=== PATIENT | female | born 1950 | race Caucasian/White ===

== ENCOUNTER 2018-10-23 17:41 | Inpatient (IN) | payer MEDICARE ==
[2018-10-23] MEDS ORDERED: methylPREDNISolone SOD SUCCI 125 MG/2 ML VIAL IV STA (17:51)
[2018-10-23] MEDS ORDERED: IPRATROPIUM 0.5 MG/2.5 ML NEBU INHALATION STA (17:51)
[2018-10-23] MEDS ORDERED: SODIUM CHLORIDE 0.9% 1,000 ML IV STA (17:51)
[2018-10-23] MEDS ORDERED: ALBUTEROL NEBULIZED 2.5 MG/3 ML INHALATION STA (17:51)
--- NOTE | 2018-10-23 17:53 | ED ---
SOB HPI - General Chief Complaint: Shortness of Breath Stated Complaint: COPD, SANTHOSH Time Seen by Provider: 10/23/18 17:50 Source: patient, RN notes reviewed, old records reviewed Mode of arrival: ambulatory Limitations: no limitations - History of Present Illness Initial Comments: This is a 5-year-old female the ER for evasive significant shortness of breath no history of smoking COPD, no doctor's in the area she is in the area symptoms worsen 3 days worsening. No chest pain. Patient is in severe distress, unable to take a deep breath, history is limited by severe shortness of breath MD Complaint: shortness of breath, cough -: days(s) Radiation: other (No pain) Severity: severe Severity scale (1-10): 8 Consistency: constant Improves With: nothing Worsens With: exertion, movement Known History Of: COPD Context: recent URI Associated Symptoms: cough Treatments Prior to Arrival: none - Related Data Home Medications Medication Instructions Recorded Confirmed Albuterol Inhaler [Ventolin Hfa 1 - 2 puff INHALATION RT-Q6H PRN 10/23/18 10/23/18 Inhaler] Anastrozole [Arimidex] 1 mg PO DAILY 10/23/18 10/23/18 Atorvastatin [Lipitor] 40 mg PO DAILY 10/23/18 10/23/18 Cholecalciferol [Vitamin D3] 5,000 unit PO DAILY 10/23/18 10/23/18 Furosemide [Lasix] 20 mg PO BID 10/23/18 10/23/18 Levothyroxine Sodium [Synthroid] 25 mcg PO DAILY 10/23/18 10/23/18 Losartan [Cozaar] 50 mg PO BID 10/23/18 10/23/18 Metoprolol Succinate (ER) [Toprol 100 mg PO BID 10/23/18 10/23/18 Xl] Potassium Chloride ER [K-Dur 20] 20 meq PO DAILY 10/23/18 10/23/18 Pregabalin [Lyrica] 100 mg PO BID 10/23/18 10/23/18 Rivaroxaban [Xarelto] 20 mg PO DAILY 10/23/18 10/23/18 Umeclidinium Brm/Vilanterol Tr 1 puff INHALATION RT-DAILY 10/23/18 10/23/18 [Anoro Ellipta 62.5-25 Mcg INH] busPIRone HCL 30 mg PO BID 10/23/18 10/23/18 metFORMIN HCL ER [Glucophage Xr] 500 mg PO BID 10/23/18 10/23/18 sitaGLIPtin [Januvia] 100 mg PO DAILY 10/23/18 10/23/18 Allergies Allergy/AdvReac Type Severity Reaction Status Date / Time Iodinated Contrast- Oral and Allergy Rash/Hives Verified 10/23/18 18:21 IV Dye morphine AdvReac Rash/Hives Verified 10/23/18 18:21 Review of Systems ROS Statement: Those systems with pertinent positive or pertinent negative responses have been documented in the HPI. ROS Other: All systems not noted in ROS Statement are negative. Past Medical History Past Medical History: Chest Pain / Angina, Heart Failure, COPD, Diabetes Mellitus, Hypertension Additional Past Medical History / Comment(s): Breast Ca. History of Any Multi-Drug Resistant Organisms: None Reported Past Surgical History: Unable to Obtain Past Psychological History: No Psychological Hx Reported Smoking Status: Current every day smoker Past Alcohol Use History: None Reported Past Drug Use History: None Reported General Exam Limitations: no limitations General appearance: alert, anxious, in distress Head exam: Present: atraumatic, normocephalic, normal inspection Eye exam: Present: normal appearance, PERRL, EOMI. Absent: scleral icterus, conjunctival injection, periorbital swelling ENT exam: Present: normal exam, mucous membranes moist Neck exam: Present: normal inspection. Absent: tenderness, meningismus, lymphadenopathy Respiratory exam: Present: respiratory distress, wheezes, accessory muscle use, decreased breath sounds, prolonged expiratory. Absent: rales, rhonchi, stridor Cardiovascular Exam: Present: regular rate, normal rhythm, normal heart sounds. Absent: systolic murmur, diastolic murmur, rubs, gallop, clicks GI/Abdominal exam: Present: soft, normal bowel sounds. Absent: distended, tenderness, guarding, rebound, rigid Extremities exam: Present: normal inspection, full ROM, normal capillary refill. Absent: tenderness, pedal edema, joint swelling, calf tenderness Back exam: Present: normal inspection Neurological exam: Present: alert, oriented X3, CN II-XII intact Psychiatric exam: Present: normal affect, normal mood Skin exam: Present: warm, dry, intact, normal color. Absent: rash Course Vital Signs 10/23/18 10/23/1810/23/19 17:45 17:51 18:07 Temperature 97.8 F Pulse Rate 96 96 Respiratory 32 H 22 Rate Blood Pressure 162/104 O2 Sat by Pulse 96 Oximetry 10/23/18 10/23/18 10/23/18 18:30 18:31 19:00 Temperature Pulse Rate 85 84 93 Respiratory 22 21 Rate Blood Pressure 169/93 170/92 O2 Sat by Pulse 100 98 Oximetry 10/23/18 10/23/18 19:25 19:30 Temperature Pulse Rate 93 97 Respiratory 26 H Rate Blood Pressure 185/98 O2 Sat by Pulse 95 Oximetry - Reevaluation(s) Reevaluation #1: 10/23/18 20:05 Medical record is reviewed Reevaluation #2: 10/23/18 20:05 Symptoms mildly improved with breathing treatments still for Medical Decision Making - Medical Decision Making 68-year-old female the ER for evaluation significant COPD exacerbation will admit for continued breathing treatments and monitoring of pulmonary status - Lab Data Result diagrams: 10/23/18 18:12 10/23/18 18:12 Lab Results 10/23/18 10/23/18 10/23/18 Range/Units 18:12 18:12 18:12 WBC 9.0 (3.8-10.6) k/uL RBC 4.84 (3.80-5.40) m/uL Hgb 13.8 (11.4-16.0) gm/dL Hct 43.6 (34.0-46.0) % MCV 90.0 (80.0-100.0) fL MCH 28.6 (25.0-35.0) pg MCHC 31.8 (31.0-37.0) g/dL RDW 14.2 (11.5-15.5) % Plt Count 233 (150-450) k/uL Neutrophils % 64 % Lymphocytes % 20 % Monocytes % 9 % Eosinophils % 4 % Basophils % 1 % Neutrophils # 5.7 (1.3-7.7) k/uL Lymphocytes # 1.8 (1.0-4.8) k/uL Monocytes # 0.8 (0-1.0) k/uL Eosinophils # 0.4 (0-0.7) k/uL Basophils # 0.1 (0-0.2) k/uL PT (9.0-12.0) sec INR (<1.2) APTT (22.0-30.0) sec Sodium 141 (137-145) mmol/L Potassium 4.2 (3.5-5.1) mmol/L Chloride 103 (98-107) mmol/L Carbon Dioxide 29 (22-30) mmol/L Anion Gap 9 mmol/L BUN 20 H (7-17) mg/dL Creatinine 1.24 H (0.52-1.04) mg/dL Est GFR (CKD-EPI)AfAm 51 (>60 ml/min/1.73 sqM) Est GFR (CKD-EPI)NonAf 44 (>60 ml/min/1.73 sqM) Glucose 173 H (74-99) mg/dL Calcium 9.6 (8.4-10.2) mg/dL Magnesium 1.6 (1.6-2.3) mg/dL Total Bilirubin 0.5 (0.2-1.3) mg/dL AST 21 (14-36) U/L ALT 20 (9-52) U/L Alkaline Phosphatase 111 (38-126) U/L Troponin I (0.000-0.034) ng/mL NT-Pro-B Natriuret Pep 2950 pg/mL Total Protein 7.5 (6.3-8.2) g/dL Albumin 3.9 (3.5-5.0) g/dL 10/23/18 10/23/18 Range/Units 18:12 18:12 WBC (3.8-10.6) k/uL RBC (3.80-5.40) m/uL Hgb (11.4-16.0) gm/dL Hct (34.0-46.0) % MCV (80.0-100.0) fL MCH (25.0-35.0) pg MCHC (31.0-37.0) g/dL RDW (11.5-15.5) % Plt Count (150-450) k/uL Neutrophils % % Lymphocytes % % Monocytes % % Eosinophils % % Basophils % % Neutrophils # (1.3-7.7) k/uL Lymphocytes # (1.0-4.8) k/uL Monocytes # (0-1.0) k/uL Eosinophils # (0-0.7) k/uL Basophils # (0-0.2) k/uL PT 10.7 (9.0-12.0) sec INR 1.0 (<1.2) APTT 30.0 (22.0-30.0) sec Sodium (137-145) mmol/L Potassium (3.5-5.1) mmol/L Chloride (98-107) mmol/L Carbon Dioxide (22-30) mmol/L Anion Gap mmol/L BUN (7-17) mg/dL Creatinine (0.52-1.04) mg/dL Est GFR (CKD-EPI)AfAm (>60 ml/min/1.73 sqM) Est GFR (CKD-EPI)NonAf (>60 ml/min/1.73 sqM) Glucose (74-99) mg/dL Calcium (8.4-10.2) mg/dL Magnesium (1.6-2.3) mg/dL Total Bilirubin (0.2-1.3) mg/dL AST (14-36) U/L ALT (9-52) U/L Alkaline Phosphatase (38-126) U/L Troponin I <0.012 (0.000-0.034) ng/mL NT-Pro-B Natriuret Pep pg/mL Total Protein (6.3-8.2) g/dL Albumin (3.5-5.0) g/dL - EKG Data -: EKG Interpreted by Me (EKG shows normal sinus rhythm rate of 86, CA 1:30, QRS 86, QTc 461) - Radiology Data Radiology results: report reviewed (Chest x-ray shows likely COPD), image reviewed Disposition Clinical Impression: Acute exacerbation of chronic obstructive airways disease Disposition: ADMITTED IP TO THIS HOSP Condition: Fair Is patient prescribed a controlled substance at d/c from ED?: No Referrals: Júnior Arzola DO [Primary Care Provider] - 1-2 days
[2018-10-23 18:24] LABS: Basophils # (A) 0.1 k/uL (0-0.2); Basophils % (A) 1 %; Eosinophils # (A) 0.4 k/uL (0-0.7); Eosinophils % (A) 4 %; HCT 43.6 % (34.0-46.0); HGB 13.8 gm/dL (11.4-16.0); Lymphocytes # (A) 1.8 k/uL (1.0-4.8); Lymphocytes % (A) 20 %; MCH 28.6 pg (25.0-35.0); MCHC 31.8 g/dL (31.0-37.0); Mean Platelet Volume 8.4; Monocytes # (A) 0.8 k/uL (0-1.0); Monocytes % (A) 9 %; Neutrophils # (A) 5.7 k/uL (1.3-7.7); Neutrophils % (A) 64 %; Platelet Count 233 k/uL (150-450); RBC 4.84 m/uL (3.80-5.40); RDW 14.2 % (11.5-15.5)
[2018-10-23 18:33] LABS: Prothrombin Time 10.7 sec (9.0-12.0)
[2018-10-23 18:37] LABS: Albumin 3.9 g/dL (3.5-5.0); Calcium 9.6 mg/dL (8.4-10.2); Magnesium 1.6 mg/dL (1.6-2.3); Potassium 4.2 mmol/L (3.5-5.1); Total Bilirubin 0.5 mg/dL (0.2-1.3); Total Protein 7.5 g/dL (6.3-8.2)
--- NOTE | 2018-10-23 19:13 | XR ---
EXAMINATION TYPE: XR chest 1V portable DATE OF EXAM: 10/23/2018 COMPARISON: NONE HISTORY: Short of breath TECHNIQUE: Single frontal view of the chest is obtained. FINDINGS: There is no heart failure nor confluent pneumonic infiltrate. Costophrenic angles are darcie r. There are chest leads. IMPRESSION: No active cardiopulmonary disease. This probably some COPD.
[2018-10-23] MEDS ORDERED: hydrALAZINE HCL 20 MG/ML 1 ML VIAL IVP STA ×2 (19:55→19:56)
[2018-10-23] MEDS ORDERED: IPRATROPIUM-ALBUTEROL 3 ML NEB INHALATION STA (20:02)
[2018-10-23] MEDS ORDERED: ALBUTEROL NEBULIZED 2.5 MG/3 ML INHALATION PRN (20:02)
[2018-10-23 21:28] VITALS: BMI 29.2
[2018-10-23] MEDS ORDERED: ATORVASTATIN 40 MG TAB PO ONE (22:30)
[2018-10-23] MEDS ORDERED: busPIRone HCl 10 MG TAB PO ONE (22:30)
[2018-10-23] MEDS: methylPREDNISolone SOD SUCCI 125 MG/2 ML VIAL IV SCH (23:06)
[2018-10-23] MEDS: INSULIN ASPART (NovoLOG) 100 UNIT/ML VIAL SQ SCH (23:06)
[2018-10-24] MEDS: LEVOTHYROXINE 25 MCG TAB PO SCH (05:53)
[2018-10-24] MEDS: methylPREDNISolone SOD SUCCI 125 MG/2 ML VIAL IV SCH ×3 (05:53→18:25)
[2018-10-24 07:11] LABS: Glucose,Whole Blood 265 mg/dL (75-99)
[2018-10-24] MEDS: METOPROLOL SUCCINATE (ER) 100 MG TAB.ER.24H PO SCH ×2 (07:33→22:32)
[2018-10-24] MEDS: POTASSIUM CHLORIDE ER 20 MEQ TAB.ER PO SCH (07:33)
[2018-10-24] MEDS: LOSARTAN 50 MG TAB PO SCH ×2 (07:33→22:32)
[2018-10-24] MEDS: AZITHROMYCIN 500 MG TAB PO SCH (07:34)
[2018-10-24] MEDS: PREGABALIN 100 MG CAP PO SCH ×2 (07:34→22:32)
[2018-10-24] MEDS: ANASTROZOLE 1 MG TAB PO SCH (07:34)
[2018-10-24] MEDS: RIVAROXABAN 20 MG TAB PO SCH (07:34)
[2018-10-24] MEDS: SODIUM CHLORIDE 0.9% 1,000 ML IV SCH ×3 (07:35→17:40)
[2018-10-24] MEDS: INSULIN ASPART (NovoLOG) 100 UNIT/ML VIAL SQ SCH ×4 (07:35→21:47)
[2018-10-24] MEDS: FUROSEMIDE 10 MG/ML 2 ML VIAL IV SCH ×2 (07:35→21:45)
[2018-10-24] MEDS: NICOTINE 21MG/24HR PATCH TRANSDERM SCH (07:36)
[2018-10-24] MEDS: IPRATROPIUM-ALBUTEROL 3 ML NEB INHALATION SCH ×4 (08:26→19:28)
[2018-10-24 11:35] LABS: Glucose,Whole Blood 306 mg/dL (75-99)
[2018-10-24] MEDS: CHOLECALCIFEROL 1,000 UNIT TAB PO SCH (11:55)
[2018-10-24] MEDS ORDERED: ALPRAZolam 0.25 MG TAB PO PRN (13:32)
[2018-10-24] MEDS ORDERED: TEMAZEPAM 15 MG CAP PO PRN (16:33)
[2018-10-24] MEDS ORDERED: ACETAMINOPHEN TAB 500 MG TAB PO PRN (16:33)
[2018-10-24 17:24] LABS: Glucose,Whole Blood 305 mg/dL (75-99)
--- NOTE | 2018-10-24 18:23 | HP ---
HISTORY AND PHYSICAL DATE OF SERVICE: 10/24/2018 CHIEF COMPLAINT: Shortness of breath. HISTORY OF PRESENT ILLNESS: This 68-year-old woman with a past medical history of multiple medical problems, including history of chest pain, history of CHF, COPD, diabetes mellitus, hypertension, breast cancer on the left side, being followed by Dr. Arzola in the outpatient setting, was complaining of shortness of breath. The patient has a history of smoking. The patient also has significant anxiety. The shortness of breath was increasing over the past 4 days. The patient came to [facility] and was admitted for further evaluation and treatment. Influenza is negative. Chest x-ray, which was reviewed personally by me, showed no evidence of pneumonia. PAST MEDICAL HISTORY: 1. CHF. 2. COPD. 3. Diabetes mellitus. 4. Hypertension. 5. Breast cancer, left side. HOME MEDICATIONS: 1. Januvia 100 mg p.o. daily. 2. Glucophage XR 500 mg p.o. b.i.d. 3. Buspirone 30 mg b.i.d. 4. Anoro Ellipta 1 puff daily. 5. Xarelto 20 mg daily. 6. Lyrica 100 mg p.o. b.i.d. 7. K-Dur 20 mEq p.o. daily. 8. Toprol XL 100 mg p.o. b.i.d. 9. Cozaar 50 mg p.o. b.i.d. 10.Synthroid 25 mcg p.o. daily. 11.Lasix 20 mg p.o. b.i.d. 12.Vitamin D3 5000 daily. 13.Lipitor 40 mg p.o. daily. 14.Arimidex 1 mg p.o. daily. 15.Ventolin HFA 1-2 puffs q.6 p.r.n. ALLERGIES: 1. IODINATED CONTRAST DYE. 2. MORPHINE. FAMILY HISTORY: History of COPD in the family. SOCIAL HISTORY: History of smoking, continued ongoing. No history of alcohol intake. REVIEW OF SYSTEMS: ENT: Diminished hearing. Diminished vision. CARDIOVASCULAR SYSTEM: No angina, palpitations. RESPIRATORY SYSTEM: As mentioned earlier. GI: No nausea, vomiting. : No dysuria or retention. NERVOUS SYSTEM: No numbness, weakness. ALLERGY/IMMUNOLOGY: No asthma, hayfever. MUSCULOSKELETAL: As mentioned earlier. HEMATOLOGY/ONCOLOGY: No history of anemia. ENDOCRINE: Diabetes mellitus. CONSTITUTIONAL: As mentioned earlier. DERMATOLOGY: Negative. RHEUMATOLOGY: Negative. PSYCHIATRY: As mentioned earlier. PHYSICAL EXAMINATION: Patient is alert, oriented x3. Pulse 85, blood pressure 160/60, respirations 16, temperature 98.5, pulse ox 96% on 3 L. HEENT: Conjunctivae normal. Oral mucosa moist. NECK: No jugular venous distention. No carotid bruit. No lymph node enlargement. CARDIOVASCULAR SYSTEM: S1, S2 muffled. RESPIRATORY SYSTEM: Breath sounds diminished at the bases. Bilateral scattered rhonchi and crackles. Expiratory wheezing also present. Prolonged expiration present. ABDOMEN: Soft, non-tender. No mass palpable. LEGS: No edema. No swelling. NERVOUS SYSTEM: Higher functions as mentioned earlier. Moves all 4 limbs. No focal motor or sensory deficit. LYMPHATICS: No lymph node palpable in neck, axillae or groin. SKIN: No ulcer, rash, bleeding. JOINTS: No active abnormality. LABS: CBC within normal limits. Creatinine is 1.24. Glucose noted. Influenza negative. ASSESSMENT: 1. Chronic obstructive pulmonary disease, acute exacerbation, with acute purulent tracheobronchitis. 2. Increased creatinine with mild acute renal failure, possibly prerenal. 3. Diabetes mellitus, type 2. 4. History of congestive heart failure. 5. History of chronic obstructive pulmonary disease. 6. Hypertension. 7. History of breast cancer. 8. History of nicotine dependence, continued, ongoing. 9. FULL CODE. RECOMMENDATIONS AND DISCUSSION: In this 68-year-old woman who presented with multiple complex medical issues, we will monitor the patient closely, continue the current medications, continue with symptomatic treatment. Bronchodilators. IV steroids. Pulmonary consultation with Milena Cordova. Otherwise, broad-spectrum IV antibiotics. Prognosis is guarded because of multiple complex medical issues. Further recommendations to follow. A copy of this dictation is being forwarded to Dr. Arzola, who is the primary physician. MMODL / IJN: [id number] /
[2018-10-24] MEDS: FORMOTEROL FUMARATE 20 MCG/2 ML NEBU INHALATION SCH (19:28)
[2018-10-24] MEDS: BUDESONIDE 1 MG/2 ML NEBU INHALATION SCH (19:29)
[2018-10-24 20:07] LABS: Glucose,Whole Blood 361 mg/dL (75-99)
[2018-10-24] MEDS ORDERED: INSULIN ASPART (NovoLOG) 100 UNIT/ML VIAL SQ ONE (21:07)
[2018-10-24] MEDS: INSULIN DETEMIR (LEVEMIR) 100 UNIT/ML SYR SQ SCH (21:46)
[2018-10-24] MEDS ORDERED: INSULIN ASPART (NovoLOG) 100 UNIT/ML VIAL SQ SCH (22:21)
[2018-10-24] MEDS: busPIRone HCl 10 MG TAB PO SCH (22:30)
[2018-10-24] MEDS: ATORVASTATIN 40 MG TAB PO SCH (22:32)
[2018-10-25] MEDS: methylPREDNISolone SOD SUCCI 125 MG/2 ML VIAL IV SCH ×4 (00:29→18:16)
[2018-10-25] MEDS: LEVOTHYROXINE 25 MCG TAB PO SCH (06:27)
[2018-10-25 06:48] LABS: Glucose,Whole Blood 179 mg/dL (75-99)
[2018-10-25] MEDS: FORMOTEROL FUMARATE 20 MCG/2 ML NEBU INHALATION SCH ×2 (07:27→20:20)
[2018-10-25] MEDS: IPRATROPIUM-ALBUTEROL 3 ML NEB INHALATION SCH ×4 (07:27→20:20)
[2018-10-25] MEDS: BUDESONIDE 1 MG/2 ML NEBU INHALATION SCH ×2 (07:27→20:20)
[2018-10-25] MEDS: SODIUM CHLORIDE 0.9% 1,000 ML IV SCH (08:12)
[2018-10-25] MEDS: NICOTINE 21MG/24HR PATCH TRANSDERM SCH (08:12)
[2018-10-25] MEDS: CHOLECALCIFEROL 1,000 UNIT TAB PO SCH (08:13)
[2018-10-25] MEDS: POTASSIUM CHLORIDE ER 20 MEQ TAB.ER PO SCH (08:13)
[2018-10-25] MEDS: INSULIN ASPART (NovoLOG) 100 UNIT/ML VIAL SQ SCH ×4 (08:13→20:33)
[2018-10-25] MEDS: AZITHROMYCIN 500 MG TAB PO SCH (08:13)
[2018-10-25] MEDS: PANTOPRAZOLE 40 MG TABLET PO SCH (08:14)
[2018-10-25] MEDS: busPIRone HCl 10 MG TAB PO SCH ×2 (08:14→22:22)
[2018-10-25] MEDS: RIVAROXABAN 20 MG TAB PO SCH (08:14)
[2018-10-25] MEDS: ATORVASTATIN 40 MG TAB PO SCH (08:14)
[2018-10-25] MEDS: PREGABALIN 100 MG CAP PO SCH ×2 (08:14→22:22)
[2018-10-25] MEDS: METOPROLOL SUCCINATE (ER) 100 MG TAB.ER.24H PO SCH ×2 (08:14→22:22)
[2018-10-25] MEDS: ANASTROZOLE 1 MG TAB PO SCH (08:14)
[2018-10-25] MEDS: LOSARTAN 50 MG TAB PO SCH ×2 (08:14→22:22)
[2018-10-25] MEDS: LINAGLIPTIN 5 MG TABLET PO SCH (08:14)
[2018-10-25] MEDS: FUROSEMIDE 10 MG/ML 2 ML VIAL IV SCH ×2 (08:15→22:22)
[2018-10-25 09:39] LABS: Basophils % (A) 0 %; Eosinophils % (A) 0 %; HCT 39.7 % (34.0-46.0); HGB 12.5 gm/dL (11.4-16.0); Lymphocytes # (A) 0.9 k/uL (1.0-4.8); Lymphocytes % (A) 7 %; MCH 28.7 pg (25.0-35.0); MCHC 31.5 g/dL (31.0-37.0); Mean Platelet Volume 8.3; Monocytes # (A) 0.4 k/uL (0-1.0); Monocytes % (A) 3 %; Neutrophils # (A) 11.8 k/uL (1.3-7.7); Neutrophils % (A) 90 %; Platelet Count 196 k/uL (150-450); RBC 4.36 m/uL (3.80-5.40); RDW 14.4 % (11.5-15.5); WBC 13.1 k/uL (3.8-10.6)
[2018-10-25 09:50] LABS: Calcium 8.7 mg/dL (8.4-10.2); Potassium 4.4 mmol/L (3.5-5.1)
[2018-10-25 12:14] LABS: Glucose,Whole Blood 359 mg/dL (75-99)
--- NOTE | 2018-10-25 13:27 | P.CNPUL ---
History of Present Illness Consult date: 10/25/18 Requesting physician: Faisal Delacruz Reason for consult: dyspnea, COPD Chief complaint: Shortness of breath, cough, congestion History of present illness: This is a pleasant 68-year-old female patient who follows with Dr. Arzola as her primary care physician. She has a history of breast cancer, hypothyroidism, diabetes mellitus, hypertension, hyperlipidemia, chronic obstructive pulmonary disease and chronic and ongoing tobacco dependence. She is maintained on Anoro and albuterol in the outpatient setting. She has not been seen by a brick tender in the past. She presented here to the emergency room on 10/23/2018 after to having a three-day history of increasing shortness of breath and dyspnea on exertion cough and congestion. She is seen today in consultation on the regular medical floor. She is currently sitting up in a chair at the bedside. She is awake and alert in no acute distress. She is doing quite a bit better than 2 days ago. She is nearly back to her baseline. She is hoping to go home. She has been treated with DuoNeb inhalations, Pulmicort and Perforomist inhalations, IV Solu-Medrol. Chest x-ray revealed no acute pulmonary process. White count 13.1. Hemoglobin 12.5. Creatinine 1.11. Review of Systems REVIEW OF SYSTEMS: CONSTITUTIONAL: Denies any recent significant weight loss or weight gain. EYES: Denies change in vision. EARS, NOSE, MOUTH, THROAT: Denies headaches, denies sore throat. CARDIOVASCULAR: Denies chest pain, palpitations or syncopal episodes. RESPIRATORY: Positive for shortness of breath, cough, congestion no hemoptysis. GASTROINTESTINAL: Denies change in appetite, denies abdominal pain GENITOURINARY: Denies hematuria, denies infections. MUSKULOSKELETAL: Denies pain, denies swelling. INTEGUMENTARY: Denies rash, denies eczema. NEUROLOGICAL: Denies recent memory loss, no recent seizure activity. PSYCHIATRIC: Denies anxiety, denies depression. HEMATOLOGIC/LYMPHATIC: Denies anemia, denies enlarged lymph nodes. Past Medical History Past Medical History: Chest Pain / Angina, Heart Failure, COPD, Diabetes Mellitus, Hypertension Additional Past Medical History / Comment(s): Breast Ca. Left side History of Any Multi-Drug Resistant Organisms: None Reported Past Surgical History: Unable to Obtain Past Anesthesia/Blood Transfusion Reactions: No Reported Reaction Past Psychological History: No Psychological Hx Reported Smoking Status: Current every day smoker Past Alcohol Use History: None Reported Past Drug Use History: None Reported - Past Family History Mother Family Medical History: COPD Father Family Medical History: Liver Disease Medications and Allergies Home Medications Medication Instructions Recorded Confirmed Type Albuterol Inhaler [Ventolin Hfa 1 - 2 puff INHALATION RT-Q6H PRN 10/23/18 10/23/18 History Inhaler] Anastrozole [Arimidex] 1 mg PO DAILY 10/23/18 10/23/18 History Atorvastatin [Lipitor] 40 mg PO DAILY 10/23/18 10/23/18 History Cholecalciferol [Vitamin D3] 5,000 unit PO DAILY 10/23/18 10/23/18 History Furosemide [Lasix] 20 mg PO BID 10/23/18 10/23/18 History Levothyroxine Sodium [Synthroid] 25 mcg PO DAILY 10/23/18 10/23/18 History Losartan [Cozaar] 50 mg PO BID 10/23/18 10/23/18 History Metoprolol Succinate (ER) [Toprol 100 mg PO BID 10/23/18 10/23/18 History Xl] Potassium Chloride ER [K-Dur 20] 20 meq PO DAILY 10/23/18 10/23/18 History Pregabalin [Lyrica] 100 mg PO BID 10/23/18 10/23/18 History Rivaroxaban [Xarelto] 20 mg PO DAILY 10/23/18 10/23/18 History Umeclidinium Brm/Vilanterol Tr 1 puff INHALATION RT-DAILY 10/23/18 10/23/18 History [Anoro Ellipta 62.5-25 Mcg INH] busPIRone HCL 30 mg PO BID 10/23/18 10/23/18 History metFORMIN HCL ER [Glucophage Xr] 500 mg PO BID 10/23/18 10/23/18 History sitaGLIPtin [Januvia] 100 mg PO DAILY 10/23/18 10/23/18 History Allergies Allergy/AdvReac Type Severity Reaction Status Date / Time Iodinated Contrast- Oral and Allergy Rash/Hives Verified 10/23/18 18:21 IV Dye morphine AdvReac Rash/Hives Verified 10/23/18 18:21 Physical Exam Vitals: Vital Signs Temp Pulse Pulse Resp BP Pulse Ox 10/25/18 11:35 74 10/25/18 11:24 74 10/25/18 08:10 98.5 F 88 16 133/71 94 L 10/25/18 07:47 74 18 10/25/18 07:40 78 18 10/25/18 07:39 77 16 10/25/18 07:28 73 18 98 10/25/18 00:10 18 10/24/18 23:49 98.2 F 74 18 137/75 95 10/24/18 20:30 85 18 10/24/18 19:50 82 10/24/18 19:41 88 20 10/24/18 19:35 82 10/24/18 19:30 82 20 98 10/24/18 16:13 80 10/24/18 16:01 78 97 10/24/18 14:47 98.5 F 85 16 160/67 96 Intake and Output 10/24/18 10/25/18 10/25/18 22:59 06:59 14:59 Other: Voiding Method Toilet # Voids 1 GENERAL EXAM: Pleasant 68-year-old female patient. Alert, active, comfortable in no apparent distress. On 2 L nasal cannula. HEAD: Normocephalic. EYES: Normal reaction of pupils, equal size. NOSE: Clear with pink turbinates. THROAT: No erythema or exudates. NECK: No masses, no JVD. CHEST: No chest wall deformity. LUNGS: Equal air entry with no crackles, wheeze, rhonchi or dullness. CVS: S1 and S2 normal with no audible murmur, regular rhythm. ABDOMEN: No hepatosplenomegaly, normal bowel sounds, no guarding or rigidity. SPINE: No scoliosis or deformity SKIN: No rashes CENTRAL NERVOUS SYSTEM: No focal deficits, tone is normal in all 4 extremities. EXTREMITIES: There is no peripheral edema. No clubbing, no cyanosis. Peripheral pulses are intact. On room air. Results - Laboratory Findings CBC and BMP: 10/25/18 09:01 10/25/18 09:01 PT/INR, D-dimer PT 10.7 sec (9.0-12.0) 10/23/18 18:12 INR 1.0 (<1.2) 10/23/18 18:12 Abnormal lab findings: Abnormal Labs 0310/24/18 10/24/18 18:12 07:04 11:22 WBC Neutrophils # Lymphocytes # BUN 20 H Creatinine 1.24 H Glucose 173 H POC Glucose (mg/dL) 265 H 306 H 10/24/18 10/24/18 10/25/18 17:12 19:55 06:46 WBC Neutrophils # Lymphocytes # BUN Creatinine Glucose POC Glucose (mg/dL) 305 H 361 H 179 H 10/25/18 10/25/18 10/25/18 09:01 09:01 12:02 WBC 13.1 H Neutrophils # 11.8 H Lymphocytes # 0.9 L BUN 27 H Creatinine 1.11 H Glucose 317 H POC Glucose (mg/dL) 359 H - Diagnostic Findings Chest x-ray: image reviewed (No acute pulmonary process) Assessment and Plan Assessment: Impression: #1 Acute exacerbation of chronic oxygen dependent obstructive pulmonary disease. No clear evidence of pneumonia. #2 Acute on chronic hypoxemic respiratory failure secondary to above. #3 Chronic and ongoing tobacco dependence of greater than 50 years. #4 Diabetes mellitus. #5 Hypertension. #6 Hyperlipidemia. #7 Hypothyroidism. #8 History of anxiety. #9 History of breast cancer. Plan: The patient was seen and evaluated by Dr. Abbott. Chest x-ray and labs were reviewed. No clear evidence of pneumonia. We'll continue with her current treatment plan for COPD. She could be to transition to oral prednisone and discharged home today. Prednisone 40 mg daily 4 and tapered down. She'll continue her home pulmonary medications. She is educated regarding the importance of complete smoking cessation. NicoDerm patches in place. Anticoagulated with Xarelto. She would benefit from a follow-up in our office where he could perform full pulmonary function testing to evaluate the severity of her COPD and make further recommendations regarding maintenance medications. She is however encouraged to call sooner with any recurrence of symptoms or other questions or concerns. I, the cosigning physician, performed a history & physical examination of the patient. Lungs sounds with faint end expiratory wheeze, diminished. Maintaining good O2 saturations in the 90s on 2 L/m per nasal cannula. I discussed the assessment and plan of care with my nurse practitioner, Serena Cortes. I attest to the above note as dictated by her. Time with Patient: Greater than 30
[2018-10-25] MEDS ORDERED: INSULIN REGULAR 100 UNIT/ML VIAL IV ONE (17:22)
[2018-10-25 17:28] LABS: Glucose,Whole Blood 392 mg/dL (75-99)
[2018-10-25 18:47] LABS: Glucose,Whole Blood 374 mg/dL (75-99)
[2018-10-25] MEDS: INSULIN REGULAR 100 UNIT in SODIUM CHLORIDE 0.9% 100 ML IV SCH (19:53)
[2018-10-25 20:43] LABS: Glucose,Whole Blood 377 mg/dL (75-99)
[2018-10-25 21:40] LABS: Glucose,Whole Blood 300 mg/dL (75-99)
[2018-10-25] MEDS: INSULIN DETEMIR (LEVEMIR) 100 UNIT/ML SYR SQ SCH (22:22)
[2018-10-25 22:25] LABS: Glucose,Whole Blood 222 mg/dL (75-99)
--- NOTE | 2018-10-25 22:45 | PN ---
PROGRESS NOTE DATE OF SERVICE: 10/25/2018 This 68-year-old woman who was admitted with COPD acute exacerbation, acute purulent tracheobronchitis is being closely monitored. The patient also had renal failure. The creatinine improved to 1.1 and glucose was elevated. No chest pain. No palpitations. No fever. PHYSICAL EXAM: Alert and oriented times three. Pulse is 84. Blood pressure 150/66. Respiratory rate 12, Temperature 98.2, pulse ox 98% on room air. HEENT: Conjunctivae normal. CARDIOVASCULAR: S1, S2 muffled. RESPIRATORY: Breath sounds diminished in the bases. Bilateral scattered rhonchi and crackles. ABDOMEN: Soft, nontender. No mass palpable. LEGS: No edema. No swelling. Nervous system: Higher functions as mentioned earlier. Moves all 4 limbs. No focal deficits. LAB STUDIES: At this time shows labs are at this time shows WBC 13.1, creatinine 1.11, glucose noted. ASSESSMENT: 1. Chronic obstructive pulmonary disease acute exacerbation with acute purulent tracheobronchitis. 2. Increased creatinine with mild acute renal failure with possibly prerenal. 3. Diabetes mellitus type 2 with hyperglycemia, uncontrolled secondary to steroids. 4. History of congestive heart failure. 5. History of chronic obstructive pulmonary disease. 6. Hypertension. 7. History of breast cancer. 8. History of nicotine dependence. Continued ongoing. 9. History of congestive heart failure, ejection fraction unknown. 10.FULL CODE. RECOMMENDATIONS AND DISCUSSION: Recommend to continue current medications, management and symptomatic treatment. Taper the steroids. Increase ambulation. Continue the antibiotics and continue the rest of the medications. Guarded prognosis because of multiple complex medical issues. Further recommendations to follow. MMODL / IJN: [id number] /
[2018-10-26 00:39] LABS: Glucose,Whole Blood 138 mg/dL (75-99)
[2018-10-26] MEDS: methylPREDNISolone SOD SUCCI 40 MG/ML 1 ML VIAL IV SCH ×2 (00:57→09:27)
[2018-10-26 02:29] LABS: Glucose,Whole Blood 148 mg/dL (75-99)
[2018-10-26 04:30] LABS: Glucose,Whole Blood 157 mg/dL (75-99)
[2018-10-26] MEDS: LEVOTHYROXINE 25 MCG TAB PO SCH (05:53)
[2018-10-26] MEDS: SODIUM CHLORIDE 0.9% 1,000 ML IV SCH (05:53)
[2018-10-26 06:43] LABS: Glucose,Whole Blood 158 mg/dL (75-99)
[2018-10-26] MEDS: BUDESONIDE 1 MG/2 ML NEBU INHALATION SCH ×2 (06:46→21:12)
[2018-10-26] MEDS: FORMOTEROL FUMARATE 20 MCG/2 ML NEBU INHALATION SCH ×2 (06:46→21:12)
[2018-10-26] MEDS: IPRATROPIUM-ALBUTEROL 3 ML NEB INHALATION SCH ×4 (06:46→21:08)
[2018-10-26 08:53] LABS: Glucose,Whole Blood 191 mg/dL (75-99)
[2018-10-26] MEDS: INSULIN ASPART (NovoLOG) 100 UNIT/ML VIAL SQ SCH ×4 (09:25→21:54)
[2018-10-26] MEDS: ANASTROZOLE 1 MG TAB PO SCH (09:26)
[2018-10-26] MEDS: NICOTINE 21MG/24HR PATCH TRANSDERM SCH (09:26)
[2018-10-26] MEDS: CHOLECALCIFEROL 1,000 UNIT TAB PO SCH (09:26)
[2018-10-26] MEDS: RIVAROXABAN 20 MG TAB PO SCH (09:27)
[2018-10-26] MEDS: busPIRone HCl 10 MG TAB PO SCH ×2 (09:27→21:54)
[2018-10-26] MEDS: AZITHROMYCIN 500 MG TAB PO SCH (09:27)
[2018-10-26] MEDS: PANTOPRAZOLE 40 MG TABLET PO SCH (09:27)
[2018-10-26] MEDS: PREGABALIN 100 MG CAP PO SCH ×2 (09:28→21:54)
[2018-10-26] MEDS: METOPROLOL SUCCINATE (ER) 100 MG TAB.ER.24H PO SCH ×2 (09:28→21:55)
[2018-10-26] MEDS: LOSARTAN 50 MG TAB PO SCH ×2 (09:28→21:55)
[2018-10-26] MEDS: POTASSIUM CHLORIDE ER 20 MEQ TAB.ER PO SCH (09:28)
[2018-10-26] MEDS: FUROSEMIDE 10 MG/ML 2 ML VIAL IV SCH ×2 (09:28→21:55)
[2018-10-26] MEDS: ATORVASTATIN 40 MG TAB PO SCH (09:28)
[2018-10-26] MEDS: LINAGLIPTIN 5 MG TABLET PO SCH (09:31)
[2018-10-26 09:46] LABS: Calcium 8.8 mg/dL (8.4-10.2); Potassium 4.4 mmol/L (3.5-5.1)
[2018-10-26 09:55] LABS: Basophils % (A) 0 %; Eosinophils # (A) 0.1 k/uL (0-0.7); Eosinophils % (A) 1 %; HCT 39.7 % (34.0-46.0); HGB 12.9 gm/dL (11.4-16.0); Lymphocytes # (A) 0.8 k/uL (1.0-4.8); Lymphocytes % (A) 6 %; MCH 29.2 pg (25.0-35.0); MCHC 32.4 g/dL (31.0-37.0); Mean Platelet Volume 9.3; Monocytes # (A) 0.4 k/uL (0-1.0); Monocytes % (A) 3 %; Neutrophils # (A) 12.7 k/uL (1.3-7.7); Neutrophils % (A) 91 %; Platelet Count 216 k/uL (150-450); RBC 4.41 m/uL (3.80-5.40); RDW 14.8 % (11.5-15.5)
[2018-10-26 11:30] LABS: Glucose,Whole Blood 215 mg/dL (75-99)
[2018-10-26] MEDS: INSULIN REGULAR 100 UNIT in SODIUM CHLORIDE 0.9% 100 ML IV SCH (12:33)
[2018-10-26 12:59] LABS: Glucose,Whole Blood 195 mg/dL (75-99)
--- NOTE | 2018-10-26 13:37 | P.PN ---
Subjective Progress Note Date: 10/26/18 Principal diagnosis: Acute exacerbation of chronic obstructive pulmonary disease. This is a pleasant 68-year-old female patient who follows with Dr. Arzola as her primary care physician. She has a history of breast cancer, hypothyroidism, diabetes mellitus, hypertension, hyperlipidemia, chronic obstructive pulmonary disease and chronic and ongoing tobacco dependence. She is maintained on Anoro and albuterol in the outpatient setting. She has not been seen by a pulmonol ogist in the past. She presented here to the emergency room on 10/23/2018 after to having a three-day history of increasing shortness of breath and dyspnea on exertion cough and congestion. She is seen today in consultation on the regular medical floor. She is currently sitting up in a chair at the bedside. She is awake and alert in no acute distress. She is doing quite a bit better than 2 da ys ago. She is nearly back to her baseline. She is hoping to go home. She has been treated with DuoNeb inhalations, Pulmicort and Perforomist inhalations, IV Solu-Medrol. Chest x-ray revealed no acute pulmonary process. White count 13.1. Hemoglobin 12.5. Creatinine 1.11. The patient is seen today 10/26/2018 in follow-up on the regular medical floor. She is awake and alert in no acute distress. She is breathing easier today as compared to yesterday. She is maintaining O2 saturations in the 90s on room air. She's been afebrile. Hemodynamically stable. White count 14. Hemoglobin 12.9. Creatinine 1.15. She remains on DuoNeb inhalations, Pulmicort and Perforomist inhalations, IV Solu-Medrol, antibiotics in the form of azithromycin. She is anticoagulated with Xarelto. Objective - Vital Signs Vital signs: Vital Signs Temp 98.0 F 10/26/18 07:26 Pulse 74 10/26/18 12:09 Resp 16 10/26/18 07:26 BP 173/89 10/26/18 07:26 Pulse Ox 94 L 10/26/18 07:26 Intake & Output 10/25/18 10/26/18 10/26/18 18:59 06:59 18:59 Intake Total 67.364 255.017 Balance 67.364 255.017 Weight 73.2 kg Intake: Intake, IV Titration 67.364 15.017 Amount Insulin Regular 100 unit 67.364 15.017 In Sodium Chloride 0.9% 100 ml @ Titrate IV .Q0M [facility] Rx#:[id number] Oral 240 Other: # Voids 2 2 1 - Exam GENERAL EXAM: Alert, active, comfortable in no apparent distress. HEAD: Normocephalic. EYES: Normal reaction of pupils, equal size. NOSE: Clear with pink turbinates. THROAT: No erythema or exudates. Edentulous NECK: No masses, no JVD. CHEST: No chest wall deformity. LUNGS: Equal air entry with faint bilateral end expiratory wheeze. CVS: S1 and S2 normal with no audible murmur, regular rhythm. ABDOMEN: No hepatosplenomegaly, normal bowel sounds, no guarding or rigidity. SPINE: No scoliosis or deformity SKIN: No rashes CENTRAL NERVOUS SYSTEM: No focal deficits, tone is normal in all 4 extremities. EXTREMITIES: There is no peripheral edema. No clubbing, no cyanosis. Peripheral pulses are intact. - Labs CBC & Chem 7: 10/26/18 08:23 10/26/18 08:23 Labs: Abnormal Lab Results - Last 24 Hours (Table) 10/25/18 10/25/18 10/25/18 Range/Units 17:17 18:44 20:32 WBC (3.8-10.6) k/uL Neutrophils # (1.3-7.7) k/uL Lymphocytes # (1.0-4.8) k/uL Chloride (98-107) mmol/L BUN (7-17) mg/dL Creatinine (0.52-1.04) mg/dL Glucose (74-99) mg/dL POC Glucose (mg/dL) 392 H 374 H 377 H (75-99) mg/dL 10/25/18 10/25/18 10/26/18 Range/Units 21:29 22:19 00:32 WBC (3.8-10.6) k/uL Neutrophils # (1.3-7.7) k/uL Lymphocytes # (1.0-4.8) k/uL Chloride (98-107) mmol/L BUN (7-17) mg/dL Creatinine (0.52-1.04) mg/dL Glucose (74-99) mg/dL POC Glucose (mg/dL) 300 H 222 H 138 H (75-99) mg/dL 10/26/18 10/26/18 10/26/18 Range/Units 02:27 04:28 06:42 WBC (3.8-10.6) k/uL Neutrophils # (1.3-7.7) k/uL Lymphocytes # (1.0-4.8) k/uL Chloride (98-107) mmol/L BUN (7-17) mg/dL Creatinine (0.52-1.04) mg/dL Glucose (74-99) mg/dL POC Glucose (mg/dL) 148 H 157 H 158 H (75-99) mg/dL 10/26/18 10/26/18 10/26/18 Range/Units 08:23 08:23 08:52 WBC 14.0 H (3.8-10.6) k/uL Neutrophils # 12.7 H (1.3-7.7) k/uL Lymphocytes # 0.8 L (1.0-4.8) k/uL Chloride 109 H (98-107) mmol/L BUN 39 H (7-17) mg/dL Creatinine 1.15 H (0.52-1.04) mg/dL Glucose 163 H (74-99) mg/dL POC Glucose (mg/dL) 191 H (75-99) mg/dL 10/26/18 10/26/18 Range/Units 11:28 12:58 WBC (3.8-10.6) k/uL Neutrophils # (1.3-7.7) k/uL Lymphocytes # (1.0-4.8) k/uL Chloride (98-107) mmol/L BUN (7-17) mg/dL Creatinine (0.52-1.04) mg/dL Glucose (74-99) mg/dL POC Glucose (mg/dL) 215 H 195 H (75-99) mg/dL Assessment and Plan Assessment: Impression: #1 Acute exacerbation of chronic oxygen dependent obstructive pulmonary disease. No clear evidence of pneumonia. #2 Acute on chronic hypoxemic respiratory failure secondary to above. #3 Chronic and ongoing tobacco dependence of greater than 50 years. #4 Diabetes mellitus. #5 Hypertension. #6 Hyperlipidemia. #7 Hypothyroidism. #8 History of anxiety. #9 History of breast cancer. Plan: The patient was seen and evaluated by Dr. Milena. We'll continue with her current treatment plan for COPD. Upon discharge she'll begin on an oral prednisone taper 40 mg daily 4 and tapered down. She'll continue her home pulmonary medications. She is again educated regarding the importance of complete smoking cessation. NicoDerm patch is in place. Anticoagulated with Xarelto. I, the cosigning physician, performed a history & physical examination of the patient. Lungs sounds with faint end expiratory wheeze, diminished. Maintaining good O2 saturations in the 90s on room air. I discussed the assessment and plan of care with my nurse practitioner, Serena Cortes. I attest to the above note as dictated by her.
[2018-10-26 17:00] LABS: Glucose,Whole Blood 191 mg/dL (75-99)
[2018-10-26] MEDS: predniSONE 10 MG TAB PO SCH (17:15)
[2018-10-26 19:45] LABS: Glucose,Whole Blood 292 mg/dL (75-99)
[2018-10-26] MEDS: INSULIN DETEMIR (LEVEMIR) 100 UNIT/ML SYR SQ SCH (21:54)
--- NOTE | 2018-10-26 23:01 | PN ---
PROGRESS NOTE DATE OF SERVICE: 10/26/2018 This 68-year-old woman who was admitted with COPD acute exacerbation with acute purulent tracheobronchitis also had renal failure. The patient is improving significantly. No chest pain. No palpitations. No fever. The patient is on IV insulin drip. EXAM: Alert and oriented times three. Pulse 89, blood pressure 159/78, respirations 16, temperature 98.2, pulse ox 98% on room air. HEENT: Conjunctivae normal. NECK: No jugular venous distention. CARDIOVASCULAR: S1, S2 muffled. RESPIRATORY: Breath sounds diminished in the bases. Bilateral scattered rhonchi and crackles. Abdomen is soft, nontender. Legs: No edema. No swelling. CENTRAL NERVOUS SYSTEM: No focal deficits. LAB STUDIES: WBC 14, sodium 142, potassium 4.4. Creatinine is 1.15. ASSESSMENT: 1. Chronic obstructive pulmonary disease acute exacerbation with acute purulent tracheobronchitis. 2. Increased creatinine with mild acute renal failure possibly prerenal renal failure. 3. Diabetes type 2 with hyperglycemia, uncontrolled secondary to steroids. 4. History of congestive heart failure. 5. History of chronic obstructive pulmonary disease. 6. Hypertension. 7. History of breast cancer. 8. History of nicotine dependence, continued ongoing. 9. History of congestive heart failure with ejection fraction unknown. 10.FULL CODE. RECOMMENDATIONS AND DISCUSSION: Recommend to continue current medications, continue symptomatic treatment, management and recommend to taper the steroids. Stop the insulin drip. Continue the insulin coverage. Continue the rest of medications. Bronchodilators. Closely follow with Pulmonary. Guarded prognosis. Increase ambulation. Further recommendations to follow. MMODL / IJN: [id number] /
[2018-10-27] MEDS: LEVOTHYROXINE 25 MCG TAB PO SCH (06:57)
[2018-10-27 07:25] LABS: Glucose,Whole Blood 188 mg/dL (75-99)
[2018-10-27] MEDS: SODIUM CHLORIDE 0.9% 1,000 ML IV SCH (07:42)
[2018-10-27] MEDS: PANTOPRAZOLE 40 MG TABLET PO SCH (07:45)
[2018-10-27] MEDS: INSULIN ASPART (NovoLOG) 100 UNIT/ML VIAL SQ SCH ×2 (07:45→12:24)
[2018-10-27] MEDS: ATORVASTATIN 40 MG TAB PO SCH (08:36)
[2018-10-27] MEDS: ANASTROZOLE 1 MG TAB PO SCH (08:36)
[2018-10-27] MEDS: AZITHROMYCIN 500 MG TAB PO SCH (08:36)
[2018-10-27] MEDS: NICOTINE 21MG/24HR PATCH TRANSDERM SCH (08:36)
[2018-10-27] MEDS: LINAGLIPTIN 5 MG TABLET PO SCH (08:37)
[2018-10-27] MEDS: LOSARTAN 50 MG TAB PO SCH (08:37)
[2018-10-27] MEDS: METOPROLOL SUCCINATE (ER) 100 MG TAB.ER.24H PO SCH (08:37)
[2018-10-27] MEDS: FUROSEMIDE 10 MG/ML 2 ML VIAL IV SCH (08:37)
[2018-10-27] MEDS: POTASSIUM CHLORIDE ER 20 MEQ TAB.ER PO SCH (08:38)
[2018-10-27] MEDS: PREGABALIN 100 MG CAP PO SCH (08:38)
[2018-10-27] MEDS: predniSONE 10 MG TAB PO SCH (08:38)
[2018-10-27] MEDS: busPIRone HCl 10 MG TAB PO SCH (08:39)
[2018-10-27] MEDS: RIVAROXABAN 20 MG TAB PO SCH (08:55)
[2018-10-27 09:20] LABS: Basophils % (A) 0 %; Eosinophils # (A) 0.1 k/uL (0-0.7); Eosinophils % (A) 0 %; HCT 40.7 % (34.0-46.0); HGB 12.7 gm/dL (11.4-16.0); Lymphocytes # (A) 1.1 k/uL (1.0-4.8); Lymphocytes % (A) 10 %; MCH 28.4 pg (25.0-35.0); MCHC 31.1 g/dL (31.0-37.0); MCV 91.1 fL (80.0-100.0); Mean Platelet Volume 8.6; Monocytes # (A) 0.8 k/uL (0-1.0); Monocytes % (A) 7 %; Neutrophils # (A) 9.3 k/uL (1.3-7.7); Neutrophils % (A) 82 %; Platelet Count 222 k/uL (150-450); RBC 4.47 m/uL (3.80-5.40); RDW 14.6 % (11.5-15.5); WBC 11.3 k/uL (3.8-10.6)
[2018-10-27 09:51] LABS: Calcium 8.5 mg/dL (8.4-10.2); Potassium 3.9 mmol/L (3.5-5.1)
[2018-10-27] MEDS: BUDESONIDE 1 MG/2 ML NEBU INHALATION SCH (09:52)
[2018-10-27] MEDS: FORMOTEROL FUMARATE 20 MCG/2 ML NEBU INHALATION SCH (09:52)
[2018-10-27] MEDS: IPRATROPIUM-ALBUTEROL 3 ML NEB INHALATION SCH ×2 (09:53→11:53)
[2018-10-27 11:12] LABS: Hemoglobin A1C 7.8 % (4.0-6.0)
[2018-10-27 12:06] LABS: Glucose,Whole Blood 175 mg/dL (75-99)
[2018-10-27] MEDS: CHOLECALCIFEROL 1,000 UNIT TAB PO SCH (12:24)
[2018-10-27 16:05] VITALS: BP 157/80; PULSE 84; RESP 14; TEMP 97.8
--- NOTE | 2018-10-27 23:30 | DS ---
DISCHARGE SUMMARY DATE OF SERVICE: 10/27/2018 FINAL DIAGNOSES: 1. Chronic obstructive pulmonary disease, acute exacerbation, with acute purulent tracheobronchitis. 2. Increased creatinine with mild acute renal failure, possibly prerenal acute renal failure. 3. Diabetes mellitus, type 2, with hyperglycemia, uncontrolled secondary to steroids. 4. History of congestive heart failure. 5. History of chronic obstructive pulmonary disease. 6. Hypertension. 7. History of breast cancer. 8. History of nicotine dependence, continued ongoing. 9. History of congestive heart failure, ejection fraction unknown. 10.FULL CODE. DISCHARGE DISPOSITION: The patient will be discharged in stable condition with guarded prognosis. HISTORY OF PRESENT ILLNESS: This 68-year-old woman with a past medical history of multiple medical problems was admitted with COPD, acute exacerbation, as well as acute purulent tracheobronchitis. The patient was treated with bronchodilators and steroids. The patient improved significantly. Patient was seen by Pulmonology, Dr. Abbott. On exam, vitals are stable. CARDIOVASCULAR SYSTEM: S1, S2 muffled. RESPIRATORY SYSTEM: A few scattered rhonchi. ABDOMEN: Soft. NERVOUS SYSTEM: No focal deficit. DISCHARGE ADVICE AND MEDICATIONS: 1. Discharge diet is cardiac. 2. Activity limited until followup. 3. Follow up with Dr. Arzola in 2-3 days. 4. Follow up with Dr. Abbott as recommended. 5. Anoro Ellipta 1 puff daily. 6. Arimidex 1 mg p.o. daily. 7. Buspirone 30 mg p.o. b.i.d. 8. Cozaar 50 mg p.o. b.i.d. 9. Januvia 100 mg p.o. daily. 10.K-Dur 20 mEq p.o. daily. 11.Lasix 20 mg p.o. b.i.d. 12.Lipitor 40 mg p.o. daily. 13.Lyrica 100 mg p.o. b.i.d. 14.Synthroid 25 mcg p.o. daily. 15.Toprol XL 100 mg p.o. b.i.d. 16.Vitamin D3 5000 daily. 17.Xarelto 20 mg p.o. daily. 18.Ceftin 500 mg b.i.d. for 5 days. 19.Habitrol for 21 days. 20.No smoking. 21.Levemir 30 units subcutaneously at bedtime. 22.Prednisone: 30 mg daily for 3 days; 20 mg daily for 3 days; 10 mg daily for 3 days; than stop. 23.Protonix 40 mg p.o. daily. 24.Albuterol inhaler 2 puffs q.i.d. Once again, the patient will be discharged in stable condition with guarded prognosis. MMODL / RADHAN: [id number] /
== END 2018-10-27 16:00 | disposition home or self-care (01) | DRG 190 ==
LOC: EC 17:41 → 4SSUR 20:02
PROVIDERS: ADMIT Hospitalist; ATTEND Hospitalist
DX: J44.1 Chronic obstructive pulmonary disease with (acute) exacerbation (principal); J96.21 Acute and chronic respiratory failure with hypoxia; N17.9 Acute kidney failure, unspecified; E11.65 Type 2 diabetes mellitus with hyperglycemia; I11.0 Hypertensive heart disease with heart failure; I50.9 Heart failure, unspecified; E03.9 Hypothyroidism, unspecified; E78.5 Hyperlipidemia, unspecified; F17.200 Nicotine dependence, unspecified, uncomplicated; F41.9 Anxiety disorder, unspecified; T38.0X5A Adverse effect of glucocorticoids and synthetic analogues, initial encounter; J20.9 Acute bronchitis, unspecified; H91.90 Unspecified hearing loss, unspecified ear; H54.7 Unspecified visual loss; Z99.81 Dependence on supplemental oxygen; Z79.01 Long term (current) use of anticoagulants; Z79.811 Long term (current) use of aromatase inhibitors; Z79.84 Long term (current) use of oral hypoglycemic drugs; Z79.890 Hormone replacement therapy; Z79.899 Other long term (current) drug therapy; Z88.5 Allergy status to narcotic agent; Z91.041 Radiographic dye allergy status; Z85.3 Personal history of malignant neoplasm of breast; Z82.5 Family history of asthma and other chronic lower respiratory diseases
CPT/HCPCS: 36415; 71045; 80048; 80053; 83036; 83735; 83880; 84484; 85025; 85610; 85730; 87502; 93005; 94640; 94644; 94760; 96361; 96374; 96375; 99285

== ENCOUNTER 2018-10-28 15:25 | Emergency (ER) | payer MEDICARE ==
--- NOTE | 2018-10-28 16:02 | ED ---
General Adult HPI - General Chief complaint: Arrhythmia/Palpitations Stated complaint: Chest pain Time Seen by Provider: 10/28/18 15:30 Source: patient, RN notes reviewed Mode of arrival: wheelchair Limitations: no limitations - History of Present Illness Initial comments: This is a 5-year-old female presents to the emergency department with past history significant for strokes as well as atrial fibrillation. Patient states she's on eliquis. Patient comes in today because since last night and she went to bed she was having palpitations all night long. Patient states he Dropped most of the night. Patient denies any chest pain or difficulty breathing or shortness of breath. Patient denies any recent fever chills or cough. Patient denies lightheadedness or dizziness. Patient states she was just admitted to the hospital and discharged yesterday for COPD exacerbation. Patient denies any palpitations currently. Patient denies any abdominal pain patient denies nausea vomiting diarrhea. Patient currently is symptom-free. - Related Data Home Medications Medication Instructions Recorded Confirmed Anastrozole [Arimidex] 1 mg PO DAILY 10/23/18 10/28/18 Atorvastatin [Lipitor] 40 mg PO DAILY 10/23/18 10/28/18 Cholecalciferol [Vitamin D3] 5,000 unit PO DAILY 10/23/18 10/28/18 Furosemide [Lasix] 20 mg PO BID 10/23/18 10/28/18 Levothyroxine Sodium [Synthroid] 25 mcg PO DAILY 10/23/18 10/28/18 Losartan [Cozaar] 50 mg PO BID 10/23/18 10/28/18 Metoprolol Succinate (ER) [Toprol 100 mg PO BID 10/23/18 10/28/18 XL] Potassium Chloride ER [K-Dur 20] 20 meq PO DAILY 10/23/18 10/28/18 Pregabalin [Lyrica] 100 mg PO BID 10/23/18 10/28/18 Rivaroxaban [Xarelto] 20 mg PO DAILY 10/23/18 10/28/18 Umeclidinium Brm/Vilanterol Tr 1 puff INHALATION RT-DAILY 10/23/18 10/28/18 [Anoro Ellipta 62.5-25 Mcg INH] busPIRone HCL 30 mg PO BID 10/23/18 10/28/18 sitaGLIPtin [Januvia] 100 mg PO DAILY 10/23/18 10/28/18 Albuterol Inhaler [Ventolin Hfa 2 puff INHALATION RT-QID 10/28/18 10/28/18 Inhaler] predniSONE See Taper PO DIRECTED 10/28/18 10/28/18 Previous Rx's Medication Instructions Recorded Cefuroxime Axetil [Ceftin] 500 mg PO BID #10 tab 10/27/18 Insulin Detemir (Levemir) [Levemir] 30 unit SQ HS #1 syr 10/27/18 Pantoprazole [Protonix] 40 mg PO AC-BRKFST #30 tablet. 10/27/18 Allergies Allergy/AdvReac Type Severity Reaction Status Date / Time Iodinated Contrast- Oral and Allergy Rash/Hives Verified 10/28/18 16:41 IV Dye morphine AdvReac Rash/Hives Verified 10/28/18 16:41 Review of Systems ROS Statement: Those systems with pertinent positive or pertinent negative responses have been documented in the HPI. ROS Other: All systems not noted in ROS Statement are negative. Past Medical History Past Medical History: Chest Pain / Angina, Heart Failure, COPD, Diabetes Mellit us, Hypertension Additional Past Medical History / Comment(s): Breast Ca. Left side History of Any Multi-Drug Resistant Organisms: None Reported Past Surgical History: Unable to Obtain Past Anesthesia/Blood Transfusion Reactions: No Reported Reaction Past Psychological History: No Psychological Hx Reported Smoking Status: Current every day smoker Past Alcohol Use History: None Reported Past Drug Use History: None Reported - Past Family History Mother Family Medical History: COPD Father Family Medical History: Liver Disease General Exam - General Exam Comments Initial Comments: GENERAL: Patient is well-developed and well-nourished. Patient is nontoxic and well- hydrated and is in no acute distress. ENT: Neck is soft and supple. No significant lymphadenopathy is noted. Oropharynx is clear. Moist mucous membranes. Neck has full range of motion without eliciting any pain. EYES: The sclera were anicteric and conjunctiva were pink and moist. Extraocular movements were intact and pupils were equal round and reactive to light. Eyelids were unremarkable. PULMONARY: Unlabored respirations. Good breath sounds bilaterally. No audible rales rhonchi or wheezing was noted. CARDIOVASCULAR: There is a regular rate and rhythm without any murmurs gallops or rubs. ABDOMEN: Soft and nontender with normal bowel sounds. SKIN: Skin is clear with no lesions or rashes and otherwise unremarkable. NEUROLOGIC: Patient is alert and oriented x3. Cranial nerves II through XII are grossly intact. Motor and sensory are also intact. Normal speech, volume and content. Symmetrical smile. MUSCULOSKELETAL: Normal extremities with adequate strength and full range of motion. LYMPHATICS: No significant lymphadenopathy is noted PSYCHIATRIC: Normal psychiatric evaluation. Limitations: no limitations Course Vital Signs 10/28/18 10/28/18 15:28 17:47 Temperature 97.9 F 98.7 F Pulse Rate 96 71 Respiratory 20 16 Rate Blood Pressure 165/94 184/102 O2 Sat by Pulse 94 L 98 Oximetry Medical Decision Making - Medical Decision Making EKG shows sinus rhythm with occasional PAC at 72 bpm TN interval is 148 QRSs 80 QT interval 432 QTC is 473. Patient's EKG shows no ST segment elevation or depression or T wave abnormalities are noted. Chest x-ray showed no acute abnormalities. I will back into explain the results the patient and I indicated to the patient I wanted her to stay and we talked about it with the and son present and she initially stated she wanted to go home I asked her 2 more times and all 3 times after the patient wanted to be discharged home did not want to stay overnight and stated that she would return if he had any more symptoms. - Lab Data Result diagrams: 10/28/18 16:45 10/28/18 16:45 Lab Results 10/28/18 10/28/18 10/28/18 Range/Units 16:45 16:45 16:45 WBC 11.1 H (3.8-10.6) k/uL RBC 4.84 (3.80-5.40) m/uL Hgb 13.8 (11.4-16.0) gm/dL Hct 43.5 (34.0-46.0) % MCV 89.9 (80.0-100.0) fL MCH 28.6 (25.0-35.0) pg MCHC 31.8 (31.0-37.0) g/dL RDW 14.3 (11.5-15.5) % Plt Count 210 (150-450) k/uL Neutrophils % 68 % Lymphocytes % 20 % Monocytes % 10 % Eosinophils % 1 % Basophils % 0 % Neutrophils # 7.5 (1.3-7.7) k/uL Lymphocytes # 2.2 (1.0-4.8) k/uL Monocytes # 1.1 H (0-1.0) k/uL Eosinophils # 0.1 (0-0.7) k/uL Basophils # 0.0 (0-0.2) k/uL PT 11.0 (9.0-12.0) sec INR 1.0 (<1.2) APTT 24.1 (22.0-30.0) sec Sodium 139 (137-145) mmol/L Potassium 4.1 (3.5-5.1) mmol/L Chloride 105 (98-107) mmol/L Carbon Dioxide 25 (22-30) mmol/L Anion Gap 9 mmol/L BUN 39 H (7-17) mg/dL Creatinine 1.12 H (0.52-1.04) mg/dL Est GFR (CKD-EPI)AfAm 58 (>60 ml/min/1.73 sqM) Est GFR (CKD-EPI)NonAf 50 (>60 ml/min/1.73 sqM) Glucose 141 H (74-99) mg/dL Calcium 8.7 (8.4-10.2) mg/dL Magnesium 2.0 (1.6-2.3) mg/dL Total Bilirubin 0.8 (0.2-1.3) mg/dL AST 30 (14-36) U/L ALT 38 (9-52) U/L Alkaline Phosphatase 84 (38-126) U/L Troponin I (0.000-0.034) ng/mL Total Protein 7.1 (6.3-8.2) g/dL Albumin 3.9 (3.5-5.0) g/dL 10/28/18 Range/Units 16:45 WBC (3.8-10.6) k/uL RBC (3.80-5.40) m/uL Hgb (11.4-16.0) gm/dL Hct (34.0-46.0) % MCV (80.0-100.0) fL MCH (25.0-35.0) pg MCHC (31.0-37.0) g/dL RDW (11.5-15.5) % Plt Count (150-450) k/uL Neutrophils % % Lymphocytes % % Monocytes % % Eosinophils % % Basophils % % Neutrophils # (1.3-7.7) k/uL Lymphocytes # (1.0-4.8) k/uL Monocytes # (0-1.0) k/uL Eosinophils # (0-0.7) k/uL Basophils # (0-0.2) k/uL PT (9.0-12.0) sec INR (<1.2) APTT (22.0-30.0) sec Sodium (137-145) mmol/L Potassium (3.5-5.1) mmol/L Chloride (98-107) mmol/L Carbon Dioxide (22-30) mmol/L Anion Gap mmol/L BUN (7-17) mg/dL Creatinine (0.52-1.04) mg/dL Est GFR (CKD-EPI)AfAm (>60 ml/min/1.73 sqM) Est GFR (CKD-EPI)NonAf (>60 ml/min/1.73 sqM) Glucose (74-99) mg/dL Calcium (8.4-10.2) mg/dL Magnesium (1.6-2.3) mg/dL Total Bilirubin (0.2-1.3) mg/dL AST (14-36) U/L ALT (9-52) U/L Alkaline Phosphatase (38-126) U/L Troponin I 0.013 (0.000-0.034) ng/mL Total Protein (6.3-8.2) g/dL Albumin (3.5-5.0) g/dL Disposition Clinical Impression: Palpitations, Hypertension Disposition: HOME SELF-CARE Instructions (If sedation given, give patient instructions): Heart Palpitations (ED), Coronary Artery Disease (DC), Hypertension (ED) Is patient prescribed a controlled substance at d/c from ED?: No Referrals: Júnior Arzola DO [Primary Care Provider] - 1-2 days Time of Disposition: 18:10
[2018-10-28 17:14] LABS: Basophils % (A) 0 %; Eosinophils # (A) 0.1 k/uL (0-0.7); Eosinophils % (A) 1 %; HCT 43.5 % (34.0-46.0); HGB 13.8 gm/dL (11.4-16.0); Lymphocytes # (A) 2.2 k/uL (1.0-4.8); Lymphocytes % (A) 20 %; MCH 28.6 pg (25.0-35.0); MCHC 31.8 g/dL (31.0-37.0); MCV 89.9 fL (80.0-100.0); Mean Platelet Volume 8.5; Monocytes # (A) 1.1 k/uL (0-1.0); Monocytes % (A) 10 %; Neutrophils # (A) 7.5 k/uL (1.3-7.7); Neutrophils % (A) 68 %; Platelet Count 210 k/uL (150-450); RBC 4.84 m/uL (3.80-5.40); RDW 14.3 % (11.5-15.5); WBC 11.1 k/uL (3.8-10.6)
[2018-10-28 17:21] LABS: Partial Thromboplastin Time 24.1 sec (22.0-30.0)
[2018-10-28 17:22] LABS: Albumin 3.9 g/dL (3.5-5.0); Calcium 8.7 mg/dL (8.4-10.2); Potassium 4.1 mmol/L (3.5-5.1); Total Bilirubin 0.8 mg/dL (0.2-1.3); Total Protein 7.1 g/dL (6.3-8.2)
[2018-10-28 17:51] VITALS: RESP 16; TEMP 98.7
[2018-10-28] MEDS ORDERED: LABETALOL SYRINGE 5 MG/ML IVP STA (17:53)
--- NOTE | 2018-10-28 17:57 | XR ---
EXAMINATION TYPE: XR chest 2V DATE OF EXAM: 10/28/2018 COMPARISON: 10/23/2018 HISTORY: Chest pain TECHNIQUE: Frontal and lateral views of the chest are obtained. FINDINGS: Heart and mediastinum are normal. Lungs are clear of consolidation. There is no heart fail ure. There are chest leads. There are small calcified granuloma left lower lobe. IMPRESSION: No active cardiopulmonary disease. No change.
[2018-10-28 18:20] VITALS: BP 157/77; PULSE 78
== END 2018-10-28 18:21 | disposition home or self-care (01) ==
LOC: EC 15:25
DX: R00.2 Palpitations (principal); I11.0 Hypertensive heart disease with heart failure; I50.9 Heart failure, unspecified; R07.9 Chest pain, unspecified; I48.91 Unspecified atrial fibrillation; I20.9 Angina pectoris, unspecified; E11.9 Type 2 diabetes mellitus without complications; J44.9 Chronic obstructive pulmonary disease, unspecified; F17.200 Nicotine dependence, unspecified, uncomplicated; Z85.3 Personal history of malignant neoplasm of breast; Z79.01 Long term (current) use of anticoagulants; Z79.52 Long term (current) use of systemic steroids; Z79.84 Long term (current) use of oral hypoglycemic drugs; Z79.890 Hormone replacement therapy; Z79.899 Other long term (current) drug therapy
CPT/HCPCS: 36415; 71046; 80053; 83735; 84484; 85025; 85610; 85730; 93005; 96374; 99285

== ENCOUNTER 2018-11-04 18:11 | Emergency (ER) | payer MEDICARE ==
[2018-11-04 18:17] VITALS: TEMP 98.3
--- NOTE | 2018-11-04 19:08 | ED ---
General Adult HPI - General Chief complaint: Abdominal Pain Stated complaint: diarrhea, abd pain Time Seen by Provider: 11/04/18 18:25 Source: patient Mode of arrival: wheelchair Limitations: no limitations - History of Present Illness Initial comments: Dictation was produced using [employer] dictation software. please excuse any grammatical, word or spelling errors. Chief Complaint: 68-year-old female multiple comorbidities presents with 2 days of diarrhea and abdominal pain. History of Present Illness: 68-year-old female. She has past medical history of heart failure COPD diabetes and hypertension. Since yesterday she's been having epigastric tenderness. She's had prostate 45 episodes of diarrhea. Patient has had a couple episodes of emesis is nonbloody is not bloody. Patient states she's been having chills however denies any fevers. Patient denies any exacerbating or mitigating factors. No sick contacts. Denies any dark stools or black specks in her stool output. The ROS documented in this emergency department record has been reviewed and confirmed by me. Those systems with pertinent positive or negative responses have been documented in the HPI. All other systems are other negative and/or noncontributory. PHYSICAL EXAM: General Impression: Alert and oriented x3, not in acute distress HEENT: Normocephalic atraumatic, extra-ocular movements intact, pupils equal and reactive to light bilaterally, mucous membranes moist. Cardiovascular: Heart regular rate and rhythm, S1&S2 audible, no murmurs, rubs or gallops Chest: Lungs clear to auscultation bilaterally, no rhonchi, no wheeze, no rales Abdomen: Bowel sounds present, abdomen soft, mild tympany to percussion, epigastric tenderness. No Orozco sign, no tenderness at McBurney's point. No left lower quadrant abdominal tenderness. Musculoskeletal: Pulses present and equal in all extremities, no peripheral edema Motor: no focal deficits noted Neurological: CN II-XII grossly intact, no focal motor or sensory deficits noted Skin: Intact with no visualized rashes Psych: Normal affect and mood ED course: 68-year-old female presents with nausea vomiting diarrhea and abdominal pain. Vital signs upon arrival are within acceptable limits.She is otherwise well-appearing. She appears slightly dehydrated. Laboratory evaluation obtained per it CBC unremarkable. Metabolic panel is negative. Mild hyperglycemia with a level of 244. Urinalysis is unremarkable. KUB x-ray shows no acute processes. Patient reevaluated after intravenous fluids and Toradol with improvement of symptoms. Patient does have good follow-up with primary care physician. Clinical presentation is consistent with gastroenteritis. Patient given antidiarrheal medications. Advised follow-up with PCP. Patient told to return to the emergency Department with any worsening symptoms of abdominal pain, fever, constitutional symptoms and worsening diarrhea. Patient understandable agreeable to disposition. - Related Data Home Medications Medication Instructions Recorded Confirmed RX: Anastrozole [Arimidex] 1 mg PO DAILY 10/23/18 11/04/18 RX: Atorvastatin [Lipitor] 40 mg PO DAILY 10/23/18 11/04/18 RX: Cholecalciferol [Vitamin D3] 5,000 unit PO DAILY 10/23/18 11/04/18 RX: Furosemide [Lasix] 20 mg PO BID 10/23/18 11/04/18 RX: Levothyroxine Sodium 25 mcg PO DAILY 10/23/18 11/04/18 [Synthroid] RX: Losartan [Cozaar] 50 mg PO BID 10/23/18 11/04/18 RX: Metoprolol Succinate (ER) 100 mg PO BID 10/23/18 11/04/18 [Toprol XL] RX: Potassium Chloride ER [K-Dur 20 meq PO DAILY 10/23/18 11/04/18 20] RX: Pregabalin [Lyrica] 100 mg PO BID 10/23/18 11/04/18 RX: Rivaroxaban [Xarelto] 20 mg PO DAILY 10/23/18 11/04/18 RX: Umeclidinium Brm/Vilanterol Tr 1 puff INHALATION RT-DAILY 10/23/18 11/04/18 [Anoro Ellipta 62.5-25 Mcg INH] RX: busPIRone HCL 30 mg PO BID 10/23/18 11/04/18 RX: sitaGLIPtin [Januvia] 100 mg PO DAILY 10/23/18 11/04/18 RX: Albuterol Inhaler [Ventolin 2 puff INHALATION RT-QID 10/28/18 11/04/18 Hfa Inhaler] RX: predniSONE See Taper PO DIRECTED 10/28/18 11/04/18 Previous Rx's Medication Instructions Recorded Cefuroxime Axetil [Ceftin] 500 mg PO BID #10 tab 10/27/18 RX: Insulin Detemir (Levemir) 30 unit SQ HS #1 syr 10/27/18 [Levemir] RX: Pantoprazole [Protonix] 40 mg PO AC-BRKFST #30 tablet. 10/27/18 Loperamide HCl [Loperamide] 2 mg PO TID PRN #12 capsule 11/04/18 Allergies Allergy/AdvReac Type Severity Reaction Status Date / Time Iodinated Contrast- Oral and Allergy Rash/Hives Verified 11/04/18 19:58 IV Dye morphine AdvReac Rash/Hives Verified 11/04/18 19:58 Review of Systems ROS Statement: Those systems with pertinent positive or pertinent negative responses have been documented in the HPI. ROS Other: All systems not noted in ROS Statement are negative. Past Medical History Past Medical History: Chest Pain / Angina, Heart Failure, COPD, Diabetes Mellitus, Hypertension Additional Past Medical History / Comment(s): Breast Ca. Left side History of Any Multi-Drug Resistant Organisms: None Reported Past Surgical History: Appendectomy, Back Surgery, Breast Surgery, Cholecystectomy, Tubal Ligation Additional Past Surgical History / Comment(s): loop recorder Past Anesthesia/Blood Transfusion Reactions: No Reported Reaction Past Psychological History: No Psychological Hx Reported Smoking Status: Current every day smoker Past Alcohol Use History: None Reported Past Drug Use History: None Reported - Past Family History Mother Family Medical History: COPD Father Family Medical History: Liver Disease General Exam Limitations: no limitations Course Vital Signs 11/04/18 18:13 Temperature 98.3 F Pulse Rate 95 Respiratory 22 Rate Blood Pressure 180/97 O2 Sat by Pulse 98 Oximetry Medical Decision Making - Lab Data Result diagrams: 11/04/18 19:25 11/04/18 19:25 Lab Results 11/04/18 11/04/18 11/04/18 Range/Units 19:25 19:25 19:25 WBC 9.4 (3.8-10.6) k/uL RBC 4.64 (3.80-5.40) m/uL Hgb 13.3 (11.4-16.0) gm/dL Hct 41.1 (34.0-46.0) % MCV 88.6 (80.0-100.0) fL MCH 28.7 (25.0-35.0) pg MCHC 32.4 (31.0-37.0) g/dL RDW 14.2 (11.5-15.5) % Plt Count 185 (150-450) k/uL Neutrophils % 67 % Lymphocytes % 18 % Monocytes % 10 % Eosinophils % 3 % Basophils % 1 % Neutrophils # 6.3 (1.3-7.7) k/uL Lymphocytes # 1.7 (1.0-4.8) k/uL Monocytes # 0.9 (0-1.0) k/uL Eosinophils # 0.3 (0-0.7) k/uL Basophils # 0.1 (0-0.2) k/uL Sodium 137 (137-145) mmol/L Potassium 4.0 (3.5-5.1) mmol/L Chloride 105 (98-107) mmol/L Carbon Dioxide 22 (22-30) mmol/L Anion Gap 10 mmol/L BUN 19 H (7-17) mg/dL Creatinine 1.22 H (0.52-1.04) mg/dL Est GFR (CKD-EPI)AfAm 52 (>60 ml/min/1.73 sqM) Est GFR (CKD-EPI)NonAf 45 (>60 ml/min/1.73 sqM) Glucose 244 H (74-99) mg/dL Plasma Lactic Acid Silvestre 1.0 (0.7-2.0) mmol/L Calcium 9.0 (8.4-10.2) mg/dL Total Bilirubin 0.6 (0.2-1.3) mg/dL AST 25 (14-36) U/L ALT 28 (9-52) U/L Alkaline Phosphatase 110 (38-126) U/L Total Protein 6.8 (6.3-8.2) g/dL Albumin 3.7 (3.5-5.0) g/dL Lipase 241 (23-300) U/L Urine Color Urine Appearance (Clear) Urine pH (5.0-8.0) Ur Specific [place] (1.001-1.035) Urine Protein (Negative) Urine Glucose (UA) (Negative) Urine Ketones (Negative) Urine Blood (Negative) Urine Nitrite (Negative) Urine Bilirubin (Negative) Urine Urobilinogen (<2.0) mg/dL Ur Leukocyte Esterase (Negative) Urine RBC (0-5) /hpf Urine WBC (0-5) /hpf Ur Squamous Epith Cells (0-4) /hpf Hyaline Casts (0-2) /lpf Urine Mucus (None) /hpf 11/04/18 Range/Units 22:00 WBC (3.8-10.6) k/uL RBC (3.80-5.40) m/uL Hgb (11.4-16.0) gm/dL Hct (34.0-46.0) % MCV (80.0-100.0) fL MCH (25.0-35.0) pg MCHC (31.0-37.0) g/dL RDW (11.5-15.5) % Plt Count (150-450) k/uL Neutrophils % % Lymphocytes % % Monocytes % % Eosinophils % % Basophils % % Neutrophils # (1.3-7.7) k/uL Lymphocytes # (1.0-4.8) k/uL Monocytes # (0-1.0) k/uL Eosinophils # (0-0.7) k/uL Basophils # (0-0.2) k/uL Sodium (137-145) mmol/L Potassium (3.5-5.1) mmol/L Chloride (98-107) mmol/L Carbon Dioxide (22-30) mmol/L Anion Gap mmol/L BUN (7-17) mg/dL Creatinine (0.52-1.04) mg/dL Est GFR (CKD-EPI)AfAm (>60 ml/min/1.73 sqM) Est GFR (CKD-EPI)NonAf (>60 ml/min/1.73 sqM) Glucose (74-99) mg/dL Plasma Lactic Acid Silvestre (0.7-2.0) mmol/L Calcium (8.4-10.2) mg/dL Total Bilirubin (0.2-1.3) mg/dL AST (14-36) U/L ALT (9-52) U/L Alkaline Phosphatase (38-126) U/L Total Protein (6.3-8.2) g/dL Albumin (3.5-5.0) g/dL Lipase (23-300) U/L Urine Color Yellow Urine Appearance Clear (Clear) Urine pH 6.0 (5.0-8.0) Ur Specific [place] 1.022 (1.001-1.035) Urine Protein 1+ H (Negative) Urine Glucose (UA) Negative (Negative) Urine Ketones Negative (Negative) Urine Blood Negative (Negative) Urine Nitrite Negative (Negative) Urine Bilirubin Negative (Negative) Urine Urobilinogen 3.0 (<2.0) mg/dL Ur Leukocyte Esterase Trace H (Negative) Urine RBC 5 (0-5) /hpf Urine WBC 2 (0-5) /hpf Ur Squamous Epith Cells <1 (0-4) /hpf Hyaline Casts 7 H (0-2) /lpf Urine Mucus Few H (None) /hpf Disposition Clinical Impression: Abdominal pain Disposition: HOME SELF-CARE Condition: Good Instructions (If sedation given, give patient instructions): Abdominal Pain (ED) Prescriptions: Loperamide HCl [Loperamide] 2 mg PO TID PRN #12 capsule PRN Reason: Diarrhea Is patient prescribed a controlled substance at d/c from ED?: No Referrals: Júnior Arzola DO [Primary Care Provider] - 1-2 days Time of Disposition: 22:51
[2018-11-04] MEDS ORDERED: KETOROLAC 30 MG/ML 1 ML VIAL IVP STA (19:31)
[2018-11-04 19:58] LABS: Basophils # (A) 0.1 k/uL (0-0.2); Basophils % (A) 1 %; Eosinophils # (A) 0.3 k/uL (0-0.7); Eosinophils % (A) 3 %; HCT 41.1 % (34.0-46.0); HGB 13.3 gm/dL (11.4-16.0); Lymphocytes # (A) 1.7 k/uL (1.0-4.8); Lymphocytes % (A) 18 %; MCH 28.7 pg (25.0-35.0); MCHC 32.4 g/dL (31.0-37.0); MCV 88.6 fL (80.0-100.0); Mean Platelet Volume 8.4; Monocytes # (A) 0.9 k/uL (0-1.0); Monocytes % (A) 10 %; Neutrophils # (A) 6.3 k/uL (1.3-7.7); Neutrophils % (A) 67 %; Platelet Count 185 k/uL (150-450); RBC 4.64 m/uL (3.80-5.40); RDW 14.2 % (11.5-15.5); WBC 9.4 k/uL (3.8-10.6)
[2018-11-04 20:11] LABS: Albumin 3.7 g/dL (3.5-5.0); Total Bilirubin 0.6 mg/dL (0.2-1.3); Total Protein 6.8 g/dL (6.3-8.2)
--- NOTE | 2018-11-04 21:30 | XR ---
EXAMINATION TYPE: XR KUB 2 views DATE OF EXAM: 11/04/2018 COMPARISON: NONE HISTORY: Pain TECHNIQUE: Upright views FINDINGS: Visualized lung bases and pleural spaces are negative. Cardiac silhouette appears mildly enlarged. No pneumoperitoneum or pneumatosis. Bowel gas pattern is normal. Definite acute skeletal or soft tissue findings. IMPRESSION: No acute radiographic process.
[2018-11-04 22:16] LABS: Appearance,Urine Clear (Clear); Bilirubin,Urine Negative (Negative); Blood,Urine Negative (Negative); Color,Urine Yellow; Glucose,Urine (UA) Negative (Negative); Hyaline Casts,Urine 7 /lpf (0-2); Ketones,Urine Negative (Negative); Leukocyte Esterase,Urine Trace (Negative); Mucus,Urine Few /hpf; Nitrite,Urine Negative (Negative); Protein,Urine 1+ (Negative); RBC,Urine 5 /hpf (0-5); Specific Gravity,Urine 1.022 (1.001-1.035); Squamous Epithelial Cell,Urine <1 /hpf (0-4); WBC,Urine 2 /hpf (0-5)
[2018-11-04] MEDS ORDERED: SODIUM CHLORIDE 0.9% 500 ML IV STA (22:16)
[2018-11-04 23:26] VITALS: BP 165/87; PULSE 86; RESP 18
== END 2018-11-04 23:20 | disposition home or self-care (01) ==
LOC: EC 18:11
DX: K52.9 Noninfective gastroenteritis and colitis, unspecified (principal); E11.65 Type 2 diabetes mellitus with hyperglycemia; I11.0 Hypertensive heart disease with heart failure; I50.9 Heart failure, unspecified; J44.9 Chronic obstructive pulmonary disease, unspecified; F17.200 Nicotine dependence, unspecified, uncomplicated; Z85.3 Personal history of malignant neoplasm of breast; Z90.49 Acquired absence of other specified parts of digestive tract; Z98.51 Tubal ligation status; Z79.899 Other long term (current) drug therapy; Z79.890 Hormone replacement therapy; Z79.01 Long term (current) use of anticoagulants; Z79.84 Long term (current) use of oral hypoglycemic drugs; Z79.52 Long term (current) use of systemic steroids; Z91.041 Radiographic dye allergy status; Z88.5 Allergy status to narcotic agent
CPT/HCPCS: 36415; 80053; 83605; 83690; 85025; 81001; 87086; 74018; 99284; 96374; J1885

== ENCOUNTER 2018-11-11 17:25 | Emergency (ER) | payer MEDICARE, OTHER ==
[2018-11-11 17:44] LABS: Glucose,Whole Blood 127 mg/dL (75-99)
[2018-11-11] MEDS ORDERED: SODIUM CHLORIDE 0.9% 500 ML 500 ML IV STA (17:58)
[2018-11-11] MEDS ORDERED: SODIUM CHLORIDE 0.9% 1,000 ML IV STA (17:58)
--- NOTE | 2018-11-11 18:06 | ED ---
Weakness HPI - General Chief complaint: Weakness Stated complaint: Weakness, High BP Time Seen by Provider: 11/11/18 17:40 Source: patient, family, RN notes reviewed Mode of arrival: wheelchair Limitations: no limitations - History of Present Illness Initial comments: This is a 68-year-old female history of CVA of COPD hypertension left breast cancer with lumpectomy who does take oral medication now who presents with complaints of generalized weakness which apparently is been going on since last time she was here over a week ago she complains of intermittent episodes of sweats no cough or phlegm production no fevers chills no dysuria hematuria or other symptoms. MD Complaint: generalized weakness - Related Data Home Medications Medication Instructions Recorded Confirmed Anastrozole [Arimidex] 1 mg PO DAILY 10/23/18 11/11/18 Atorvastatin [Lipitor] 40 mg PO HS 10/23/18 11/11/18 Cholecalciferol [Vitamin D3] 5,000 unit PO DAILY 10/23/18 11/11/18 Furosemide [Lasix] 20 mg PO BID 10/23/18 11/11/18 Levothyroxine Sodium [Synthroid] 25 mcg PO DAILY 10/23/18 11/11/18 Losartan [Cozaar] 50 mg PO BID 10/23/18 11/11/18 Metoprolol Succinate (ER) [Toprol 100 mg PO BID 10/23/18 11/11/18 XL] Potassium Chloride ER [K-Dur 20] 20 meq PO DAILY 10/23/18 11/11/18 Rivaroxaban [Xarelto] 20 mg PO HS 10/23/18 11/11/18 busPIRone HCL 30 mg PO BID 10/23/18 11/11/18 sitaGLIPtin [Januvia] 100 mg PO DAILY 10/23/18 11/11/18 Albuterol Inhaler [Ventolin Hfa 2 puff INHALATION RT-QID 10/28/18 11/11/18 Inhaler] Alendronate Sodium 70 mg PO SA 11/11/18 11/11/18 metFORMIN HCL ER [Glucophage Xr] 500 mg PO BID 11/11/18 11/11/18 Previous Rx's Medication Instructions Recorded Insulin Detemir (Levemir) [Levemir] 30 unit SQ HS #1 syr 10/27/18 Pantoprazole [Protonix] 40 mg PO AC-BRKFST #30 tablet. 10/27/18 Magnesium 200 mg PO DAILY #7 tablet 11/11/18 Allergies Allergy/AdvReac Type Severity Reaction Status Date / Time Iodinated Contrast- Oral and Allergy Rash/Hives Verified 11/11/18 18:22 IV Dye morphine Allergy Rash/Hives Verified 11/11/18 18:22 Review of Systems ROS Statement: Those systems with pertinent positive or pertinent negative responses have been documented in the HPI. ROS Other: All systems not noted in ROS Statement are negative. Past Medical History Past Medical History: Chest Pain / Angina, Heart Failure, COPD, Diabetes Mellitus, Hypertension Additional Past Medical History / Comment(s): Breast Ca. Left side History of Any Multi-Drug Resistant Organisms: None Reported Past Surgical History: Appendectomy, Back Surgery, Breast Surgery, Cholecystectomy, Tubal Ligation Additional Past Surgical History / Comment(s): loop recorder Past Anesthesia/Blood Transfusion Reactions: No Reported Reaction Past Psychological History: No Psychological Hx Reported Smoking Status: Current every day smoker Past Alcohol Use History: None Reported Past Drug Use History: None Reported - Past Family History Mother Family Medical History: COPD Father Family Medical History: Liver Disease General Exam - General Exam Comments Initial Comments: Is a well-developed well-nourished awake alert oriented 3 female Limitations: no limitations General appearance: alert, in no apparent distress Head exam: Present: atraumatic, normocephalic, normal inspection Eye exam: Present: normal appearance, PERRL, EOMI. Absent: scleral icterus, conjunctival injection, periorbital swelling ENT exam: Present: mucous membranes dry Neck exam: Present: normal inspection. Absent: tenderness, meningismus, lymphadenopathy Respiratory exam: Present: normal lung sounds bilaterally. Absent: respiratory distress, wheezes, rales, rhonchi, stridor Cardiovascular Exam: Present: regular rate, normal rhythm, normal heart sounds. Absent: systolic murmur, diastolic murmur, rubs, gallop, clicks GI/Abdominal exam: Present: soft, normal bowel sounds. Absent: distended, tenderness, guarding, rebound, rigid Extremities exam: Present: normal inspection, full ROM, normal capillary refill. Absent: tenderness, pedal edema, joint swelling, calf tenderness Back exam: Present: normal inspection Neurological exam: Present: alert, oriented X3, CN II-XII intact Psychiatric exam: Present: normal affect, normal mood Skin exam: Present: warm, dry, intact, other (Bruising noted over the extremities from her prior visit). Absent: rash Course Vital Signs 11/11/18 17:35 Temperature 98.2 F Pulse Rate 80 Respiratory 20 Rate Blood Pressure 151/85 O2 Sat by Pulse 99 Oximetry - Reevaluation(s) Reevaluation #1: 11/11/18 20:03 Reevaluation patient reveals that she feels improved after IV hydration she is currently receiving IV magnesium. Medical Decision Making - Medical Decision Making Patient was feeling much improved after IV fluids and magnesium. After long discussions the patient does request to go home she is awake alert and fully back to normal. She will be discharged she is instructed to follow-up with her doctor and return if needed. The presentation is symptoms are consistent with dehydration and hypomagnesemia. She also does them straight some evidence of renal insufficiency. - Lab Data Result diagrams: 11/11/18 18:07 11/11/18 18:07 Lab Results 11/11/18 11/11/18 11/11/18 Range/Units 17:43 18:07 18:07 WBC 6.6 (3.8-10.6) k/uL RBC 4.74 (3.80-5.40) m/uL Hgb 13.8 (11.4-16.0) gm/dL Hct 41.3 (34.0-46.0) % MCV 87.3 (80.0-100.0) fL MCH 29.0 (25.0-35.0) pg MCHC 33.3 (31.0-37.0) g/dL RDW 14.0 (11.5-15.5) % Plt Count 177 (150-450) k/uL Neutrophils % 56 % Lymphocytes % 29 % Monocytes % 9 % Eosinophils % 4 % Basophils % 1 % Neutrophils # 3.7 (1.3-7.7) k/uL Lymphocytes # 1.9 (1.0-4.8) k/uL Monocytes # 0.6 (0-1.0) k/uL Eosinophils # 0.3 (0-0.7) k/uL Basophils # 0.0 (0-0.2) k/uL Sodium (137-145) mmol/L Potassium (3.5-5.1) mmol/L Chloride (98-107) mmol/L Carbon Dioxide (22-30) mmol/L Anion Gap mmol/L BUN (7-17) mg/dL Creatinine (0.52-1.04) mg/dL Est GFR (CKD-EPI)AfAm (>60 ml/min/1.73 sqM) Est GFR (CKD-EPI)NonAf (>60 ml/min/1.73 sqM) Glucose (74-99) mg/dL POC Glucose (mg/dL) 127 H (75-99) mg/dL POC Glu Automatic Buffer ID Jessica Nuno Calcium (8.4-10.2) mg/dL Magnesium (1.6-2.3) mg/dL Total Bilirubin (0.2-1.3) mg/dL AST (14-36) U/L ALT (9-52) U/L Alkaline Phosphatase (38-126) U/L Total Creatine Kinase 63 (30-135) U/L CK-MB (CK-2) 1.2 (0.0-2.4) ng/mL CK-MB (CK-2) Rel Index 1.9 Troponin I <0.012 (0.000-0.034) ng/mL Total Protein (6.3-8.2) g/dL Albumin (3.5-5.0) g/dL Urine Color Urine Appearance (Clear) Urine pH (5.0-8.0) Ur Specific [place] (1.001-1.035) Urine Protein (Negative) Urine Glucose (UA) (Negative) Urine Ketones (Negative) Urine Blood (Negative) Urine Nitrite (Negative) Urine Bilirubin (Negative) Urine Urobilinogen (<2.0) mg/dL Ur Leukocyte Esterase (Negative) Urine RBC (0-5) /hpf Urine WBC (0-5) /hpf Ur Squamous Epith Cells (0-4) /hpf Hyaline Casts (0-2) /lpf Urine Mucus (None) /hpf 11/11/18 11/11/18 Range/Units 18:07 19:50 WBC (3.8-10.6) k/uL RBC (3.80-5.40) m/uL Hgb (11.4-16.0) gm/dL Hct (34.0-46.0) % MCV (80.0-100.0) fL MCH (25.0-35.0) pg MCHC (31.0-37.0) g/dL RDW (11.5-15.5) % Plt Count (150-450) k/uL Neutrophils % % Lymphocytes % % Monocytes % % Eosinophils % % Basophils % % Neutrophils # (1.3-7.7) k/uL Lymphocytes # (1.0-4.8) k/uL Monocytes # (0-1.0) k/uL Eosinophils # (0-0.7) k/uL Basophils # (0-0.2) k/uL Sodium 134 L (137-145) mmol/L Potassium 4.3 (3.5-5.1) mmol/L Chloride 100 (98-107) mmol/L Carbon Dioxide 24 (22-30) mmol/L Anion Gap 10 mmol/L BUN 22 H (7-17) mg/dL Creatinine 1.51 H (0.52-1.04) mg/dL Est GFR (CKD-EPI)AfAm 40 (>60 ml/min/1.73 sqM) Est GFR (CKD-EPI)NonAf 35 (>60 ml/min/1.73 sqM) Glucose 134 H (74-99) mg/dL POC Glucose (mg/dL) (75-99) mg/dL POC Glu Automatic Buffer ID Calcium 9.5 (8.4-10.2) mg/dL Magnesium 1.3 L (1.6-2.3) mg/dL Total Bilirubin 0.7 (0.2-1.3) mg/dL AST 27 (14-36) U/L ALT 36 (9-52) U/L Alkaline Phosphatase 101 (38-126) U/L Total Creatine Kinase (30-135) U/L CK-MB (CK-2) (0.0-2.4) ng/mL CK-MB (CK-2) Rel Index Troponin I (0.000-0.034) ng/mL Total Protein 7.4 (6.3-8.2) g/dL Albumin 4.4 (3.5-5.0) g/dL Urine Color Yellow Urine Appearance Clear (Clear) Urine pH 6.0 (5.0-8.0) Ur Specific [place] 1.013 (1.001-1.035) Urine Protein Negative (Negative) Urine Glucose (UA) Negative (Negative) Urine Ketones Negative (Negative) Urine Blood Negative (Negative) Urine Nitrite Negative (Negative) Urine Bilirubin Negative (Negative) Urine Urobilinogen <2.0 (<2.0) mg/dL Ur Leukocyte Esterase Moderate H (Negative) Urine RBC 2 (0-5) /hpf Urine WBC 15 H (0-5) /hpf Ur Squamous Epith Cells 2 (0-4) /hpf Hyaline Casts 6 H (0-2) /lpf Urine Mucus Rare H (None) /hpf - EKG Data -: EKG Interpreted by Me - Radiology Data Radiology results: report reviewed (I did review the imaging and report no acute findings.), image reviewed Disposition Clinical Impression: Dehydration, Hypomagnesemia syndrome, Renal insufficiency syndrome Disposition: HOME SELF-CARE Condition: Good Instructions (If sedation given, give patient instructions): Dehydration (ED), Hypomagnesemia (ED) Prescriptions: Magnesium 200 mg PO DAILY #7 tablet Is patient prescribed a controlled substance at d/c from ED?: No Referrals: Júnior Arzola DO [Primary Care Provider] - 1-2 days
[2018-11-11 18:15] LABS: Basophils % (A) 1 %; Eosinophils # (A) 0.3 k/uL (0-0.7); Eosinophils % (A) 4 %; HCT 41.3 % (34.0-46.0); HGB 13.8 gm/dL (11.4-16.0); Lymphocytes # (A) 1.9 k/uL (1.0-4.8); Lymphocytes % (A) 29 %; MCHC 33.3 g/dL (31.0-37.0); MCV 87.3 fL (80.0-100.0); Mean Platelet Volume 7.6; Monocytes # (A) 0.6 k/uL (0-1.0); Monocytes % (A) 9 %; Neutrophils # (A) 3.7 k/uL (1.3-7.7); Neutrophils % (A) 56 %; Platelet Count 177 k/uL (150-450); RBC 4.74 m/uL (3.80-5.40); WBC 6.6 k/uL (3.8-10.6)
[2018-11-11 18:22] LABS: Creatine Kinase 63 U/L (30-135)
[2018-11-11 18:24] LABS: Albumin 4.4 g/dL (3.5-5.0); Calcium 9.5 mg/dL (8.4-10.2); Magnesium 1.3 mg/dL (1.6-2.3); Potassium 4.3 mmol/L (3.5-5.1); Total Bilirubin 0.7 mg/dL (0.2-1.3); Total Protein 7.4 g/dL (6.3-8.2)
[2018-11-11 18:35] LABS: Creatine Kinase MB 1.2 ng/mL (0.0-2.4); Troponin I <0.012 ng/mL (0.000-0.034)
[2018-11-11] MEDS ORDERED: MAGNESIUM SULFATE-D5W PMX 1 GM in DEXTROSE/WATER 1 100ML.BAG IVPB ONE (19:06)
--- NOTE | 2018-11-11 19:15 | CT ---
EXAMINATION: CT brain wo con DATE AND TIME: 11/11/2018 6:47 PM CLINICAL INDICATION: PH[facility]; Pain TECHNIQUE: Standard departmental protocol.; 1084.4; COMPARISON: None available. FINDINGS: The calvarium is intact, and there is no intracranial hemorrhage. No intracranial mass or mass effect . There are three 4 cm foci of cerebral hemispheric encephalomalacia, consistent with remote infarction , located in the bilateral parietal and right anterior paramidline frontal lobes. There is no definite new CT attenuation defect. Nonspecific scattered delcid radiata and centrum semiovale low attenuation is noted bilaterally. The paranasal sinuses, middle ear cavities, and mastoid sinus air cells are clear. The orbits are unr emarkable. IMPRESSION: 1. No definite acute process. 2. Multifocal encephalomalacia foci, consistent with remote macrovascular infarctions.
--- NOTE | 2018-11-11 19:17 | XR ---
EXAMINATION: XR chest 2V DATE AND TIME: 11/11/2018 6:44 PM CLINICAL INDICATION: PHH; cough TECHNIQUE: Departmental protocol COMPARISON: 10/28/2018 FINDINGS: Defibrillator noted, EKG leads. The cardiac silhouette is mildly enlarged. The remainder of the media stinal silhouette is unremarkable. The lungs are clear, but bilateral upper lobe attenuation noted - consistent with advanced emphysemat ous changes. The pleural spaces are negative. The skeletal structures and soft tissues are negative for acute findings. IMPRESSION: NO ACUTE PROCESS.
[2018-11-11 20:11] LABS: Appearance,Urine Clear (Clear); Bilirubin,Urine Negative (Negative); Blood,Urine Negative (Negative); Color,Urine Yellow; Glucose,Urine (UA) Negative (Negative); Hyaline Casts,Urine 6 /lpf (0-2); Ketones,Urine Negative (Negative); Leukocyte Esterase,Urine Moderate (Negative); Mucus,Urine Rare /hpf; Nitrite,Urine Negative (Negative); Protein,Urine Negative (Negative); RBC,Urine 2 /hpf (0-5); Specific Gravity,Urine 1.013 (1.001-1.035); Squamous Epithelial Cell,Urine 2 /hpf (0-4); Urobilinogen,Urine <2.0 mg/dL (<2.0); WBC,Urine 15 /hpf (0-5)
[2018-11-11 20:49] VITALS: BP 181/95; PULSE 72; RESP 16; TEMP 97.9
== END 2018-11-11 20:56 | disposition home or self-care (01) ==
LOC: EC 17:25
DX: E86.0 Dehydration (principal); E83.42 Hypomagnesemia; N28.9 Disorder of kidney and ureter, unspecified; I20.9 Angina pectoris, unspecified; I11.0 Hypertensive heart disease with heart failure; I50.9 Heart failure, unspecified; J44.9 Chronic obstructive pulmonary disease, unspecified; E11.9 Type 2 diabetes mellitus without complications; F17.200 Nicotine dependence, unspecified, uncomplicated; Z85.3 Personal history of malignant neoplasm of breast; Z86.73 Personal history of transient ischemic attack (TIA), and cerebral infarction without residual deficits; Z90.49 Acquired absence of other specified parts of digestive tract; Z98.51 Tubal ligation status; Z98.890 Other specified postprocedural states; Z79.01 Long term (current) use of anticoagulants; Z79.84 Long term (current) use of oral hypoglycemic drugs; Z79.890 Hormone replacement therapy; Z79.899 Other long term (current) drug therapy; Z88.5 Allergy status to narcotic agent; Z91.041 Radiographic dye allergy status
CPT/HCPCS: 36415; 93005; 80053; 82550; 82553; 83735; 84484; 85025; 81001; 71046; 70450; 99285; 96365; 96361; J3475

== ENCOUNTER 2018-11-17 13:13 | Observation (INO) | payer MEDICARE, OTHER ==
[2018-11-17 13:22] VITALS: TEMP 98
--- NOTE | 2018-11-17 13:50 | ED ---
Chest Pain HPI - General Chief Complaint: Chest Pain Stated Complaint: Chest Pain Time Seen by Provider: 11/17/18 13:48 Source: patient, RN notes reviewed, old records reviewed Mode of arrival: ambulatory Limitations: no limitations - History of Present Illness Initial Comments: This is a 5-year-old female the ER for evaluation chest pain today. Patient has history of chest pain history of angina. This pain is similar. She says heaviness on her chest. No travel history no sick contacts. She does have again a prior history of similar complaints. No recent fever cough or congestion denies trauma. No recent change in medications. No recent hospitalization MD Complaint: chest pain -: days(s) Onset: during rest, during exertion Pain Location: substernal, left chest Pain Radiation: none, LUE Severity: mild Severity scale (1-10): 3 Quality: tightness, aching, heaviness Consistency: constant Improves With: nothing Worsens With: nothing Anginal Symptoms: dyspnea Other Symptoms: palpitations Treatments Prior to Arrival: none - Related Data Home Medications Medication Instructions Recorded Confirmed Anastrozole [Arimidex] 1 mg PO DAILY 10/23/18 11/17/18 Atorvastatin [Lipitor] 40 mg PO HS 10/23/18 11/17/18 Cholecalciferol [Vitamin D3] 5,000 unit PO DAILY 10/23/18 11/17/18 Furosemide [Lasix] 20 mg PO BID 10/23/18 11/17/18 Levothyroxine Sodium [Synthroid] 25 mcg PO DAILY 10/23/18 11/17/18 Losartan [Cozaar] 50 mg PO BID 10/23/18 11/17/18 Metoprolol Succinate (ER) [Toprol 100 mg PO BID 10/23/18 11/17/18 XL] Potassium Chloride ER [K-Dur 20] 20 meq PO DAILY 10/23/18 11/17/18 Rivaroxaban [Xarelto] 20 mg PO HS 10/23/18 11/17/18 busPIRone HCL 30 mg PO BID 10/23/18 11/17/18 sitaGLIPtin [Januvia] 100 mg PO DAILY 10/23/18 11/17/18 Albuterol Inhaler [Ventolin Hfa 2 puff INHALATION RT-QID 10/28/18 11/17/18 Inhaler] Alendronate Sodium 70 mg PO SA 11/11/18 11/17/18 metFORMIN HCL ER [Glucophage Xr] 500 mg PO BID 11/11/18 11/17/18 Previous Rx's Medication Instructions Recorded Insulin Detemir (Levemir) [Levemir] 30 unit SQ HS #1 syr 10/27/18 Pantoprazole [Protonix] 40 mg PO AC-BRKFST #30 tablet. 10/27/18 Magnesium 200 mg PO DAILY #7 tablet 11/11/18 Allergies Allergy/AdvReac Type Severity Reaction Status Date / Time Iodinated Contrast- Oral and Allergy Rash/Hives Verified 11/17/18 13:55 IV Dye morphine Allergy Rash/Hives Verified 11/17/18 13:55 Review of Systems ROS Statement: Those systems with pertinent positive or pertinent negative responses have been documented in the HPI. ROS Other: All systems not noted in ROS Statement are negative. EKG Findings - EKG Comments: EKG Findings:: EKG shows sinus rhythm rate of 83, OH 160, QRS 84, QTc 465 Past Medical History Past Medical History: Chest Pain / Angina, Heart Failure, COPD, CVA/TIA, Diabetes Mellitus, Hypertension Additional Past Medical History / Comment(s): Breast Ca. Left side History of Any Multi-Drug Resistant Organisms: None Reported Past Surgical History: Appendectomy, Back Surgery, Breast Surgery, Cholecyste ctomy, Tubal Ligation Additional Past Surgical History / Comment(s): loop recorder Past Anesthesia/Blood Transfusion Reactions: No Reported Reaction Past Psychological History: No Psychological Hx Reported Smoking Status: Current every day smoker Past Alcohol Use History: None Reported Past Drug Use History: None Reported - Past Family History Mother Family Medical History: COPD Father Family Medical History: Liver Disease General Exam Limitations: no limitations General appearance: alert, in no apparent distress Head exam: Present: atraumatic, normocephalic, normal inspection Eye exam: Present: normal appearance, PERRL, EOMI. Absent: scleral icterus, conjunctival injection, periorbital swelling ENT exam: Present: normal exam, mucous membranes moist Neck exam: Present: normal inspection. Absent: tenderness, meningismus, lymphadenopathy Respiratory exam: Present: normal lung sounds bilaterally. Absent: respiratory distress, wheezes, rales, rhonchi, stridor Cardiovascular Exam: Present: regular rate, normal rhythm, normal heart sounds. Absent: systolic murmur, diastolic murmur, rubs, gallop, clicks GI/Abdominal exam: Present: soft, normal bowel sounds. Absent: distended, tenderness, guarding, rebound, rigid Extremities exam: Present: normal inspection, full ROM, normal capillary refill. Absent: tenderness, pedal edema, joint swelling, calf tenderness Back exam: Present: normal inspection Neurological exam: Present: alert, oriented X3, CN II-XII intact Psychiatric exam: Present: normal affect, normal mood Skin exam: Present: warm, dry, intact, normal color. Absent: rash Course Vital Signs 11/17/18 13:18 Temperature 98 F Pulse Rate 86 Respiratory 24 Rate Blood Pressure 143/75 O2 Sat by Pulse 97 Oximetry - Reevaluation(s) Reevaluation #1: 11/17/18 16:56 Medical records reviewed Reevaluation #2: 11/17/18 16:56 Patient still with chest pain Chest Pain MDM - MDM 68 female the ER for evaluation. Patient does have significant current chest pain. Patient be admitted for chest pain observation. EKG and troponin currently negative Critical Care Time Critical Care Time: Yes Total Critical Care Time: 31 Disposition Clinical Impression: Chest pain, Hypomagnesemia syndrome Disposition: ADMITTED IP TO THIS HOSP Condition: Undetermined Is patient prescribed a controlled substance at d/c from ED?: No
[2018-11-17] MEDS ORDERED: SODIUM CHLORIDE 0.9% 1,000 ML IV STA (13:52)
[2018-11-17 14:38] LABS: Basophils % (A) 0 %; Eosinophils # (A) 0.3 k/uL (0-0.7); Eosinophils % (A) 4 %; HCT 38.8 % (34.0-46.0); Lymphocytes # (A) 1.5 k/uL (1.0-4.8); Lymphocytes % (A) 25 %; MCH 29.6 pg (25.0-35.0); MCHC 33.4 g/dL (31.0-37.0); MCV 88.5 fL (80.0-100.0); Mean Platelet Volume 7.6; Monocytes # (A) 0.6 k/uL (0-1.0); Monocytes % (A) 10 %; Neutrophils # (A) 3.6 k/uL (1.3-7.7); Neutrophils % (A) 59 %; Platelet Count 206 k/uL (150-450); RBC 4.38 m/uL (3.80-5.40); RDW 14.3 % (11.5-15.5); WBC 6.2 k/uL (3.8-10.6)
[2018-11-17 14:48] LABS: Albumin 4.3 g/dL (3.5-5.0); Magnesium 1.5 mg/dL (1.6-2.3); Total Bilirubin 0.7 mg/dL (0.2-1.3); Total Protein 7.2 g/dL (6.3-8.2)
[2018-11-17 14:50] LABS: Potassium 4.3 mmol/L (3.5-5.1)
[2018-11-17] MEDS ORDERED: ASPIRIN 81 MG PO STA (15:40)
[2018-11-17] MEDS ORDERED: NITROGLYCERIN SL TABS 0.4 MG TAB SUBLINGUAL PRN (15:40)
[2018-11-17 15:41] LABS: Partial Thromboplastin Time 29.3 sec (22.0-30.0)
--- NOTE | 2018-11-17 15:42 | XR ---
EXAMINATION TYPE: XR chest 2V DATE OF EXAM: 11/17/2018 COMPARISON: Prior chest x-ray 11/11/2018 HISTORY: Chest pain TECHNIQUE: Frontal and lateral views of the chest are obtained. FINDINGS: There is no focal air space opacity, pleural effusion, or pneumothorax seen. The cardiac silhouette size is within normal limits. The osseous structures are intact. Loop recorder is overly ing the left heart. There are overlying cardiac leads. Prominent lung volume could be indicative of u nderlying COPD. Is overlying artifact. The aorta is dense. Possible calcified granuloma present is st able. IMPRESSION: No acute cardiopulmonary process.
[2018-11-17] MEDS ORDERED: SODIUM CHLORIDE 0.9% 1,000 ML IV SCH (15:45)
[2018-11-17 18:14] VITALS: BP 176/88; PULSE 74; RESP 14
[2018-11-18] MEDS ORDERED: ASPIRIN 325 MG TAB PO SCH (09:00)
== END 2018-11-17 18:45 | disposition left against medical advice (07) ==
LOC: EC 13:13 → INTOOBSV 15:40 → 1SOBS 15:40
PROVIDERS: ADMIT Hospitalist; ATTEND Hospitalist
DX: R07.89 Other chest pain (principal); E83.42 Hypomagnesemia; R00.2 Palpitations; J44.9 Chronic obstructive pulmonary disease, unspecified; I11.0 Hypertensive heart disease with heart failure; I50.9 Heart failure, unspecified; E11.9 Type 2 diabetes mellitus without complications; F17.200 Nicotine dependence, unspecified, uncomplicated; Z79.811 Long term (current) use of aromatase inhibitors; Z79.890 Hormone replacement therapy; Z79.01 Long term (current) use of anticoagulants; Z79.4 Long term (current) use of insulin; Z79.899 Other long term (current) drug therapy; Z88.5 Allergy status to narcotic agent; Z91.041 Radiographic dye allergy status; Z86.73 Personal history of transient ischemic attack (TIA), and cerebral infarction without residual deficits; Z90.49 Acquired absence of other specified parts of digestive tract; Z98.51 Tubal ligation status; Z85.3 Personal history of malignant neoplasm of breast; Z82.5 Family history of asthma and other chronic lower respiratory diseases; Z83.79 Family history of other diseases of the digestive system; Z53.21 Procedure and treatment not carried out due to patient leaving prior to being seen by health care provider
CPT/HCPCS: 96360; 96361; 99291; 36415; 93005; 83880; 80053; 83690; 83735; 84484; 85025; 85610; 85730; 71046; G0378

== ENCOUNTER 2018-12-13 10:42 | Emergency (ER) | payer MEDICARE, OTHER ==
[2018-12-13 11:07] VITALS: BP 124/79; PULSE 79; RESP 22; TEMP 98.1
[2018-12-13 11:34] LABS: Glucose,Whole Blood 185 mg/dL (75-99)
--- NOTE | 2018-12-13 11:40 | ED ---
General Adult HPI - General Chief complaint: Recheck/Abnormal Lab/Rx Stated complaint: Hyperglycemia Time Seen by Provider: 12/13/18 11:26 Source: patient, RN notes reviewed Mode of arrival: wheelchair Limitations: physical limitation - History of Present Illness Initial comments: 68-year-old female with a past medical history of heart failure, COPD, CVA, type 2 diabetes, hypertension presents to the emergency department for a chief complaint of high blood sugar. Patient states she ate cereal this morning and checked her blood sugar a couple hours later and it was 195. Patient states she took her metformin and checked it again 20 minutes later and it was 200. Patient states she then decided to come to the emergency department. She is denying any symptoms. She denies urinary frequency. Denies any fevers or chills. States she is feeling completely her normal self.Patient has no other complaints at this time including shortness of breath, chest pain, abdominal pain, nausea or vomiting, headache, or visual changes. - Related Data Home Medications Medication Instructions Recorded Confirmed Anastrozole [Arimidex] 1 mg PO DAILY 10/23/18 11/17/18 Atorvastatin [Lipitor] 40 mg PO HS 10/23/18 11/17/18 Cholecalciferol [Vitamin D3 (25 5,000 unit PO DAILY 10/23/18 11/17/18 Mcg = 1000 Iu)] Furosemide [Lasix] 20 mg PO BID 10/23/18 11/17/18 Levothyroxine Sodium [Synthroid] 25 mcg PO DAILY 10/23/18 11/17/18 Losartan [Cozaar] 50 mg PO BID 10/23/18 11/17/18 Metoprolol Succinate (ER) [Toprol 100 mg PO BID 10/23/18 11/17/18 XL] Potassium Chloride ER [K-Dur 20] 20 meq PO DAILY 10/23/18 11/17/18 Rivaroxaban [Xarelto] 20 mg PO HS 10/23/18 11/17/18 busPIRone HCL 30 mg PO BID 10/23/18 11/17/18 sitaGLIPtin [Januvia] 100 mg PO DAILY 10/23/18 11/17/18 Albuterol Inhaler [Ventolin Hfa 2 puff INHALATION RT-QID 10/28/18 11/17/18 Inhaler] Alendronate Sodium 70 mg PO SA 11/11/18 11/17/18 metFORMIN HCL ER [Glucophage Xr] 500 mg PO BID 11/11/18 11/17/18 Previous Rx's Medication Instructions Recorded Insulin Detemir (Levemir) [Levemir] 30 unit SQ HS #1 syr 10/27/18 Pantoprazole [Protonix] 40 mg PO AC-BRKFST #30 tablet. 10/27/18 Magnesium 200 mg PO DAILY #7 tablet 11/11/18 Allergies Allergy/AdvReac Type Severity Reaction Status Date / Time Iodinated Contrast- Oral and Allergy Rash/Hives Verified 12/13/18 11:07 IV Dye morphine Allergy Rash/Hives Verified 12/13/18 11:07 Review of Systems ROS Statement: Those systems with pertinent positive or pertinent negative responses have been documented in the HPI. ROS Other: All systems not noted in ROS Statement are negative. Past Medical History Past Medical History: Chest Pain / Angina, Heart Failure, COPD, CVA/TIA, Diabetes Mellitus, Hypertension Additional Past Medical History / Comment(s): Breast Ca. Left side History of Any Multi-Drug Resistant Organisms: None Reported Past Surgical History: Appendectomy, Back Surgery, Breast Surgery, Cholecystectomy, Tubal Ligation Additional Past Surgical History / Comment(s): loop recorder, left breast biopsy Past Anesthesia/Blood Transfusion Reactions: No Reported Reaction Past Psychological History: No Psychological Hx Reported Smoking Status: Current every day smoker Past Alcohol Use History: None Reported Past Drug Use History: None Reported - Past Family History Mother Family Medical History: COPD Father Family Medical History: Liver Disease General Exam Limitations: physical limitation General appearance: alert, in no apparent distress Head exam: Present: atraumatic, normocephalic, normal inspection Eye exam: Present: normal appearance, PERRL, EOMI. Absent: scleral icterus, conjunctival injection, periorbital swelling ENT exam: Present: normal exam, mucous membranes moist Neck exam: Present: normal inspection, full ROM. Absent: tenderness, meningismus, lymphadenopathy Respiratory exam: Present: normal lung sounds bilaterally. Absent: respiratory distress, wheezes, rales, rhonchi, stridor Cardiovascular Exam: Present: regular rate, normal rhythm, normal heart sounds. Absent: systolic murmur, diastolic murmur, rubs, gallop, clicks GI/Abdominal exam: Present: soft, normal bowel sounds. Absent: distended, tenderness, guarding, rebound, rigid Neurological exam: Present: alert, oriented X3, CN II-XII intact Psychiatric exam: Present: normal affect, normal mood Course Vital Signs 12/13/18 11:04 Temperature 98.1 F Pulse Rate 79 Respiratory 22 Rate Blood Pressure 124/79 O2 Sat by Pulse 98 Oximetry Medical Decision Making - Medical Decision Making 68-year-old well-appearing female presents to the emergency department for a chief complaint of hyperglycemia. Patient states her blood sugar was up to 200 at home. Sates this was after she ate cereal. Patient is currently on metformin for type 2 diabetes. She is not insulin-dependent. Patient is denying any complaints at this time otherwise and is feeling her normal self. patient is well-appearing, resting comfortably in bed. [id number] glucose here was 185. At this time I do not have concerns for HHS or DKA's patient's vitals are completely normal and she does not have any symptoms at her glucose is 185. I discussed the patient that she needs to follow-up with her primary care for this. Discussed that they may increase her metformin or her medications. Discussed that if it goes very high to return here or she has any symptoms to return here. Disposition Clinical Impression: Hyperglycemia due to type 2 diabetes mellitus Disposition: HOME SELF-CARE Condition: Good Instructions (If sedation given, give patient instructions): Diabetic Hyperglycemia (ED) Additional Instructions: Please drink plenty of fluids. Follow-up with your primary care provider. Return here to the emergency department if you have any worsening symptoms. Is patient prescribed a controlled substance at d/c from ED?: No Referrals: Júnior Arzola DO [Primary Care Provider] - 1-2 days Time of Disposition: 11:40
== END 2018-12-13 11:46 | disposition home or self-care (01) ==
LOC: EC 10:42
DX: E11.65 Type 2 diabetes mellitus with hyperglycemia (principal); I11.0 Hypertensive heart disease with heart failure; I50.9 Heart failure, unspecified; E11.9 Type 2 diabetes mellitus without complications; J44.9 Chronic obstructive pulmonary disease, unspecified; F17.200 Nicotine dependence, unspecified, uncomplicated; Z79.01 Long term (current) use of anticoagulants; Z79.84 Long term (current) use of oral hypoglycemic drugs; Z79.890 Hormone replacement therapy; Z79.899 Other long term (current) drug therapy; Z88.5 Allergy status to narcotic agent; Z91.041 Radiographic dye allergy status; Z86.73 Personal history of transient ischemic attack (TIA), and cerebral infarction without residual deficits; Z85.3 Personal history of malignant neoplasm of breast
CPT/HCPCS: 36415; 99283

== ENCOUNTER 2019-02-27 13:30 | Inpatient (IN) | payer MEDICARE, OTHER ==
--- NOTE | 2019-02-27 13:55 | ED ---
Dizziness HPI - General Chief Complaint: Dizziness Stated Complaint: syncope, dizziness Time Seen by Provider: 02/27/19 13:40 Source: patient, family Mode of arrival: wheelchair Limitations: no limitations - History of Present Illness Initial Comments: Patient states that she thinks she had another stroke. 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 She has no belly or back or chest pain. She has no new shortness of breath, however she has chronic supplemental oxygen usage. She denies any change in vision or hearing. She feels lightheaded like she will pass out still. She feels like she is walking sideways. She states that she had a syncopal episode a couple days ago when her symptoms began. She was not doing anything when that happened. She has had no headache. She has taken no medicine specifically for these new symptoms. She thought her symptoms would go away, but they have not. She has weakness on the right side which is new, and began a couple days ago. - Related Data Home Medications Medication Instructions Recorded Confirmed Anastrozole [Arimidex] 1 mg PO DAILY 10/23/18 02/27/19 Atorvastatin [Lipitor] 40 mg PO HS 10/23/18 02/27/19 Cholecalciferol [Vitamin D3 (25 5,000 unit PO DAILY 10/23/18 02/27/19 Mcg = 1000 Iu)] Furosemide [Lasix] 20 mg PO BID 10/23/18 02/27/19 Levothyroxine Sodium [Synthroid] 25 mcg PO DAILY 10/23/18 02/27/19 Losartan [Cozaar] 50 mg PO BID 10/23/18 02/27/19 Metoprolol Succinate (ER) [Toprol 100 mg PO BID 10/23/18 02/27/19 XL] Potassium Chloride ER [K-Dur 20] 20 meq PO DAILY 10/23/18 02/27/19 sitaGLIPtin [Januvia] 100 mg PO DAILY 10/23/18 02/27/19 metFORMIN HCL ER [Glucophage Xr] 500 mg PO BID 11/11/18 02/27/19 ALPRAZolam [Xanax] 0.25 mg PO BID PRN 02/27/19 02/27/19 Albuterol Inhaler [Ventolin Hfa 1 - 2 puff INHALATION RT-Q6H PRN 02/27/19 02/27/19 Inhaler] Albuterol Nebulized [Ventolin 2.5 mg INHALATION Q4H PRN 02/27/19 02/27/19 Nebulized] Citalopram Hydrobromide [CeleXA] 10 mg PO DAILY 02/27/19 02/27/19 Magnesium Oxide [Mag-Ox] 250 mg PO DAILY 02/27/19 02/27/19 Tiotropium [place] [Spiriva 2 spray INHALATION RT-DAILY 02/27/19 02/27/19 Respimat] metFORMIN HCL 500 mg PO BID 02/27/19 02/27/19 Allergies Allergy/AdvReac Type Severity Reaction Status Date / Time Iodinated Contrast- Oral and Allergy Rash/Hives Verified 02/27/19 14:04 IV Dye morphine Allergy Rash/Hives Verified 02/27/19 14:04 Review of Systems ROS Statement: Those systems with pertinent positive or pertinent negative responses have been documented in the HPI. ROS Other: All systems not noted in ROS Statement are negative. Past Medical History Past Medical History: Chest Pain / Angina, Heart Failure, COPD, CVA/TIA, Diabetes Mellitus, Hypertension Additional Past Medical History / Comment(s): Breast Ca. Left side History of Any Multi-Drug Resistant Organisms: None Reported Past Surgical History: Appendectomy, Back Surgery, Breast Surgery, Cholecystectomy, Tubal Ligation Additional Past Surgical History / Comment(s): loop recorder, left breast biopsy Past Anesthesia/Blood Transfusion Reactions: No Reported Reaction Past Psychological History: No Psychological Hx Reported Smoking Status: Current every day smoker Past Alcohol Use History: None Reported Past Drug Use History: None Reported - Past Family History Mother Family Medical History: COPD Father Family Medical History: Liver Disease General Exam Limitations: no limitations General appearance: alert Head exam: Present: atraumatic Eye exam: Present: normal appearance ENT exam: Present: normal oropharynx Neck exam: Present: normal inspection Respiratory exam: Present: normal lung sounds bilaterally. Absent: respiratory distress Cardiovascular Exam: Present: regular rate GI/Abdominal exam: Present: soft Extremities exam: Present: normal inspection. Absent: tenderness Back exam: Present: normal inspection Neurological exam: Present: alert, oriented X3, abnormal gait, other (Right- sided weakness) Course Vital Signs 02/27/19 02/27/19 02/27/19 13:32 14:16 15:00 Temperature 97.9 F 98.8 F Pulse Rate 71 77 Respiratory 20 18 Rate Blood Pressure 137/81 152/82 O2 Sat by Pulse 98 97 Oximetry 02/27/19 16:30 Temperature 98.0 F Pulse Rate 71 Respiratory 18 Rate Blood Pressure 152/75 O2 Sat by Pulse 100 Oximetry EKG Findings - EKG Comments: EKG Findings:: Twelve-lead EKG shows ventricular rate 72 bpm, normal VT interval and QRS complex is, no ST elevation or depression, interpreted by me as normal sinus rhythm. Medical Decision Making - Medical Decision Making Patient presents with complaint of dizziness, weakness, trouble walking. Her symptoms began days ago. She will be admitted to the hospital. - Lab Data Result diagrams: 02/27/19 14:55 02/27/19 14:55 Lab Results 02/27/19 02/27/19 02/27/19 Range/Units 14:55 14:55 14:55 WBC 6.6 (3.8-10.6) k/uL RBC 3.76 L (3.80-5.40) m/uL Hgb 11.3 L (11.4-16.0) gm/dL Hct 34.2 (34.0-46.0) % MCV 90.8 (80.0-100.0) fL MCH 30.0 (25.0-35.0) pg MCHC 33.0 (31.0-37.0) g/dL RDW 14.9 (11.5-15.5) % Plt Count 229 (150-450) k/uL Neutrophils % 62 % Lymphocytes % 23 % Monocytes % 10 % Eosinophils % 2 % Basophils % 1 % Neutrophils # 4.1 (1.3-7.7) k/uL Lymphocytes # 1.5 (1.0-4.8) k/uL Monocytes # 0.7 (0-1.0) k/uL Eosinophils # 0.2 (0-0.7) k/uL Basophils # 0.0 (0-0.2) k/uL PT 9.9 (9.0-12.0) sec INR 0.9 (<1.2) Sodium 137 (137-145) mmol/L Potassium 4.5 (3.5-5.1) mmol/L Chloride 108 H (98-107) mmol/L Carbon Dioxide 18 L (22-30) mmol/L Anion Gap 11 mmol/L BUN 25 H (7-17) mg/dL Creatinine 1.84 H (0.52-1.04) mg/dL Est GFR (CKD-EPI)AfAm 32 (>60 ml/min/1.73 sqM) Est GFR (CKD-EPI)NonAf 27 (>60 ml/min/1.73 sqM) Glucose 101 H (74-99) mg/dL Calcium 9.7 (8.4-10.2) mg/dL Total Bilirubin 0.3 (0.2-1.3) mg/dL AST 24 (14-36) U/L ALT 22 (9-52) U/L Alkaline Phosphatase 95 (38-126) U/L Troponin I (0.000-0.034) ng/mL Total Protein 7.0 (6.3-8.2) g/dL Albumin 3.9 (3.5-5.0) g/dL Urine Color Urine Appearance (Clear) Urine pH (5.0-8.0) Ur Specific [place] (1.001-1.035) Urine Protein (Negative) Urine Glucose (UA) (Negative) Urine Ketones (Negative) Urine Blood (Negative) Urine Nitrite (Negative) Urine Bilirubin (Negative) Urine Urobilinogen (<2.0) mg/dL Ur Leukocyte Esterase (Negative) Urine RBC (0-5) /hpf Urine WBC (0-5) /hpf Ur Squamous Epith Cells (0-4) /hpf Urine Mucus (None) /hpf 02/27/19 02/27/19 Range/Units 14:55 16:30 WBC (3.8-10.6) k/uL RBC (3.80-5.40) m/uL Hgb (11.4-16.0) gm/dL Hct (34.0-46.0) % MCV (80.0-100.0) fL MCH (25.0-35.0) pg MCHC (31.0-37.0) g/dL RDW (11.5-15.5) % Plt Count (150-450) k/uL Neutrophils % % Lymphocytes % % Monocytes % % Eosinophils % % Basophils % % Neutrophils # (1.3-7.7) k/uL Lymphocytes # (1.0-4.8) k/uL Monocytes # (0-1.0) k/uL Eosinophils # (0-0.7) k/uL Basophils # (0-0.2) k/uL PT (9.0-12.0) sec INR (<1.2) Sodium (137-145) mmol/L Potassium (3.5-5.1) mmol/L Chloride (98-107) mmol/L Carbon Dioxide (22-30) mmol/L Anion Gap mmol/L BUN (7-17) mg/dL Creatinine (0.52-1.04) mg/dL Est GFR (CKD-EPI)AfAm (>60 ml/min/1.73 sqM) Est GFR (CKD-EPI)NonAf (>60 ml/min/1.73 sqM) Glucose (74-99) mg/dL Calcium (8.4-10.2) mg/dL Total Bilirubin (0.2-1.3) mg/dL AST (14-36) U/L ALT (9-52) U/L Alkaline Phosphatase (38-126) U/L Troponin I 0.013 (0.000-0.034) ng/mL Total Protein (6.3-8.2) g/dL Albumin (3.5-5.0) g/dL Urine Color Yellow Urine Appearance Clear (Clear) Urine pH 6.0 (5.0-8.0) Ur Specific [place] 1.006 (1.001-1.035) Urine Protein Trace H (Negative) Urine Glucose (UA) Negative (Negative) Urine Ketones Negative (Negative) Urine Blood Negative (Negative) Urine Nitrite Negative (Negative) Urine Bilirubin Negative (Negative) Urine Urobilinogen <2.0 (<2.0) mg/dL Ur Leukocyte Esterase Large H (Negative) Urine RBC 1 (0-5) /hpf Urine WBC 51 H (0-5) /hpf Ur Squamous Epith Cells 1 (0-4) /hpf Urine Mucus Rare H (None) /hpf Disposition Clinical Impression: Syncope Disposition: ADMITTED IP TO THIS HOSP Condition: Fair Is patient prescribed a controlled substance at d/c from ED?: No Referrals: Júnior Arzola DO [Primary Care Provider] - 1-2 days
--- NOTE | 2019-02-27 14:33 | XR ---
EXAMINATION TYPE: XR chest 1V portable DATE OF EXAM: 02/27/2019 COMPARISON: 11/17/2018 HISTORY: Dyspnea TECHNIQUE: Single frontal view of the chest is obtained. FINDINGS: There is no focal air space opacity, pleural effusion, or pneumothorax seen. Reticular bib asilar airspace disease is present, right greater than left biapical lucency represents underlying CO PD. The cardiac silhouette size is mildly enlarged as noted on the prior. Cardiac loop recorder is seen. Osseous demineralization is seen without acute osseous process. Surgical clips project over the left mid thorax. IMPRESSION: Reticular bibasilar opacities, right greater than left likely represent atelectasis supe rimposed upon COPD although early developing pneumonia is possible in the appropriate clinical settin cynthia
[2019-02-27 15:16] LABS: Basophils % (A) 1 %; Eosinophils # (A) 0.2 k/uL (0-0.7); Eosinophils % (A) 2 %; HCT 34.2 % (34.0-46.0); HGB 11.3 gm/dL (11.4-16.0); Lymphocytes # (A) 1.5 k/uL (1.0-4.8); Lymphocytes % (A) 23 %; MCV 90.8 fL (80.0-100.0); Mean Platelet Volume 7.8; Monocytes # (A) 0.7 k/uL (0-1.0); Monocytes % (A) 10 %; Neutrophils # (A) 4.1 k/uL (1.3-7.7); Neutrophils % (A) 62 %; Platelet Count 229 k/uL (150-450); RBC 3.76 m/uL (3.80-5.40); RDW 14.9 % (11.5-15.5); WBC 6.6 k/uL (3.8-10.6)
[2019-02-27 15:19] LABS: INR 0.9 (<1.2); Prothrombin Time 9.9 sec (9.0-12.0)
[2019-02-27 15:20] LABS: Albumin 3.9 g/dL (3.5-5.0); Calcium 9.7 mg/dL (8.4-10.2); Potassium 4.5 mmol/L (3.5-5.1); Total Bilirubin 0.3 mg/dL (0.2-1.3)
--- NOTE | 2019-02-27 15:53 | CT ---
EXAMINATION TYPE: CT brain wo con DATE OF EXAM: 02/27/2019 COMPARISON: CT brain 11/11/2018 HISTORY: Syncope, dizziness. CT DLP: 1058.4 mGycm Automated exposure control for dose reduction was used. Helical imaging through the brain. FINDINGS: There areas of encephalomalacia similar to prior exam, periventricular white matter shows patchy low attenuation as on prior. No evident hemorrhage or hydrocephalus. Cerebral vascular calcifications are present. Calvarium is intact. IMPRESSION: CHRONIC AREAS OF INFARCTION ARE AGAIN NOTED. AGE-RELATED ATROPHY.
[2019-02-27 16:48] LABS: Appearance,Urine Clear (Clear); Bilirubin,Urine Negative (Negative); Blood,Urine Negative (Negative); Color,Urine Yellow; Glucose,Urine (UA) Negative (Negative); Ketones,Urine Negative (Negative); Leukocyte Esterase,Urine Large (Negative); Mucus,Urine Rare /hpf; Nitrite,Urine Negative (Negative); Protein,Urine Trace (Negative); RBC,Urine 1 /hpf (0-5); Specific Gravity,Urine 1.006 (1.001-1.035); Squamous Epithelial Cell,Urine 1 /hpf (0-4); Urobilinogen,Urine <2.0 mg/dL (<2.0); WBC,Urine 51 /hpf (0-5)
[2019-02-27] MEDS ORDERED: NALOXONE 0.4 MG/ML 1 ML VIAL IV PRN (17:21)
[2019-02-27] MEDS ORDERED: ALPRAZolam 0.25 MG TAB PO PRN (17:23)
[2019-02-27] MEDS ORDERED: ALBUTEROL NEBULIZED 2.5 MG/3 ML INHALATION PRN (17:23)
[2019-02-27 21:35] LABS: Glucose,Whole Blood 109 mg/dL (75-99)
[2019-02-27] MEDS: METOPROLOL SUCCINATE (ER) 100 MG TAB.ER.24H PO SCH (22:08)
[2019-02-27] MEDS: ATORVASTATIN 40 MG TAB PO SCH (22:08)
[2019-02-27] MEDS: LOSARTAN 50 MG TAB PO SCH (22:09)
[2019-02-28 06:32] LABS: Glucose,Whole Blood 100 mg/dL (75-99)
[2019-02-28] MEDS: LEVOTHYROXINE 25 MCG TAB PO SCH (06:54)
[2019-02-28] MEDS ORDERED: metFORMIN 500 MG TAB PO SCH ×2 (07:30)
[2019-02-28] MEDS: IPRATROPIUM 0.5 MG/2.5 ML NEBU INHALATION SCH ×4 (08:24→19:15)
[2019-02-28] MEDS: LINAGLIPTIN 5 MG TABLET PO SCH (08:39)
[2019-02-28] MEDS: METOPROLOL SUCCINATE (ER) 100 MG TAB.ER.24H PO SCH ×2 (08:39→20:14)
[2019-02-28] MEDS: CHOLECALCIFEROL 1,000 UNIT TAB PO SCH (08:39)
[2019-02-28] MEDS: CITALOPRAM HYDROBROMIDE 10 MG TAB PO SCH (08:40)
[2019-02-28] MEDS: MAGNESIUM OXIDE 400 MG TAB PO SCH (08:40)
[2019-02-28] MEDS: LOSARTAN 50 MG TAB PO SCH (08:40)
[2019-02-28] MEDS ORDERED: FUROSEMIDE 20 MG TAB PO SCH (09:00)
[2019-02-28 12:20] LABS: Glucose,Whole Blood 122 mg/dL (75-99)
[2019-02-28] MEDS: SODIUM CHLORIDE 0.9% 1,000 ML IV SCH ×2 (12:54→20:16)
--- NOTE | 2019-02-28 13:08 | ECHOF ---
Referral Reason:syncope MEASUREMENTS -------- HEIGHT: 165.1 cm WEIGHT: 81.6 kg BP: IVSd: 1.2 cm (0.6 - 1.1) LVIDd: 4.1 cm (3.9 - 5.3) LVPWd: 1.2 cm (0.6 - 1.1) IVSs: 1.4 cm LVIDs: 3.0 cm LVPWs: 1.3 cm LA Diam: 3.0 cm (2.7 - 3.8) RVIDd: 3.3 cm (< 3.3) Ao Diam: 2.2 cm (2.0 - 3.7) LA Diam: 3.1 cm (2.7 - 3.8) AV Cusp: 1.4 cm (1.5 - 2.6) EPSS: 0.8 cm MV E Medardo: 0.44 m/s MV DecT: 278 ms MV A Medardo: 0.88 m/s MV E/A Ratio: 0.50 RAP: 5.00 mmHg RVSP: 16.30 mmHg MV EF SLOPE: 47.26 mm/s (70 - 150) MV EXCURSION: 13.19 mm (> 18.000) FINDINGS -------- Sinus rhythm. This was a technically adequate study. The left ventricular size is normal. There is mild concentric left ventricular hypertrophy. Overa ll left ventricular systolic function is low-normal with, an EF between 50 - 55 %. The right ventricle is normal in size. The left atrial size is normal. The right atrial size is normal. There is mild aortic valve sclerosis. There is no evidence of aortic regurgitation. Mild mitral annular calcification present. Mild mitral regurgitation is present. Mild tricuspid regurgitation present. Right ventricular systolic pressure is normal at < 35 mmHg. There is no pulmonic regurgitation present. The aortic root size is normal. The pericardium appears to be thickened. ORGANIZED PEFICARDIAL EFFUSION, MODERATE CONCLUSIONS -------- 1. The left ventricular size is normal. 2. There is mild concentric left ventricular hypertrophy. 3. Overall left ventricular systolic function is low-normal with, an EF between 50 - 55 %. 4. The right ventricle is normal in size. 5. The left atrial size is normal. 6. The right atrial size is normal. 7. There is mild aortic valve sclerosis. 8. Mild mitral annular calcification present. 9. Mild mitral regurgitation is present. 10. Mild tricuspid regurgitation present. 11. Right ventricular systolic pressure is normal at < 35 mmHg. 12. There is no pulmonic regurgitation present. 13. The aortic root size is normal. 14. The pericardium appears to be thickened. PROPERTY MAINTENANCE TECHNICIAN: Haydee Slaughter RDCS
--- NOTE | 2019-02-28 13:58 | P.HPIM ---
History of Present Illness 68-year-old pleasant female was brought in because of near syncopal episode and dizziness. Patient orthostatic vitals or rub positive EKG did not show any significant rhythm abnormality. Patient didn't have any significant rhythm a bnormalities on 9 telemetry. Patient baseline creatinine 1.4 went up to 1.8. Patient has on of diarrhea probably related to metformin. Patient is not a candidate for metformin because of his elevated had elevated creatinine which will be discontinued. Patient was started on IV fluids. Patient is receiving Lasix as well I do not have any echocardiogram available presently not in heart failure patient will be started on IV fluids hold off Lasix will obtain echocardiogram. Patient has on and off episodes of dizziness at home. Patient is a smoker appears to have advanced COPD does use 2 L of oxygen. Review of Systems REVIEW OF SYSTEMS: CONSTITUTIONAL: No fever, no malaise, no fatigue. HEENT: No recent visual problems or hearing problems. Denied any sore throat. CARDIOVASCULAR: No chest pain, orthopnea, PND, no palpitations, no syncope. PULMONARY: No shortness of breath, no cough, no hemoptysis. GASTROINTESTINAL: No diarrhea, no nausea, no vomiting, no abdominal pain. NEUROLOGICAL: No headaches, no weakness, no numbness. HEMATOLOGICAL: Denies any bleeding or petechiae. GENITOURINARY: Denies any burning micturition, frequency, or urgency. MUSCULOSKELETAL/RHEUMATOLOGICAL: Denies any joint pain, swelling, or any muscle pain. ENDOCRINE: Denies any polyuria or polydipsia. The rest of the 14-point review of systems is negative. Past Medical History Past Medical History: Chest Pain / Angina, Heart Failure, COPD, CVA/TIA, Diabetes Mellitus, Hypertension Additional Past Medical History / Comment(s): Breast Ca. Left side History of Any Multi-Drug Resistant Organisms: None Reported Past Surgical History: Appendectomy, Back Surgery, Breast Surgery, Cholecystectomy, Tubal Ligation Additional Past Surgical History / Comment(s): loop recorder, left breast biopsy Past Anesthesia/Blood Transfusion Reactions: No Reported Reaction Past Psychological History: No Psychological Hx Reported Smoking Status: Current every day smoker Past Alcohol Use History: None Reported Past Drug Use History: None Reported - Past Family History Mother Family Medical History: COPD Father Family Medical History: Liver Disease Medications and Allergies Home Medications Medication Instructions Recorded Confirmed Type Anastrozole [Arimidex] 1 mg PO DAILY 10/23/18 02/27/19 History Atorvastatin [Lipitor] 40 mg PO HS 10/23/18 02/27/19 History Cholecalciferol [Vitamin D3 (25 5,000 unit PO DAILY 10/23/18 02/27/19 History Mcg = 1000 Iu)] Furosemide [Lasix] 20 mg PO BID 10/23/18 02/27/19 History Levothyroxine Sodium [Synthroid] 25 mcg PO DAILY 10/23/18 02/27/19 History Losartan [Cozaar] 50 mg PO BID 10/23/18 02/27/19 History Metoprolol Succinate (ER) [Toprol 100 mg PO BID 10/23/18 02/27/19 History XL] Potassium Chloride ER [K-Dur 20] 20 meq PO DAILY 10/23/18 02/27/19 History sitaGLIPtin [Januvia] 100 mg PO DAILY 10/23/18 02/27/19 History metFORMIN HCL ER [Glucophage Xr] 500 mg PO BID 11/11/18 02/27/19 History ALPRAZolam [Xanax] 0.25 mg PO BID PRN 02/27/19 02/27/19 History Albuterol Inhaler [Ventolin Hfa 1 - 2 puff INHALATION RT-Q6H PRN 02/27/19 02/27/19 History Inhaler] Albuterol Nebulized [Ventolin 2.5 mg INHALATION Q4H PRN 02/27/19 02/27/19 History Nebulized] Citalopram Hydrobromide [CeleXA] 10 mg PO DAILY 02/27/19 02/27/19 History Magnesium Oxide [Mag-Ox] 250 mg PO DAILY 02/27/19 02/27/19 History Tiotropium [place] [Spiriva 2 spray INHALATION RT-DAILY 02/27/19 02/27/19 History Respimat] metFORMIN HCL 500 mg PO BID 02/27/19 02/27/19 History Allergies Allergy/AdvReac Type Severity Reaction Status Date / Time Iodinated Contrast- Oral and Allergy Rash/Hives Verified 02/27/19 14:04 IV Dye morphine Allergy Rash/Hives Verified 02/27/19 14:04 Physical Exam Vitals: Vital Signs Temp Pulse Pulse Pulse Pulse Pulse Resp 02/28/19 12:00 76 16 02/28/19 08:00 97.8 F 73 16 02/28/19 05:00 98.3 F 74 83 76 16 02/28/19 00:00 98.2 F 70 20 02/27/19 22:00 98.4 F 67 20 02/27/19 20:00 98.0 F 68 18 02/27/19 19:00 97.6 F 70 18 02/27/19 18:00 72 18 02/27/19 16:30 98.0 F 71 18 02/27/19 15:00 77 18 02/27/19 14:16 98.8 F BP BP BP BP BP Pulse Ox 02/28/19 12:00 138/80 96 02/28/19 08:00 161/81 99 02/28/19 05:00 161/85 143/72 127/70 100 02/28/19 00:00 163/84 99 02/27/19 22:00 167/83 100 02/27/19 20:00 156/82 98 02/27/19 19:00 132/89 97 02/27/19 18:00 150/73 97 02/27/19 16:30 152/75 100 02/27/19 15:00 152/82 97 02/27/19 14:16 Intake and Output 02/27/19 02/28/19 02/28/19 22:59 06:59 14:59 Intake Total 180 Output Total 350 Balance -170 Intake: Oral 180 Output: Urine 350 Other: Voiding Method Bedside Commode Bedside Commode Weight 60.1 kg PHYSICAL EXAMINATION: GENERAL: The patient is alert and oriented x3, not in any acute distress. Well developed, well nourished. HEENT: Pupils are round and equally reacting to light. EOMI. No scleral icterus. No conjunctival pallor. Normocephalic, atraumatic. No pharyngeal erythema. No thyromegaly. CARDIOVASCULAR: S1 and S2 present. No murmurs, rubs, or gallops. PULMONARY: Chest is clear to auscultation, no wheezing or crackles. ABDOMEN: Soft, nontender, nondistended, normoactive bowel sounds. No palpable organomegaly. MUSCULOSKELETAL: No joint swelling or deformity. EXTREMITIES: No cyanosis, clubbing, or pedal edema. NEUROLOGICAL: Gross neurological examination did not reveal any focal deficits. SKIN: No rashes. Results CBC & Chem 7: 08/02/19 14:55 02/27/19 14:55 Labs: Abnormal Lab Results - Last 24 Hours (Table) 02/27/19 02/27/19 02/27/19 Range/Units 14:55 14:55 16:30 RBC 3.76 L (3.80-5.40) m/uL Hgb 11.3 L (11.4-16.0) gm/dL Chloride 108 H (98-107) mmol/L Carbon Dioxide 18 L (22-30) mmol/L BUN 25 H (7-17) mg/dL Creatinine 1.84 H (0.52-1.04) mg/dL Glucose 101 H (74-99) mg/dL POC Glucose (mg/dL) (75-99) mg/dL Urine Protein Trace H (Negative) Ur Leukocyte Esterase Large H (Negative) Urine WBC 51 H (0-5) /hpf Urine Mucus Rare H (None) /hpf 02/27/19 02/28/19 02/28/19 Range/Units 21:34 06:31 12:02 RBC (3.80-5.40) m/uL Hgb (11.4-16.0) gm/dL Chloride (98-107) mmol/L Carbon Dioxide (22-30) mmol/L BUN (7-17) mg/dL Creatinine (0.52-1.04) mg/dL Glucose (74-99) mg/dL POC Glucose (mg/dL) 109 H 100 H 122 H (75-99) mg/dL Urine Protein (Negative) Ur Leukocyte Esterase (Negative) Urine WBC (0-5) /hpf Urine Mucus (None) /hpf Thrombosis Risk Factor Assmnt - Choose All That Apply Each Factor Represents 1 point: Swollen legs (current) Other Risk Factors: Yes Each Risk Factor Represents 2 Points: Age 61-74 years Thrombosis Risk Factor Assessment Total Risk Factor Score: 3 Thrombosis Risk Factor Assessment Level: Moderate Risk Assessment and Plan Plan: -Dizziness and near syncopal episode: Secondary to intravascular and patient probably because of on and off diarrhea C. diff is being obtained and as there is most probably related to metformin and metformin were discontinued as patient is not a candidate for metformin anyway patient will be on sliding scale insulin for now will decide on discharge diuretic regimen upon discharge. -COPD without any acute exacerbation although patient had doesn't have much of a movement on exam. Patient will be started on inhaled steroids and initial treatments will be continued -Type 2 diabetes mellitus metformin will be held and Lingliptan will be continued -Acute renal failure: Secondary to intravascular depletion prerenal azotemia Lasix will be held decrease the dose of her losartan and IV fluids as mentioned above. -Depression -Hyperlipidemia -Hypothyroidism -History of breast cancer on anastrozole which will be continued -Continued nicotine use: Counseling was provided
[2019-02-28 17:16] LABS: Glucose,Whole Blood 103 mg/dL (75-99)
[2019-02-28] MEDS: SYMBICORT 160-4.5 MCG INHALER INHALATION SCH ×2 (19:13→19:14)
[2019-02-28] MEDS: HEPARIN SODIUM,PORCINE 5,000 UNIT/ML 1 ML VIAL SQ SCH (20:14)
[2019-02-28] MEDS: ATORVASTATIN 40 MG TAB PO SCH (20:14)
[2019-02-28 20:36] LABS: Glucose,Whole Blood 121 mg/dL (75-99)
[2019-03-01 06:14] LABS: Magnesium 1.3 mg/dL (1.6-2.3)
[2019-03-01 06:25] LABS: Glucose,Whole Blood 98 mg/dL (75-99)
[2019-03-01] MEDS: LEVOTHYROXINE 25 MCG TAB PO SCH (06:30)
[2019-03-01 06:35] LABS: Calcium 6.2 mg/dL (8.4-10.2)
[2019-03-01] MEDS ORDERED: Potassium Replacement Protocol 1 EACH MISC MISCELLANE PRN (07:31)
[2019-03-01] MEDS ORDERED: Magnesium Replacement Protocol 1 EACH MISC MISCELLANE PRN (07:33)
[2019-03-01] MEDS ORDERED: CALCIUM GLUCONATE 2 GM in SODIUM CHLORIDE 0.9% 100 ML IVPB ONE (08:00)
[2019-03-01] MEDS: IPRATROPIUM 0.5 MG/2.5 ML NEBU INHALATION SCH ×4 (08:18→20:30)
[2019-03-01] MEDS: SYMBICORT 160-4.5 MCG INHALER INHALATION SCH ×2 (08:18→20:32)
[2019-03-01] MEDS: MAGNESIUM SULFATE-D5W PMX 1 GM in DEXTROSE/WATER 1 100ML.BAG IVPB SCH ×3 (08:46→12:56)
[2019-03-01] MEDS: POTASSIUM CHLORIDE ER 20 MEQ TAB.ER PO SCH ×2 (08:47→08:48)
[2019-03-01] MEDS: CHOLECALCIFEROL 1,000 UNIT TAB PO SCH (08:48)
[2019-03-01] MEDS: HEPARIN SODIUM,PORCINE 5,000 UNIT/ML 1 ML VIAL SQ SCH ×2 (08:48→21:30)
[2019-03-01] MEDS: METOPROLOL SUCCINATE (ER) 100 MG TAB.ER.24H PO SCH ×2 (08:48→21:30)
[2019-03-01] MEDS: SODIUM CHLORIDE 0.9% 1,000 ML IV SCH (08:49)
[2019-03-01] MEDS: CITALOPRAM HYDROBROMIDE 10 MG TAB PO SCH (08:49)
[2019-03-01] MEDS: MAGNESIUM OXIDE 400 MG TAB PO SCH (08:49)
[2019-03-01] MEDS: LINAGLIPTIN 5 MG TABLET PO SCH (08:49)
[2019-03-01] MEDS ORDERED: CALCIUM CARBONATE 500 MG CHEWABLE PO PRN (10:54)
[2019-03-01 11:44] LABS: Glucose,Whole Blood 144 mg/dL (75-99)
[2019-03-01] MEDS: LOSARTAN 50 MG TAB PO SCH (12:48)
[2019-03-01] MEDS: SODIUM CHLORIDE 0.45% 1,000 ML IV SCH (12:56)
--- NOTE | 2019-03-01 12:58 | P.PN ---
Subjective Patient was admitted for near syncope. Echocardiogram did not show any significant abnormality, telemetry is okay. Patient is volume depleted rece iving IV fluids because of hyperchloremia and sitting IV fluids to half-normal saline. Patient's creatinine has come down to 1.1, patient has multiple other light anomalies including hypocalcemia calcium is being replaced, hypomagnesemia which is being replaced as well and hypokalemia is being replaced as well. Patient is awaiting physical therapy and outpatient therapy evaluation possibility of discharge tomorrow. At home with home care or subacute rehabilitation depending on physical therapy evaluation. Patient is complaining of some nausea. Her dizziness although improved significantly Constitutional: Denied any fatigue denied any fever. Cardio vascular: denied any chest pain, palpitations Gastrointestinal denied any nausea vomiting Pulmonary: Denied any shortness of breath cough Neurologic denied any new focal deficits All inpatient medications were reviewed and appropriate changes in these medications as dictated in the interval history and assessment and plan. Objective - Vital Signs Vital signs: Vital Signs Temp 98.3 F 03/01/19 08:00 Pulse 72 03/01/19 11:55 Resp 16 03/01/19 12:00 BP 129/70 03/01/19 08:00 Pulse Ox 97 03/01/19 08:00 Intake & Output 02/28/19 03/01/19 03/01/19 18:59 06:59 18:59 Intake Total 590 600 230 Output Total 1150 400 Balance -560 600 -170 Weight 61.7 kg Intake: Intake, IV Titration 600 Amount Sodium Chloride 0.9% 1, 600 000 ml @ 100 mls/hr IV . Q10H [facility] Rx#:[id number] Oral 590 230 Output: Urine 1150 400 Other: Voiding Method Bedside Commode Toilet Toilet # Voids 2 - Exam PHYSICAL EXAMINATION: GENERAL: The patient is alert and oriented x3, not in any acute distress. Well developed, well nourished. HEENT: Pupils are round and equally reacting to light. EOMI. No scleral icterus. No conjunctival pallor. Normocephalic, atraumatic. No pharyngeal erythema. No thyromegaly. CARDIOVASCULAR: S1 and S2 present. No murmurs, rubs, or gallops. PULMONARY: Chest is clear to auscultation, no wheezing or crackles. ABDOMEN: Soft, nontender, nondistended, normoactive bowel sounds. No palpable organomegaly. MUSCULOSKELETAL: No joint swelling or deformity. EXTREMITIES: No cyanosis, clubbing, or pedal edema. NEUROLOGICAL: Gross neurological examination did not reveal any focal deficits. SKIN: No rashes. - Labs CBC & Chem 7: 02/27/19 14:55 03/01/19 05:31 Labs: Abnormal Lab Results - Last 24 Hours (Table) 02/28/19 02/28/19 03/01/19 Range/Units 17:08 20:35 05:31 Potassium 3.0 L (3.5-5.1) mmol/L Chloride 119 H (98-107) mmol/L Carbon Dioxide 17 L (22-30) mmol/L Creatinine 1.12 H (0.52-1.04) mg/dL Glucose 61 L (74-99) mg/dL POC Glucose (mg/dL) 103 H 121 H (75-99) mg/dL Calcium 6.2 L* (8.4-10.2) mg/dL Magnesium 1.3 L (1.6-2.3) mg/dL 03/01/19 Range/Units 11:22 Potassium (3.5-5.1) mmol/L Chloride (98-107) mmol/L Carbon Dioxide (22-30) mmol/L Creatinine (0.52-1.04) mg/dL Glucose (74-99) mg/dL POC Glucose (mg/dL) 144 H (75-99) mg/dL Calcium (8.4-10.2) mg/dL Magnesium (1.6-2.3) mg/dL Assessment and Plan Plan: -Dizziness and near syncopal episode: Secondary to intravascular and patient pr obably because of on and off diarrhea , echo cardiac exam and telemetry are within normal limits -COPD without any acute exacerbation, improved air entry into bilateral lung [place] with the inhaled steroids -Type 2 diabetes mellitus metformin will be held and Lingliptan will be continued -Acute renal failure: Secondary to intravascular depletion prerenal azotemia improved with IV fluids -Depression -Hyperlipidemia -Hypothyroidism -History of breast cancer on anastrozole which will be continued -Continued nicotine use: Counseling was provided
[2019-03-01 17:14] LABS: Glucose,Whole Blood 111 mg/dL (75-99)
[2019-03-01] MEDS: ATORVASTATIN 40 MG TAB PO SCH (21:29)
[2019-03-01] MEDS: FAMOTIDINE 20 MG TAB PO SCH (21:30)
[2019-03-01 21:34] LABS: Glucose,Whole Blood 122 mg/dL (75-99)
[2019-03-02] MEDS: SODIUM CHLORIDE 0.45% 1,000 ML IV SCH (04:51)
[2019-03-02 06:16] LABS: Magnesium 2.2 mg/dL (1.6-2.3); Potassium 3.8 mmol/L (3.5-5.1)
[2019-03-02 06:16] LABS: Glucose,Whole Blood 119 mg/dL (75-99)
[2019-03-02 06:25] LABS: Basophils % (A) 1 %; Eosinophils # (A) 0.2 k/uL (0-0.7); Eosinophils % (A) 4 %; HCT 26.2 % (34.0-46.0); Lymphocytes % (A) 21 %; MCH 30.3 pg (25.0-35.0); MCHC 32.8 g/dL (31.0-37.0); MCV 92.6 fL (80.0-100.0); Mean Platelet Volume 7.7; Monocytes # (A) 0.4 k/uL (0-1.0); Monocytes % (A) 9 %; Neutrophils % (A) 63 %; Platelet Count 174 k/uL (150-450); RBC 2.83 m/uL (3.80-5.40); RDW 14.2 % (11.5-15.5); WBC 4.7 k/uL (3.8-10.6)
[2019-03-02 06:27] LABS: HGB 8.6 gm/dL (11.4-16.0)
[2019-03-02] MEDS: LEVOTHYROXINE 25 MCG TAB PO SCH (06:37)
[2019-03-02] MEDS: IPRATROPIUM 0.5 MG/2.5 ML NEBU INHALATION SCH ×2 (07:00→11:09)
[2019-03-02] MEDS: SYMBICORT 160-4.5 MCG INHALER INHALATION SCH (07:01)
[2019-03-02] MEDS: CHOLECALCIFEROL 1,000 UNIT TAB PO SCH (09:15)
[2019-03-02] MEDS: HEPARIN SODIUM,PORCINE 5,000 UNIT/ML 1 ML VIAL SQ SCH (09:15)
[2019-03-02] MEDS: MAGNESIUM OXIDE 400 MG TAB PO SCH (09:16)
[2019-03-02] MEDS: CITALOPRAM HYDROBROMIDE 10 MG TAB PO SCH (09:16)
[2019-03-02] MEDS: LOSARTAN 50 MG TAB PO SCH (09:16)
[2019-03-02] MEDS: FAMOTIDINE 20 MG TAB PO SCH (09:16)
[2019-03-02] MEDS: METOPROLOL SUCCINATE (ER) 100 MG TAB.ER.24H PO SCH (09:16)
[2019-03-02] MEDS: LINAGLIPTIN 5 MG TABLET PO SCH (09:16)
[2019-03-02 09:26] VITALS: BP 191/81; RESP 16; TEMP 98.1
[2019-03-02 11:17] VITALS: PULSE 70
[2019-03-02 12:00] LABS: Glucose,Whole Blood 126 mg/dL (75-99)
--- NOTE | 2019-03-02 12:01 | P.DS ---
Providers Date of admission: 02/28/19 15:21 Attending physician: Jamil Landa Primary care physician: Júnior [facility] Course: Patient was admitted for near syncope. Echocardiogram did not show any significant abnormality, telemetry is okay. Patient is volume depleted receiving IV fluids because of hyperchloremia and sitting IV fluids to half- normal saline. Patient's creatinine has come down to 1.1, patient has multiple other light anomalies including hypocalcemia calcium is being replaced, hypomagnesemia which is being replaced as well and hypokalemia is being replaced as well. Patient is awaiting physical therapy and outpatient therapy evaluation possibility of discharge tomorrow. At home with home care or subacute rehabilitation depending on physical therapy evaluation. Patient is complaining of some nausea. Her dizziness although improved significantly 03/02/2019 Patient is clinically doing well patient will be discharged either home with home care or subacute rehabilitation depending on physical therapy evaluation today. Patient is bit hyponatremic secondary to half-normal saline. Which is expected to improve. Patient will not require any Lasix Lasix will be discontinued patient came in with hypokalemia. Patient has no evidence of CHF patient will be given prescription for some record as well counseling regarding smoking cessation was provided but I do not believe patient will actually quit smoking. PHYSICAL EXAMINATION: GENERAL: The patient is alert and oriented x3, not in any acute distress. Well developed, well nourished. HEENT: Pupils are round and equally reacting to light. EOMI. No scleral icterus. No conjunctival pallor. Normocephalic, atraumatic. No pharyngeal erythema. No thyromegaly. CARDIOVASCULAR: S1 and S2 present. No murmurs, rubs, or gallops. PULMONARY: Chest is clear to auscultation, no wheezing or crackles. ABDOMEN: Soft, nontender, nondistended, normoactive bowel sounds. No palpable organomegaly. MUSCULOSKELETAL: No joint swelling or deformity. EXTREMITIES: No cyanosis, clubbing, or pedal edema. NEUROLOGICAL: Gross neurological examination did not reveal any focal deficits. SKIN: No rashes. Assessment and Plan Plan: -Dizziness and near syncopal episode: Secondary to intravascular and patient probably because of on and off diarrhea , echocardiogram and telemetry did not show any significant abnormalities and near syncope secondary to hypovolemia -COPD without any acute exacerbation, improved air entry into bilateral lung [place] with the inhaled steroids -Type 2 diabetes mellitus metformin will be his continued and Lingliptan will be continued -Acute renal failure: Secondary to intravascular depletion prerenal azotemia improved with IV fluids -Depression -Hyperlipidemia -Hypothyroidism -History of breast cancer on anastrozole which will be continued -Continued nicotine use: Counseling was provided Patient Condition at Discharge: Fair Plan - Discharge Summary Discharge Rx Participant: No New Discharge Prescriptions: New Magnesium Oxide [Mag-Ox] 400 mg PO DAILY #30 tab Budesonide-Formot 160-4.5 Mcg [Symbicort 160-4.5 Mcg Inhaler] 2 puff INHALATION RT-BID #1 inhaler Continue Anastrozole [Arimidex] 1 mg PO DAILY Atorvastatin [Lipitor] 40 mg PO HS Cholecalciferol [Vitamin D3 (25 Mcg = 1000 Iu)] 5,000 unit PO DAILY Levothyroxine Sodium [Synthroid] 25 mcg PO DAILY Losartan [Cozaar] 50 mg PO BID Metoprolol Succinate (ER) [Toprol XL] 100 mg PO BID sitaGLIPtin [Januvia] 100 mg PO DAILY Tiotropium [place] [Spiriva Respimat] 2 spray INHALATION RT-DAILY Albuterol Nebulized [Ventolin Nebulized] 2.5 mg INHALATION Q4H PRN PRN Reason: Shortness Of Breath Albuterol Inhaler [Ventolin Hfa Inhaler] 1 - 2 puff INHALATION RT-Q6H PRN PRN Reason: Shortness Of Breath Citalopram Hydrobromide [CeleXA] 10 mg PO DAILY ALPRAZolam [Xanax] 0.25 mg PO BID PRN PRN Reason: Anxiety Discontinued Furosemide [Lasix] 20 mg PO BID Potassium Chloride ER [K-Dur 20] 20 meq PO DAILY metFORMIN HCL ER [Glucophage Xr] 500 mg PO BID Magnesium Oxide [Mag-Ox] 250 mg PO DAILY metFORMIN HCL 500 mg PO BID Discharge Medication List Anastrozole [Arimidex] 1 mg PO DAILY 10/23/18 [History] Atorvastatin [Lipitor] 40 mg PO HS 10/23/18 [History] Cholecalciferol [Vitamin D3 (25 Mcg = 1000 Iu)] 5,000 unit PO DAILY 10/23/18 [History] Levothyroxine Sodium [Synthroid] 25 mcg PO DAILY 10/23/18 [History] Losartan [Cozaar] 50 mg PO BID 10/23/18 [History] Metoprolol Succinate (ER) [Toprol XL] 100 mg PO BID 10/23/18 [History] sitaGLIPtin [Januvia] 100 mg PO DAILY 10/23/18 [History] ALPRAZolam [Xanax] 0.25 mg PO BID PRN 02/27/19 [History] Albuterol Inhaler [Ventolin Hfa Inhaler] 1 - 2 puff INHALATION RT-Q6H PRN 02/27/19 [History] Albuterol Nebulized [Ventolin Nebulized] 2.5 mg INHALATION Q4H PRN 02/27/19 [H istory] Citalopram Hydrobromide [CeleXA] 10 mg PO DAILY 02/27/19 [History] Tiotropium [place] [Spiriva Respimat] 2 spray INHALATION RT-DAILY 02/27/19 [History] Budesonide-Formot 160-4.5 Mcg [Symbicort 160-4.5 Mcg Inhaler] 2 puff INHALATION RT-BID #1 inhaler 03/02/19 [Rx] Magnesium Oxide [Mag-Ox] 400 mg PO DAILY #30 tab 03/02/19 [Rx] Follow up Appointment(s)/Referral(s): Júnior Arzola DO [Primary Care Provider] - 03/04/19 9:20 am (In [place]. ) Patient Instructions/Handouts: How to Stop Smoking (DC), Syncope (DC) Discharge Disposition: HOME SELF-CARE
== END 2019-03-02 13:34 | disposition home or self-care (01) | DRG 394 ==
LOC: EC 13:30 → 1SOBS 17:21 → 3SCARD 17:21 → UNDOADMOB 17:21 → OBSVTOIN 02-28 15:21
PROVIDERS: ADMIT Internal Medicine; ATTEND Internal Medicine
DX: K52.1 Toxic gastroenteritis and colitis (principal); N17.9 Acute kidney failure, unspecified; E87.1 Hypo-osmolality and hyponatremia; E86.1 Hypovolemia; R42 Dizziness and giddiness; E83.42 Hypomagnesemia; E78.5 Hyperlipidemia, unspecified; E03.9 Hypothyroidism, unspecified; E11.9 Type 2 diabetes mellitus without complications; E83.51 Hypocalcemia; E87.6 Hypokalemia; E87.8 Other disorders of electrolyte and fluid balance, not elsewhere classified; F17.200 Nicotine dependence, unspecified, uncomplicated; F32.9 Major depressive disorder, single episode, unspecified; I11.0 Hypertensive heart disease with heart failure; I50.9 Heart failure, unspecified; T38.3X5A Adverse effect of insulin and oral hypoglycemic [antidiabetic] drugs, initial encounter; J44.9 Chronic obstructive pulmonary disease, unspecified; Z79.84 Long term (current) use of oral hypoglycemic drugs; Z79.890 Hormone replacement therapy; Z79.899 Other long term (current) drug therapy; Z82.5 Family history of asthma and other chronic lower respiratory diseases; Z85.3 Personal history of malignant neoplasm of breast; Z86.73 Personal history of transient ischemic attack (TIA), and cerebral infarction without residual deficits; Z90.49 Acquired absence of other specified parts of digestive tract; Z98.890 Other specified postprocedural states; Z98.51 Tubal ligation status; Z83.79 Family history of other diseases of the digestive system; Z88.5 Allergy status to narcotic agent; Z91.041 Radiographic dye allergy status
CPT/HCPCS: 36415; 70450; 71045; 80048; 80051; 80053; 81001; 83735; 84484; 85025; 85610; 93005; 93306; 94640; 99285

== ENCOUNTER 2019-05-05 09:59 | Inpatient (IN) | payer MEDICARE, OTHER ==
[2019-05-05] MEDS ORDERED: SODIUM CHLORIDE 0.9% 500 ML 500 ML IV ONE (10:50)
[2019-05-05] MEDS ORDERED: IPRATROPIUM-ALBUTEROL 3 ML NEB INHALATION STA (11:50)
[2019-05-05] MEDS ORDERED: methylPREDNISolone SOD SUCCI 125 MG/2 ML VIAL IV STA (11:50)
--- NOTE | 2019-05-05 11:53 | ED ---
Altered Mental Status HPI - General Chief Complaint: Altered Mental Status Stated Complaint: poss cva Time Seen by Provider: 05/05/19 10:37 Source: patient, family, RN notes reviewed Mode of arrival: wheelchair Limitations: altered mental status - History of Present Illness Initial Comments: This a 68-year-old female presents emergency department with family concerns for altered mental status, lethargy. Patient reportedly is having more frequent falls over the last week or so. She did have some noted falls no noted head injury. Patient states she has no injuries from the fall but states that she's having weakness related while and bleeding with her walker.. Patient states that states that she does have underlying COPD states that she is on chronic O2 was having increased shortness of breath, cough congestion. She also had noted swelling of her extremities which is out of the usual for her. Denies any pain associated with. Denies any focal weakness she has had multiple strokes in the past which is only affected her speech. They deny any change in her speech this time. Patient has no mental abdominal pain, chest pain, palpitations, fever or chills. Family states that she seemed to be lethargic and uses morning though symptoms are improved at this time. - Related Data Home Medications Medication Instructions Recorded Confirmed Anastrozole [Arimidex] 1 mg PO DAILY 10/23/18 05/05/19 Atorvastatin [Lipitor] 40 mg PO HS 10/23/18 05/05/19 Cholecalciferol [Vitamin D3 (25 5,000 unit PO DAILY 10/23/18 05/05/19 Mcg = 1000 Iu)] Levothyroxine Sodium [Synthroid] 25 mcg PO DAILY 10/23/18 05/05/19 Losartan [Cozaar] 50 mg PO BID 10/23/18 05/05/19 Metoprolol Succinate (ER) [Toprol 100 mg PO DAILY 10/23/18 05/05/19 XL] sitaGLIPtin [Januvia] 100 mg PO DAILY 10/23/18 05/05/19 ALPRAZolam [Xanax] 0.25 - 0.5 mg PO DAILY PRN 02/27/19 05/05/19 Citalopram Hydrobromide [CeleXA] 10 mg PO DAILY 02/27/19 05/05/19 Alendronate Sodium [Fosamax] 70 mg PO SA 05/05/19 05/05/19 Aspirin EC [Ecotrin Low Dose] 81 mg PO DAILY 05/05/19 05/05/19 Magnesium Citrate 200 mg PO DAILY 05/05/19 05/05/19 Ondansetron [Zofran] 4 - 8 mg PO Q8H PRN 05/05/19 05/05/19 Pantoprazole [Protonix] 40 mg PO DAILY 05/05/19 05/05/19 Potassium Chloride [Klor-Con 20] 20 meq PO DAILY 05/05/19 05/05/19 Pregabalin [Lyrica] 100 mg PO BID 05/05/19 05/05/19 busPIRone HCL 15 mg PO BID 05/05/19 05/05/19 Allergies Allergy/AdvReac Type Severity Reaction Status Date / Time Iodinated Contrast Media Allergy Rash/Hives Verified 05/05/19 10:44 [Iodinated Contrast- Oral and IV Dye] morphine Allergy Rash/Hives Verified 05/05/19 10:44 Sulfa (Sulfonamide Allergy Rash/Hives Verified 05/05/19 10:44 Antibiotics) Review of Systems ROS Statement: Those systems with pertinent positive or pertinent negative responses have been documented in the HPI. ROS Other: All systems not noted in ROS Statement are negative. Past Medical History Past Medical History: Chest Pain / Angina, Heart Failure, COPD, CVA/TIA, Diabetes Mellitus, Hypertension Additional Past Medical History / Comment(s): Breast Ca. Left side History of Any Multi-Drug Resistant Organisms: None Reported Past Surgical History: Appendectomy, Back Surgery, Breast Surgery, Cholecystectomy, Tubal Ligation Additional Past Surgical History / Comment(s): loop recorder, left breast biopsy Past Anesthesia/Blood Transfusion Reactions: No Reported Reaction Past Psychological History: No Psychological Hx Reported Smoking Status: Current every day smoker Past Alcohol Use History: None Reported Past Drug Use History: None Reported - Past Family History Mother Family Medical History: COPD Father Family Medical History: Liver Disease General Exam Limitations: altered mental status General appearance: alert, in no apparent distress Head exam: Present: atraumatic, normocephalic, normal inspection Eye exam: Present: normal appearance, PERRL, EOMI. Absent: scleral icterus, conjunctival injection, periorbital swelling ENT exam: Present: normal exam, normal oropharynx, mucous membranes moist, TM's normal bilaterally Neck exam: Present: normal inspection, full ROM. Absent: tenderness, meningismus, lymphadenopathy Respiratory exam: Present: wheezes, rhonchi. Absent: normal lung sounds bilaterally, respiratory distress, rales, stridor Cardiovascular Exam: Present: regular rate, normal rhythm, normal heart sounds. Absent: systolic murmur, diastolic murmur, rubs, gallop, clicks GI/Abdominal exam: Present: soft, normal bowel sounds. Absent: distended, tenderness, guarding, rebound, rigid Extremities exam: Present: pedal edema, other (For range of motion full- strengthExtremities) Back exam: Present: full ROM. Absent: tenderness, CVA tenderness (R), CVA tenderness (L) Neurological exam: Present: alert, oriented X3, CN II-XII intact, reflexes nor mal. Absent: motor sensory deficit Skin exam: Present: warm, dry, intact, normal color. Absent: rash Course Vital Signs 05/05/19 05/05/19 05/05/19 10:10 10:30 12:21 Temperature 97.8 F Pulse Rate 87 73 Respiratory 18 25 H Rate Blood Pressure 155/76 O2 Sat by Pulse 93 L Oximetry 05/05/19 05/05/19 12:32 13:34 Temperature Pulse Rate 73 75 Respiratory 18 Rate Blood Pressure 154/84 O2 Sat by Pulse 98 Oximetry Medical Decision Making - Medical Decision Making 68-year-old presented for dyspnea, lethargy. Patient's found to have elevated BNP at 22,000, pointing of her ankles in signs of overt failure. Patient will be admitted for diuresis. Patient does have underlying COPD. Patient is awake alert and oriented to time. Patient be admitted. - Lab Data Result diagrams: 05/05/19 11:45 05/05/19 11:45 Lab Results 05/05/19 05/05/19 05/05/19 Range/Units 11:45 11:45 11:45 WBC 7.4 (3.8-10.6) k/uL RBC 3.38 L (3.80-5.40) m/uL Hgb 9.9 L (11.4-16.0) gm/dL Hct 33.1 L (34.0-46.0) % MCV 97.9 (80.0-100.0) fL MCH 29.3 (25.0-35.0) pg MCHC 29.9 L (31.0-37.0) g/dL RDW 16.4 H (11.5-15.5) % Plt Count 236 (150-450) k/uL Neutrophils % 81 % Lymphocytes % 9 % Monocytes % 7 % Eosinophils % 1 % Basophils % 1 % Neutrophils # 6.0 (1.3-7.7) k/uL Lymphocytes # 0.6 L (1.0-4.8) k/uL Monocytes # 0.5 (0-1.0) k/uL Eosinophils # 0.1 (0-0.7) k/uL Basophils # 0.1 (0-0.2) k/uL Hypochromasia Marked Anisocytosis Slight Macrocytosis Slight PT (9.0-12.0) sec INR (<1.2) APTT (22.0-30.0) sec Sodium 142 (137-145) mmol/L Potassium 4.4 (3.5-5.1) mmol/L Chloride 101 (98-107) mmol/L Carbon Dioxide 35 H (22-30) mmol/L Anion Gap 6 mmol/L BUN 21 H (7-17) mg/dL Creatinine 1.42 H (0.52-1.04) mg/dL Est GFR (CKD-EPI)AfAm 43 (>60 ml/min/1.73 sqM) Est GFR (CKD-EPI)NonAf 38 (>60 ml/min/1.73 sqM) Glucose 173 H (74-99) mg/dL Plasma Lactic Acid Silvestre 1.1 (0.7-2.0) mmol/L Calcium 9.0 (8.4-10.2) mg/dL Total Bilirubin 0.6 (0.2-1.3) mg/dL AST 41 H (14-36) U/L ALT 64 H (9-52) U/L Alkaline Phosphatase 118 (38-126) U/L Troponin I (0.000-0.034) ng/mL NT-Pro-B Natriuret Pep pg/mL Total Protein 7.1 (6.3-8.2) g/dL Albumin 3.7 (3.5-5.0) g/dL 05/05/19 05/05/19 05/05/19 Range/Units 11:45 11:45 11:45 WBC (3.8-10.6) k/uL RBC (3.80-5.40) m/uL Hgb (11.4-16.0) gm/dL Hct (34.0-46.0) % MCV (80.0-100.0) fL MCH (25.0-35.0) pg MCHC (31.0-37.0) g/dL RDW (11.5-15.5) % Plt Count (150-450) k/uL Neutrophils % % Lymphocytes % % Monocytes % % Eosinophils % % Basophils % % Neutrophils # (1.3-7.7) k/uL Lymphocytes # (1.0-4.8) k/uL Monocytes # (0-1.0) k/uL Eosinophils # (0-0.7) k/uL Basophils # (0-0.2) k/uL Hypochromasia Anisocytosis Macrocytosis PT 10.0 (9.0-12.0) sec INR 0.9 (<1.2) APTT 24.7 (22.0-30.0) sec Sodium (137-145) mmol/L Potassium (3.5-5.1) mmol/L Chloride (98-107) mmol/L Carbon Dioxide (22-30) mmol/L Anion Gap mmol/L BUN (7-17) mg/dL Creatinine (0.52-1.04) mg/dL Est GFR (CKD-EPI)AfAm (>60 ml/min/1.73 sqM) Est GFR (CKD-EPI)NonAf (>60 ml/min/1.73 sqM) Glucose (74-99) mg/dL Plasma Lactic Acid Silvestre (0.7-2.0) mmol/L Calcium (8.4-10.2) mg/dL Total Bilirubin (0.2-1.3) mg/dL AST (14-36) U/L ALT (9-52) U/L Alkaline Phosphatase (38-126) U/L Troponin I 0.014 (0.000-0.034) ng/mL NT-Pro-B Natriuret Pep 18906 pg/mL Total Protein (6.3-8.2) g/dL Albumin (3.5-5.0) g/dL Disposition Clinical Impression: Acute exacerbation of CHF (congestive heart failure), Dyspnea, Hypoxic, Intermittent confusion Disposition: ADMITTED IP TO THIS HOSP Condition: Fair Referrals: Júnior Arzola DO [Primary Care Provider] - 1-2 days
--- NOTE | 2019-05-05 12:06 | XR ---
EXAMINATION TYPE: XR chest 2V DATE OF EXAM: 05/05/2019 COMPARISON: 02/27/2019 HISTORY: 68-year-old female with confusion, altered mental status, cough and congestion TECHNIQUE: AP and lateral views FINDINGS: Heart mildly enlarged. Loop recorder device projects over the left side of the heart. Mild hyperinfla tion. Some patchy right basilar opacity is noted. No pleural effusion. Stable calcified granuloma lat eral lower left lung. No sizable effusion. IMPRESSION: 1. Stable mild cardiomegaly and COPD. 2. Some new patchy right basilar atelectasis versus early infiltrate.
[2019-05-05 12:08] LABS: Anisocytosis Slight; Basophils # (A) 0.1 k/uL (0-0.2); Basophils % (A) 1 %; Eosinophils # (A) 0.1 k/uL (0-0.7); Eosinophils % (A) 1 %; HCT 33.1 % (34.0-46.0); HGB 9.9 gm/dL (11.4-16.0); Hypochromasia Marked; Lymphocytes # (A) 0.6 k/uL (1.0-4.8); Lymphocytes % (A) 9 %; MCH 29.3 pg (25.0-35.0); MCHC 29.9 g/dL (31.0-37.0); MCV 97.9 fL (80.0-100.0); Macrocytosis Slight; Mean Platelet Volume 8.2; Monocytes # (A) 0.5 k/uL (0-1.0); Monocytes % (A) 7 %; Neutrophils % (A) 81 %; Platelet Count 236 k/uL (150-450); RBC 3.38 m/uL (3.80-5.40); RDW 16.4 % (11.5-15.5); WBC 7.4 k/uL (3.8-10.6)
[2019-05-05 12:16] LABS: INR 0.9 (<1.2); Partial Thromboplastin Time 24.7 sec (22.0-30.0)
[2019-05-05 12:17] LABS: Albumin 3.7 g/dL (3.5-5.0); Potassium 4.4 mmol/L (3.5-5.1); Total Bilirubin 0.6 mg/dL (0.2-1.3); Total Protein 7.1 g/dL (6.3-8.2)
--- NOTE | 2019-05-05 13:14 | CT ---
EXAMINATION TYPE: CT brain wo con DATE OF EXAM: 05/05/2019 COMPARISON: CT brain 02/27/2019 HISTORY: Altered mental confusion CT DLP: 1035.4 mGycm Automated exposure control for dose reduction was used. Helical imaging through the brain. FINDINGS: Findings are stable. Periventricular white matter low-attenuation is present, there is encephalomalac ia noted bilaterally as on prior exam compatible with remote infarcts. There is no hemorrhage or hydr ocephalus. Cortical atrophy is again noted. Calvarium is intact. Paranasal sinuses are remarkable for some inflammatory change in the sphenoid sinus, ethmoid air cells. Orbits are symmetric. Cerebral va scular calcifications are present. IMPRESSION: STABLE CHRONIC SMALL VESSEL ISCHEMIC CHANGES. AGE-RELATED ATROPHY. SINUS DISEASE.
[2019-05-05] MEDS ORDERED: ASPIRIN 325 MG TAB PO STA (13:37)
[2019-05-05] MEDS ORDERED: FUROSEMIDE 10 MG/ML 4 ML VIAL IV STA (13:38)
[2019-05-05 14:23] LABS: VBG PH 7.41 (7.31-7.41)
[2019-05-05] MEDS ORDERED: ONDANSETRON 4 MG TAB PO PRN (15:23)
[2019-05-05] MEDS ORDERED: ALPRAZolam 0.25 MG TAB PO PRN ×2 (15:23→15:27)
[2019-05-05] MEDS ORDERED: IPRATROPIUM-ALBUTEROL 3 ML NEB INHALATION PRN (15:27)
--- NOTE | 2019-05-05 16:47 | HP ---
HISTORY AND PHYSICAL DATE OF SERVICE: 05/05/2019 CHIEF COMPLAINTS: Shortness of breath and change in mental status. HISTORY OF PRESENT ILLNESS: This 68-year-old woman with a past medical history of multiple medical problems, including history of COPD, CHF, CVA, TIA, diabetes mellitus, hypertension, breast cancer, history of appendectomy, being followed by Dr. Júnior Arzola in the outpatient setting, was noted to have some change in mental status. Patient also was complaining of being weak. Patient also has had cough and sputum and shortness of breath for the past several days. The patient also had some orthopnea and paroxysmal nocturnal dyspnea. The patient came to [facility]. BNP was significantly elevated. Chest x-ray showed evidence of CHF. Patient admitted for further evaluation and treatment. There is no history of any fever, rigors or chills at this time. PAST MEDICAL HISTORY: 1. History of COPD. 2. CHF. 3. Diabetes mellitus, type 2. 4. History of appendectomy. 5. History of back surgery. HOME MEDICATIONS: 1. Januvia 100 mg p.o. daily. 2. Buspirone 15 mg p.o. b.i.d. 3. Lyrica 100 mg p.o. b.i.d. 4. Klor-Con 20 mEq p.o. daily. 5. Protonix 40 mg p.o. daily. 6. Zofran 4 to 8 mg q.8 p.r.n. 7. Toprol-XL 100 mg p.o. daily. 8. Magnesium 200 mg p.o. daily. 9. Cozaar 50 mg p.o. b.i.d. 10.Synthroid 25 mcg p.o. daily. 11.Celexa 10 mg p.o. daily. 12.Vitamin D3 5000 p.o. daily. 13.Lipitor 40 mg at bedtime. 14.Ecotrin 81 mg p.o. daily. 15.Arimidex 1 mg p.o. daily. 16.Fosamax 70 mg p.o. Saturday. 17.Xanax 0.25 to 0.5 mg daily p.r.n. ALLERGIES: 1. IODINATED CONTRAST DYES. 2. MORPHINE. 3. SULFA. FAMILY HISTORY: History of COPD in the family. SOCIAL HISTORY: History of smoking, continued and ongoing. No history of alcohol intake. REVIEW OF SYSTEMS: ENT: No diminished hearing. No diminished vision. CARDIOVASCULAR SYSTEM: As mentioned earlier. RESPIRATORY SYSTEM: As mentioned earlier. GI: No nausea, vomiting. : No dysuria or retention. NERVOUS SYSTEM: No numbness, weakness. ALLERGY/IMMUNOLOGY: No asthma, hayfever. MUSCULOSKELETAL: As mentioned earlier. HEMATOLOGY/ONCOLOGY: No history of anemia. ENDOCRINE: Hypothyroidism. CONSTITUTIONAL: As mentioned earlier. DERMATOLOGY: Negative. RHEUMATOLOGY: Negative. PSYCHIATRY: As mentioned earlier. PHYSICAL EXAMINATION: Patient alert and oriented x3. Pulse 75, blood pressure 154/84, respiration 18, temperature 97.8, pulse ox 98% on 2 L. HEENT: Conjunctivae normal. Oral mucosa moist. NECK: No jugular venous distention. No carotid bruit. No lymph node enlargement. CARDIOVASCULAR SYSTEM: S1, S2 muffled. No S3. No S4. RESPIRATORY SYSTEM: Breath sounds diminished at the bases. A few scattered rhonchi and crackles. ABDOMEN: Soft, non-tender. No mass palpable. LEGS: Bilateral leg edema. NERVOUS SYSTEM: Higher functions as mentioned earlier. Moves all 4 limbs. No focal motor or sensory deficit. LYMPHATICS: No lymph node palpable in neck, axillae or groin. SKIN: No ulcer, rash, bleeding. JOINTS: No active deforming arthropathy. LABS: WBC 7.4, hemoglobin 9.9. Creatinine is 1.42. ASSESSMENT: 1. Shortness of breath, possibly multifactorial, with congestive heart failure, acute exacerbation, with acute on chronic diastolic dysfunction, ejection fraction 50% to 55%, as well as chronic obstructive pulmonary disease, acute exacerbation, with acute purulent tracheobronchitis. 2. History of cerebrovascular accident, transient ischemic attack. 3. Bilateral leg edema. 4. Diabetes mellitus, type 2. 5. Change in mental status, acute metabolic encephalopathy, multifactorial. 6. Hypertension. 7. History of breast cancer, left side. 8. History of appendectomy. 9. History of degenerative joint disease. 10.History of continued ongoing nicotine dependence. RECOMMENDATIONS AND DISCUSSION: In this 68-year-old woman who presented with multiple complex medical issues, we will monitor the patient closely, continue the current management, continue with symptomatic treatment. Will initiate a small dose of diuretics cautiously. I would also recommend intensive bronchodilator treatment, steroids and bronchodilators, empiric antibiotics. Resume the home medications. Overall prognosis guarded because of multiple complex medical issues. Further recommendations to follow. Prognosis guarded. Discussed with the patient's family. A copy of this dictation is being forwarded to Dr. Arzola, who is the primary physician. KERON / ANDREW: [id number] /
[2019-05-05] MEDS ORDERED: INFLUENZA VACCINE (6 MOS+) 60 MCG/0.5 ML SYRINGE IM ONE (16:53)
[2019-05-05] MEDS: NICOTINE 14MG/24HR PATCH TRANSDERM SCH (17:00)
[2019-05-05 17:02] LABS: Glucose,Whole Blood 227 mg/dL (75-99)
[2019-05-05] MEDS: INSULIN ASPART (NovoLOG) 100 UNIT/ML VIAL SQ SCH ×2 (17:08→20:48)
[2019-05-05] MEDS: methylPREDNISolone SOD SUCCI 125 MG/2 ML VIAL IV SCH (17:08)
[2019-05-05 17:12] LABS: Appearance,Urine Clear (Clear); Bilirubin,Urine Negative (Negative); Blood,Urine Negative (Negative); Color,Urine Light Yellow; Glucose,Urine (UA) Negative (Negative); Hyaline Casts,Urine 3 /lpf (0-2); Ketones,Urine Negative (Negative); Leukocyte Esterase,Urine Small (Negative); Nitrite,Urine Negative (Negative); PH, Urine 6.5 (5.0-8.0); Protein,Urine Negative (Negative); Specific Gravity,Urine 1.009 (1.001-1.035); Squamous Epithelial Cell,Urine 2 /hpf (0-4); Urobilinogen,Urine <2.0 mg/dL (<2.0)
[2019-05-05] MEDS: IPRATROPIUM-ALBUTEROL 3 ML NEB INHALATION SCH (20:13)
[2019-05-05 20:36] LABS: Glucose,Whole Blood 264 mg/dL (75-99)
[2019-05-05] MEDS: HEPARIN SODIUM,PORCINE 5,000 UNIT/ML 1 ML VIAL SQ SCH (20:48)
[2019-05-05] MEDS: ATORVASTATIN 40 MG TAB PO SCH (20:49)
[2019-05-05] MEDS: LOSARTAN 50 MG TAB PO SCH (20:49)
[2019-05-05] MEDS: busPIRone HCl 10 MG TAB PO SCH (20:49)
[2019-05-05] MEDS: PREGABALIN 100 MG CAP PO SCH (20:49)
[2019-05-06] MEDS: methylPREDNISolone SOD SUCCI 125 MG/2 ML VIAL IV SCH ×5 (00:39→23:21)
[2019-05-06] MEDS: FUROSEMIDE 10 MG/ML 4 ML VIAL IV SCH ×2 (03:26→16:02)
[2019-05-06 06:05] LABS: Glucose,Whole Blood 175 mg/dL (75-99)
[2019-05-06] MEDS: LEVOTHYROXINE 25 MCG TAB PO SCH (07:04)
[2019-05-06] MEDS: PANTOPRAZOLE 40 MG TABLET PO SCH (07:04)
[2019-05-06] MEDS: INSULIN ASPART (NovoLOG) 100 UNIT/ML VIAL SQ SCH ×4 (07:05→21:25)
[2019-05-06 07:07] LABS: Anisocytosis Slight; Basophils % (A) 1 %; Eosinophils % (A) 0 %; HCT 37.5 % (34.0-46.0); HGB 10.8 gm/dL (11.4-16.0); Hypochromasia Marked; Lymphocytes # (A) 0.8 k/uL (1.0-4.8); Lymphocytes % (A) 13 %; MCH 28.9 pg (25.0-35.0); MCHC 28.8 g/dL (31.0-37.0); MCV 100.4 fL (80.0-100.0); Macrocytosis Slight; Mean Platelet Volume 8.5; Monocytes # (A) 0.1 k/uL (0-1.0); Monocytes % (A) 3 %; Neutrophils # (A) 4.6 k/uL (1.3-7.7); Neutrophils % (A) 82 %; Platelet Count 233 k/uL (150-450); RBC 3.74 m/uL (3.80-5.40); RDW 16.6 % (11.5-15.5); WBC 5.6 k/uL (3.8-10.6)
[2019-05-06 07:14] LABS: Potassium 4.9 mmol/L (3.5-5.1)
[2019-05-06] MEDS: IPRATROPIUM-ALBUTEROL 3 ML NEB INHALATION SCH ×3 (08:40→19:12)
[2019-05-06] MEDS ORDERED: ASPIRIN 325 MG TAB PO SCH (09:00)
[2019-05-06] MEDS ORDERED: MAGNESIUM CITRATE 200 MG PO SCH (09:00)
[2019-05-06] MEDS ORDERED: POTASSIUM CHLORIDE ER 20 MEQ TAB.ER PO SCH (09:00)
[2019-05-06] MEDS: METOPROLOL SUCCINATE (ER) 100 MG TAB.ER.24H PO SCH (09:13)
[2019-05-06] MEDS: PREGABALIN 100 MG CAP PO SCH ×2 (09:13→20:33)
[2019-05-06] MEDS: CITALOPRAM HYDROBROMIDE 10 MG TAB PO SCH (09:14)
[2019-05-06] MEDS: LINAGLIPTIN 5 MG TABLET PO SCH (09:14)
[2019-05-06] MEDS: ASPIRIN 81 MG PO SCH (09:14)
[2019-05-06] MEDS: LOSARTAN 50 MG TAB PO SCH ×2 (09:14→20:33)
[2019-05-06] MEDS: HEPARIN SODIUM,PORCINE 5,000 UNIT/ML 1 ML VIAL SQ SCH ×2 (09:14→20:33)
[2019-05-06] MEDS: CHOLECALCIFEROL 1,000 UNIT TAB PO SCH (09:14)
[2019-05-06] MEDS: busPIRone HCl 10 MG TAB PO SCH ×2 (09:14→20:32)
[2019-05-06] MEDS: NICOTINE 14MG/24HR PATCH TRANSDERM SCH (09:15)
[2019-05-06] MEDS: ANASTROZOLE 1 MG TAB PO SCH (09:15)
--- NOTE | 2019-05-06 09:34 | CONS ---
CONSULTATION Christen Martin is a 68-year-old lady who is a heavy smoker and has significant COPD. She was recently in the hospital in February of this year with what seems to be a volume depletion related near syncopal spell and dizziness. She also had exacerbation of COPD. Other medical problems include type 2 diabetes, previous history of breast cancer and continued unfortunate nicotine use. She comes in today, brought in by the family with concern that she has altered mentation, lethargy, lack of energy, frequent falls and incoordination. She has not had any injuries with the fall. I do not think she actually hurt herself. She ambulates using a walker. Unfortunately, she continues to smoke. She is here because of above issues including fatigue, lack of energy, altered mentation. She was found to be in diastolic heart failure with a significantly elevated BNP. However, with some diuresis, she feels better. She is resting comfortably. Denies any chest discomfort. Unfortunately, she continues to smoke. She has no chest discomfort to suggest angina. PAST MEDICAL HISTORY: 1. Smoking and COPD. 2. Type 2 diabetes. 3. Hypertension. 4. Question of TIA in the past. 5. History of neuropathy secondary to diabetes. 6. Patient also has history of previous breast cancer. She has had a previous biopsy. 7. She is status post appendectomy, back surgery, cholecystectomy. MEDICATIONS: At home include Synthroid 25 mcg daily, vitamin D supplements, metoprolol succinate 100 mg daily, Januvia, Xanax, Celexa, Fosamax, Zofran, Lyrica and atorvastatin 40 mg daily and Arimidex 1 mg daily. LABORATORY DATA: Suggests that her BNP is elevated up to 22,000. Liver functions are slightly abnormal. Renal function is also slightly abnormal. She has hemoglobin of 10.8. PHYSICAL EXAMINATION: Blood pressure is 130/70, pulse rate is about 80 per minute. HEENT: Unremarkable, fundus was not examined by me. NECK: Supple, there is JVD of 1 cm. No carotid bruit. HEART: Exam reveals S1, S2 with a short systolic murmur. No significant gallops. LUNGS: Reveal diminished air entry both lung ashton. ABDOMEN: Soft, nontender. LOWER EXTREMITIES: Reveal diminished pulses. Mild edema. CENTRAL NERVOUS SYSTEM: Grossly within normal limits. EKG revealed a sinus mechanism, left axis deviation, nonspecific ST-T abnormality. Laboratory data suggests that there is no elevation of troponin. BNP is elevated. The lactic acid levels are normal. IMPRESSION: 1. Exacerbation of diastolic heart failure. 2. Chronic obstructive pulmonary disease with exacerbation and possible CO2 retention with some altered mentation secondary to CO2 retention. 3. History of type 2 diabetes mellitus. 4. History of recent hospitalization with hypovolemic syncope-type picture. RECOMMENDATION: I am recommending that we will obtain a repeat echocardiogram for this patient. On the previous echo, there was a question of some organized pericardial effusion. Possibility of this causing some restriction should be considered. We will therefore do a repeat echocardiogram. Continue the IV Lasix with cautious diuresis and based on clinical course, I will make further recommendations. Thank you very much for the consult. KERON / ANDREW: [id number] /
--- NOTE | 2019-05-06 11:31 | CDI ---
Documentation Clarification Form Date: 05/06/2019 11:10:45 AM From: Delmy Ragland RN, CCDS Admit Date: 05/05/2019 1:37:00 PM Patient Name: Christen Martin Visit Number: [id number] ATTENTION: The Clinical Documentation Specialists (CDI) and [facility] Coding Staff appreciate your assistance in clarifying documentation. Please respond to the clarification below the line at the bottom and electronically sign. The CDI & [facility] Coding staff will review the response and follow-up if needed. Please note: Queries are made part of the Legal Health Record. If you have any questions, please contact the author of this message via ITS. Dr. Faisal Delacruz Increasing Bun and Creatinine with a decreasing GFR have been noted. Please provide clinical significance of Lab value History/Risk Factors: 03/23/19 Patients baseline BUN/CR/GFR: Clinical Indicators: 05/06 Cardiology Consult: "Renal function is also slightly abnormal." Current BUN: 21/ Cr: 1.42/1.51 GFR: 38/35 Treatment: IVF 500 cc IVF bolus Lasix 40 mg IVP Q 12 hrs In order to capture the severity of condition, please clarify if the condition signifies: Acute renal failure, Please specify etiology (if known): Acute kidney injury Acute on chronic renal failure CKD Stage 1 GFR >90 CKD Stage 2 GFR 60-89 CKD Stage 3 GFR 30-59 CKD Stage 4 GFR 15-29 CKD Stage 5 GFR <15 Chronic renal failure/Chronic Kidney disease (CKD) please stage (if known): CKD Stage 1 GFR >90 CKD Stage 2 GFR 60-89 CKD Stage 3 GFR 30-59 CKD Stage 4 GFR 15-29 CKD Stage 5 GFR <15 Other, please specify Unable to determine (Last Revision: October 2017) CKD Stage 3 GFR 30-59 MTDD
[2019-05-06 11:53] LABS: Glucose,Whole Blood 359 mg/dL (75-99)
--- NOTE | 2019-05-06 13:44 | ECHOF ---
Referral Reason:pericardial effusion MEASUREMENTS -------- HEIGHT: 157.5 cm WEIGHT: 61.7 kg BP: IVSd: 1.3 cm (0.6 - 1.1) LVIDd: 5.1 cm (3.9 - 5.3) LVPWd: 1.2 cm (0.6 - 1.1) IVSs: 1.5 cm LVIDs: 4.0 cm LVPWs: 1.7 cm LAESV Index (A-L): 34.86 ml/m Ao Diam: 3.3 cm (2.0 - 3.7) AV Cusp: 1.8 cm (1.5 - 2.6) LA Diam: 3.1 cm (2.7 - 3.8) MV EXCURSION: 15.618 mm (> 18.000) MV EF SLOPE: 109 mm/s (70 - 150) EPSS: 3.0 cm MV E Medardo: 1.03 m/s MV DecT: 149 ms MV A Medardo: 1.18 m/s MV E/A Ratio: 0.88 RAP: 15.00 mmHg RVSP: 44.94 mmHg TAPSE: 17.57 mm FINDINGS -------- Sinus rhythm. This was a technically good study. The left ventricular size is normal. There is mild concentric left ventricular hypertrophy. Overa ll left ventricular systolic function is low-normal with, an EF between 50 - 55 %. Mitral Doppler i nflow pattern suggests diastolic filling abnormality 21.24. The right ventricle is normal in size. The left atrial size is normal. LA is moderately dilated 34-39 ml/m2 The right atrial size is normal. The aortic valve is trileaflet and appears structurally normal. The mitral valve is normal. Moderate mitral regurgitation is present. The tricuspid valve appears structurally normal. No regurgitation noted There is mild pulmonary h ypertension. The right ventricular systolic pressure, as measured by Doppler, is 44.94mmHg. There is no pulmonic regurgitation present. The aortic root size is normal. The inferior vena cava is mildly dilated. There is a small, generalized pericardial effusion present. CONCLUSIONS -------- 1. Sinus rhythm. 2. This was a technically good study. 3. The left ventricular size is normal. 4. There is mild concentric left ventricular hypertrophy. 5. Mitral Doppler inflow pattern suggest diastolic filling abnormality 21.24. 6. The right ventricle is normal in size. 7. The left atrial size is normal. 8. LA is moderately dilated 34-39 ml/m2 9. The right atrial size is normal. 10. The aortic valve is trileaflet and appears structurally normal. 11. The mitral valve is normal. 12. Moderate mitral regurgitation is present. 13. The tricuspid valve appears structurally normal. 14. No regurgitation noted 15. There is mild pulmonary hypertension. 16. The right ventricular systolic pressure, as measured by Doppler, is 44.94mmHg. 17. There is no pulmonic regurgitation present. 18. The aortic root size is normal. 19. The inferior vena cava is mildly dilated. 20. There is a small, generalized pericardial effusion present. PULMONARY FUNCTION TECHNOLOGIST: Netta Borden RDCS
[2019-05-06 14:52] VITALS: BMI 25.0
--- NOTE | 2019-05-06 15:50 | P.PN ---
Subjective Progress Note Date: 05/06/19 Principal diagnosis: This is a 68-year-old female who was recently admitted with a change in mental status, weakness, and increasing shortness of breath and is being closely monitored. Currently patient is sitting up in the chair in no acute distress. When talking with the patient the patient becomes slightly dyspneic while talking. Patient's responses are slightly delayed. Patient is currently on oxygen at 2 L via nasal cannula. Patient underwent an echo showing left odalys tricular systolic function is low to normal with an EF between 50-55%. Cardiology is following. PT/OT is consulted to assess for possible rehab upon discharge. Patient states that she would like to go home. Patient currently denies any chest pain or palpitations at this time. Patient continues to be slightly short of breath. She denies any nausea or vomiting and is tolerating diet. Patient is currently on IV Lasix, IV steroids, and IV antibiotics at this time. Will continue to monitor closely. REVIEW OF SYSTEMS: ENT: No diminished vision or hearing. CARDIOVASCULAR: Mentioned earlier. RESPIRATORY: As mentioned earlier. GI: No nausea, vomiting or diarrhea. : No dysuria or retention. NERVOUS SYSTEM: No numbness or weakness. CONSTITUTIONAL: As mentioned earlier. DERMATOLOGY: Negative. Active Medications Albuterol/Ipratropium (Duoneb 0.5 Mg-3 Mg/3 Ml Soln) 3 ml INHALATION RT-TID [facility] Last Admin: 05/06/19 12:38 Dose: 3 ml Documented by: Albuterol/Ipratropium (Duoneb 0.5 Mg-3 Mg/3 Ml Soln) 3 ml INHALATION RT-TID PRN PRN Reason: Shortness Of Breath Or Wheezing Alprazolam (Xanax) 0.25 mg PO TID PRN PRN Reason: Anxiety Anastrozole (Arimidex) 1 mg PO DAILY [facility] Last Admin: 05/06/19 09:15 Dose: 1 mg Documented by: Aspirin (Aspirin) 81 mg PO DAILY [facility] Last Admin: 05/06/19 09:14 Dose: 81 mg Documented by: Atorvastatin Calcium (Lipitor) 40 mg PO HS [facility] Last Admin: 05/05/19 20:49 Dose: 40 mg Documented by: Buspirone HCl (Buspar) 15 mg PO BID [facility] Last Admin: 05/06/19 09:14 Dose: 15 mg Documented by: Cholecalciferol (Vitamin D3 (25 Mcg = 1000 Iu)) 5,000 unit PO DAILY [facility] Last Admin: 05/06/19 09:14 Dose: 5,000 unit Documented by: Citalopram Hydrobromide (Celexa) 10 mg PO DAILY [facility] Last Admin: 05/06/19 09:14 Dose: 10 mg Documented by: Furosemide (Lasix) 40 mg IV Q12H [facility] Last Admin: 05/06/19 03:26 Dose: 40 mg Documented by: Heparin Sodium (Porcine) (Heparin) 5,000 unit SQ Q12HR [facility] Last Admin: 05/06/19 09:14 Dose: 5,000 unit Documented by: Ceftriaxone Sodium 1 gm/ (Sodium Chloride) 50 mls @ 100 mls/hr IVPB Q24HR [facility] Last Admin: 05/06/19 09:15 Dose: 100 mls/hr Documented by: Insulin Aspart (Novolog) 0 unit SQ ACHS [facility]; Protocol Last Admin: 05/06/19 12:52 Dose: 6 unit Documented by: Levothyroxine Sodium (Synthroid) 25 mcg PO DAILY@0630 [facility] Last Admin: 05/06/19 07:04 Dose: 25 mcg Documented by: Linagliptin (Tradjenta) 5 mg PO DAILY [facility] Last Admin: 05/06/19 09:14 Dose: 5 mg Documented by: Losartan Potassium (Cozaar) 50 mg PO BID [facility] Last Admin: 05/06/19 09:14 Dose: 50 mg Documented by: Methylprednisolone Sodium Succinate (Solu-Medrol) 60 mg IV Q6HR [facility] Last Admin: 05/06/19 12:51 Dose: 60 mg Documented by: Metoprolol Succinate (Toprol Xl) 100 mg PO DAILY [facility] Last Admin: 05/06/19 09:13 Dose: 100 mg Documented by: Nicotine (Habitrol 14mg/24hr Patch) 1 patch TRANSDERM DAILY [facility] Last Admin: 05/06/19 09:15 Dose: 1 patch Documented by: Non-Formulary Medication (Alendronate Sodium [Fosamax]) 70 mg PO [facility] Ondansetron HCl (Zofran) 4 mg PO Q8H PRN PRN Reason: Nausea Pantoprazole Sodium (Protonix) 40 mg PO AC-BRKFST [facility] Last Admin: 05/06/19 07:04 Dose: 40 mg Documented by: Potassium Chloride (K-Dur 20) 20 meq PO DAILY [facility] Last Admin: 05/06/19 09:13 Dose: 20 meq Documented by: Pregabalin (Lyrica) 100 mg PO BID [facility] Last Admin: 05/06/19 09:13 Dose: 100 mg Documented by: Objective - Vital Signs Vital signs: Vital Signs Temp 97.1 F L 05/06/19 12:44 Pulse 88 05/06/19 12:50 Resp 16 05/06/19 12:44 BP 144/73 05/06/19 12:44 Pulse Ox 99 05/06/19 12:44 Intake & Output 05/05/19 05/06/19 05/06/19 18:59 06:59 18:59 Intake Total 180 300 Output Total 975 1600 Balance -795 -1300 Weight 59.421 kg 62 kg 62 kg Intake: Oral 180 300 Output: Urine 975 1600 Other: Voiding Method Bedpan Toilet # Voids 1 # Bowel Movements 1 - Exam Gen: This is a 68-year-old female sitting up in the chair in no acute distress. Vital signs are stable. Blood pressure is 144/73, pulse is 73, respirations are 16, temp is 97.1F, oxygen saturation is 99% on 2 L via nasal cannula. HEENT: Head is atraumatic, normocephalic. Pupils equal, round. Sclerae is anicteric. NECK: Supple. No JVD. No lymphadenopathy. No thyromegaly. LUNGS: Diminished breath sounds at the bases with a few scattered rhonchi and crackles noted. No wheezes noted. No intercostal retractions. HEART: Cardio S1 and S2 are muffled. No murmur. ABDOMEN: Soft. Obese. Bowel sounds are present. No masses. No tenderness. EXTREMITIES: No pedal edema. No calf tenderness. NEUROLOGICAL: Patient is awake, alert and oriented x3. Cranial nerves 2 through 12 are grossly intact. - Labs CBC & Chem 7: 05/06/19 06:43 05/06/19 06:43 Labs: Abnormal Lab Results - Last 24 Hours (Table) 05/05/19 05/05/19 05/05/19 Range/Units 16:14 17:00 20:34 RBC (3.80-5.40) m/uL Hgb (11.4-16.0) gm/dL MCV (80.0-100.0) fL MCHC (31.0-37.0) g/dL RDW (11.5-15.5) % Lymphocytes # (1.0-4.8) k/uL Carbon Dioxide (22-30) mmol/L BUN (7-17) mg/dL Creatinine (0.52-1.04) mg/dL Glucose (74-99) mg/dL POC Glucose (mg/dL) 227 H 264 H (75-99) mg/dL Ur Leukocyte Esterase Small H (Negative) Urine WBC 23 H (0-5) /hpf Hyaline Casts 3 H (0-2) /lpf 05/06/19 05/06/19 05/06/19 Range/Units 06:04 06:43 06:43 RBC 3.74 L (3.80-5.40) m/uL Hgb 10.8 L (11.4-16.0) gm/dL MCV 100.4 H (80.0-100.0) fL MCHC 28.8 L (31.0-37.0) g/dL RDW 16.6 H (11.5-15.5) % Lymphocytes # 0.8 L (1.0-4.8) k/uL Carbon Dioxide 31 H (22-30) mmol/L BUN 31 H (7-17) mg/dL Creatinine 1.51 H (0.52-1.04) mg/dL Glucose 176 H (74-99) mg/dL POC Glucose (mg/dL) 175 H (75-99) mg/dL Ur Leukocyte Esterase (Negative) Urine WBC (0-5) /hpf Hyaline Casts (0-2) /lpf 05/06/19 Range/Units 11:51 RBC (3.80-5.40) m/uL Hgb (11.4-16.0) gm/dL MCV (80.0-100.0) fL MCHC (31.0-37.0) g/dL RDW (11.5-15.5) % Lymphocytes # (1.0-4.8) k/uL Carbon Dioxide (22-30) mmol/L BUN (7-17) mg/dL Creatinine (0.52-1.04) mg/dL Glucose (74-99) mg/dL POC Glucose (mg/dL) 359 H (75-99) mg/dL Ur Leukocyte Esterase (Negative) Urine WBC (0-5) /hpf Hyaline Casts (0-2) /lpf Microbiology - Last 24 Hours (Table) 05/05/19 11:45 Blood Culture - Preliminary Blood No Growth after 24 hours 05/05/19 16:14 Urine Culture - Preliminary Urine,Clean Catch Assessment and Plan Assessment: Shortness of breath, possibly multifactorial, with congestive heart failure, acute exacerbation, with acute on chronic diastolic dysfunction, ejection fra ction 50-55% Chronic obstructive pulmonary disease, acute exacerbation, with acute purulent tracheobronchitis History of cerebrovascular accident, TIA Bilateral leg edema Diabetes mellitus, type II, uncontrolled, possibly due to systemic steroids Change in mental status, acute metabolic encephalopathy, multifactorial Hypertension History of breast cancer, left side History of appendectomy History of degenerative joint disease History of continued ongoing nicotine dependence Recommendations and discussion: Recommend to continue current medications, management, and symptomatic treatment. Will continue to monitor closely. Will repeat a.m. labs. Due to multiple complex medical issues overall Prognosis is guarded. Continue with bronchodilators, steroids, and empiric antibiotics at this time. Cardiology is following closely. Discussed with the patient about possible discharge plans for rehab and patient states that she wants to go home upon discharge. Case management and social work administrator following. Further recommendations to follow. Possible discharge in 48 hours.
[2019-05-06 16:52] LABS: Glucose,Whole Blood 284 mg/dL (75-99)
[2019-05-06] MEDS: ATORVASTATIN 40 MG TAB PO SCH (20:33)
[2019-05-06 20:39] VITALS: RESP 18
[2019-05-06 21:23] LABS: Glucose,Whole Blood 293 mg/dL (75-99)
[2019-05-07] MEDS: FUROSEMIDE 10 MG/ML 4 ML VIAL IV SCH (04:40)
[2019-05-07] MEDS: LEVOTHYROXINE 25 MCG TAB PO SCH (05:26)
[2019-05-07] MEDS: PANTOPRAZOLE 40 MG TABLET PO SCH (05:26)
[2019-05-07] MEDS: methylPREDNISolone SOD SUCCI 125 MG/2 ML VIAL IV SCH ×2 (05:26→13:21)
[2019-05-07 06:29] LABS: Glucose,Whole Blood 158 mg/dL (75-99)
[2019-05-07] MEDS: INSULIN ASPART (NovoLOG) 100 UNIT/ML VIAL SQ SCH ×4 (06:36→21:51)
[2019-05-07] MEDS: IPRATROPIUM-ALBUTEROL 3 ML NEB INHALATION SCH ×3 (07:25→19:27)
[2019-05-07 07:57] LABS: Anisocytosis Slight; Basophils % (A) 0 %; Eosinophils % (A) 0 %; HCT 23.7 % (34.0-46.0); Hypochromasia Slight; Lymphocytes # (A) 0.7 k/uL (1.0-4.8); Lymphocytes % (A) 8 %; MCH 29.9 pg (25.0-35.0); MCHC 31.9 g/dL (31.0-37.0); Mean Platelet Volume 7.9; Monocytes # (A) 0.3 k/uL (0-1.0); Monocytes % (A) 3 %; Neutrophils # (A) 7.6 k/uL (1.3-7.7); Neutrophils % (A) 88 %; Platelet Count 245 k/uL (150-450); RBC 2.53 m/uL (3.80-5.40); RDW 16.8 % (11.5-15.5); WBC 8.6 k/uL (3.8-10.6)
[2019-05-07 07:58] LABS: HGB 7.6 gm/dL (11.4-16.0); MCV 93.8 fL (80.0-100.0)
[2019-05-07] MEDS: LOSARTAN 50 MG TAB PO SCH ×2 (08:41→20:10)
[2019-05-07] MEDS: LINAGLIPTIN 5 MG TABLET PO SCH (08:41)
[2019-05-07] MEDS: NICOTINE 14MG/24HR PATCH TRANSDERM SCH (08:41)
[2019-05-07] MEDS: CITALOPRAM HYDROBROMIDE 10 MG TAB PO SCH (08:42)
[2019-05-07] MEDS: ANASTROZOLE 1 MG TAB PO SCH (08:42)
[2019-05-07] MEDS: PREGABALIN 100 MG CAP PO SCH ×2 (08:42→20:10)
[2019-05-07] MEDS: METOPROLOL SUCCINATE (ER) 100 MG TAB.ER.24H PO SCH (08:42)
[2019-05-07] MEDS: busPIRone HCl 10 MG TAB PO SCH ×2 (08:42→20:09)
[2019-05-07] MEDS: CHOLECALCIFEROL 1,000 UNIT TAB PO SCH (08:43)
[2019-05-07] MEDS: ASPIRIN 81 MG PO SCH (08:43)
[2019-05-07] MEDS: HEPARIN SODIUM,PORCINE 5,000 UNIT/ML 1 ML VIAL SQ SCH ×2 (08:43→20:10)
[2019-05-07 09:29] LABS: Calcium 8.6 mg/dL (8.4-10.2); Potassium 4.4 mmol/L (3.5-5.1)
--- NOTE | 2019-05-07 10:31 | CDI ---
Documentation Clarification Form Date: 05/07/2019 10:21:43 AM From: Delmy Ragland RN, CCDS Admit Date: 05/05/2019 1:37:00 PM Patient Name: Christen Martin Visit Number: [id number] ATTENTION: The Clinical Documentation Specialists (CDI) and [facility] Coding Staff appreciate your assistance in clarifying documentation. Please respond to the clarification below the line at the bottom and electronically sign. The CDI & [facility] Coding staff will review the response and follow-up if needed. Please note: Queries are made part of the Legal Health Record. If you have any questions, please contact the author of this message via ITS. Dr. Faisal Garrido declining Hgb and Hct have been noted and lacks specificity to accurately reflect your patients severity of condition and clarification is needed. History/Risk Factors: COPD, CHF, CVA, hx of left breast CA, nicotine dependance, DM2 Clinical indicators: Hemoglobin: 9.9/10.8/7.6 Hematocrit: 33.1/37.5/23.7 Treatment: 500 cc ivf bolus Labs AM Daily In order to capture the severity of condition, please clarify the significance of the declining Hgb and Hct and etiology if known: Acute blood loss anemia Acute on chronic blood loss anemia Chronic blood loss anemia Iron deficiency anemia Nutritional anemia Anemia of chronic kidney disease Unable to determine Other, please specify (Last Revision: April 2017) Unable to determine MTDD
--- NOTE | 2019-05-07 11:50 | PN ---
PROGRESS NOTE This is a lady with smoking, COPD, came in with shortness of breath. She has diastolic heart failure-type picture with exacerbation, COPD with exacerbation. However, she is breathing better. Feels a lot better today. I am recommending in view of diastolic failure Aldactone 12.5 mg daily, switch her to oral Lasix 40 mg every morning. JVD is evident 1 cm, no carotid bruit. S1, S2 heard normally. Short systolic murmur is audible. Lungs reveal improved air entry, still overall air entry is diminished. Scattered rhonchi are audible, but clinically a lot of improvement is noted. Patient can be discharged when okayed by Pulmonary. MMODL / IJN: [id number] /
[2019-05-07 12:01] LABS: Glucose,Whole Blood 279 mg/dL (75-99)
[2019-05-07] MEDS: FUROSEMIDE 40 MG TAB PO SCH (13:13)
[2019-05-07] MEDS: predniSONE 20 MG TAB PO SCH (13:13)
[2019-05-07] MEDS: SPIRONOLACTONE 25 MG TAB PO SCH (13:13)
[2019-05-07 16:53] LABS: Glucose,Whole Blood 259 mg/dL (75-99)
[2019-05-07] MEDS: ATORVASTATIN 40 MG TAB PO SCH (20:10)
[2019-05-07 21:17] LABS: Glucose,Whole Blood 210 mg/dL (75-99)
--- NOTE | 2019-05-08 02:23 | P.PN ---
Subjective Progress Note Date: 05/07/19 Principal diagnosis: This is a 68-year-old female who was recently admitted with a change in mental status, weakness, and increasing shortness of breath and is being closely monitored. Currently patient is sitting up in the chair in no acute distress. When talking with the patient the patient becomes slightly dyspneic while talking. Patient's responses are slightly delayed. Patient is currently on oxygen at 2 L via nasal cannula. Patient underwent an echo showing left odalys tricular systolic function is low to normal with an EF between 50-55%. Cardiology is following. PT/OT is consulted to assess for possible rehab upon discharge. Patient states that she would like to go home. Patient currently denies any chest pain or palpitations at this time. Patient continues to be slightly short of breath. She denies any nausea or vomiting and is tolerating diet. Patient is currently on IV Lasix, IV steroids, and IV antibiotics at this time. Will continue to monitor closely. 05/07/2019 Patient is sitting up in the chair with family at the bedside in no acute distress. Patient states that her shortness of breath has improved. Patient is being followed by cardiology and pulmonary. Patient was transitioned to oral lasix and will transition to oral prednisone today. Patient is maintained on IV antibiotics in the form of ceftriaxone with urine cultures finalizing as ecoli. Patient will likely continue on a short course of oral antibiotics upon discharge. Discussed with the patient at length today about how she may benefit from rehab upon discharge and patient is resistant to this idea and states she wants to return home. Patient has been up and walking the halls with only standby assist with pt today. Patient denies any shortness of breath, chest pain, or palpitations at this time. Patient is afebrile. Patient denies any nausea or vomiting at this time and is tolerating diet. Will continue to monitor closely. Repeat labs in the am. Objective - Vital Signs Vital signs: Vital Signs Temp 97.4 F L 05/07/19 20:00 Pulse 79 05/07/19 23:14 Resp 18 05/07/19 23:14 BP 148/72 05/07/19 23:14 Pulse Ox 97 05/07/19 23:14 Intake & Output 05/07/19 05/07/19 05/08/19 06:59 18:59 06:59 Intake Total 1250 Output Total 400 900 Balance -400 350 Intake: Oral 1250 Output: Urine 400 900 Other: Voiding Method Toilet Toilet Toilet # Voids 1 1 5 # Bowel Movements 1 - Exam Gen: This is a 68-year-old female sitting up in the chair in no acute distress. Vital signs are stable. Blood pressure is 148/76, pulse is 79, respirations are 18, temp is 97.1F, oxygen saturation is 97% on 2 L via nasal cannula. HEENT: Head is atraumatic, normocephalic. Pupils equal, round. Sclerae is anict mohini. NECK: Supple. No JVD. No lymphadenopathy. No thyromegaly. LUNGS: Diminished breath sounds at the bases with a few scattered rhonchi noted. No wheezes noted. No intercostal retractions. HEART: Cardio S1 and S2 are muffled. No murmur. ABDOMEN: Soft. Bowel sounds are present. No masses. No tenderness. EXTREMITIES: No pedal edema. No calf tenderness. NEUROLOGICAL: Patient is awake, alert and oriented x3. Cranial nerves 2 through 12 are grossly intact. - Labs CBC & Chem 7: 05/07/19 06:37 05/07/19 06:37 Labs: Abnormal Lab Results - Last 24 Hours (Table) 05/07/19 05/07/19 05/07/19 Range/Units 06:28 06:37 06:37 RBC 2.53 L (3.80-5.40) m/uL Hgb 7.6 L D (11.4-16.0) gm/dL Hct 23.7 L (34.0-46.0) % RDW 16.8 H (11.5-15.5) % Lymphocytes # 0.7 L (1.0-4.8) k/uL BUN 42 H (7-17) mg/dL Creatinine 1.48 H (0.52-1.04) mg/dL Glucose 146 H (74-99) mg/dL POC Glucose (mg/dL) 158 H (75-99) mg/dL 05/07/19 05/07/19 05/07/19 Range/Units 11:59 16:51 21:15 RBC (3.80-5.40) m/uL Hgb (11.4-16.0) gm/dL Hct (34.0-46.0) % RDW (11.5-15.5) % Lymphocytes # (1.0-4.8) k/uL BUN (7-17) mg/dL Creatinine (0.52-1.04) mg/dL Glucose (74-99) mg/dL POC Glucose (mg/dL) 279 H 259 H 210 H (75-99) mg/dL Microbiology - Last 24 Hours (Table) 05/05/19 16:14 Urine Culture - Final Urine,Clean Catch Escherichia coli 05/05/19 11:45 Blood Culture - Preliminary Blood No Growth after 48 hours Assessment and Plan Assessment: Shortness of breath, possibly multifactorial, with congestive heart failure, acute exacerbation, with acute on chronic diastolic dysfunction, ejection fraction 50-55% Chronic obstructive pulmonary disease, acute exacerbation, with acute purulent tracheobronchitis History of cerebrovascular accident, TIA Bilateral leg edema Diabetes mellitus, type II, uncontrolled, possibly due to systemic steroids Change in mental status, acute metabolic encephalopathy, multifactorial Hypertension History of breast cancer, left side History of appendectomy History of degenerative joint disease History of continued ongoing nicotine dependence Recommendations and discussion: Recommend to continue current medications, management, and symptomatic treatment. Will continue to monitor closely. Will repeat a.m. labs. Due to multiple complex medical issues overall Prognosis is guarded. Continue with bronchodilators, steroids, and empiric antibiotics at this time. Cardiology is following closely. Discussed with the patient about possible discharge plans for rehab and patient states that she wants to go home upon discharge. Family at the bedside and agree with possible homecare upon discharge. Case management and social services designee following. Further recommendations to follow. Possible discharge in 24 hours.
[2019-05-08 06:13] LABS: Glucose,Whole Blood 151 mg/dL (75-99)
[2019-05-08] MEDS: INSULIN ASPART (NovoLOG) 100 UNIT/ML VIAL SQ SCH ×2 (06:16→12:25)
[2019-05-08] MEDS: PANTOPRAZOLE 40 MG TABLET PO SCH (06:26)
[2019-05-08] MEDS: LEVOTHYROXINE 25 MCG TAB PO SCH (06:26)
[2019-05-08 07:25] LABS: Anisocytosis Slight; Basophils % (A) 1 %; Eosinophils % (A) 0 %; HGB 10.5 gm/dL (11.4-16.0); Hypochromasia Moderate; Lymphocytes # (A) 0.7 k/uL (1.0-4.8); Lymphocytes % (A) 8 %; MCH 29.7 pg (25.0-35.0); MCHC 30.9 g/dL (31.0-37.0); MCV 96.2 fL (80.0-100.0); Macrocytosis Slight; Mean Platelet Volume 8.1; Monocytes # (A) 0.5 k/uL (0-1.0); Monocytes % (A) 5 %; Neutrophils # (A) 7.7 k/uL (1.3-7.7); Neutrophils % (A) 85 %; Platelet Count 205 k/uL (150-450); RBC 3.53 m/uL (3.80-5.40); RDW 17.2 % (11.5-15.5); WBC 9.1 k/uL (3.8-10.6)
[2019-05-08] MEDS: IPRATROPIUM-ALBUTEROL 3 ML NEB INHALATION SCH ×2 (07:33→12:15)
[2019-05-08 07:48] VITALS: PULSE 84
[2019-05-08 07:48] LABS: Calcium 8.5 mg/dL (8.4-10.2); Potassium 4.1 mmol/L (3.5-5.1)
[2019-05-08] MEDS: NICOTINE 14MG/24HR PATCH TRANSDERM SCH (07:57)
[2019-05-08] MEDS: LINAGLIPTIN 5 MG TABLET PO SCH (07:58)
[2019-05-08] MEDS: METOPROLOL SUCCINATE (ER) 100 MG TAB.ER.24H PO SCH (07:58)
[2019-05-08] MEDS: CITALOPRAM HYDROBROMIDE 10 MG TAB PO SCH (07:58)
[2019-05-08] MEDS: SPIRONOLACTONE 25 MG TAB PO SCH (07:58)
[2019-05-08] MEDS: PREGABALIN 100 MG CAP PO SCH (07:58)
[2019-05-08] MEDS: busPIRone HCl 10 MG TAB PO SCH (07:58)
[2019-05-08] MEDS: HEPARIN SODIUM,PORCINE 5,000 UNIT/ML 1 ML VIAL SQ SCH (07:59)
[2019-05-08] MEDS: FUROSEMIDE 40 MG TAB PO SCH (07:59)
[2019-05-08] MEDS: LOSARTAN 50 MG TAB PO SCH (07:59)
[2019-05-08] MEDS: predniSONE 20 MG TAB PO SCH (07:59)
[2019-05-08] MEDS: ASPIRIN 81 MG PO SCH (07:59)
[2019-05-08] MEDS: CHOLECALCIFEROL 1,000 UNIT TAB PO SCH (07:59)
[2019-05-08] MEDS: ANASTROZOLE 1 MG TAB PO SCH (08:11)
[2019-05-08 10:14] VITALS: BP 145/73; TEMP 97.3
[2019-05-08 11:59] LABS: Glucose,Whole Blood 323 mg/dL (75-99)
--- NOTE | 2019-05-08 15:21 | P.DS ---
Providers Date of admission: 05/05/19 13:37 Expected date of discharge: 05/08/19 Attending physician: Faisal Delacruz Consults: 05/05/19 15:26 Consult Physician Routine Consulting Provider: Caryn Mayo Consult Reason/Comments: chf Do you want consulting provider notified?: Yes Primary care physician: [facility] Course: Final diagnosis Shortness of breath, possibly multifactorial, with congestive heart failure, acute exacerbation, with acute on chronic diastolic dysfunction, ejection fraction 50-55%. Chronic obstructive pulmonary disease, acute exacerbation, with acute purulent tracheobronchitis History of CVA/TIA Bilateral leg edema Diabetes mellitus type 2, uncontrolled Change in mental status, acute metabolic encephalopathy, multifactorial Hypertension History of breast cancer, left side History of appendectomy History of degenerative joint disease History of continued ongoing nicotine dependence Discharge disposition Patient is being discharged in a stable condition with guarded prognosis to home and Homecare will be following. Patient will follow-up with cardiology as well as pulmonary and her primary care provider upon discharge. Patient will continue on a short course of oral antibiotics as well as a prednisone taper upon discharge. Time taken is 35 minutes. History of present illness This is a 68-year-old female who was recently admitted with a change in mental status, weakness, an increase shortness of breath and was being closely monitored. During hospitalization patient underwent an echo showing left ventricular systolic function is low to normal with an EF between 50 and 55% and cardiology was following closely. During hospitalization patient was maintain on IV steroids, Lasix, antibiotics and will continue with short course of oral antibiotics as well as a prednisone taper and will be following up with pulmonary in the outpatient setting upon discharge. Patient normally requires 2 L of oxygen via nasal cannula and is at her baseline at this time. Patient states that her shortness of breath has improved and would like to go home today. Patient denies chest pain or palpitations at this time. Patient denies any nausea or vomiting and has been tolerating diet. Patient remains afebrile. Patient has been up and walking the halls with only standby assist with her walker and is refusing any rehab upon discharge at this time. Patient is open to home care and this was arranged with case management and social work. Currently patient's condition is stable with much improvement and will be discharged today. Family is at the bedside and agrees with the treatment plan. Guarded prognosis. On exam vital signs are stable. Temp is 97.3F, pulse is 84, respirations are 18, blood pressure is 145/73, oxygen saturation is 95% on 2 L via nasal cannula. Cardio S1 and S2 are muffled. Respiratory system shows diminished breath sounds at the bases with expiratory wheezing noted on exam. Abdomen is soft and nontender. Nervous system shows no focal deficits and gait is steady. Please refer to medication reconciliation sheet for a list of medications. Patient Condition at Discharge: Stable Plan - Discharge Summary Discharge Rx Participant: No New Discharge Prescriptions: New Spironolactone [Aldactone] 12.5 mg PO DAILY #60 tablet Furosemide [Lasix] 40 mg PO DAILY #90 tablet Cefuroxime Axetil [Ceftin] 500 mg PO BID 5 Days #10 tab predniSONE 10 mg PO DIRECTED #30 tab Continue Anastrozole [Arimidex] 1 mg PO DAILY Atorvastatin [Lipitor] 40 mg PO HS Cholecalciferol [Vitamin D3 (25 Mcg = 1000 Iu)] 5,000 unit PO DAILY Levothyroxine Sodium [Synthroid] 25 mcg PO DAILY Losartan [Cozaar] 50 mg PO BID Metoprolol Succinate (ER) [Toprol XL] 100 mg PO DAILY sitaGLIPtin [Januvia] 100 mg PO DAILY Citalopram Hydrobromide [CeleXA] 10 mg PO DAILY ALPRAZolam [Xanax] 0.25 - 0.5 mg PO DAILY PRN PRN Reason: Anxiety Magnesium Citrate 200 mg PO DAILY busPIRone HCL 15 mg PO BID Pantoprazole [Protonix] 40 mg PO DAILY Ondansetron [Zofran] 4 - 8 mg PO Q8H PRN PRN Reason: Nausea Pregabalin [Lyrica] 100 mg PO BID Potassium Chloride [Klor-Con 20] 20 meq PO DAILY Aspirin EC [Ecotrin Low Dose] 81 mg PO DAILY Alendronate Sodium [Fosamax] 70 mg PO SA Discharge Medication List Anastrozole [Arimidex] 1 mg PO DAILY 10/23/18 [History] Atorvastatin [Lipitor] 40 mg PO HS 10/23/18 [History] Cholecalciferol [Vitamin D3 (25 Mcg = 1000 Iu)] 5,000 unit PO DAILY 10/23/18 [History] Levothyroxine Sodium [Synthroid] 25 mcg PO DAILY 10/23/18 [History] Losartan [Cozaar] 50 mg PO BID 10/23/18 [History] Metoprolol Succinate (ER) [Toprol XL] 100 mg PO DAILY 10/23/18 [History] sitaGLIPtin [Januvia] 100 mg PO DAILY 10/23/18 [History] ALPRAZolam [Xanax] 0.25 - 0.5 mg PO DAILY PRN 02/27/19 [History] Citalopram Hydrobromide [CeleXA] 10 mg PO DAILY 02/27/19 [History] Alendronate Sodium [Fosamax] 70 mg PO SA 05/05/19 [History] Aspirin EC [Ecotrin Low Dose] 81 mg PO DAILY 05/05/19 [History] Magnesium Citrate 200 mg PO DAILY 05/05/19 [History] Ondansetron [Zofran] 4 - 8 mg PO Q8H PRN 05/05/19 [History] Pantoprazole [Protonix] 40 mg PO DAILY 05/05/19 [History] Potassium Chloride [Klor-Con 20] 20 meq PO DAILY 05/05/19 [History] Pregabalin [Lyrica] 100 mg PO BID 05/05/19 [History] busPIRone HCL 15 mg PO BID 05/05/19 [History] Furosemide [Lasix] 40 mg PO DAILY #90 tablet 05/07/19 [Rx] Spironolactone [Aldactone] 12.5 mg PO DAILY #60 tablet 05/07/19 [Rx] Cefuroxime Axetil [Ceftin] 500 mg PO BID 5 Days #10 tab 05/08/19 [Rx] predniSONE 10 mg PO DIRECTED #30 tab 05/08/19 [Rx] Follow up Appointment(s)/Referral(s): Ortega Abbott MD [STAFF PHYSICIAN] - 05/26/19 2:15 pm (Saturday) [facility], [NON-STAFF] - () Júnior Arzola DO [Primary Care Provider] - 05/12/19 1:00 pm (Saturday with [facility] in [place]) Jared Waller MD [STAFF PHYSICIAN] - 05/22/19 3:00 pm (Saturday -appointment moved up from [facility]) Ambulatory/Diagnostic Orders: Basic Metabolic Panel [LAB.AMB] Time Frame: 3 Days, Location: None Selected Complete Blood Count w/diff [LAB.AMB] Time Frame: 3 Days, Location: None Selected Patient Instructions/Handouts: Heart Failure (DC), COPD (Chronic Obstructive Pulmonary Disease) (DC) Activity/Diet/Wound Care/Special Instructions: Activity Limited until follow-up Follow-up with primary care provider upon discharge Continue antibiotics until finished Continue with prednisone taper Follow-up with pulmonary and cardiology as discussed and is scheduled Continue current heart healthy/diabetic diet Continue to monitor blood sugars and keep a log for primary care follow-up Discharge Disposition: HOME WITH HOME HEALTH SERVICES
[2019-05-09] MEDS ORDERED: NON FORMULARY DRUG (Alendronate Sodium [Fosamax] 70 MG) PO SCH (09:00)
== END 2019-05-08 14:46 | disposition home health service (06) | DRG 291 ==
LOC: EC 09:59 → 3SCARD 13:37
PROVIDERS: ADMIT Hospitalist; ATTEND Hospitalist
DX: I13.0 Hypertensive heart and chronic kidney disease with heart failure and stage 1 through stage 4 chronic kidney disease, or unspecified chronic kidney disease (principal); I50.33 Acute on chronic diastolic (congestive) heart failure; G93.41 Metabolic encephalopathy; J44.1 Chronic obstructive pulmonary disease with (acute) exacerbation; J44.0 Chronic obstructive pulmonary disease with (acute) lower respiratory infection; N18.3 Chronic kidney disease, stage 3 (moderate); E11.22 Type 2 diabetes mellitus with diabetic chronic kidney disease; E11.65 Type 2 diabetes mellitus with hyperglycemia; Z79.84 Long term (current) use of oral hypoglycemic drugs; E11.40 Type 2 diabetes mellitus with diabetic neuropathy, unspecified; F17.210 Nicotine dependence, cigarettes, uncomplicated; J20.9 Acute bronchitis, unspecified; R09.02 Hypoxemia; R29.6 Repeated falls; Z79.82 Long term (current) use of aspirin; Z79.83 Long term (current) use of bisphosphonates; Z79.890 Hormone replacement therapy; Z79.899 Other long term (current) drug therapy; Z82.5 Family history of asthma and other chronic lower respiratory diseases; Z85.3 Personal history of malignant neoplasm of breast; Z86.73 Personal history of transient ischemic attack (TIA), and cerebral infarction without residual deficits; Z90.49 Acquired absence of other specified parts of digestive tract; Z99.81 Dependence on supplemental oxygen
CPT/HCPCS: 36415; 70450; 71046; 80048; 80053; 81001; 82803; 83036; 83605; 83880; 84484; 85025; 85610; 85730; 87040; 87077; 87086; 87186; 90686; 93005; 93306; 94640; 94760; 96374; 96375; 99285

== ENCOUNTER 2019-06-20 12:23 | Inpatient (IN) | payer MEDICARE, OTHER ==
[2019-06-20] MEDS ORDERED: SODIUM CHLORIDE 0.9% 1,000 ML IV STA (12:53)
--- NOTE | 2019-06-20 12:56 | ED ---
General Adult HPI - General Chief complaint: Weakness Stated complaint: Weakness in legs Time Seen by Provider: 06/20/19 12:37 Source: patient, family, RN notes reviewed Mode of arrival: wheelchair Limitations: physical limitation - History of Present Illness Initial comments: Patient is a pleasant 68-year-old female presenting to the emergency Department with generalized weakness. Patient has been somewhat weak for the past month or more. Patient was in the hospital a couple months ago with similar symptoms. They decided to go home with occupational therapy. This seemed to help for a little bit. Patient is normally able to get out of bed only with assistance. Patient can usually use her walker on her own. Today patient is unable to walk even with her walker. Patient needed to people to assist with getting out of bed. No pain. No new confusion. Patient questions if her left leg may be somewhat more weak than the rest of her body. - Related Data Home Medications Medication Instructions Recorded Confirmed Anastrozole [Arimidex] 1 mg PO DAILY 10/23/18 06/20/19 Atorvastatin [Lipitor] 40 mg PO HS 10/23/18 06/20/19 Cholecalciferol [Vitamin D3 (25 5,000 unit PO DAILY 10/23/18 06/20/19 Mcg = 1000 Iu)] Levothyroxine Sodium [Synthroid] 25 mcg PO DAILY 10/23/18 06/20/19 Losartan [Cozaar] 50 mg PO BID 10/23/18 06/20/19 Metoprolol Succinate (ER) [Toprol 100 mg PO DAILY 10/23/18 06/20/19 XL] sitaGLIPtin [Januvia] 100 mg PO DAILY 10/23/18 06/20/19 ALPRAZolam [Xanax] 0.25 mg PO BID PRN 02/27/19 06/20/19 Citalopram Hydrobromide [CeleXA] 10 mg PO DAILY 02/27/19 06/20/19 Alendronate Sodium [Fosamax] 70 mg PO SA 05/05/19 06/20/19 Aspirin EC [Ecotrin Low Dose] 81 mg PO DAILY 05/05/19 06/20/19 Pantoprazole [Protonix] 40 mg PO DAILY 05/05/19 06/20/19 Potassium Chloride [Klor-Con 20] 20 meq PO DAILY 05/05/19 06/20/19 Pregabalin [Lyrica] 100 mg PO BID 05/05/19 06/20/19 Albuterol Sulfate [Ventolin HFA] 1 - 2 puff INHALATION RT-Q6H PRN 06/20/19 06/20/19 Budesonide/Formoterol Fumarate 2 puff INHALATION RT-BID 06/20/19 06/20/19 [Symbicort 160-4.5 Mcg Inhaler] Furosemide [Lasix] 40 mg PO DAILY 06/20/19 06/20/19 Ipratropium-Albuterol Nebulize 3 ml INHALATION RT-Q4H PRN 06/20/19 06/20/19 [Duoneb 0.5 mg-3 mg/3 ml Soln] Magnesium Oxide [Mag-Ox] 400 mg PO DAILY 06/20/19 06/20/19 Nitroglycerin Sl Tabs [Nitrostat] 0.4 mg SUBLINGUAL Q5M PRN 06/20/19 06/20/19 Rivaroxaban [Xarelto] 15 mg PO DAILY 06/20/19 06/20/19 Spironolactone [Aldactone] 12.5 mg PO DAILY 06/20/19 06/20/19 Tiotropium 18 Mcg/Puff [Spiriva] 2 puff INHALATION RT-DAILY 06/20/19 06/20/19 busPIRone HCL 30 mg PO BID 06/20/19 06/20/19 Allergies Allergy/AdvReac Type Severity Reaction Status Date / Time Iodinated Contrast Media Allergy Rash/Hives Verified 06/20/19 12:34 [Iodinated Contrast- Oral and IV Dye] morphine Allergy Rash/Hives Verified 06/20/19 12:34 Sulfa (Sulfonamide Allergy Rash/Hives Verified 06/20/19 12:34 Antibiotics) Review of Systems ROS Statement: Those systems with pertinent positive or pertinent negative responses have been documented in the HPI. ROS Other: All systems not noted in ROS Statement are negative. Constitutional: Denies: fever Eyes: Denies: eye pain ENT: Denies: ear pain Respiratory: Denies: cough Cardiovascular: Denies: chest pain Endocrine: Denies: fatigue Gastrointestinal: Denies: abdominal pain Genitourinary: Denies: dysuria Musculoskeletal: Denies: back pain Skin: Denies: rash Neurological: Reports: as per HPI, weakness. Denies: headache, confusion Past Medical History Past Medical History: Chest Pain / Angina, Heart Failure, COPD, CVA/TIA, Diabetes Mellitus, Hypertension, Myocardial Infarction (MS) Additional Past Medical History / Comment(s): Breast Ca. Left side History of Any Multi-Drug Resistant Organisms: None Reported Past Surgical History: Appendectomy, Back Surgery, Breast Surgery, Cholecyste ctomy, Heart Catheterization, Tubal Ligation Additional Past Surgical History / Comment(s): loop recorder, left breast biopsy Past Anesthesia/Blood Transfusion Reactions: No Reported Reaction Past Psychological History: No Psychological Hx Reported Smoking Status: Current every day smoker Past Alcohol Use History: None Reported Past Drug Use History: None Reported - Past Family History Mother Family Medical History: COPD Father Family Medical History: Liver Disease General Exam Limitations: physical limitation General appearance: alert, in no apparent distress Head exam: Present: atraumatic Eye exam: Present: normal appearance, PERRL ENT exam: Present: normal oropharynx Neck exam: Present: normal inspection. Absent: tenderness, meningismus Respiratory exam: Present: normal lung sounds bilaterally Cardiovascular Exam: Present: regular rate, normal rhythm GI/Abdominal exam: Present: soft. Absent: tenderness Extremities exam: Present: normal inspection. Absent: pedal edema, calf tend erness Neurological exam: Present: alert Expanded Neurological exam: Present: protecting the airway Patient oriented to: Present: person, place, time Speech: Present: fluid speech Cranial nerves: EOM's Intact: Normal Motor strength exam: RUE: 5, LUE: 5, RLE: 5, LLE: 5 Eye Response: (4) open spontaneously Motor Response: (6) obeys commands Verbal Response: (5) oriented Psychiatric exam: Present: normal affect, normal mood Skin exam: Present: normal color Course Vital Signs 06/20/19 12:31 Temperature 97.9 F Pulse Rate 79 Respiratory 20 Rate Blood Pressure 94/56 O2 Sat by Pulse 97 Oximetry EKG Findings - EKG Comments: EKG Findings:: Normal sinus rhythm at 75. [place] 182. QRS 86. QT 412. QTC 460. Left axis. Normal QRS. No acute ST change. Medical Decision Making - Medical Decision Making Patient reevaluated and resting comfortably in bed. Patient family updated on results and plan. Case was discussed in detail with Dr. Levy, who will admit for Dr. Chi hayes. - Lab Data Result diagrams: 06/20/19 13:07 06/20/19 13:07 Lab Results 06/20/19 06/20/19 06/20/19 Range/Units 13:07 13:07 13:07 WBC 7.2 (3.8-10.6) k/uL RBC 3.91 (3.80-5.40) m/uL Hgb 11.9 (11.4-16.0) gm/dL Hct 35.9 (34.0-46.0) % MCV 91.8 D (80.0-100.0) fL MCH 30.3 (25.0-35.0) pg MCHC 33.1 (31.0-37.0) g/dL RDW 15.1 (11.5-15.5) % Plt Count 215 (150-450) k/uL Neutrophils % 61 % Lymphocytes % 24 % Monocytes % 9 % Eosinophils % 2 % Basophils % 2 % Neutrophils # 4.4 (1.3-7.7) k/uL Lymphocytes # 1.7 (1.0-4.8) k/uL Monocytes # 0.7 (0-1.0) k/uL Eosinophils # 0.1 (0-0.7) k/uL Basophils # 0.1 (0-0.2) k/uL PT (9.0-12.0) sec INR (<1.2) APTT (22.0-30.0) sec Sodium 138 (137-145) mmol/L Potassium 5.4 H (3.5-5.1) mmol/L Chloride 104 (98-107) mmol/L Carbon Dioxide 30 (22-30) mmol/L Anion Gap 4 mmol/L BUN 46 H (7-17) mg/dL Creatinine 1.80 H (0.52-1.04) mg/dL Est GFR (CKD-EPI)AfAm 32 (>60 ml/min/1.73 sqM) Est GFR (CKD-EPI)NonAf 28 (>60 ml/min/1.73 sqM) Glucose 114 H (74-99) mg/dL Plasma Lactic Acid Silvestre 0.7 (0.7-2.0) mmol/L Calcium 9.3 (8.4-10.2) mg/dL Phosphorus 4.4 (2.5-4.5) mg/dL Magnesium 2.1 (1.6-2.3) mg/dL Total Bilirubin 0.3 (0.2-1.3) mg/dL AST 29 (14-36) U/L ALT 32 (9-52) U/L Alkaline Phosphatase 111 (38-126) U/L Creatine Kinase 73 (30-135) U/L Troponin I (0.000-0.034) ng/mL Total Protein 6.7 (6.3-8.2) g/dL Albumin 3.6 (3.5-5.0) g/dL TSH 1.750 (0.465-4.680) mIU/L Free T4 1.12 (0.78-2.19) ng/dL Free T3 pg/mL 2.4 L (2.8-5.3) pg/ml Urine Color Urine Appearance (Clear) Urine pH (5.0-8.0) Ur Specific [place] (1.001-1.035) Urine Protein (Negative) Urine Glucose (UA) (Negative) Urine Ketones (Negative) Urine Blood (Negative) Urine Nitrite (Negative) Urine Bilirubin (Negative) Urine Urobilinogen (<2.0) mg/dL Ur Leukocyte Esterase (Negative) Urine WBC (0-5) /hpf Urine Bacteria (None) /hpf Hyaline Casts (0-2) /lpf Urine Mucus (None) /hpf 06/20/19 06/20/19 06/20/19 Range/Units 13:07 13:07 13:25 WBC (3.8-10.6) k/uL RBC (3.80-5.40) m/uL Hgb (11.4-16.0) gm/dL Hct (34.0-46.0) % MCV (80.0-100.0) fL MCH (25.0-35.0) pg MCHC (31.0-37.0) g/dL RDW (11.5-15.5) % Plt Count (150-450) k/uL Neutrophils % % Lymphocytes % % Monocytes % % Eosinophils % % Basophils % % Neutrophils # (1.3-7.7) k/uL Lymphocytes # (1.0-4.8) k/uL Monocytes # (0-1.0) k/uL Eosinophils # (0-0.7) k/uL Basophils # (0-0.2) k/uL PT 11.8 (9.0-12.0) sec INR 1.1 (<1.2) APTT 36.9 H (22.0-30.0) sec Sodium (137-145) mmol/L Potassium (3.5-5.1) mmol/L Chloride (98-107) mmol/L Carbon Dioxide (22-30) mmol/L Anion Gap mmol/L BUN (7-17) mg/dL Creatinine (0.52-1.04) mg/dL Est GFR (CKD-EPI)AfAm (>60 ml/min/1.73 sqM) Est GFR (CKD-EPI)NonAf (>60 ml/min/1.73 sqM) Glucose (74-99) mg/dL Plasma Lactic Acid Silvestre (0.7-2.0) mmol/L Calcium (8.4-10.2) mg/dL Phosphorus (2.5-4.5) mg/dL Magnesium (1.6-2.3) mg/dL Total Bilirubin (0.2-1.3) mg/dL AST (14-36) U/L ALT (9-52) U/L Alkaline Phosphatase (38-126) U/L Creatine Kinase (30-135) U/L Troponin I <0.012 (0.000-0.034) ng/mL Total Protein (6.3-8.2) g/dL Albumin (3.5-5.0) g/dL TSH (0.465-4.680) mIU/L Free T4 (0.78-2.19) ng/dL Free T3 pg/mL (2.8-5.3) pg/ml Urine Color Light Yellow Urine Appearance Clear (Clear) Urine pH 5.5 (5.0-8.0) Ur Specific [place] 1.006 (1.001-1.035) Urine Protein Negative (Negative) Urine Glucose (UA) Negative (Negative) Urine Ketones Negative (Negative) Urine Blood Negative (Negative) Urine Nitrite Negative (Negative) Urine Bilirubin Negative (Negative) Urine Urobilinogen <2.0 (<2.0) mg/dL Ur Leukocyte Esterase Moderate H (Negative) Urine WBC 5 (0-5) /hpf Urine Bacteria Occasional H (None) /hpf Hyaline Casts 7 H (0-2) /lpf Urine Mucus Rare H (None) /hpf - Radiology Data Radiology results: report reviewed (Computed tomography scan the brain shows no acute intercranial abnormality. Remote infarcts redemonstrated.), image reviewed (Chest x-ray shows no acute process) Disposition Clinical Impression: Dehydration, General weakness, Ataxia Disposition: ADMITTED IP TO THIS HOSP Is patient prescribed a controlled substance at d/c from ED?: No Referrals: Júnior Arzola DO [Primary Care Provider] - 1-2 days Decision Time: 14:55
[2019-06-20 13:18] LABS: Basophils # (A) 0.1 k/uL (0-0.2); Basophils % (A) 2 %; Eosinophils # (A) 0.1 k/uL (0-0.7); Eosinophils % (A) 2 %; HCT 35.9 % (34.0-46.0); HGB 11.9 gm/dL (11.4-16.0); Lymphocytes # (A) 1.7 k/uL (1.0-4.8); Lymphocytes % (A) 24 %; MCH 30.3 pg (25.0-35.0); MCHC 33.1 g/dL (31.0-37.0); Mean Platelet Volume 7.5; Monocytes # (A) 0.7 k/uL (0-1.0); Monocytes % (A) 9 %; Neutrophils # (A) 4.4 k/uL (1.3-7.7); Neutrophils % (A) 61 %; Platelet Count 215 k/uL (150-450); RBC 3.91 m/uL (3.80-5.40); RDW 15.1 % (11.5-15.5); WBC 7.2 k/uL (3.8-10.6)
[2019-06-20 13:23] LABS: MCV 91.8 fL (80.0-100.0)
[2019-06-20 13:26] LABS: INR 1.1 (<1.2); Partial Thromboplastin Time 36.9 sec (22.0-30.0); Prothrombin Time 11.8 sec (9.0-12.0)
[2019-06-20 13:36] LABS: Appearance,Urine Clear (Clear); Bacteria,Urine Occasional /hpf; Bilirubin,Urine Negative (Negative); Blood,Urine Negative (Negative); Color,Urine Light Yellow; Glucose,Urine (UA) Negative (Negative); Hyaline Casts,Urine 7 /lpf (0-2); Ketones,Urine Negative (Negative); Leukocyte Esterase,Urine Moderate (Negative); Mucus,Urine Rare /hpf; Nitrite,Urine Negative (Negative); PH, Urine 5.5 (5.0-8.0); Protein,Urine Negative (Negative); Specific Gravity,Urine 1.006 (1.001-1.035); Urobilinogen,Urine <2.0 mg/dL (<2.0); WBC,Urine 5 /hpf (0-5)
[2019-06-20 13:48] LABS: Albumin 3.6 g/dL (3.5-5.0); Calcium 9.3 mg/dL (8.4-10.2); Magnesium 2.1 mg/dL (1.6-2.3); Phosphorus 4.4 mg/dL (2.5-4.5); Potassium 5.4 mmol/L (3.5-5.1); Total Bilirubin 0.3 mg/dL (0.2-1.3); Total Protein 6.7 g/dL (6.3-8.2)
--- NOTE | 2019-06-20 14:03 | XR ---
EXAMINATION TYPE: XR chest 2V DATE OF EXAM: 06/20/2019 COMPARISON: NONE HISTORY: Bilateral lower extremity weakness TECHNIQUE: Frontal and lateral views of the chest are obtained. FINDINGS: There is no focal air space opacity, pleural effusion, or pneumothorax seen. Apical predom inant emphysematous changes. Scattered nodules, likely granulomas. The cardiac silhouette size is wit hin normal limits. Cardiac loop recorder noted. The osseous structures are intact. IMPRESSION: No acute cardiopulmonary process.
[2019-06-20 14:05] LABS: T4, Free (Free Thyroxine) 1.12 ng/dL (0.78-2.19)
--- NOTE | 2019-06-20 14:08 | CT ---
EXAMINATION TYPE: CT brain wo con DATE OF EXAM: 06/20/2019 HISTORY: Weakness in legs COMPARISON: Head CT 05/05/2019 TECHNIQUE: 1. Axial CT images of the head without contrast. Bone windows and sagittal and coronal reformats were reviewed. 2. CT DLP: 1040.4 mGycm Automated exposure control for dose reduction was used. FINDINGS: No acute intracranial hemorrhage. Multiple areas of encephalomalacia within the bilateral frontal par ietal regions and parasagittal bifrontal lobes; lacunar injuries in the basal ganglia bilaterally. Th palma are unchanged from comparative head CT. Scattered periventricular and deep cortical white matter areas of low attenuation, likely representing sequela of chronic microangiopathy. No acute loss of gr ay-white matter differentiation to suggest large territorial infarction. Mild cerebral volume loss with appropriate size and morphology of the ventricular system. No extra-ax ial fluid collections or midline shift of structures. Patent basal cisterns. No depressed or displaced calvarial fracture. Intracranial vascular calcifications. Nonaggressive sph enoid sinus mucosal thickening. The orbits and skull base are unremarkable. IMPRESSION: 1. No acute intracranial abnormality. 2. Remote infarcts redemonstrated. Senescent changes including cerebral volume loss and sequale of ch ronic microangiopathy. 3. If there is sufficient clinical concern for acute ischemia, further evaluation with brain MRI is r ecommended.
[2019-06-20] MEDS: SODIUM CHLORIDE 0.9% 1,000 ML IV SCH (15:23)
[2019-06-20] MEDS ORDERED: ALPRAZolam 0.25 MG TAB PO PRN (16:56)
[2019-06-20] MEDS ORDERED: IPRATROPIUM-ALBUTEROL 3 ML NEB INHALATION PRN (16:56)
[2019-06-20] MEDS ORDERED: NITROGLYCERIN SL TABS 0.4 MG TAB SUBLINGUAL PRN (16:56)
[2019-06-20] MEDS ORDERED: IPRATROPIUM-ALBUTEROL 3 ML NEB INHALATION SCH (20:00)
[2019-06-20] MEDS: SYMBICORT 160-4.5 MCG INHALER INHALATION SCH (20:30)
[2019-06-20 20:44] LABS: Glucose,Whole Blood 176 mg/dL (75-99)
[2019-06-20] MEDS: busPIRone HCl 10 MG TAB PO SCH (21:15)
[2019-06-20] MEDS: PREGABALIN 100 MG CAP PO SCH (21:15)
[2019-06-20] MEDS: ATORVASTATIN 40 MG TAB PO SCH (21:15)
[2019-06-20] MEDS ORDERED: INSULIN ASPART (NovoLOG) 100 UNIT/ML VIAL SQ SCH (21:19)
[2019-06-20] MEDS: INSULIN ASPART (NovoLOG) 100 UNIT/ML VIAL SQ SCH (22:49)
--- NOTE | 2019-06-20 23:56 | P.HPIM ---
History of Present Illness H&P Date: 06/20/19 Chief Complaint: Generalized weakness and fatigue Patient is a 68-year-old female with a known history of chronic CHF with diastolic dysfunction ejection fraction 50-55%, COPD on home oxygen, history of CVA/TIA , Diabetes type 2 [id number], history of PR and history of left breast cancer status post surgery and ongoing nicotine addiction came to ER with complaints of generalized weakness and unable to get out of the bed. Patient has been having worsening weakness for the past 1 week. Patient can usually walk with walker by herself. Due to generalized weakness patient needed to people to assist with getting her out of bed. Denied any complaints of fever or chills. No cough is from production. No dysuria or hematuria. No nausea vomiting or abdominal pain. Patient was admitted to the hospital in April 2019 for acute COPD exacerbation and acute on chronic CHF with diastolic dysfunction. Patient is currently being continued on Lasix spironolactone and potassium supplementation at home. Blood pressure was 94/56 on admission BUN 46 and creatinine 1.8 Potassium 5.4 chest x-ray showed no acute cardiopulmonary process CT head showed no acute intracranial abnormality. Remote infarcts redemonstrated. EKG showed normal sinus rhythm Review of Systems Constitutional: Patient denies any fever or chills . Generalized weakness and fatigue. Abdomen: Patient denied nausea vomiting and diarrhea and abdominal pain. Cardiovascular: Patient denies any chest pain or short of breath no palpitations. Respiratory: patient denied any cough is from production. No shortness of breath Neurologic: Patient denied any numbness or tingling headache. Musculoskeletal: Patient denies any complaints of joint swelling or deformity. Skin: Negative Psychiatric: Negative Endocrine: No heat or cold intolerance. No recent weight gain. Genitourinary: No dysuria or hematuria. All other 14 point ROS negative except the above Past Medical History Past Medical History: Chest Pain / Angina, Heart Failure, COPD, CVA/TIA, Diabetes Mellitus, Hypertension, Myocardial Infarction (PR) Additional Past Medical History / Comment(s): Breast Ca. Left side Last Myocardial Infarction Date:: 09/22/13 History of Any Multi-Drug Resistant Organisms: None Reported Past Surgical History: Appendectomy, Back Surgery, Breast Surgery, Cholecystectomy, Heart Catheterization, Tubal Ligation Additional Past Surgical History / Comment(s): loop recorder, left breast biopsy Past Anesthesia/Blood Transfusion Reactions: No Reported Reaction Past Psychological History: No Psychological Hx Reported Smoking Status: Current every day smoker Past Alcohol Use History: None Reported Past Drug Use History: None Reported Additional Drug Use History / Comment(s): 0.5 pack per day, started when she was 14 - Past Family History Mother Family Medical History: COPD Father Family Medical History: Liver Disease Medications and Allergies Home Medications Medication Instructions Recorded Confirmed Type Anastrozole [Arimidex] 1 mg PO DAILY 10/23/18 06/20/19 History Atorvastatin [Lipitor] 40 mg PO HS 10/23/18 06/20/19 History Cholecalciferol [Vitamin D3 (25 5,000 unit PO DAILY 10/23/18 06/20/19 History Mcg = 1000 Iu)] Levothyroxine Sodium [Synthroid] 25 mcg PO DAILY 10/23/18 06/20/19 History Losartan [Cozaar] 50 mg PO BID 10/23/18 06/20/19 History Metoprolol Succinate (ER) [Toprol 100 mg PO DAILY 10/23/18 06/20/19 History XL] sitaGLIPtin [Januvia] 100 mg PO DAILY 10/23/18 06/20/19 History ALPRAZolam [Xanax] 0.25 mg PO BID PRN 02/27/19 06/20/19 History Citalopram Hydrobromide [CeleXA] 10 mg PO DAILY 02/27/19 06/20/19 History Alendronate Sodium [Fosamax] 70 mg PO SA 05/05/19 06/20/19 History Aspirin EC [Ecotrin Low Dose] 81 mg PO DAILY 05/05/19 06/20/19 History Pantoprazole [Protonix] 40 mg PO DAILY 05/05/19 06/20/19 History Potassium Chloride [Klor-Con 20] 20 meq PO DAILY 05/05/19 06/20/19 History Pregabalin [Lyrica] 100 mg PO BID 05/05/19 06/20/19 History Albuterol Sulfate [Ventolin HFA] 1 - 2 puff INHALATION RT-Q6H PRN 06/20/19 06/20/19 History Budesonide/Formoterol Fumarate 2 puff INHALATION RT-BID 06/20/19 06/20/19 Histo ry [Symbicort 160-4.5 Mcg Inhaler] Furosemide [Lasix] 40 mg PO DAILY 06/20/19 06/20/19 History Ipratropium-Albuterol Nebulize 3 ml INHALATION RT-Q4H PRN 06/20/19 06/20/19 History [Duoneb 0.5 mg-3 mg/3 ml Soln] Magnesium Oxide [Mag-Ox] 400 mg PO DAILY 06/20/19 06/20/19 History Nitroglycerin Sl Tabs [Nitrostat] 0.4 mg SUBLINGUAL Q5M PRN 06/20/19 06/20/19 History Rivaroxaban [Xarelto] 15 mg PO DAILY 06/20/19 06/20/19 History Spironolactone [Aldactone] 12.5 mg PO DAILY 06/20/19 06/20/19 History Tiotropium 18 Mcg/Puff [Spiriva] 2 puff INHALATION RT-DAILY 06/20/19 06/20/19 Hi story busPIRone HCL 30 mg PO BID 06/20/19 06/20/19 History Allergies Allergy/AdvReac Type Severity Reaction Status Date / Time Iodinated Contrast Media Allergy Rash/Hives Verified 06/20/19 12:34 [Iodinated Contrast- Oral and IV Dye] morphine Allergy Rash/Hives Verified 06/20/19 12:34 Sulfa (Sulfonamide Allergy Rash/Hives Verified 06/20/19 12:34 Antibiotics) Physical Exam Vitals: Vital Signs Temp Pulse Pulse Resp BP BP Pulse Ox 06/20/19 16:05 71 18 06/20/19 15:51 97.7 F 73 18 148/76 95 06/20/19 15:29 97.9 F 71 16 148/80 97 06/20/19 12:31 97.9 F 79 20 94/56 97 Intake and Output 06/20/19 06/20/19 06/20/19 06:59 14:59 22:59 Output Total 20 Balance -20 Output: Urine 20 Straight 20 Other: Voiding Method Bedpan Diaper Weight 58.513 kg PHYSICAL EXAMINATION: Patient is lying in the bed comfortably, no acute distress, awake alert and oriented.. HEENT: Normocephalic. Neck is supple. Pupils reactive. Nostrils clear. Oral cavity is moist. Ears reveal no drainage. Neck reveals no JVD, carotid bruits, or thyromegaly. CHEST EXAMINATION: Trachea is central. Symmetrical expansion. Expiratory wheeze present. No rhonchi or crackles. Lung [place] clear to auscultation and percussion. CARDIAC: Normal S1, S2 with no gallops. No murmurs ABDOMEN: Soft. Bowel sounds normal. No organomegaly. No abdominal bruits. Extremities: reveal no edema. No clubbing or cyanosis Neurologically awake, alert, oriented x3 with well-coordinated movements. No focal deficits noted. Generalized weakness. Skin: No rash or skin lesions. Psychiatric: Coperative. Nonsuicidal Musculoskeletal: No joint swelling or deformity. Normal range of motion. Results CBC & Chem 7: 06/20/19 13:07 06/20/19 13:07 Labs: Abnormal Lab Results - Last 24 Hours (Table) 06/20/19 06/20/19 06/20/19 Range/Units 13:07 13:07 13:25 APTT 36.9 H (22.0-30.0) sec Potassium 5.4 H (3.5-5.1) mmol/L BUN 46 H (7-17) mg/dL Creatinine 1.80 H (0.52-1.04) mg/dL Glucose 114 H (74-99) mg/dL Free T3 pg/mL 2.4 L (2.8-5.3) pg/ml Ur Leukocyte Esterase Moderate H (Negative) Urine Bacteria Occasional H (None) /hpf Hyaline Casts 7 H (0-2) /lpf Urine Mucus Rare H (None) /hpf Thrombosis Risk Factor Assmnt - DVT/VTE Prophylaxis DVT/VTE Prophylaxis: Pharmacologic Prophylaxis ordered - Choose All That Apply Any of the Below Risk Factors Present?: Yes Each Factor Represents 1 point: Abnormal pulmonary function (COPD) Other Risk Factors: Yes Each Risk Factor Represents 2 Points: Age 61-74 years Thrombosis Risk Factor Assessment Total Risk Factor Score: 3 Thrombosis Risk Factor Assessment Level: Moderate Risk Assessment and Plan Assessment: Generalized weakness and fatigue likely due to dehydration and volume depletion. COPD with mild exacerbation Acute kidney injury likely prerenal Hyperkalemia. Due to acute kidney injury and also potassium supplementation at home Chronic hypoxic respiratory failure secondary to COPD Chronic CHF with diastolic dysfunction. History of CVA/TIA Diabetes type 2 [id number] Hypertension History of PR History of breast cancer left side status post surgery Ongoing nicotine addiction Anxiety/depression ? hx of atrial fibrillation. Likely paroxysmal Patient is on metoprolol and xarelto at home. Currently in sinus rhythm. DVT prophylaxis patient is on Xarelto at home. Plan: Patient will be continued on gentle hydration normal saline. Follow-up renal function. Patient will be continued on DuoNeb's and Symbicort. Monitor respira tory status and follow closely. Will hold Lasix spironolactone and percussion supplementation. Repeat labs tomorrow. Insulin sliding scale. Continue the home medications and further recommendations based on the clinical course. Prognosis is guarded with multiple medical problems and comorbid con ditions. PTOT will be consulted. Smoking cessation has been counseled. Time with Patient: Greater than 30
[2019-06-21] MEDS: SODIUM CHLORIDE 0.9% 1,000 ML IV SCH ×2 (02:41→16:45)
[2019-06-21] MEDS: LEVOTHYROXINE 25 MCG TAB PO SCH (05:36)
[2019-06-21 06:58] LABS: Glucose,Whole Blood 90 mg/dL (75-99)
[2019-06-21 07:03] LABS: Basophils # (A) 0.1 k/uL (0-0.2); Basophils % (A) 2 %; Eosinophils # (A) 0.1 k/uL (0-0.7); Eosinophils % (A) 2 %; HCT 40.1 % (34.0-46.0); HGB 13.2 gm/dL (11.4-16.0); Hypochromasia Slight; Lymphocytes # (A) 1.6 k/uL (1.0-4.8); Lymphocytes % (A) 25 %; MCH 30.2 pg (25.0-35.0); MCHC 32.9 g/dL (31.0-37.0); MCV 91.7 fL (80.0-100.0); Mean Platelet Volume 7.3; Monocytes # (A) 0.8 k/uL (0-1.0); Monocytes % (A) 12 %; Neutrophils # (A) 3.5 k/uL (1.3-7.7); Neutrophils % (A) 56 %; Platelet Count 207 k/uL (150-450); RBC 4.37 m/uL (3.80-5.40); RDW 14.9 % (11.5-15.5); WBC 6.3 k/uL (3.8-10.6)
[2019-06-21 07:10] LABS: Calcium 9.4 mg/dL (8.4-10.2); Potassium 4.6 mmol/L (3.5-5.1)
[2019-06-21] MEDS: INSULIN ASPART (NovoLOG) 100 UNIT/ML VIAL SQ SCH ×4 (07:31→22:39)
[2019-06-21] MEDS: SYMBICORT 160-4.5 MCG INHALER INHALATION SCH ×2 (07:51→20:26)
[2019-06-21] MEDS: IPRATROPIUM-ALBUTEROL 3 ML NEB INHALATION SCH ×4 (07:51→20:26)
[2019-06-21] MEDS: CHOLECALCIFEROL 1,000 UNIT TAB PO SCH (09:19)
[2019-06-21] MEDS: RIVAROXABAN 15 MG TAB PO SCH (09:19)
[2019-06-21] MEDS: busPIRone HCl 10 MG TAB PO SCH ×2 (09:19→22:39)
[2019-06-21] MEDS: ANASTROZOLE 1 MG TAB PO SCH (09:19)
[2019-06-21] MEDS: PANTOPRAZOLE 40 MG TABLET PO SCH (09:19)
[2019-06-21] MEDS: CITALOPRAM HYDROBROMIDE 10 MG TAB PO SCH (09:19)
[2019-06-21] MEDS: LINAGLIPTIN 5 MG TABLET PO SCH (09:20)
[2019-06-21] MEDS: METOPROLOL SUCCINATE (ER) 100 MG TAB.ER.24H PO SCH (09:20)
[2019-06-21] MEDS: PREGABALIN 100 MG CAP PO SCH ×2 (09:20→22:39)
[2019-06-21] MEDS: ASPIRIN 81 MG PO SCH (09:20)
[2019-06-21 11:15] LABS: Glucose,Whole Blood 200 mg/dL (75-99)
[2019-06-21] MEDS: predniSONE 20 MG TAB PO SCH (12:57)
[2019-06-21 16:36] LABS: Glucose,Whole Blood 165 mg/dL (75-99)
[2019-06-21 21:42] LABS: Glucose,Whole Blood 399 mg/dL (75-99)
[2019-06-21 22:36] LABS: Glucose,Whole Blood 338 mg/dL (75-99)
[2019-06-21] MEDS: ATORVASTATIN 40 MG TAB PO SCH (22:39)
--- NOTE | 2019-06-22 01:12 | P.PN ---
Subjective Progress Note Date: 06/21/19 Principal diagnosis: Generalized weakness Acute kidney injury and dehydration and volume depletion Patient is a 68-year-old female with a known history of chronic CHF with diastol ic dysfunction ejection fraction 50-55%, COPD on home oxygen, history of CVA/TIA , Diabetes type 2 [id number], history of [place] and history of left breast cancer status post surgery and ongoing nicotine addiction came to ER with complaints of generalized weakness and unable to get out of the bed. Patient has been having worsening weakness for the past 1 week. Patient can usually walk with walker by herself. Due to generalized weakness patient needed to people to assist with getting her out of bed. Denied any complaints of fever or chills. No cough is from production. No dysuria or hematuria. No nausea vomiting or abdominal pain. Patient was admitted to the hospital in April 2019 for acute COPD exacerbation and acute on chronic CHF with diastolic dysfunction. Patient is currently being continued on Lasix spironolactone and potassium supplementation at home. Blood pressure was 94/56 on admission BUN 46 and creatinine 1.8 Potassium 5.4 chest x-ray showed no acute cardiopulmonary process CT head showed no acute intracranial abnormality. Remote infarcts redemonstrated. EKG showed normal sinus rhythm 06/21/2019 Patient says that she feels better today. Able to tolerate oral diet. Patient has been afebrile. No leukocytosis. Blood pressure did improve Renal function is improving with creatinine level I.6 today. No fever no chills. No chest pain or shortness of breath. No nausea vomiting or abdominal pain or diarrhea or dysuria. Diuretics on hold currently. Continue with gentle hydration. Monitor respiratory status. Possibly reintroduce diuretics at low-dose upon discharge due to CHF. Patient was started on prednisone 40 mg daily due to COPD with mild exacerbation. Active Medications Albuterol/Ipratropium (Duoneb 0.5 Mg-3 Mg/3 Ml Soln) 3 ml INHALATION RT-Q4H PRN PRN Reason: Shortness Of Breath Albuterol/Ipratropium (Duoneb 0.5 Mg-3 Mg/3 Ml Soln) 3 ml INHALATION RT-QID [facility] Last Admin: 06/21/19 20:26 Dose: 3 ml Documented by: Alprazolam (Xanax) 0.25 mg PO BID PRN PRN Reason: Anxiety Anastrozole (Arimidex) 1 mg PO DAILY [facility] Last Admin: 06/21/19 09:19 Dose: 1 mg Documented by: Aspirin (Aspirin) 81 mg PO DAILY [facility] Last Admin: 06/21/19 09:20 Dose: 81 mg Documented by: Atorvastatin Calcium (Lipitor) 40 mg PO HS [facility] Last Admin: 06/21/19 22:39 Dose: 40 mg Documented by: Budesonide/Formoterol Fumarate (Symbicort 160-4.5 Mcg Inhaler) 2 puff INHALATION RT-BID [facility] Last Admin: 06/21/19 20:26 Dose: 2 puff Documented by: Buspirone HCl (Buspar) 30 mg PO BID [facility] Last Admin: 06/21/19 22:39 Dose: 30 mg Documented by: Cholecalciferol (Vitamin D3 (25 Mcg = 1000 Iu)) 5,000 unit PO DAILY [facility] Last Admin: 06/21/19 09:19 Dose: 5,000 unit Documented by: Citalopram Hydrobromide (Celexa) 10 mg PO DAILY [facility] Last Admin: 06/21/19 09:19 Dose: 10 mg Documented by: Sodium Chloride (Saline 0.9%) 1,000 mls @ 50 mls/hr IV .Q20H [facility] Last Admin: 06/21/19 16:45 Dose: 75 mls/hr Documented by: Insulin Aspart (Novolog) 0 unit SQ ACHS [facility]; Protocol Last Admin: 06/21/19 22:39 Dose: 6 unit Documented by: Levothyroxine Sodium (Synthroid) 25 mcg PO DAILY@0630 [facility] Last Admin: 06/21/19 05:36 Dose: 25 mcg Documented by: Linagliptin (Tradjenta) 5 mg PO DAILY [facility] Last Admin: 06/21/19 09:20 Dose: 5 mg Documented by: Metoprolol Succinate (Toprol Xl) 100 mg PO DAILY [facility] Last Admin: 06/21/19 09:20 Dose: 100 mg Documented by: Nitroglycerin (Nitrostat) 0.4 mg SUBLINGUAL Q5M PRN PRN Reason: Chest Pain Pantoprazole Sodium (Protonix) 40 mg PO AC-BRKFST [facility] Last Admin: 06/21/19 09:19 Dose: 40 mg Documented by: Prednisone () 40 mg PO DAILY [facility] Last Admin: 06/21/19 12:57 Dose: 40 mg Documented by: Pregabalin (Lyrica) 100 mg PO BID [facility] Last Admin: 06/21/19 22:39 Dose: 100 mg Documented by: Rivaroxaban (Xarelto) 15 mg PO DAILY [facility] Last Admin: 06/21/19 09:19 Dose: 15 mg Documented by: Objective - Vital Signs Vital signs: Vital Signs Temp 98.4 F 06/21/19 14:31 Pulse 78 06/21/19 20:37 Resp 15 06/21/19 16:00 BP 130/73 06/21/19 14:31 Pulse Ox 92 L 06/21/19 14:31 Intake & Output 06/21/19 06/21/19 06/22/19 06:59 18:59 06:59 Intake Total 340 Balance 340 Intake: Oral 340 Other: Voiding Method Toilet Toilet Diaper Diaper # Voids 1 1 # Bowel Movements 1 1 - Exam PHYSICAL EXAMINATION: Patient is lying in the bed comfortably, no acute distress, awake alert and oriented.. HEENT: Normocephalic. Neck is supple. Pupils reactive. Nostrils clear. Oral cavity is moist. Ears reveal no drainage. Neck reveals no JVD, carotid bruits, or thyromegaly. CHEST EXAMINATION: Trachea is central. Symmetrical expansion. She does have expiratory wheezing diminishes sounds.. CARDIAC: Normal S1, S2 with no gallops. No murmurs ABDOMEN: Soft. Bowel sounds normal. No organomegaly. No abdominal bruits. Extremities: reveal no edema. No clubbing or cyanosis Neurologically awake, alert, oriented x3 with well-coordinated movements. No focal deficits noted Skin: No rash or skin lesions. Psychiatric: Coperative. Nonsuicidal Musculoskeletal: No joint swelling or deformity. Normal range of motion. - Labs CBC & Chem 7: 06/21/19 06:31 06/21/19 06:31 Labs: Abnormal Lab Results - Last 24 Hours (Table) 06/20/19 06/21/19 06/21/19 Range/Units 20:42 06:31 11:03 BUN 44 H (7-17) mg/dL Creatinine 1.61 H (0.52-1.04) mg/dL POC Glucose (mg/dL) 176 H 200 H (75-99) mg/dL 06/21/19 Range/Units 16:35 BUN (7-17) mg/dL Creatinine (0.52-1.04) mg/dL POC Glucose (mg/dL) 165 H (75-99) mg/dL Assessment and Plan Assessment: Generalized weakness and fatigue likely due to dehydration and volume depletion. COPD with mild exacerbation Acute kidney injury likely prerenal Hyperkalemia. Due to acute kidney injury and also potassium supplementation at home Chronic hypoxic respiratory failure secondary to COPD Chronic CHF with diastolic dysfunction. History of CVA/TIA Diabetes type 2 [id number] Hypertension History of [place] History of breast cancer left side status post surgery Ongoing nicotine addiction Anxiety/depression ? hx of atrial fibrillation. Likely paroxysmal Patient is on metoprolol and xarelto at home. Currently in sinus rhythm. DVT prophylaxis patient is on Xarelto at home. Plan: Patient will be continued on gentle hydration normal saline. Follow-up renal function. Patient will be continued on DuoNeb's and Symbicort and prednisone 40 mg daily for 5 days. Monitor respiratory status and follow closely. Will hold Lasix spironolactone and potassium supplementation. Repeat labs tomorrow. Insulin sliding scale. Continue the home medications and further recommendations based on the clinical course. Prognosis is guarded with multiple medical problems and comorbid conditions. PTOT will be consulted. Smoking cessation has been counseled. Time with Patient: Greater than 30
[2019-06-22] MEDS: SODIUM CHLORIDE 0.9% 1,000 ML IV SCH ×2 (05:43→22:56)
[2019-06-22] MEDS: LEVOTHYROXINE 25 MCG TAB PO SCH (05:44)
[2019-06-22 06:48] LABS: Glucose,Whole Blood 151 mg/dL (75-99)
[2019-06-22] MEDS: INSULIN ASPART (NovoLOG) 100 UNIT/ML VIAL SQ SCH ×4 (07:24→20:45)
[2019-06-22] MEDS: PANTOPRAZOLE 40 MG TABLET PO SCH (07:24)
[2019-06-22 07:48] LABS: Calcium 9.4 mg/dL (8.4-10.2); Potassium 4.5 mmol/L (3.5-5.1)
[2019-06-22 08:02] LABS: Basophils % (A) 1 %; Eosinophils % (A) 0 %; HCT 37.7 % (34.0-46.0); HGB 12.3 gm/dL (11.4-16.0); Lymphocytes # (A) 1.2 k/uL (1.0-4.8); Lymphocytes % (A) 26 %; MCH 29.8 pg (25.0-35.0); MCHC 32.7 g/dL (31.0-37.0); Mean Platelet Volume 7.3; Monocytes # (A) 0.3 k/uL (0-1.0); Monocytes % (A) 7 %; Neutrophils % (A) 65 %; Platelet Count 223 k/uL (150-450); RBC 4.14 m/uL (3.80-5.40); WBC 4.7 k/uL (3.8-10.6)
[2019-06-22] MEDS: SYMBICORT 160-4.5 MCG INHALER INHALATION SCH ×2 (08:29→20:22)
[2019-06-22] MEDS: IPRATROPIUM-ALBUTEROL 3 ML NEB INHALATION SCH ×4 (08:30→20:24)
[2019-06-22] MEDS: busPIRone HCl 10 MG TAB PO SCH ×2 (10:15→20:45)
[2019-06-22] MEDS: ASPIRIN 81 MG PO SCH (10:15)
[2019-06-22] MEDS: PREGABALIN 100 MG CAP PO SCH ×2 (10:15→20:45)
[2019-06-22] MEDS: RIVAROXABAN 15 MG TAB PO SCH (10:16)
[2019-06-22] MEDS: METOPROLOL SUCCINATE (ER) 100 MG TAB.ER.24H PO SCH (10:16)
[2019-06-22] MEDS: predniSONE 20 MG TAB PO SCH (10:16)
[2019-06-22] MEDS: ANASTROZOLE 1 MG TAB PO SCH (10:16)
[2019-06-22] MEDS: CITALOPRAM HYDROBROMIDE 10 MG TAB PO SCH (10:16)
[2019-06-22] MEDS: CHOLECALCIFEROL 1,000 UNIT TAB PO SCH (10:16)
[2019-06-22] MEDS: LINAGLIPTIN 5 MG TABLET PO SCH (10:16)
--- NOTE | 2019-06-22 11:43 | P.PN ---
Subjective Patient is a 68-year-old female with a known history of chronic CHF with diastolic dysfunction ejection fraction 50-55%, COPD on home oxygen, history of CVA/TIA , Diabetes type 2 [id number]-hmaeurlgb, history of [place] and history of left breast cancer status post surgery and ongoing nicotine addiction came to ER with complaints of generalized weakness and unable to get out of the bed. Patient has been having worsening weakness for the past 1 week. Patient can usually walk with walker by herself. Due to generalized weakness patient needed to people to assist with getting her out of bed. Denied any complaints of fever or chills. No cough is from production. No dysuria or hematuria. No nausea vomiting or abdominal pain. Patient was admitted to the hospital in April 2019 for acute COPD exacerbation and acute on chronic CHF with diastolic dysfunction. Patient is currently being continued on Lasix spironolactone and potassium supplementation at home. Blood pressure was 94/56 on admission BUN 46 and creatinine 1.8 Potassium 5.4 chest x-ray showed no acute cardiopulmonary process CT head showed no acute intracranial abnormality. Remote infarcts redemonstrated. EKG showed normal sinus rhythm 06/21/2019 Patient says that she feels better today. Able to tolerate oral diet. Patient has been afebrile. No leukocytosis. Blood pressure did improve Renal function is improving with creatinine level I.6 today. No fever no chills. No chest pain or shortness of breath. No nausea vomiting or abdominal pain or diarrhea or dysuria. Diuretics on hold currently. Continue with gentle hydration. Monitor respiratory status. Possibly reintroduce diuretics at low-dose upon discharge due to CHF. Patient was started on prednisone 40 mg daily due to COPD with mild exacerbation. 06/22/2019 This is a pleasant 68 years old female with past medical history of A. fib on xarelto patient states that she was adherent to her therapy for many months because she could not afford it, patient has medicare but according to her plan she has a co-pay of about $200, as per discussion with my patient, family at bedside including the and the mattress spring encaser on the case. this time patient presents with multiple falls and progressive weakness in her left lower extremity for unknown period by the patient and family however got worse for the last 2 days. to come in to the hospital. today she has weakness in the reason her left leg and decreased sensation. she denies back pain or neck. no slurred speech or facial division, no weakness in the upper extremities. She has chronic kidney disease and her creatinine improving today to 1.5 Review of systems CONSTITUTIONAL: No fever, no malaise, no fatigue. HEENT: No recent visual problems or hearing problems. Denied any sore throat. CARDIOVASCULAR: No orthopnea, PND, no palpitations, no syncope. PULMONARY: No shortness of breath, no cough, no hemoptysis. GASTROINTESTINAL: No diarrhea, no nausea, no vomiting, no abdominal pain. Normoactive bowel sounds. NEUROLOGICAL: No headaches, no weakness, no numbness. HEMATOLOGICAL: Denies any bleeding or petechiae. GENITOURINARY: Denies any burning micturition, frequency, or urgency. MUSCULOSKELETAL/RHEUMATOLOGICAL: Denies any joint pain, swelling, or any muscle pain. ENDOCRINE: Denies any polyuria or polydipsia. Active Medications Generic Name Dose Route Start Last Admin Trade Name Freq PRN Reason Stop Dose Admin Albuterol/Ipratropium 3 ml 06/20/19 16:56 Duoneb 0.5 Mg-3 Mg/3 Ml Soln INHALATION RT-Q4H PRN Shortness Of Breath Albuterol/Ipratropium 3 ml 06/21/19 08:00 06/22/19 08:30 Duoneb 0.5 Mg-3 Mg/3 Ml Soln INHALATION 3 ml RT-QID [facility] Administration Alprazolam 0.25 mg 06/20/19 16:56 Xanax PO BID PRN Anxiety Anastrozole 1 mg 06/21/19 09:00 06/22/19 10:16 Arimidex PO 1 mg DAILY [facility] Administration Aspirin 81 mg 06/21/19 09:00 06/22/19 10:15 Aspirin PO 81 mg DAILY [facility] Administration Atorvastatin Calcium 40 mg 06/20/19 21:00 06/21/19 22:39 Lipitor PO 40 mg HS [facility] Administration Budesonide/Formoterol Fumarate 2 puff 06/20/19 20:00 06/22/19 08:29 Symbicort 160-4.5 Mcg Inhaler INHALATION 2 puff RT-BID [facility] Administration Buspirone HCl 30 mg 06/20/19 21:00 06/22/19 10:15 Buspar PO 30 mg BID [facility] Administration Cholecalciferol 5,000 unit 06/21/19 09:00 06/22/19 10:16 Vitamin D3 (25 Mcg = 1000 Iu) PO 5,000 unit DAILY [facility] Administration Citalopram Hydrobromide 10 mg 06/21/19 09:00 06/22/19 10:16 Celexa PO 10 mg DAILY [facility] Administration Sodium Chloride 1,000 mls @ 50 mls/hr 06/20/19 15:00 06/22/19 05:43 Saline 0.9% IV Not Given .Q20H [facility] Insulin Aspart 0 unit 06/20/19 22:44 06/22/19 07:24 Novolog SQ 1 unit ACHS [facility] Administration Protocol Levothyroxine Sodium 25 mcg 06/21/19 06:30 06/22/19 05:44 Synthroid PO 25 mcg DAILY@0630 [facility] Administration Linagliptin 5 mg 06/21/19 09:00 06/22/19 10:16 Tradjenta PO 5 mg DAILY [facility] Administration Metoprolol Succinate 100 mg 06/21/19 09:00 06/22/19 10:16 Toprol Xl PO 100 mg DAILY [facility] Administration Miscellaneous Information 0 each 06/22/19 11:36 Coumadin Per Pharmacy MISCELLANE DIRECTED PRN PHARMACY PROTOCOL Nitroglycerin 0.4 mg 06/20/19 16:56 Nitrostat SUBLINGUAL Q5M PRN Chest Pain Pantoprazole Sodium 40 mg 06/21/19 07:30 06/22/19 07:24 Protonix PO 40 mg AC-BRKFST [facility] Administration Prednisone 40 mg 06/21/19 12:45 06/22/19 10:16 PO 40 mg DAILY [facility] Administration Pregabalin 100 mg 06/20/19 21:00 06/22/19 10:15 Lyrica PO 100 mg BID [facility] Administration Warfarin Sodium 5 mg 06/22/19 18:00 Coumadin PO DAILY@1800 [facility] Objective - Vital Signs Vital signs: Vital Signs Temp 97.7 F 06/22/19 07:00 Pulse 80 06/22/19 08:44 Resp 15 06/22/19 07:00 BP 115/66 06/22/19 07:00 Pulse Ox 89 L 06/22/19 07:00 Intake & Output 06/21/19 06/22/19 06/22/19 18:59 06:59 18:59 Intake Total 340 140 Balance 340 140 Intake: Oral 340 140 Other: Voiding Method Toilet Toilet Toilet Diaper Diaper Diaper # Voids 1 1 1 # Bowel Movements 1 - Exam GENERAL: The patient is alert and oriented x3, not in any acute distress. Well developed, well nourished. HEENT: Pupils are round and equally reacting to light. EOMI. No scleral icterus. No conjunctival pallor. Normocephalic, atraumatic. No pharyngeal erythema. No thyromegaly. CARDIOVASCULAR: S1 and S2 present. No murmurs, rubs, or gallops. PULMONARY: Chest is clear to auscultation, no wheezing or crackles. ABDOMEN: Soft, nontender, nondistended, normoactive bowel sounds. No palpable organomegaly. MUSCULOSKELETAL: No joint swelling or deformity. EXTREMITIES: No cyanosis, clubbing, or pedal edema. NEUROLOGICAL: Cranial nerves are grossly intact. Decreased strength and sen sation in her left leg, she can't raise her left leg against gravity but weaker than the right side and to lesser extent SKIN: No rashes. no petechiae. - Labs CBC & Chem 7: 06/22/19 07:06 06/22/19 07:06 Labs: Abnormal Lab Results - Last 24 Hours (Table) 06/21/19 06/21/19 06/21/19 Range/Units 16:35 21:31 22:34 BUN (7-17) mg/dL Creatinine (0.52-1.04) mg/dL Glucose (74-99) mg/dL POC Glucose (mg/dL) 165 H 399 H 338 H (75-99) mg/dL 06/22/19 06/22/19 Range/Units 06:47 07:06 BUN 47 H (7-17) mg/dL Creatinine 1.55 H (0.52-1.04) mg/dL Glucose 140 H (74-99) mg/dL POC Glucose (mg/dL) 151 H (75-99) mg/dL Assessment and Plan Assessment: Acute stroke with left hemiparesis affecting her left leg with decreased strength and sensation. Nonadherence to therapy and due to co-pay issue, patient could not afford the medication Generalized weakness and fatigue likely due to dehydration and volume depletion. COPD with mild exacerbation Acute kidney injury likely prerenal Hyperkalemia. Due to acute kidney injury and also potassium supplementation at home Chronic hypoxic respiratory failure secondary to COPD Chronic CHF with diastolic dysfunction. History of CVA/TIA Diabetes type 2 [id number] Hypertension History of [place] History of breast cancer left side status post surgery Ongoing nicotine addiction Anxiety/depression hx of atrial fibrillation. Likely paroxysmal Patient is on metoprolol and xarelto at home. Currently in sinus rhythm. DVT prophylaxis patient is on Xarelto at home. Plan: Patient is a pleasant 68 years old female who presents with acute stroke, p atient could not afford Xarelto and there is about $200 co-pay as per mattress spring encaser, but going to switch her to oral Coumadin just cheaper medication and follow up INR. Consult to neurology for her stroke symptoms. Labs and medication were reviewed.. Continue same treatment. Continue with symptomatic treatment. Resume home medication. Monitor lytes and vitals. DVT and GI prophylaxis. Further recommendations of the clinical course of the patient DVT prophylaxis: Subcutaneous heparin, GI Prophylaxis: Pepcid PT/OT: Recommended home with home health care Prognosis is guarded
[2019-06-22 11:52] LABS: Glucose,Whole Blood 261 mg/dL (75-99)
[2019-06-22 12:31] LABS: INR 1.1 (<1.2); Prothrombin Time 11.9 sec (9.0-12.0)
[2019-06-22 16:21] LABS: Glucose,Whole Blood 310 mg/dL (75-99)
[2019-06-22] MEDS: WARFARIN 5 MG TAB PO SCH (17:20)
[2019-06-22 20:04] LABS: Glucose,Whole Blood 368 mg/dL (75-99)
[2019-06-22] MEDS: ATORVASTATIN 40 MG TAB PO SCH (20:45)
--- NOTE | 2019-06-22 20:56 | P.CNNES ---
History of Present Illness Consult date: 06/22/19 Reason for Consult: Decreased snsation in LLE Chief complaint: Generalized weakness History of Present Illness: HISTORY OF PRESENT ILLNESS: Thank you for allowing me to evaluate Ms. Christen Martin. Ms. Martin is a 68-year-old woman with past medical history of angina, heart failure, COPD, stroke, diabetes, hypertension, SC, breast cancer, hypothyroidism, who presented to [facility] for generalized weakness on 06/20/2019, consulted neurology for decreased sensation in left lower extremity. Patient is able to provide good history but at different times, having some difficulty providing information. No family at bedside. Patient states that she's had 5 strokes in the past, last episode 3 years ago. All 5 episodes involved patient having facial droop and also some speech difficulty. Patient states that she noticed LLE weakness and numbness since a couple of days ago, and she denies ever having similar episode in the past. Patient at this time denies numbness. Denies any headache, nausea, vomiting, double/blurry vision. PAST MEDICAL HISTORY: angina, heart failure, COPD, stroke, diabetes, hypertension, SC, breast cancer, hypothyroidism PAST SURGICAL HISTORY: Appendectomy, cholecystectomy, heart catheterization, loop recorder, left breast biopsy, back surgery HOME MEDICATIONS: Anastrozole, atorvastatin, vitamin D, levothyroxine, losartan, metoprolol, Januvia, Xanax, citalopram, alendronate, aspirin, pantoprazole, potassium chloride, Lyrica, albuterol, Zocor, furosemide, DuoNeb, magnesium oxide, Xarelt o, spironolactone, Spiriva, buspirone ALLERGIES: Contrast, morphine, sulfa SOCIAL HISTORY: Current every day smoker. FAMILY HISTORY: Mother has COPD. Father had liver disease REVIEW OF SYSTEMS: The 14 systems are reviewed and no additional points are identified compared to the review of systems documented history and physical PHYSICAL EXAMINATION: VITAL SIGNS: T 97.7 HR 88 RR 15 BP 115/66 O2 sat 89% on RA GEN.: NAD, pleasant and cooperative HEENT: NCAT, sclera without icterus NECK: Supple, no carotid bruit SKIN AND EXTREMITIES: Warm to touch, no edema NEURO: MENTAL STATUS: Patient alert and oriented to self, place, time. Able to name the current president. Speech fluent, able to name and repeat, following all commands readily. No right and left disorientation, neglect. CRANIAL NERVES II THROUGH XII: II: Pupils are equal and reactive to light symmetrically. No afferent pupillary defect. Visual ashton are intact. III, IV, : No ptosis. Extraocular movements full. No nystagmus. V: Facial sensation intact from V1-3. VII. No clear facial asymmetry. VIII: Hearing intact to finger rub bilaterally. IX, X: Symmetric palate elevation. XI: Shoulder shrug intact. XII: Tongue midline without fasciculation or atrophy. MOTOR: Normal bulk/tone. No pronator drift or tremor. Strength is 5/5 in RUE and RLE. LUE with 4/5 strength and LLE with 4+/5 strength. SENSORY: Intact to light touch, temperature in all 4 extremities. REFLEXES: 2+ throughout. Toes are downgoing. COORDINATION: Finger to nose intact. No dysmetria. GAIT: Patient able to stand on her own, took about 2 steps forward, patient unstable. Patient uses walker at home DIAGNOSTIC TESTING: LABORATORY: WBC 4.7 hemoglobin 12.3 platelet 223 INR 1.1 sodium 140 potassium 4.5 chloride 105 bicarb 25 BUN 47 creatinine 1.55 glucose 140 TSH 1.750 IMAGING: CT Head without contrast 06/19/2019: No acute intracranial abnormality. Remote infarcts be demonstrated. Senescent changes including cerebral volume loss and sequelae of chronic microangiopathy. EKG 06/20/19: Normal SR TTE 04/2019: SR. LV, RA, RV sizes are normal. LA is moderately dilated. EF 50-55%. Inflow pattern suggest diastolic filling. ASSESSMENT: 68-year-old woman with past medical history of angina, heart failure, COPD, stroke x5, diabetes, hypertension, SC, breast cancer, hypothyroidism, who prese nted to [facility] for generalized weakness on 06/20/2019, consulted neurology for decreased sensation in left lower extremity. Patient on exam with LUE and LLE weakness compared to RUE and RLE. Patient with multiple risk factors for stroke. Recommend stroke workup and management. RECOMMENDATIONS: 1. MRI brain without contrast 2. Carotid US 3. Cardiac monitoring 4. c/w ASA 81mg and Coumadin (for stroke prevention, patient does not need to be on both anticoagulation and antiplatelet. anticoagulation alone is sufficient) 5. c/w atorvastatin 6. Discussed with patient about stroke prevention guidelines. Medication compliance, hypertension/diabetes control, lifestyle changes including no smoking, drinking in moderation, losing weight, exercising, eating healthier 7. Neurology will continue to follow 8. Patient needs to follow up with neurologist as outpatient with her 1-2 weeks of discharge Past Medical History Past Medical History: Chest Pain / Angina, Heart Failure, COPD, CVA/TIA, Diabetes Mellitus, Hypertension, Myocardial Infarction ([place]) Additional Past Medical History / Comment(s): Breast Ca. Left side Last Myocardial Infarction Date:: 09/22/13 History of Any Multi-Drug Resistant Organisms: None Reported Past Surgical History: Appendectomy, Back Surgery, Breast Surgery, Cholecystectomy, Heart Catheterization, Tubal Ligation Additional Past Surgical History / Comment(s): loop recorder, left breast biopsy Past Anesthesia/Blood Transfusion Reactions: No Reported Reaction Past Psychological History: No Psychological Hx Reported Smoking Status: Current every day smoker Past Alcohol Use History: None Reported Past Drug Use History: None Reported Additional Drug Use History / Comment(s): 0.5 pack per day, started when she was 14 - Past Family History Mother Family Medical History: COPD Father Family Medical History: Liver Disease Medications and Allergies Home Medications Medication Instructions Recorded Confirmed Type Anastrozole [Arimidex] 1 mg PO DAILY 10/23/18 06/20/19 History Atorvastatin [Lipitor] 40 mg PO HS 10/23/18 06/20/19 History Cholecalciferol [Vitamin D3 (25 5,000 unit PO DAILY 10/23/18 06/20/19 History Mcg = 1000 Iu)] Levothyroxine Sodium [Synthroid] 25 mcg PO DAILY 10/23/18 06/20/19 History Losartan [Cozaar] 50 mg PO BID 10/23/18 06/20/19 History Metoprolol Succinate (ER) [Toprol 100 mg PO DAILY 10/23/18 06/20/19 History XL] sitaGLIPtin [Januvia] 100 mg PO DAILY 10/23/18 06/20/19 History ALPRAZolam [Xanax] 0.25 mg PO BID PRN 02/27/19 06/20/19 History Citalopram Hydrobromide [CeleXA] 10 mg PO DAILY 02/27/19 06/20/19 History Alendronate Sodium [Fosamax] 70 mg PO SA 05/05/19 06/20/19 History Aspirin EC [Ecotrin Low Dose] 81 mg PO DAILY 05/05/19 06/20/19 History Pantoprazole [Protonix] 40 mg PO DAILY 05/05/19 06/20/19 History Potassium Chloride [Klor-Con 20] 20 meq PO DAILY 05/05/19 06/20/19 History Pregabalin [Lyrica] 100 mg PO BID 05/05/19 06/20/19 History Albuterol Sulfate [Ventolin HFA] 1 - 2 puff INHALATION RT-Q6H PRN 06/20/19 06/20/19 History Budesonide/Formoterol Fumarate 2 puff INHALATION RT-BID 06/20/19 06/20/19 History [Symbicort 160-4.5 Mcg Inhaler] Furosemide [Lasix] 40 mg PO DAILY 06/20/19 06/20/19 History Ipratropium-Albuterol Nebulize 3 ml INHALATION RT-Q4H PRN 06/20/19 06/20/19 History [Duoneb 0.5 mg-3 mg/3 ml Soln] Magnesium Oxide [Mag-Ox] 400 mg PO DAILY 06/20/19 06/20/19 History Nitroglycerin Sl Tabs [Nitrostat] 0.4 mg SUBLINGUAL Q5M PRN 06/20/19 06/20/19 History Rivaroxaban [Xarelto] 15 mg PO DAILY 06/20/19 06/20/19 History Spironolactone [Aldactone] 12.5 mg PO DAILY 06/20/19 06/20/19 History Tiotropium 18 Mcg/Puff [Spiriva] 2 puff INHALATION RT-DAILY 06/20/19 06/20/19 History busPIRone HCL 30 mg PO BID 06/20/19 06/20/19 History Allergies Allergy/AdvReac Type Severity Reaction Status Date / Time Iodinated Contrast Media Allergy Rash/Hives Verified 06/20/19 12:34 [Iodinated Contrast- Oral and IV Dye] morphine Allergy Rash/Hives Verified 06/20/19 12:34 Sulfa (Sulfonamide Allergy Rash/Hives Verified 06/20/19 12:34 Antibiotics) Physical Examination - Vital Signs Vital Signs: Vital Signs Temp Pulse Pulse Resp BP Pulse Ox 06/22/19 12:11 80 06/22/19 12:01 76 06/22/19 08:44 80 06/22/19 08:30 88 06/22/19 07:00 97.7 F 15 115/66 89 L 06/22/19 01:31 97.8 F 82 18 122/77 90 L 06/22/19 00:35 18 06/21/19 20:37 78 06/21/19 20:27 76 06/21/19 19:02 16 06/21/19 16:29 80 06/21/19 16:20 78 06/21/19 16:00 78 15 06/21/19 14:31 98.4 F 78 15 130/73 92 L Intake and Output 06/21/19 06/22/19 06/22/19 22:59 06:59 14:59 Intake Total 380 Balance 380 Intake: Oral 380 Other: Voiding Method Toilet Toilet Toilet Diaper Diaper Diaper # Voids 1 1 1 Results - Laboratory Findings CBC and BMP: 06/22/19 07:06 06/22/19 07:06 Abnormal Lab Findings: Abnormal Labs 06/20/19 06/20/19 06/20/19 13:07 13:07 13:25 APTT 36.9 H Potassium 5.4 H BUN 46 H Creatinine 1.80 H Glucose 114 H POC Glucose (mg/dL) Free T3 pg/mL 2.4 L Ur Leukocyte Esterase Moderate H Urine Bacteria Occasional H Hyaline Casts 7 H Urine Mucus Rare H 06/20/19 06/21/19 06/21/19 20:42 06:31 11:03 APTT Potassium BUN 44 H Creatinine 1.61 H Glucose POC Glucose (mg/dL) 176 H 200 H Free T3 pg/mL Ur Leukocyte Esterase Urine Bacteria Hyaline Casts Urine Mucus 06/21/19 06/21/19 06/21/19 16:35 21:31 22:34 APTT Potassium BUN Creatinine Glucose POC Glucose (mg/dL) 165 H 399 H 338 H Free T3 pg/mL Ur Leukocyte Esterase Urine Bacteria Hyaline Casts Urine Mucus 06/22/19 06/22/19 06/22/19 06:47 07:06 11:50 APTT Potassium BUN 47 H Creatinine 1.55 H Glucose 140 H POC Glucose (mg/dL) 151 H 261 H Free T3 pg/mL Ur Leukocyte Esterase Urine Bacteria Hyaline Casts Urine Mucus
[2019-06-23] MEDS ORDERED: LEVOTHYROXINE 25 MCG TAB ONE (05:26)
[2019-06-23] MEDS: LEVOTHYROXINE 25 MCG TAB PO SCH (06:04)
[2019-06-23 06:48] LABS: Glucose,Whole Blood 149 mg/dL (75-99)
[2019-06-23 07:35] LABS: Glucose,Whole Blood 124 mg/dL (75-99)
--- NOTE | 2019-06-23 07:58 | US ---
EXAMINATION TYPE: US carotid duplex BILAT DATE OF EXAM: 06/23/2019 COMPARISON: NONE CLINICAL HISTORY: concern for stroke. h/o multiple strokes, weakness EXAM MEASUREMENTS: RIGHT: Peak Systolic Velocity (PSV) cm/sec ----- Right CCA: 44.7 ----- Right ICA: 30.4 ----- Right ECA: 56.1 ICA/CCA ratio: 0.7 RIGHT: End Diastole cm/sec ----- Right CCA: 8.5 ----- Right ICA: 9.7 ----- Right ECA: 9.0 LEFT: Peak Systolic Velocity (PSV) cm/sec ----- Left CCA: 44.0 ----- Left ICA: 58.8 ----- Left ECA: 62.8 ICA/CCA ratio: 1.3 LEFT: End Diastole cm/sec ----- Left CCA: 11.7 ----- Left ICA: 16.1 ----- Left ECA: 8.8 VERTEBRALS (direction of flow): Right Vertebral: Antegrade Left Vertebral: Antegrade Rhythm: Normal Mild heterogeneous plaque at bilateral bulbs seen with no significant stenosis Grayscale, color Doppler, spectral Doppler imaging performed of the carotid arteries. Waveform analys is does not show significant stenosis of the internal carotid arteries. IMPRESSION: No hemodynamic significant stenosis of the proximal internal carotid arteries by Doppler criteria, an indirect measurement of carotid stenosis Criteria for Assigning % of Stenosis / Diameter reduction (Estimation based on the indirect measurements of the internal carotid artery velocities (ICA PSV). 1. Normal (no stenosis)=ICA PSV < 125 cm/s: ratio < 2.0: ICA EDV<40 cm/s. 2. Less than 50% stenosis=ICA PSV < 125 cm/s: ratio < 2.0: ICA EDV<40 cm/s. 3. 50 to 69% stenosis=ICA PSV of 125 to 230 cm/s: ration 2.0 ? 4.0: ICA EDV 40-100 cm/s. 4. Greater than 70% stenosis to near occlusion= ICA PSV > 230 cm/s: ratio > 4.0: ICA EDV > 100 cm/s. 5. Near occlusion= ICA PSV velocities may be low or undetectable: variable ratio and ICA EDV. 6. Total occlusion=unable to detect flow.
[2019-06-23 08:09] LABS: Prothrombin Time 11.1 sec (9.0-12.0)
--- NOTE | 2019-06-23 08:19 | P.CONS ---
History of Present Illness - Chief Complaint Gait disturbance, left-sided weakness - History of Present Illness I had the opportunity to see patient for inpatient rehab consultation with regard to gait disturbance. Patient admitted to [facility] June 20 with wobbliness, weakness, fatigue. Seen by Dr. Brooks who notes aside weakness and diagnosis stroke. Chest x-ray and carotid Doppler negative. Head CT demonstrates only old infarcts. OT describes supervision for upper dressing and toileting and minimal assistance for lower dressing, bathing and transfers. PT, at minimal assistance for transfers and gait 20 feet with roller walker. Previous functional history as elicited patient: 68-year-old right-handed white female who is lives in a first-floor apartment with and son. Son does the cooking and driving. Patient receives physical assistance for sitdown shower and minimal assistance for dressing. Daughter does laundry. Patient uses [address] for gait. Dr. Dickinsony his regular doctor. Smokes less than a pack per day denies alcohol. Family history of father with stroke. Review of Systems Review of systems: ENT: Denies sneezes or discharge. Eyes: Denies discharge or photophobia. Cardiac: Denies chest pain or palpitation. Pulmonary: Denies cough or shortness of breath. Breast: Denies discharge or lumps. Gastrointestinal: Denies nausea, emesis, constipation, diarrhea. Genitourinary: Denies discharge or frequency. Musculoskeletal: Denies muscle or bone aches. Neurologic: Weakness or wobbliness. Patient does not feel that this is her typical stroke presentation. Endocrine: Denies shakes or sweats. Oncology: Denies cancers. Dermatologic: Denies rash, itching, pruritus. ALLERGY/immunology: Denies sneezes, rashes. Past Medical History Past Medical History: Chest Pain / Angina, Heart Failure, COPD, CVA/TIA, Diabetes Mellitus, Hypertension, Myocardial Infarction ([place]) Additional Past Medical History / Comment(s): Breast Ca. Left side Last Myocardial Infarction Date:: 09/22/13 History of Any Multi-Drug Resistant Organisms: None Reported Past Surgical History: Appendectomy, Back Surgery, Breast Surgery, Cholecystectomy, Heart Catheterization, Tubal Ligation Additional Past Surgical History / Comment(s): loop recorder, left breast biopsy Past Anesthesia/Blood Transfusion Reactions: No Reported Reaction Past Psychological History: No Psychological Hx Reported Smoking Status: Current every day smoker Past Alcohol Use History: None Reported Past Drug Use History: None Reported Additional Drug Use History / Comment(s): 0.5 pack per day, started when she was 14 - Past Family History Mother Family Medical History: COPD Father Family Medical History: Liver Disease Medications and Allergies Home Medications Medication Instructions Recorded Confirmed Type Anastrozole [Arimidex] 1 mg PO DAILY 10/23/18 06/20/19 History Atorvastatin [Lipitor] 40 mg PO HS 10/23/18 06/20/19 History Cholecalciferol [Vitamin D3 (25 5,000 unit PO DAILY 10/23/18 06/20/19 History Mcg = 1000 Iu)] Levothyroxine Sodium [Synthroid] 25 mcg PO DAILY 10/23/18 06/20/19 History Losartan [Cozaar] 50 mg PO BID 10/23/18 06/20/19 History Metoprolol Succinate (ER) [Toprol 100 mg PO DAILY 10/23/18 06/20/19 History XL] sitaGLIPtin [Januvia] 100 mg PO DAILY 10/23/18 06/20/19 History ALPRAZolam [Xanax] 0.25 mg PO BID PRN 02/27/19 06/20/19 History Citalopram Hydrobromide [CeleXA] 10 mg PO DAILY 02/27/19 06/20/19 History Alendronate Sodium [Fosamax] 70 mg PO SA 05/05/19 06/20/19 History Aspirin EC [Ecotrin Low Dose] 81 mg PO DAILY 05/05/19 06/20/19 History Pantoprazole [Protonix] 40 mg PO DAILY 05/05/19 06/20/19 History Potassium Chloride [Klor-Con 20] 20 meq PO DAILY 05/05/19 06/20/19 History Pregabalin [Lyrica] 100 mg PO BID 05/05/19 06/20/19 History Albuterol Sulfate [Ventolin HFA] 1 - 2 puff INHALATION RT-Q6H PRN 06/20/19 06/20/19 History Budesonide/Formoterol Fumarate 2 puff INHALATION RT-BID 06/20/19 06/20/19 History [Symbicort 160-4.5 Mcg Inhaler] Furosemide [Lasix] 40 mg PO DAILY 06/20/19 06/20/19 History Ipratropium-Albuterol Nebulize 3 ml INHALATION RT-Q4H PRN 06/20/19 06/20/19 History [Duoneb 0.5 mg-3 mg/3 ml Soln] Magnesium Oxide [Mag-Ox] 400 mg PO DAILY 06/20/19 06/20/19 History Nitroglycerin Sl Tabs [Nitrostat] 0.4 mg SUBLINGUAL Q5M PRN 06/20/19 06/20/19 History Rivaroxaban [Xarelto] 15 mg PO DAILY 06/20/19 06/20/19 History Spironolactone [Aldactone] 12.5 mg PO DAILY 06/20/19 06/20/19 History Tiotropium 18 Mcg/Puff [Spiriva] 2 puff INHALATION RT-DAILY 06/20/19 06/20/19 History busPIRone HCL 30 mg PO BID 06/20/19 06/20/19 History Allergies Allergy/AdvReac Type Severity Reaction Status Date / Time Iodinated Contrast Media Allergy Rash/Hives Verified 06/20/19 12:34 [Iodinated Contrast- Oral and IV Dye] morphine Allergy Rash/Hives Verified 06/20/19 12:34 Sulfa (Sulfonamide Allergy Rash/Hives Verified 06/20/19 12:34 Antibiotics) Physical Exam Vitals: Vital Signs Temp Pulse Pulse Pulse Resp BP Pulse Ox 06/23/19 07:00 98.0 F 68 16 115/78 94 L 06/22/19 20:36 80 06/22/19 20:24 79 89 L 06/22/19 19:49 98 F 83 16 108/64 92 L 06/22/19 15:46 80 06/22/19 15:34 80 06/22/19 15:16 15 06/22/19 15:00 97.9 F 17 147/80 93 L 06/22/19 12:11 80 06/22/19 12:01 76 06/22/19 08:44 80 06/22/19 08:30 88 Intake and Output 06/22/19 06/23/19 06/23/19 22:59 06:59 14:59 Intake Total 100 Balance 100 Intake: Oral 100 Other: # Voids 1 Skin: Atrophic, intact. General: Medium build and comfortable appearance. Head: Normocephalic, atraumatic. Eyes: Symmetric. Pupils equal round. Ears: Symmetric. Hearing within normal limits. Mouth: Clear. Neck: Supple. Carotid without bruit. Cardiac: Regular rate and rhythm. Lungs: Clear anteriorly and posteriorly. Abdomen: Soft active nontender. Extremities: Normal tone. Neurological: Mental status: Alert, cooperative, pleasant. Cranial nerves: Symmetric facial tone and trapezius. Motor: Active movement all 4 limbs without appreciable distal weakness. Sensation: Intact throughout. DTRs: Symmetric and equal throughout. Mobility: Minimal assistance for bed mobility. Results CBC & Chem 7: 06/22/19 07:06 06/22/19 07:06 Labs: Abnormal Lab Results - Last 24 Hours (Table) 06/22/19 06/22/19 06/22/19 Range/Units 11:50 16:20 20:02 POC Glucose (mg/dL) 261 H 310 H 368 H (75-99) mg/dL 06/23/19 06/23/19 Range/Units 06:46 07:29 POC Glucose (mg/dL) 149 H 124 H (75-99) mg/dL Assessment and Plan (1) General weakness Current Visit: Yes Status: Acute Code(s): R53.1 - WEAKNESS SNOMED Code(s): 94565730 (2) Acute exacerbation of CHF (congestive heart failure) Current Visit: No Status: Acute Code(s): I50.9 - HEART FAILURE, UNSPECIFIED SNOMED Code(s): 928365640 Plan: Impression: 1. Gait disturbance with left-sided weakness on admission. History of previous strokes. 2. Generalized weakness. 3. Exacerbation CHF. 4. Coronary disease with history of IL and angina. 5. COPD. 6. Diabetes. 7. Hypertension. Comments and plan: PT and OT ordered. We'll follow therapies with yourself. At this time I am in agreement with patient that this is not her typical stroke presentation.
[2019-06-23 08:25] LABS: Calcium 9.4 mg/dL (8.4-10.2); Potassium 4.1 mmol/L (3.5-5.1)
[2019-06-23] MEDS: IPRATROPIUM-ALBUTEROL 3 ML NEB INHALATION SCH ×4 (08:26→20:09)
[2019-06-23] MEDS: SYMBICORT 160-4.5 MCG INHALER INHALATION SCH ×2 (08:26→20:09)
[2019-06-23] MEDS ORDERED: ENOXAPARIN 60 MG/0.6 ML SYRINGE SQ SCH (09:00)
[2019-06-23] MEDS: INSULIN ASPART (NovoLOG) 100 UNIT/ML VIAL SQ SCH ×4 (09:57→22:08)
[2019-06-23] MEDS: METOPROLOL SUCCINATE (ER) 100 MG TAB.ER.24H PO SCH (10:14)
[2019-06-23] MEDS: CHOLECALCIFEROL 1,000 UNIT TAB PO SCH (10:14)
[2019-06-23] MEDS: CITALOPRAM HYDROBROMIDE 10 MG TAB PO SCH (10:14)
[2019-06-23] MEDS: PREGABALIN 100 MG CAP PO SCH ×2 (10:14→22:07)
[2019-06-23] MEDS: LINAGLIPTIN 5 MG TABLET PO SCH (10:14)
[2019-06-23] MEDS: ANASTROZOLE 1 MG TAB PO SCH (10:15)
[2019-06-23] MEDS: ASPIRIN 81 MG PO SCH (10:15)
[2019-06-23] MEDS: PANTOPRAZOLE 40 MG TABLET PO SCH (10:15)
[2019-06-23] MEDS: predniSONE 10 MG TAB PO SCH (10:15)
[2019-06-23] MEDS: busPIRone HCl 10 MG TAB PO SCH ×2 (10:15→22:07)
--- NOTE | 2019-06-23 10:31 | P.PN ---
Subjective Patient is a 68-year-old female with a known history of chronic CHF with diastolic dysfunction ejection fraction 50-55%, COPD on home oxygen, history of CVA/TIA , Diabetes type 2 [id number], history of MD and history of left breast cancer status post surgery and ongoing nicotine addiction came to ER with complaints of generalized weakness and unable to get out of the bed. Patient has been having worsening weakness for the past 1 week. Patient can usually walk with walker by herself. Due to generalized weakness patient needed to people to assist with getting her out of bed. Denied any complaints of fever or chills. No cough is from production. No dysuria or hematuria. No nausea vomiting or abdominal pain. Patient was admitted to the hospital in April 2019 for acute COPD exacerbation and acute on chronic CHF with diastolic dysfunction. Patient is currently being continued on Lasix spironolactone and potassium supplementation at home. Blood pressure was 94/56 on admission BUN 46 and creatinine 1.8 Potassium 5.4 chest x-ray showed no acute cardiopulmonary process CT head showed no acute intracranial abnormality. Remote infarcts redemonstrated. EKG showed normal sinus rhythm 06/21/2019 Patient says that she feels better today. Able to tolerate oral diet. Patient has been afebrile. No leukocytosis. Blood pressure did improve Renal function is improving with creatinine level I.6 today. No fever no chills. No chest pain or shortness of breath. No nausea vomiting or abdominal pain or diarrhea or dysuria. Diuretics on hold currently. Continue with gentle hydration. Monitor respiratory status. Possibly reintroduce diuretics at low-dose upon discharge due to CHF. Patient was started on prednisone 40 mg daily due to COPD with mild exacerbation. 06/22/2019 This is a pleasant 68 years old female with past medical history of A. fib on xarelto patient states that she was adherent to her therapy for many months because she could not afford it, patient has medicare but according to her plan she has a co-pay of about $200, as per discussion with my patient, family at bedside including the and the counseling case manager on the case. this time patient presents with multiple falls and progressive weakness in her left lower extremity for unknown period by the patient and family however got worse for the last 2 days. to come in to the hospital. today she has weakness in the reason her left leg and decreased sensation. she denies back pain or neck. no slurred speech or facial division, no weakness in the upper extremities. She has chronic kidney disease and her creatinine improving today to 1.5 06/23/2019 Patient is awake alert, she still complaining from weakness in her left leg with decreased sensation, neurologist recommended MRI of the brain with contrast, however we asking for nephrology clearance prior to the MRI. Patient medication of Lasix and spironolactone on hold. Patient states that she has a loop recorder in her chest however it could not be palpated and not seen on the chest x-ray. Discussed with counseling case manager, because of her co-pay for oral anticoagulants, patient was started on Coumadin with Lovenox bridging, patient instructed the mother Coumadin and check an INR and she agrees. Midline was placed, current duplex is negative. Dr. Chacko evaluated the patient. Review of systems CONSTITUTIONAL: No fever, no malaise, no fatigue. HEENT: No recent visual problems or hearing problems. Denied any sore throat. CARDIOVASCULAR: No orthopnea, PND, no palpitations, no syncope. PULMONARY: No shortness of breath, no cough, no hemoptysis. GASTROINTESTINAL: No diarrhea, no nausea, no vomiting, no abdominal pain. Normoactive bowel sounds. NEUROLOGICAL: No headaches, no weakness, no numbness. HEMATOLOGICAL: Denies any bleeding or petechiae. GENITOURINARY: Denies any burning micturition, frequency, or urgency. MUSCULOSKELETAL/RHEUMATOLOGICAL: Denies any joint pain, swelling, or any muscle pain. ENDOCRINE: Denies any polyuria or polydipsia. Active Medications Generic Name Dose Route Start Last Admin Trade Name Freq PRN Reason Stop Dose Admin Albuterol/Ipratropium 3 ml 06/20/19 16:56 Duoneb 0.5 Mg-3 Mg/3 Ml Soln INHALATION RT-Q4H PRN Shortness Of Breath Albuterol/Ipratropium 3 ml 06/21/19 08:00 06/23/19 08:26 Duoneb 0.5 Mg-3 Mg/3 Ml Soln INHALATION 3 ml RT-QID BINA Administration Alprazolam 0.25 mg 06/20/19 16:56 Xanax PO BID PRN Anxiety Anastrozole 1 mg 06/21/19 09:00 06/23/19 10:15 Arimidex PO 1 mg DAILY BINA Administration Aspirin 81 mg 06/21/19 09:00 06/23/19 10:15 Aspirin PO 81 mg DAILY BINA Administration Atorvastatin Calcium 40 mg 06/20/19 21:00 06/22/19 20:45 Lipitor PO 40 mg HS BINA Administration Budesonide/Formoterol Fumarate 2 puff 06/20/19 20:00 06/23/19 08:26 Symbicort 160-4.5 Mcg Inhaler INHALATION 2 puff RT-BID BINA Administration Buspirone HCl 30 mg 06/20/19 21:00 06/23/19 10:15 Buspar PO 30 mg BID BINA Administration Cholecalciferol 5,000 unit 06/21/19 09:00 06/23/19 10:14 Vitamin D3 (25 Mcg = 1000 Iu) PO 5,000 unit DAILY BINA Administration Citalopram Hydrobromide 10 mg 06/21/19 09:00 06/23/19 10:14 Celexa PO 10 mg DAILY BINA Administration Enoxaparin Sodium 60 mg 06/23/19 09:00 06/23/19 10:16 Lovenox SQ 60 mg Q12HR [facility] Administration Sodium Chloride 1,000 mls @ 50 mls/hr 06/20/19 15:00 06/22/19 22:56 Saline 0.9% IV Not Given .Q20H [facility] Insulin Aspart 0 unit 06/20/19 22:44 06/23/19 09:57 Novolog SQ Not Given ACHS [facility] Protocol Levothyroxine Sodium 25 mcg 06/21/19 06:30 06/23/19 06:04 Synthroid PO Not Given DAILY@0630 [facility] Linagliptin 5 mg 06/21/19 09:00 06/23/19 10:14 Tradjenta PO 5 mg DAILY [facility] Administration Metoprolol Succinate 100 mg 06/21/19 09:00 06/23/19 10:14 Toprol Xl PO 100 mg DAILY [facility]INA Administration Miscellaneous Information 0 each 06/22/19 11:36 Coumadin Per Pharmacy MISCELLANE DIRECTED PRN PHARMACY PROTOCOL Nitroglycerin 0.4 mg 06/20/19 16:56 Nitrostat SUBLINGUAL Q5M PRN Chest Pain Pantoprazole Sodium 40 mg 06/21/19 07:30 06/23/19 10:15 Protonix PO 40 mg AC-BRKFST [facility] Administration Prednisone 30 mg 06/23/19 09:00 06/23/19 10:15 PO 30 mg DAILY [facility] Administration Pregabalin 100 mg 06/20/19 21:00 06/23/19 10:14 Lyrica PO 100 mg BID [facility] Administration Warfarin Sodium 5 mg 06/22/19 18:00 06/22/19 17:20 Coumadin PO 5 mg DAILY@1800 [facility] Administration Objective - Vital Signs Vital signs: Vital Signs Temp 98.0 F 06/23/19 07:00 Pulse 72 06/23/19 08:39 Resp 16 06/23/19 07:00 BP 115/78 06/23/19 07:00 Pulse Ox 94 L 06/23/19 07:00 Intake & Output 06/22/19 06/23/19 06/23/19 18:59 06:59 18:59 Intake Total 480 Balance 480 Intake: Oral 480 Other: Voiding Method Toilet Diaper # Voids 2 1 - Exam GENERAL: The patient is alert and oriented x3, not in any acute distress. Well developed, well nourished. HEENT: Pupils are round and equally reacting to light. EOMI. No scleral icterus. No conjunctival pallor. Normocephalic, atraumatic. No pharyngeal erythema. No thyromegaly. CARDIOVASCULAR: S1 and S2 present. No murmurs, rubs, or gallops. PULMONARY: Chest is clear to auscultation, no wheezing or crackles. ABDOMEN: Soft, nontender, nondistended, normoactive bowel sounds. No palpable organomegaly. MUSCULOSKELETAL: No joint swelling or deformity. EXTREMITIES: No cyanosis, clubbing, or pedal edema. NEUROLOGICAL: Cranial nerves are grossly intact. Decreased strength and sensation in her left leg, she can't raise her left leg against gravity but weaker than the right side and to lesser extent SKIN: No rashes. no petechiae. - Labs CBC & Chem 7: 06/22/19 07:06 06/23/19 07:09 Labs: Abnormal Lab Results - Last 24 Hours (Table) 06/22/19 06/22/19 06/22/19 Range/Units 11:50 16:20 20:02 BUN (7-17) mg/dL Creatinine (0.52-1.04) mg/dL Glucose (74-99) mg/dL POC Glucose (mg/dL) 261 H 310 H 368 H (75-99) mg/dL 06/23/19 06/23/19 06/23/19 Range/Units 06:46 07:09 07:29 BUN 53 H (7-17) mg/dL Creatinine 1.60 H (0.52-1.04) mg/dL Glucose 120 H (74-99) mg/dL POC Glucose (mg/dL) 149 H 124 H (75-99) mg/dL Assessment and Plan Assessment: Acute stroke with left hemiparesis affecting her left leg with decreased strength and sensation. Nonadherence to therapy and due to co-pay issue, patient could not afford the medication Generalized weakness and fatigue likely due to dehydration and volume depletion. COPD with mild exacerbation Acute kidney injury likely prerenal Hyperkalemia. Due to acute kidney injury and also potassium supplementation at home Chronic hypoxic respiratory failure secondary to COPD Chronic CHF with diastolic dysfunction. History of CVA/TIA Diabetes type 2 [id number] Hypertension History of MD History of breast cancer left side status post surgery Ongoing nicotine addiction Anxiety/depression hx of atrial fibrillation. Likely paroxysmal Patient is on metoprolol and xarelto at home. Currently in sinus rhythm. DVT prophylaxis patient is on Xarelto at home. Plan: Patient is a pleasant 68 years old female who presents with acute stroke, patient could not afford Xarelto and there is about $200 co-pay as per counseling case manager, but going to switch her to oral Coumadin just cheaper medication and follow up INR. MRI recommended with contrast by neurologist, we'll ask nephrology for clearance prior for MRI. Deep hold Lasix and spironolactone, continue with aspirin. Follow-up recommendation by Dr. Chacko for possible inpatient rehab. Keep monitoring creatinine and INR. Labs and medication were reviewed.. Continue same treatment. Continue with symptomatic treatment. Resume home medication. Monitor lytes and vitals. DVT and GI prophylaxis. Further recommendations of the clinical course of the patient DVT prophylaxis: Lovenox and Coumadin GI Prophylaxis: Pepcid PT/OT: Recommended home with home health care. Follow-up recommendation by and Prognosis is guarded
--- NOTE | 2019-06-23 10:41 | P.NPCON ---
History of Present Illness - Reason for Consult acute renal failure, chronic renal failure - History of Present Illness Reason for consultation: Acute kidney injury on chronic kidney disease History of present illness: Patient is a 68-year-old female seen in renal consultation for acute kidney injury on chronic kidney disease. Patient has chronic kidney disease stage III with baseline creatinine in the range of 1.1-1.3 secondary to nephrosclerosis. Patient does not follow with a assessment expert outpatient. Creatinine was 1.8 on admission and has been stable in the range of 1.5-1.6 the last 3 days. Patient presented to the hospital on June 20 due to generalized weakness. Patient states she was having problems with her gait balance and subsequently fell. She needed more assistance with moving in and out of bed. She denies chest pain or shortness of breath. Admits to good urine output. No vomiting or diarrhea. Patient states her cousin as well as her sister have been on renal replacement therapy. Patient is unsure of etiology. Brain CT revealed no acute abnormality however remote infarcts were noted. She is scheduled to undergo MRI with contrast today. Hemodynamically stable. She does have history of diabetes mellitus. She was also on diuretics outpatient which are currently held. Vital signs are stable. General: The patient appeared well nourished and normally developed. HEENT: Head exam is unremarkable. Neck is without jugular venous distension. LUNGS: Lungs are clear to auscultation and percussion. Breath sounds decreased. HEART: Rate and Rhythm are regular. First and second heart sounds normal. No murmurs, rubs or gallops. ABDOMEN: Abdominal exam reveals normal bowel sounds. Non-tender and non- distended. No evidence of peritonitis. EXTREMITITES: No clubbing, cyanosis, or edema. Past Medical History Past Medical History: Chest Pain / Angina, Heart Failure, COPD, CVA/TIA, Diabetes Mellitus, Hypertension, Myocardial Infarction (SD) Additional Past Medical History / Comment(s): Breast Ca. Left side Last Myocardial Infarction Date:: 09/22/13 History of Any Multi-Drug Resistant Organisms: None Reported Past Surgical History: Appendectomy, Back Surgery, Breast Surgery, Cholecystectomy, Heart Catheterization, Tubal Ligation Additional Past Surgical History / Comment(s): loop recorder, left breast biopsy Past Anesthesia/Blood Transfusion Reactions: No Reported Reaction Past Psychological History: No Psychological Hx Reported Smoking Status: Current every day smoker Past Alcohol Use History: None Reported Past Drug Use History: None Reported Additional Drug Use History / Comment(s): 0.5 pack per day, started when she was 14 - Past Family History Mother Family Medical History: COPD Father Family Medical History: Liver Disease Medications and Allergies Home Medications Medication Instructions Recorded Confirmed Type Anastrozole [Arimidex] 1 mg PO DAILY 10/23/18 06/20/19 History Atorvastatin [Lipitor] 40 mg PO HS 10/23/18 06/20/19 History Cholecalciferol [Vitamin D3 (25 5,000 unit PO DAILY 10/23/18 06/20/19 History Mcg = 1000 Iu)] Levothyroxine Sodium [Synthroid] 25 mcg PO DAILY 10/23/18 06/20/19 History Losartan [Cozaar] 50 mg PO BID 10/23/18 06/20/19 History Metoprolol Succinate (ER) [Toprol 100 mg PO DAILY 10/23/18 06/20/19 History XL] sitaGLIPtin [Januvia] 100 mg PO DAILY 10/23/18 06/20/19 History ALPRAZolam [Xanax] 0.25 mg PO BID PRN 02/27/19 06/20/19 History Citalopram Hydrobromide [CeleXA] 10 mg PO DAILY 02/27/19 06/20/19 History Alendronate Sodium [Fosamax] 70 mg PO SA 05/05/19 06/20/19 History Aspirin EC [Ecotrin Low Dose] 81 mg PO DAILY 05/05/19 06/20/19 History Pantoprazole [Protonix] 40 mg PO DAILY 05/05/19 06/20/19 History Potassium Chloride [Klor-Con 20] 20 meq PO DAILY 05/05/19 06/20/19 History Pregabalin [Lyrica] 100 mg PO BID 05/05/19 06/20/19 History Albuterol Sulfate [Ventolin HFA] 1 - 2 puff INHALATION RT-Q6H PRN 06/20/19 06/20/19 History Budesonide/Formoterol Fumarate 2 puff INHALATION RT-BID 06/20/19 06/20/19 Hist ory [Symbicort 160-4.5 Mcg Inhaler] Furosemide [Lasix] 40 mg PO DAILY 06/20/19 06/20/19 History Ipratropium-Albuterol Nebulize 3 ml INHALATION RT-Q4H PRN 06/20/19 06/20/19 History [Duoneb 0.5 mg-3 mg/3 ml Soln] Magnesium Oxide [Mag-Ox] 400 mg PO DAILY 06/20/19 06/20/19 History Nitroglycerin Sl Tabs [Nitrostat] 0.4 mg SUBLINGUAL Q5M PRN 06/20/19 06/20/19 History Rivaroxaban [Xarelto] 15 mg PO DAILY 06/20/19 06/20/19 History Spironolactone [Aldactone] 12.5 mg PO DAILY 06/20/19 06/20/19 History Tiotropium 18 Mcg/Puff [Spiriva] 2 puff INHALATION RT-DAILY 06/20/19 06/20/19 H istory busPIRone HCL 30 mg PO BID 06/20/19 06/20/19 History Allergies Allergy/AdvReac Type Severity Reaction Status Date / Time Iodinated Contrast Media Allergy Rash/Hives Verified 06/20/19 12:34 [Iodinated Contrast- Oral and IV Dye] morphine Allergy Rash/Hives Verified 06/20/19 12:34 Sulfa (Sulfonamide Allergy Rash/Hives Verified 06/20/19 12:34 Antibiotics) Physical Exam Vitals: Vital Signs Temp Pulse Pulse Pulse Resp BP Pulse Ox 06/23/19 08:39 72 06/23/19 08:26 72 06/23/19 07:00 98.0 F 68 16 115/78 94 L 06/22/19 20:36 80 06/22/19 20:24 79 89 L 06/22/19 19:49 98 F 83 16 108/64 92 L 06/22/19 15:46 80 06/22/19 15:34 80 06/22/19 15:16 15 06/22/19 15:00 97.9 F 17 147/80 93 L 06/22/19 12:11 80 06/22/19 12:01 76 Intake and Output 06/22/19 06/23/19 06/23/19 22:59 06:59 14:59 Intake Total 100 Balance 100 Intake: Oral 100 Other: # Voids 1 Results - Lab Results Most recent lab results Calcium 9.4 mg/dL (8.4-10.2) 06/23/19 07:09 Phosphorus 4.4 mg/dL (2.5-4.5) 06/20/19 13:07 Magnesium 2.1 mg/dL (1.6-2.3) 06/20/19 13:07 06/22/19 07:06 06/23/19 07:09 Assessment and Plan Plan: Assessment: 1. Acute kidney injury mostly prerenal secondary to diuretics. Improved. C reatinine was 1.8 on admission and is stable at 1.6 today. UA is benign. 2. Chronic kidney disease stage III Baseline creatinine in the range of 1.1-1.3 secondary to nephrosclerosis. 3. Generalized weakness. Concern for stroke. Neurology following. No acute changes noted on brain CT. 4. Diabetes mellitus. 5. Chronic diastolic CHF with moderate mitral regurgitation. Plan: Continue to hold diuretics at this time. Since GFR is above 30, okay to proceed with MRI. Thank you for the consultation. I will continue to follow the patient with you during her hospital stay.
[2019-06-23 11:39] LABS: Glucose,Whole Blood 133 mg/dL (75-99)
[2019-06-23 16:48] LABS: Glucose,Whole Blood 282 mg/dL (75-99)
[2019-06-23] MEDS: WARFARIN 5 MG TAB PO SCH (17:19)
--- NOTE | 2019-06-23 19:43 | P.PN ---
Progress Note - Text Progress Note Date: 06/23/19 SUBJECTIVE/INTERVAL EVENTS: No acute overnight events. Patient with no additional complaints. She continues to have numbness and weakness in her LLE. Denies any headache, nausea, vomiting, dizziness, blurry/double vision. PHYSICAL EXAMINATION: VITAL SIGNS: T 98.0 HR 68 RR 16 BP 115/78 O2 sat 94% on RA GEN.: NAD, pleasant and cooperative HEENT: NCAT, sclera without icterus NECK: Supple, no carotid bruit SKIN AND EXTREMITIES: Warm to touch, no edema NEURO: MENTAL STATUS: Patient alert and oriented to self, place, time. Able to name the current president. Speech fluent, able to name and repeat, following all commands readily. No right and left disorientation, neglect. CRANIAL NERVES II THROUGH XII: II: Pupils are equal and reactive to light symmetrically. No afferent pupillary defect. Visual [place] are intact. III, IV, : No ptosis. Extraocular movements full. No nystagmus. V: Facial sensation intact from V1-3. VII. No clear facial asymmetry. VIII: Hearing intact to finger rub bilaterally. IX, X: Symmetric palate elevation. XI: Shoulder shrug intact. XII: Tongue midline without fasciculation or atrophy. MOTOR: Normal bulk/tone. No pronator drift or tremor. Strength is 5/5 in RUE and RLE. LUE with 4/5 strength and LLE with 4+/5 strength. SENSORY: Intact to light touch, temperature in all 4 extremities. REFLEXES: 2+ throughout. Toes are downgoing. COORDINATION: Finger to nose intact. No dysmetria. GAIT: Patient able to stand on her own, took about 2 steps forward, patient unstable. Patient uses walker at home DIAGNOSTIC TESTING: LABORATORY: WBC 4.7 hemoglobin 12.3 platelet 223 INR 1.1 sodium 140 potassium 4.5 chloride 105 bicarb 25 BUN 47 creatinine 1.55 glucose 140 TSH 1.750 IMAGING: CT Head without contrast 06/19/2019: No acute intracranial abnormality. Remote infarcts be demonstrated. Senescent changes including cerebral volume loss and sequelae of chronic microangiopathy. EKG 06/20/19: Normal SR TTE 04/2019: SR. LV, RA, RV sizes are normal. LA is moderately dilated. EF 50-55%. Inflow pattern suggest diastolic filling. Carotid Doppler US 06/23/19: No hemodynamic significant stenosis of the proximal ICAs by Doppler criteria ASSESSMENT: 68-year-old woman with past medical history of angina, heart failure, COPD, stroke x5, diabetes, hypertension, SD, breast cancer, hypothyroidism, who presented to [facility] for generalized weakness on 06/20/2019, consulted neurology for decreased sensation in left lower extremity. Patient on exam with LUE and LLE weakness compared to RUE and RLE. Patient with multiple risk factors for stroke. Recommend stroke workup and management. RECOMMENDATIONS: 1. MRI brain without contrast (was not obtained today as patient has a loop recorder that was placed a couple of years ago, never removed. will discuss with cardiology about finding out more about the loop recorder and possibly removing it. 2. Cardiac monitoring 3. c/w ASA 81mg and Coumadin (for stroke prevention, patient does not need to be on both anticoagulation and antiplatelet. anticoagulation alone is sufficient) 4. c/w atorvastatin 5. Discussed with patient about stroke prevention guidelines. Medication compliance, hypertension/diabetes control, lifestyle changes including no smoking, drinking in moderation, losing weight, exercising, eating healthier 6. Neurology will continue to follow 7. Patient needs to follow up with neurologist as outpatient with her 1-2 weeks of discharge
[2019-06-23 20:22] LABS: Glucose,Whole Blood 334 mg/dL (75-99)
[2019-06-23] MEDS: ATORVASTATIN 40 MG TAB PO SCH (22:08)
[2019-06-24] MEDS: SODIUM CHLORIDE 0.9% 1,000 ML IV SCH ×2 (04:09→12:17)
[2019-06-24] MEDS: LEVOTHYROXINE 25 MCG TAB PO SCH (05:47)
[2019-06-24 06:49] LABS: Glucose,Whole Blood 103 mg/dL (75-99)
[2019-06-24] MEDS: INSULIN ASPART (NovoLOG) 100 UNIT/ML VIAL SQ SCH ×4 (06:57→21:30)
[2019-06-24 07:31] LABS: INR 1.4 (<1.2); Prothrombin Time 13.8 sec (9.0-12.0)
[2019-06-24] MEDS: CHOLECALCIFEROL 1,000 UNIT TAB PO SCH (08:39)
[2019-06-24] MEDS: PANTOPRAZOLE 40 MG TABLET PO SCH (08:40)
[2019-06-24] MEDS: busPIRone HCl 10 MG TAB PO SCH ×2 (08:40→20:26)
[2019-06-24] MEDS: PREGABALIN 100 MG CAP PO SCH ×2 (08:41→20:26)
[2019-06-24] MEDS: predniSONE 10 MG TAB PO SCH (08:41)
[2019-06-24] MEDS: ENOXAPARIN 60 MG/0.6 ML SYRINGE SQ SCH (08:42)
[2019-06-24] MEDS: LINAGLIPTIN 5 MG TABLET PO SCH (08:42)
[2019-06-24] MEDS: ASPIRIN 81 MG PO SCH (08:42)
[2019-06-24] MEDS: METOPROLOL SUCCINATE (ER) 100 MG TAB.ER.24H PO SCH (08:42)
[2019-06-24] MEDS: CITALOPRAM HYDROBROMIDE 10 MG TAB PO SCH (08:43)
[2019-06-24] MEDS: ANASTROZOLE 1 MG TAB PO SCH (08:43)
[2019-06-24 08:52] LABS: Calcium 8.8 mg/dL (8.4-10.2); Magnesium 1.8 mg/dL (1.6-2.3)
[2019-06-24] MEDS: IPRATROPIUM-ALBUTEROL 3 ML NEB INHALATION SCH ×4 (08:52→19:46)
[2019-06-24] MEDS: SYMBICORT 160-4.5 MCG INHALER INHALATION SCH ×2 (08:52→19:45)
[2019-06-24 11:10] LABS: Glucose,Whole Blood 430 mg/dL (75-99)
[2019-06-24 11:12] LABS: Glucose,Whole Blood 453 mg/dL (75-99)
[2019-06-24] MEDS ORDERED: INSULIN ASPART (NovoLOG) 100 UNIT/ML VIAL SQ ONE (11:12)
--- NOTE | 2019-06-24 11:37 | P.PN ---
Subjective Patient is seen in follow-up for acute kidney injury on chronic kidney disease. Patient has chronic kidney disease stage III with recent creatinine in the range of 1.1-1.3 secondary to nephrosclerosis. Renal function is little better today. Creatinine 1.48. She is maintained on normal saline at 50 mL an hour. Patient did not go for the MRI of the brain yesterday as she has a loop recorder. Vital signs are stable. General: The patient appeared well nourished and normally developed. HEENT: Head exam is unremarkable. Neck is without jugular venous distension. LUNGS: Lungs are clear to auscultation and percussion. Breath sounds decreased. HEART: Rate and Rhythm are regular. First and second heart sounds normal. No murmurs, rubs or gallops. ABDOMEN: Abdominal exam reveals normal bowel sounds. Non-tender and non- distended. No evidence of peritonitis. EXTREMITITES: No clubbing, cyanosis, or edema. Objective - Vital Signs Vital signs: Vital Signs Temp 98.4 F 06/24/19 07:00 Pulse 76 06/24/19 09:08 Resp 15 06/24/19 07:00 BP 149/76 06/24/19 07:00 Pulse Ox 91 L 06/24/19 07:00 Intake & Output 06/23/19 06/24/19 06/24/19 18:59 06:59 18:59 Other: # Voids 2 2 # Bowel Movements 1 - Labs CBC & Chem 7: 06/22/19 07:06 06/24/19 08:12 Labs: Abnormal Lab Results - Last 24 Hours (Table) 06/23/19 06/23/19 06/23/19 Range/Units 11:37 16:45 20:03 PT (9.0-12.0) sec INR (<1.2) Chloride (98-107) mmol/L BUN (7-17) mg/dL Creatinine (0.52-1.04) mg/dL Glucose (74-99) mg/dL POC Glucose (mg/dL) 133 H 282 H 334 H (75-99) mg/dL 06/24/19 06/24/19 06/24/19 Range/Units 06:43 06:47 08:12 PT 13.8 H (9.0-12.0) sec INR 1.4 H (<1.2) Chloride 108 H (98-107) mmol/L BUN 54 H (7-17) mg/dL Creatinine 1.48 H (0.52-1.04) mg/dL Glucose 119 H (74-99) mg/dL POC Glucose (mg/dL) 103 H (75-99) mg/dL 06/24/19 06/24/19 Range/Units 11:08 11:10 PT (9.0-12.0) sec INR (<1.2) Chloride (98-107) mmol/L BUN (7-17) mg/dL Creatinine (0.52-1.04) mg/dL Glucose (74-99) mg/dL POC Glucose (mg/dL) 430 H 453 H (75-99) mg/dL Assessment and Plan Plan: Assessment: 1. Acute kidney injury mostly prerenal secondary to diuretics. Improved. Creatinine was 1.8 on admission and is down to 1.48 today. UA is benign. 2. Chronic kidney disease stage III Baseline creatinine in the range of 1.1-1.3 secondary to nephrosclerosis. 3. Generalized weakness. Concern for stroke. Neurology following. No acute changes noted on brain CT. 4. Diabetes mellitus. 5. Chronic diastolic CHF with moderate mitral regurgitation. Plan: Continue to hold diuretics at this time. Since GFR is above 30, okay to proceed with MRI. Continue to monitor renal function and urine output.
--- NOTE | 2019-06-24 12:16 | P.CRDCN ---
History of Present Illness History of present illness: HISTORY OF PRESENTING ILLNESS This is a pleasant 68-year-old female past medical history significant for paroxysmal atrial fibrillation on long-term anticoagulation, chronic diasto lic heart failure, COPD, diabetes mellitus, hypertension, dyslipidemia, CVA in the past, loop recorder implantation and chronic nicotine dependence. She presented with ataxia. She follows in the office with Dr. Waller. We have been asked to see him in consultation for recommendation on loop recorder placement and the need for an MRI. She is somewhat of a poor historian and cannot recall when the loop recorder was placed. She believes it was done in [place] by a Dr. Mckay. There are no records here for implantation however office records reveal that in 2017 she had a [employer]-Linq implanted. Discussion with the [employer] registration representative, Espinoza, indicate this is a Reveal device and is MRI compatible. She states she came in to the hospital after having disturbed gait and increased weakness for 1-week. She denies chest pain, shortness of breath, dizziness or palpitations. Brain CT on admission was negative for an acute intracranial abnormality, remote infarcts, sensory changes including cerebral volume loss and sequelae of chronic microangiography. Neurology is following closely. DIAGNOSTICS EKG reveals sinus mechanism heart rate 75 with left axis deviation. Chest xray [place] for an acute cardiopulmonary process. Laboratory reviewed, WBC 4.7, hemoglobin 12.3, platelets 223, INR admission 1. 1 repeat today 1.4, sodium 141, potassium 4.0, creatinine 1.48, TSH 1.75, cardiac enzymes negative 1 and magnesium 1.8. Current cardiac medications include aspirin 81 mg daily, atorvastatin 40 mg daily, Lasix 40 mg daily, losartan 50 mg twice a day, Toprol 100 mg daily, Xarelto 15 mg daily, Aldactone 12.5 mg daily. Most recent echocardiogram April 2019 reveals preserved LV systolic function with ejection fraction 50-55%, diastolic dysfunction, moderate MR, mild pulmonary hypertension with an RVSP of 44 mmHg. Most recent loop interrogation April 2019 revealed a 12 minute episode of atrial fibrillation. REVIEW OF SYSTEMS At the time of my exam: CONSTITUTIONAL: Denies fever or chills. CARDIOVASCULAR: Denies chest pain, shortness of breath, orthopnea, PND or palpitations. RESPIRATORY: Denies cough. GASTROINTESTINAL: Denies abdominal pain, diarrhea, constipation, nausea or vomiting. MUSCULOSKELETAL: Denies myalgias. NEUROLOGIC: Denies numbness, tingling or weakness. ENDOCRINE: Denies fatigue, weight change, polydipsia or polyurina. GENITOURINARY: Denies burning, hematuria or urgency with micturation. HEMATOLOGIC: Denies history of anemia or bleeding. PHYSICAL EXAMINATION Blood pressure 149/76 heart rate 76 afebrile and maintaining oxygen saturaiton on room air. CONSTITUTIONAL: No apparent distress. HEENT: Head is normocephalic. Pupils are equal, round. Sclerae anicteric. Mucous membranes of the mouth are moist. No JVD. No carotid bruit. CHEST EXAMINATION: Lungs are clear to auscultation. No chest wall tenderness is noted on palpation or with deep breathing. HEART EXAMINATION: Regular rate and rhythm. S1, S2 heard. Systolic ejection murmur at the left sternal border, no gallops or rub. ABDOMEN: Soft, nontender. Positive bowel sounds. EXTREMITIES: 2+ peripheral pulses, no lower extremity edema and no calf tenderness. NEUROLOGIC EXAMINATION: Patient is awake, alert and oriented x3. ASSESSMENT Ataxia and generalized weakness, currently being worked up for an acute stroke with left sided weakness Paroxysmal atrial fibrillation on long-term anticoagulation with Coumadin Acute kidney injury Chronic kidney disease Chronic diastolic heart failure, currently euvolemic Diabetes mellitus Hypertension Dyslipidemia Loop recorder implantation History of CVA in the past Chronic nicotine dependence PLAN Loop recorder is MRI compatible and safe. This has been verified with the [employer] registration representative. Thank you kindly for this consultation, we will follow as needed. Follow up with Dr. Waller upon discharge. Nurse Practitioner note has been reviewed, I agree with a documented findings and plan of care. Patient was seen and examined. Past Medical History Past Medical History: Chest Pain / Angina, Heart Failure, COPD, CVA/TIA, Diabetes Mellitus, Hypertension, Myocardial Infarction ([place]) Additional Past Medical History / Comment(s): Breast Ca. Left side Last Myocardial Infarction Date:: 09/22/13 History of Any Multi-Drug Resistant Organisms: None Reported Past Surgical History: Appendectomy, Back Surgery, Breast Surgery, Cholecystectomy, Heart Catheterization, Tubal Ligation Additional Past Surgical History / Comment(s): loop recorder, left breast biopsy Past Anesthesia/Blood Transfusion Reactions: No Reported Reaction Past Psychological History: No Psychological Hx Reported Smoking Status: Current every day smoker Past Alcohol Use History: None Reported Past Drug Use History: None Reported Additional Drug Use History / Comment(s): 0.5 pack per day, started when she was 14 - Past Family History Mother Family Medical History: COPD Father Family Medical History: Liver Disease Medications and Allergies Home Medications Medication Instructions Recorded Confirmed Type Anastrozole [Arimidex] 1 mg PO DAILY 10/23/18 06/20/19 History Atorvastatin [Lipitor] 40 mg PO HS 10/23/18 06/20/19 History Cholecalciferol [Vitamin D3 (25 5,000 unit PO DAILY 10/23/18 06/20/19 History Mcg = 1000 Iu)] Levothyroxine Sodium [Synthroid] 25 mcg PO DAILY 10/23/18 06/20/19 History Losartan [Cozaar] 50 mg PO BID 10/23/18 06/20/19 History Metoprolol Succinate (ER) [Toprol 100 mg PO DAILY 10/23/18 06/20/19 History XL] sitaGLIPtin [Januvia] 100 mg PO DAILY 10/23/18 06/20/19 History ALPRAZolam [Xanax] 0.25 mg PO BID PRN 02/27/19 06/20/19 History Citalopram Hydrobromide [CeleXA] 10 mg PO DAILY 02/27/19 06/20/19 History Alendronate Sodium [Fosamax] 70 mg PO SA 05/05/19 06/20/19 History Aspirin EC [Ecotrin Low Dose] 81 mg PO DAILY 05/05/19 06/20/19 History Pantoprazole [Protonix] 40 mg PO DAILY 05/05/19 06/20/19 History Potassium Chloride [Klor-Con 20] 20 meq PO DAILY 05/05/19 06/20/19 History Pregabalin [Lyrica] 100 mg PO BID 05/05/19 06/20/19 History Albuterol Sulfate [Ventolin HFA] 1 - 2 puff INHALATION RT-Q6H PRN 06/20/19 06/20/19 History Budesonide/Formoterol Fumarate 2 puff INHALATION RT-BID 06/20/19 06/20/19 History [Symbicort 160-4.5 Mcg Inhaler] Furosemide [Lasix] 40 mg PO DAILY 06/20/19 06/20/19 History Ipratropium-Albuterol Nebulize 3 ml INHALATION RT-Q4H PRN 06/20/19 06/20/19 History [Duoneb 0.5 mg-3 mg/3 ml Soln] Magnesium Oxide [Mag-Ox] 400 mg PO DAILY 06/20/19 06/20/19 History Nitroglycerin Sl Tabs [Nitrostat] 0.4 mg SUBLINGUAL Q5M PRN 06/20/19 06/20/19 History Rivaroxaban [Xarelto] 15 mg PO DAILY 06/20/19 06/20/19 History Spironolactone [Aldactone] 12.5 mg PO DAILY 06/20/19 06/20/19 History Tiotropium 18 Mcg/Puff [Spiriva] 2 puff INHALATION RT-DAILY 06/20/19 06/20/19 History busPIRone HCL 30 mg PO BID 06/20/19 06/20/19 History Allergies Allergy/AdvReac Type Severity Reaction Status Date / Time Iodinated Contrast Media Allergy Rash/Hives Verified 06/20/19 12:34 [Iodinated Contrast- Oral and IV Dye] morphine Allergy Rash/Hives Verified 06/20/19 12:34 Sulfa (Sulfonamide Allergy Rash/Hives Verified 06/20/19 12:34 Antibiotics) Physical Exam Vitals: Vital Signs Temp Pulse Pulse Pulse Resp BP Pulse Ox 06/24/19 09:08 76 06/24/19 08:53 76 06/24/19 07:00 98.4 F 76 15 149/76 91 L 06/24/19 00:49 98.1 F 82 16 145/82 98 06/23/19 20:22 80 06/23/19 20:09 77 93 L 06/23/19 19:32 98 F 69 16 178/76 91 L 06/23/19 17:05 15 06/23/19 16:38 76 06/23/19 16:28 80 06/23/19 15:00 97.8 F 74 15 164/73 93 L Intake and Output 06/23/19 06/24/19 06/24/19 22:59 06:59 14:59 Other: # Voids 2 # Bowel Movements 1 Results 06/22/19 07:06 06/24/19 08:12 Coagulation 06/24/19 Range/Units 06:43 PT 13.8 H (9.0-12.0) sec Comprehensive Metabolic Panel 06/24/19 Range/Units 08:12 Sodium 141 (137-145) mmol/L Potassium 4.0 (3.5-5.1) mmol/L Chloride 108 H (98-107) mmol/L Carbon Dioxide 25 (22-30) mmol/L BUN 54 H (7-17) mg/dL Creatinine 1.48 H (0.52-1.04) mg/dL Glucose 119 H (74-99) mg/dL Calcium 8.8 (8.4-10.2) mg/dL Current Medications Generic Name Dose Route Start Last Admin Trade Name Freq PRN Reason Stop Dose Admin Albuterol/Ipratropium 3 ml 06/20/19 16:56 Duoneb 0.5 Mg-3 Mg/3 Ml Soln INHALATION RT-Q4H PRN Shortness Of Breath Albuterol/Ipratropium 3 ml 06/21/19 08:00 06/24/19 08:52 Duoneb 0.5 Mg-3 Mg/3 Ml Soln INHALATION 3 ml RT-QID BINA Administration Alprazolam 0.25 mg 06/20/19 16:56 Xanax PO BID PRN Anxiety Anastrozole 1 mg 06/21/19 09:00 06/24/19 08:43 Arimidex PO 1 mg DAILY BINA Administration Aspirin 81 mg 06/21/19 09:00 06/24/19 08:42 Aspirin PO 81 mg DAILY BINA Administration Atorvastatin Calcium 40 mg 06/20/19 21:00 06/23/19 22:08 Lipitor PO 40 mg HS BINA Administration Budesonide/Formoterol Fumarate 2 puff 06/20/19 20:00 06/24/19 08:52 Symbicort 160-4.5 Mcg Inhaler INHALATION 2 puff RT-BID BINA Administration Buspirone HCl 30 mg 06/20/19 21:00 06/24/19 08:40 Buspar PO 30 mg BID BINA Administration Cholecalciferol 5,000 unit 06/21/19 09:00 06/24/19 08:39 Vitamin D3 (25 Mcg = 1000 Iu) PO 5,000 unit DAILY BINA Administration Citalopram Hydrobromide 10 mg 06/21/19 09:00 06/24/19 08:43 Celexa PO 10 mg DAILY BINA Administration Enoxaparin Sodium 60 mg 06/24/19 09:00 06/24/19 08:42 Lovenox SQ 60 mg DAILY BINA Administration Sodium Chloride 1,000 mls @ 50 mls/hr 06/20/19 15:00 06/24/19 04:09 Saline 0.9% IV Not Given .Q20H BINA Insulin Aspart 0 unit 06/20/19 22:44 06/24/19 06:57 Novolog SQ Not Given [facility] Protocol Levothyroxine Sodium 25 mcg 06/21/19 06:30 06/24/19 05:47 Synthroid PO 25 mcg DAILY@0630 BINA Administration Linagliptin 5 mg 06/21/19 09:00 06/24/19 08:42 Tradjenta PO 5 mg DAILY BINA Administration Metoprolol Succinate 100 mg 06/21/19 09:00 06/24/19 08:42 Toprol Xl PO 100 mg DAILY BINA Administration Miscellaneous Information 0 each 06/22/19 11:36 Coumadin Per Pharmacy MISCELLANE DIRECTED PRN PHARMACY PROTOCOL Nitroglycerin 0.4 mg 06/20/19 16:56 Nitrostat SUBLINGUAL Q5M PRN Chest Pain Pantoprazole Sodium 40 mg 06/21/19 07:30 06/24/19 08:40 Protonix PO 40 mg AC-BRKFST BINA Administration Prednisone 30 mg 06/23/19 09:00 06/24/19 08:41 PO 30 mg DAILY BINA Administration Pregabalin 100 mg 06/20/19 21:00 06/24/19 08:41 Lyrica PO 100 mg BID BINA Administration Warfarin Sodium 10 mg 06/24/19 18:00 Coumadin PO 06/24/19 18:01 DAILY@1800 ONE Intake and Output 06/23/19 06/24/19 06/24/19 22:59 06:59 14:59 Other: # Voids 2 # Bowel Movements 1 06/22/19 07:06 06/24/19 08:12
--- NOTE | 2019-06-24 15:35 | P.PN ---
Subjective Progress Note Date: 06/24/19 Principal diagnosis: Patient is a 68-year-old female with a known history of chronic CHF with diastolic dysfunction ejection fraction 50-55%, COPD on home oxygen, history of CVA/TIA , Diabetes type 2 [id number], history of [place] and history of left breast cancer status post surgery and ongoing nicotine addiction came to ER with complaints of generalized weakness and unable to get out of the bed. Patient has been having worsening weakness for the past 1 week. Patient can usually walk with walker by herself. Due to generalized weakness patient needed to people to assist with getting her out of bed. Denied any complaints of fever or chills. No cough is from production. No dysuria or hematuria. No nausea vomiting or abdominal pain. Patient was admitted to the hospital in April 2019 for acute COPD exacerbation and acute on chronic CHF with diastolic dysfunction. Patient is currently being continued on Lasix spironolactone and potassium supplementation at home. Blood pressure was 94/56 on admission BUN 46 and creatinine 1.8 Potassium 5.4 chest x-ray showed no acute cardiopulmonary process CT head showed no acute intracranial abnormality. Remote infarcts redemonstrated. EKG showed normal sinus rhythm 06/21/2019 Patient says that she feels better today. Able to tolerate oral diet. Patient has been afebrile. No leukocytosis. Blood pressure did improve Renal function is improving with creatinine level I.6 today. No fever no chills. No chest pain or shortness of breath. No nausea vomiting or abdominal pain or diarrhea or dysuria. Diuretics on hold currently. Continue with gentle hydration. Monitor respiratory status. Possibly reintroduce diuretics at low-dose upon discharge due to CHF. Patient was started on prednisone 40 mg daily due to COPD with mild exacerbation. 06/22/2019 This is a pleasant 68 years old female with past medical history of A. fib on xarelto patient states that she was adherent to her therapy for many months because she could not afford it, patient has medicare but according to her plan she has a co-pay of about $200, as per discussion with my patient, family at bedside including the and the gearcase assembler on the case. this time patient presents with multiple falls and progressive weakness in her left lower extremity for unknown period by the patient and family however got worse for the last 2 days. to come in to the hospital. today she has weakness in the reason her left leg and decreased sensation. she denies back pain or neck. no slurred speech or facial division, no weakness in the upper extremities. She has chronic kidney disease and her creatinine improving today to 1.5 06/23/2019 Patient is awake alert, she still complaining from weakness in her left leg with decreased sensation, neurologist recommended MRI of the brain with contrast, however we asking for nephrology clearance prior to the MRI. Patient medication of Lasix and spironolactone on hold. Patient states that she has a loop recorder in her chest however it could not be palpated and not seen on the chest x-ray. Discussed with gearcase assembler, because of her co-pay for oral anticoagulants, patient was started on Coumadin with Lovenox bridging, patient instructed the mother Coumadin and check an INR and she agrees. Midline was placed, current duplex is negative. Dr. Chacko evaluated the patient. 06/24/2019 Patient is sitting up in bed in no acute distress with no acute overnight issues. Family is at the bedside. Patient states that she has been up and walking with her walker with no issues at this time. Neurology and nephrology are following. Patient is awaiting to have an MRI done as there was some confusion about her loop recorder being compatible. Cardiology was consulted and confirmed that the loop recorder she has is compatible and okay for MRI. Currently patient denies any chest pain, shortness of breath, or palpitations. Patient is afebrile. Patient denies any nausea or vomiting and has been tolerating diet. Patient's blood sugars were elevated today and currently on sliding scale. Patient continues on Lovenox injections with bridging to Coumadin at this time and current INR today is 1.4. Will continue to monitor closely. Patient stated multiple comments about feeling better and wanting to go home. Objective - Vital Signs Vital signs: Vital Signs Temp 97.9 F 06/24/19 13:56 Pulse 75 06/24/19 13:56 Resp 14 06/24/19 13:56 BP 158/84 06/24/19 13:56 Pulse Ox 93 L 06/24/19 13:56 Intake & Output 06/23/19 06/24/19 06/24/19 18:59 06:59 18:59 Intake Total 240 Balance 240 Intake: Oral 240 Other: # Voids 2 2 # Bowel Movements 1 - Exam GENERAL: The patient is alert and oriented x3, not in any acute distress. Well developed, well nourished. HEENT: Pupils are round and equally reacting to light. EOMI. No scleral icterus. No conjunctival pallor. Normocephalic, atraumatic. No pharyngeal erythema. No thyromegaly. CARDIOVASCULAR: S1 and S2 present. No murmurs, rubs, or gallops. PULMONARY: Diminished breath sounds at the bases with no wheezing or crackles noted. ABDOMEN: Soft, nontender, non-distended, normoactive bowel sounds. No palpable organomegaly. MUSCULOSKELETAL: No joint swelling or deformity. EXTREMITIES: No cyanosis, clubbing, or pedal edema. NEUROLOGICAL: Cranial nerves are grossly intact. Decreased strength and sensation in her left leg, she can't raise her left leg against gravity but weaker than the right side and to lesser extent. Slightly improved from yesterday. SKIN: No rashes. no petechiae. - Labs CBC & Chem 7: 06/22/19 07:06 06/24/19 08:12 Labs: Abnormal Lab Results - Last 24 Hours (Table) 06/23/19 06/23/19 06/24/19 Range/Units 16:45 20:03 06:43 PT 13.8 H (9.0-12.0) sec INR 1.4 H (<1.2) Chloride (98-107) mmol/L BUN (7-17) mg/dL Creatinine (0.52-1.04) mg/dL Glucose (74-99) mg/dL POC Glucose (mg/dL) 282 H 334 H (75-99) mg/dL 06/24/19 06/24/19 06/24/19 Range/Units 06:47 08:12 11:08 PT (9.0-12.0) sec INR (<1.2) Chloride 108 H (98-107) mmol/L BUN 54 H (7-17) mg/dL Creatinine 1.48 H (0.52-1.04) mg/dL Glucose 119 H (74-99) mg/dL POC Glucose (mg/dL) 103 H 430 H (75-99) mg/dL 06/24/19 Range/Units 11:10 PT (9.0-12.0) sec INR (<1.2) Chloride (98-107) mmol/L BUN (7-17) mg/dL Creatinine (0.52-1.04) mg/dL Glucose (74-99) mg/dL POC Glucose (mg/dL) 453 H (75-99) mg/dL Assessment and Plan Assessment: Acute stroke with left hemiparesis affecting her left leg with decreased strength and sensation. Nonadherence to therapy and due to co-pay issue, patient could not afford the medication Generalized weakness and fatigue likely due to dehydration and volume depletion. COPD with mild exacerbation Acute kidney injury likely prerenal Hyperkalemia. Due to acute kidney injury and also potassium supplementation at home Chronic hypoxic respiratory failure secondary to COPD Chronic CHF with diastolic dysfunction. History of CVA/TIA Diabetes type 2 [id number] Hypertension History of [place] History of breast cancer left side status post surgery Ongoing nicotine addiction Anxiety/depression hx of atrial fibrillation. Likely paroxysmal Patient is on metoprolol and xarelto at home. Currently in sinus rhythm. DVT prophylaxis patient is on Xarelto at home. Recommendations and discussion: Recommend continue current medications, management, and symptomatic treatment. Patient was seen by cardiology and determined that the loop recorder that is present is safe and compatible for MRI. An MRI of the brain was ordered previously and is pending at this time. Neurology is following closely. Patient was on Xarelto but unable to afford the $200 co-pay and so patient is currently receiving Lovenox and bridging to Coumadin. Today's INR is 1.4. Will repeat a.m. labs. When discussing with the patient about possible discharge plans patient is refusing rehab at this time and would like to return home. Blood sugars are elevated today and will continue to monitor closely. PT/OT following. Due to multiple complex medical issues prognosis is guarded. Further recommendations to follow.
--- NOTE | 2019-06-24 16:38 | P.PN ---
Progress Note - Text Progress Note Date: 06/24/19 SUBJECTIVE/INTERVAL EVENTS: No acute overnight events. Patient with no additional complaints. She continues to have numbness and weakness in her LLE and also overall weakness. Denies any headache, nausea, vomiting, dizziness, blurry/double vision. PHYSICAL EXAMINATION: VITAL SIGNS: T 97.0 HR 75 RR 14 BP 158/84 O2 sat 93% on RA GEN.: NAD, pleasant and cooperative HEENT: NCAT, sclera without icterus NECK: Supple, no carotid bruit SKIN AND EXTREMITIES: Warm to touch, no edema NEURO: MENTAL STATUS: Patient alert and oriented to self, place, time. Able to name the current president. Speech fluent, able to name and repeat, following all commands readily. No right and left disorientation, neglect. CRANIAL NERVES II THROUGH XII: II: Pupils are equal and reactive to light symmetrically. No afferent pupillary defect. Visual [place] are intact. III, IV, : No ptosis. Extraocular movements full. No nystagmus. V: Facial sensation intact from V1-3. VII. No clear facial asymmetry. VIII: Hearing intact to finger rub bilaterally. IX, X: Symmetric palate elevation. XI: Shoulder shrug intact. XII: Tongue midline without fasciculation or atrophy. MOTOR: Normal bulk/tone. No pronator drift or tremor. Strength is 5/5 in RUE and RLE. LUE with 4/5 strength and LLE with 4+/5 strength. SENSORY: Intact to light touch, temperature in all 4 extremities. REFLEXES: 2+ throughout. Toes are downgoing. COORDINATION: Finger to nose intact. No dysmetria. GAIT: Patient able to stand on her own, took about 2 steps forward, patient unstable. Patient uses walker at home DIAGNOSTIC TESTING: LABORATORY: WBC 4.7 hemoglobin 12.3 platelet 223 INR 1.1 sodium 140 potassium 4.5 chloride 105 bicarb 25 BUN 47 creatinine 1.55 glucose 140 TSH 1.750 IMAGING: CT Head without contrast 06/19/2019: No acute intracranial abnormality. Remote infarcts be demonstrated. Senescent changes including cerebral volume loss and sequelae of chronic microangiopathy. EKG 06/20/19: Normal SR TTE 04/2019: SR. LV, RA, RV sizes are normal. LA is moderately dilated. EF 50-55%. Inflow pattern suggest diastolic filling. Carotid Doppler US 06/23/19: No hemodynamic significant stenosis of the proximal ICAs by Doppler criteria ASSESSMENT: 68-year-old woman with past medical history of angina, heart failure, COPD, stroke x5, diabetes, hypertension, [place], breast cancer, hypothyroidism, who presented to [facility] for generalized weakness on 06/20/2019, consulted neurology for decreased sensation in left lower extremity. Patient on exam with LUE and LLE weakness compared to RUE and RLE. Patient with multiple risk factors for stroke. Recommend stroke workup and management. Most recent interrogation in April 2019 revealed a 12-minute episode of atrial fibrillation. CHADs-VASC score at least 6, which means patient needs to be on anticoagulation. RECOMMENDATIONS: 1. MRI brain without contrast (determined that loop recorder is compatible with MRI brain; obtaining it today) 2. c/w ASA 81mg and Coumadin (for stroke prevention, patient does not need to be on both anticoagulation and antiplatelet. anticoagulation alone is sufficient) 3. c/w atorvastatin 4. Discussed with patient about stroke prevention guidelines. Medication compliance, hypertension/diabetes control, lifestyle changes including no smoking, drinking in moderation, losing weight, exercising, eating healthier 5. Patient can be discharged after MRI brain w/o contrast today. Will review imaging after patient undergoes MRI. 6. Patient needs to follow up with neurologist as outpatient with her 1-2 weeks of discharge
[2019-06-24 16:57] LABS: Glucose,Whole Blood 187 mg/dL (75-99)
[2019-06-24] MEDS ORDERED: WARFARIN 10 MG TAB PO ONE (18:00)
--- NOTE | 2019-06-24 19:17 | MR ---
EXAMINATION TYPE: MR brain wo/w con DATE OF EXAM: 06/24/2019 COMPARISON: None HISTORY: Leg weakness, poss stroke, hx breast ca TECHNIQUE: Multiplanar, multisequence images of the brain and brainstem is performed without and with IV contras t, utilizing 6.5 mL intravenous Gadavist . FINDINGS: There is moderate diffuse atrophy. There is ayala-white matter hypodensity in the posterior temporal lobes bilaterally consistent with old infarcts. There is also a 3 x 1 cm area of increased s ignal right posterior frontal lobe cortex consistent with old cortical infarct. There is no mass effe ct nor midline shift. There is no sign of intracranial hemorrhage. On the T2 and FLAIR images there i s extensive coalescent increased signal in the periventricular white matter. There is patchy increase d signal in the brainstem involving the dinorah. The cerebellum is intact. There is thinning of the brendan us callosum. The sella turcica is intact. Diffusion images do not show any evidence for an acute juanito ical infarct. Contrast images show no pathologic enhancement. There is normal contrast opacification of the venous sinuses. IMPRESSION: Diffuse atrophy. Bilateral old posterior temporal lobe cortical infarcts. Small old right posterior frontal lobe cortical infarct. No acute infarct. Extensive white matter disease probably due to advanced chronic small vessel ischemia.
[2019-06-24] MEDS: ATORVASTATIN 40 MG TAB PO SCH (20:26)
[2019-06-24 21:12] LABS: Glucose,Whole Blood 259 mg/dL (75-99)
[2019-06-25] MEDS: LEVOTHYROXINE 25 MCG TAB PO SCH (06:09)
[2019-06-25 06:43] LABS: Glucose,Whole Blood 107 mg/dL (75-99)
[2019-06-25 08:11] VITALS: BP 173/93; RESP 16; TEMP 98.5
[2019-06-25 08:19] LABS: INR 2.3 (<1.2); Prothrombin Time 22.6 sec (9.0-12.0)
[2019-06-25] MEDS: ENOXAPARIN 60 MG/0.6 ML SYRINGE SQ SCH (08:20)
[2019-06-25] MEDS: ANASTROZOLE 1 MG TAB PO SCH (08:20)
[2019-06-25] MEDS: CITALOPRAM HYDROBROMIDE 10 MG TAB PO SCH (08:20)
[2019-06-25] MEDS: CHOLECALCIFEROL 1,000 UNIT TAB PO SCH (08:20)
[2019-06-25] MEDS: predniSONE 10 MG TAB PO SCH (08:21)
[2019-06-25] MEDS: busPIRone HCl 10 MG TAB PO SCH (08:21)
[2019-06-25] MEDS: PANTOPRAZOLE 40 MG TABLET PO SCH (08:21)
[2019-06-25] MEDS: LINAGLIPTIN 5 MG TABLET PO SCH (08:21)
[2019-06-25] MEDS: METOPROLOL SUCCINATE (ER) 100 MG TAB.ER.24H PO SCH (08:21)
[2019-06-25] MEDS: PREGABALIN 100 MG CAP PO SCH (08:21)
[2019-06-25] MEDS: INSULIN ASPART (NovoLOG) 100 UNIT/ML VIAL SQ SCH ×2 (08:26→12:31)
[2019-06-25 08:29] LABS: Potassium 3.8 mmol/L (3.5-5.1)
[2019-06-25] MEDS: SYMBICORT 160-4.5 MCG INHALER INHALATION SCH (08:31)
[2019-06-25] MEDS: IPRATROPIUM-ALBUTEROL 3 ML NEB INHALATION SCH ×2 (08:31→11:40)
--- NOTE | 2019-06-25 10:07 | P.PN ---
Subjective Progress Note Date: 06/25/19 Principal diagnosis: This is a 68-year-old female with acute kidney injury secondary to prerenal state from possibly volume depletion, from diuretics. She'll also has chronic kidney disease creatinine of 1.1 doses. She came in because of generalized weakness. Workup has included MRI and computed tomography scan which shows multiple infarcts and chronic atrophy of the brain. Her blood pressure is now well about low target in the 160-170 range. Her creatinine has improved from 1.8-1.37 this morning She is known with diabetes mellitus, multiple skin CVA and TIAs in the past COPD heart failure and breast cancer on the left side She has had heart catheterizations in the past. The echocardiogram dated 05/06/2019, showed ejection fraction of 50-55% dilated left atrium and right ventricle pressure is 44 mm Objective - Vital Signs Vital signs: Vital Signs Temp 98.5 F 06/25/19 07:00 Pulse 76 06/25/19 08:44 Resp 16 06/25/19 07:00 BP 173/93 06/25/19 07:00 Pulse Ox 94 L 06/25/19 08:34 Intake & Output 06/24/19 06/25/19 06/25/19 18:59 06:59 18:59 Intake Total 240 20 200 Output Total 300 Balance 240 -280 200 Intake: Oral 240 20 200 Output: Urine 300 Other: Voiding Method Toilet Diaper # Voids 0 1 # Bowel Movements 1 On examination she is awake alert oriented comfortable She states she's feeling better. She is able to walk with a walker with some help HEENT exam no JVP neck is supple no facial asymmetry Lungs are clear to auscultation with an end expiratory very minimal wheezing. Good air entry bilaterally Heart sounds are unremarkable for any murmur rub gallop Abdomen soft nontender no masses felt Extreme exam was no edema Neurologically awake alert oriented but with generalized weakness - Labs CBC & Chem 7: 06/22/19 07:06 06/25/19 07:40 Labs: Abnormal Lab Results - Last 24 Hours (Table) 06/24/19 06/24/19 06/24/19 Range/Units 11:08 11:10 16:55 PT (9.0-12.0) sec INR (<1.2) Chloride (98-107) mmol/L BUN (7-17) mg/dL Creatinine (0.52-1.04) mg/dL POC Glucose (mg/dL) 430 H 453 H 187 H (75-99) mg/dL 06/24/19 06/25/19 06/25/19 Range/Units 21:11 06:41 07:40 PT 22.6 H (9.0-12.0) sec INR 2.3 H (<1.2) Chloride (98-107) mmol/L BUN (7-17) mg/dL Creatinine (0.52-1.04) mg/dL POC Glucose (mg/dL) 259 H 107 H (75-99) mg/dL 06/25/19 Range/Units 07:40 PT (9.0-12.0) sec INR (<1.2) Chloride 108 H (98-107) mmol/L BUN 43 H (7-17) mg/dL Creatinine 1.37 H (0.52-1.04) mg/dL POC Glucose (mg/dL) (75-99) mg/dL Assessment and Plan Assessment: Present 1. Acute kidney injury secondary to prerenal from diuretics improved off of diuretics creatinine improved to 1.3 from a peak of 1.8 dated 06/20/2019. 2. Chronic kidney disease stage III nephrosclerosis Baseline creatinine 1.3 on 05/08/2019. Urinalysis shows no proteinuria therefore unlikely be diabetic 3. Blood pressure is in the 150s to 170s, about target 4. Diabetes mellitus with blood sugars improving. 5. History of remote CVAs 6. History of COPD. Recommendations. 1. Check orthostatic changes before increasing blood pressure medications 2. Patient will be discharged and followed up in the outpatient
[2019-06-25 11:48] LABS: Glucose,Whole Blood 179 mg/dL (75-99)
[2019-06-25 11:57] VITALS: PULSE 80
[2019-06-25] MEDS: SODIUM CHLORIDE 0.9% 1,000 ML IV SCH (12:34)
[2019-06-25] MEDS ORDERED: WARFARIN 5 MG TAB PO ONE (18:00)
--- NOTE | 2019-06-26 06:45 | DS ---
DISCHARGE SUMMARY DATE OF SERVICE: 06/25/2019 FINAL DIAGNOSES: 1. Acute stroke causing left hemiparesis affecting the left leg with decreased strength. 2. Nonadherence to therapy because of co-pay issues and financial stressors. 3. Generalized weakness. 4. Chronic obstructive pulmonary disease. 5. Acute kidney injury. 6. Hyperkalemia. 7. Chronic hypoxic respiratory failure. 8. Chronic congestive heart failure with diastolic dysfunction. 9. History of cerebrovascular accident, transient ischemic attack. 10.History of diabetes mellitus type 2. 11.Hypertension. 12.History of myocardial infarction. 13.History of breast cancer, left side with status post surgery. 14.Continued ongoing nicotine dependence. 15.Anxiety, depression. 16.History of atrial fibrillation. DISCHARGE DISPOSITION: The patient will be discharged in stable condition with guarded prognosis. Total time taken 35 minutes. HISTORY OF PRESENT ILLNESS: This 68-year-old woman with a past medical history of multiple medical problems admitted with left-sided weakness. The patient was treated symptomatically. Neurovascular workup was done. Neurology saw the patient. The patient was discharged in stable condition with guarded prognosis. The patient was also seen by Nephrology also. An MRI of the brain was also done showed diffuse atrophy and bilateral old posterior temporal lobe cortical infarcts also noted. On exam, vitals are stable. CARDIOVASCULAR: S1, S2 muffled. ABDOMEN: Soft. NERVOUS SYSTEM: Mild diffuse weakness. Labs are INR is 2.3 and creatinine is 1.37. The patient has taken Xarelto, which was stopped and Coumadin was re-initiated. INR is 2.3. I recommend the patient to continue with Coumadin 4 mg daily and monitor PT, INR closely in the outpatient setting with primary physician. DISCHARGE ADVICE: 1. Diet is cardiac. 2. Activity limited until followup. 3. Follow up with Dr. Arzola in 2 to 3 days. 4. Follow up with Cardiology as recommended. 5. Home care is being arranged. Medications are: 1. Aldactone 12.5 mg daily. 2. Arimidex 1 mg p.o. daily. 3. Buspirone 30 mg p.o. b.i.d. 4. Celexa 10 mg p.o. daily. 5. Cozaar 50 mg p.o. b.i.d. 6. DuoNeb q.4 p.r.n. 7. Ecotrin 81 mg p.o. daily. 8. Fosamax 70 mg p.o. Saturday. 9. Januvia 100 mg p.o. daily. 10.Klor-Con 20 mEq p.o. daily. 11.Lasix 40 mg p.o. daily. 12.Lipitor 40 mg at bedtime. 13.Lyrica 100 mg p.o. b.i.d. 14.Magnesium oxide 400 mg p.o. daily. 15.Nitrostat 0.4 sublingual p.r.n. 16.Protonix 40 mg p.o. daily. 17.Spiriva 2 puffs daily. 18.Symbicort 160/4.5 two puffs b.i.d. 19.Synthroid 25 mcg p.o. daily. 20.Toprol XL 100 mg p.o. daily. 21.Ventolin HFA one q.6 p.r.n. 22.Vitamin D3, 5000 daily. 23.Xanax 0.25 b.i.d. p.r.n. 24.Coumadin 4 mg p.o. daily and monitor PT, INR as mentioned earlier. Once again, the patient will be discharged in stable condition with guarded prognosis. Follow up with Neurology as an outpatient as recommended. MMODL / IJN: [id number] /
== END 2019-06-25 12:51 | disposition home health service (06) | DRG 65 ==
LOC: EC 12:23 → 4SSUR 14:56
PROVIDERS: ADMIT Internal Medicine; ATTEND Internal Medicine
PROC: 05HB33Z Insertion of Infusion Device into Right Basilic Vein, Percutaneous Approach (ICD-10-PCS; principal; 2019-06-23 10:55)
DX: I63.9 Cerebral infarction, unspecified (principal); J44.1 Chronic obstructive pulmonary disease with (acute) exacerbation; J96.11 Chronic respiratory failure with hypoxia; N17.9 Acute kidney failure, unspecified; G81.94 Hemiplegia, unspecified affecting left nondominant side; I13.0 Hypertensive heart and chronic kidney disease with heart failure and stage 1 through stage 4 chronic kidney disease, or unspecified chronic kidney disease; I50.32 Chronic diastolic (congestive) heart failure; N18.3 Chronic kidney disease, stage 3 (moderate); R29.6 Repeated falls; Z85.3 Personal history of malignant neoplasm of breast; E03.9 Hypothyroidism, unspecified; E11.22 Type 2 diabetes mellitus with diabetic chronic kidney disease; E78.5 Hyperlipidemia, unspecified; E86.0 Dehydration; E87.5 Hyperkalemia; F17.210 Nicotine dependence, cigarettes, uncomplicated; F32.9 Major depressive disorder, single episode, unspecified; F41.9 Anxiety disorder, unspecified; I25.2 Old myocardial infarction; I27.20 Pulmonary hypertension, unspecified; I34.0 Nonrheumatic mitral (valve) insufficiency; I48.0 Paroxysmal atrial fibrillation; T50.2X5A Adverse effect of carbonic-anhydrase inhibitors, benzothiadiazides and other diuretics, initial encounter; Z79.01 Long term (current) use of anticoagulants; Z79.51 Long term (current) use of inhaled steroids; Z79.82 Long term (current) use of aspirin; Z79.83 Long term (current) use of bisphosphonates; Z79.84 Long term (current) use of oral hypoglycemic drugs; Z79.890 Hormone replacement therapy; Z79.899 Other long term (current) drug therapy; Z82.3 Family history of stroke; Z82.5 Family history of asthma and other chronic lower respiratory diseases; Z99.81 Dependence on supplemental oxygen; Z90.49 Acquired absence of other specified parts of digestive tract; Z88.5 Allergy status to narcotic agent; Z88.2 Allergy status to sulfonamides; Z91.041 Radiographic dye allergy status; Y63.6 Underdosing and nonadministration of necessary drug, medicament or biological substance; Z91.19 Patient's noncompliance with other medical treatment and regimen; Z71.6 Tobacco abuse counseling
CPT/HCPCS: 36410; 36415; 70450; 70553; 71046; 76937; 80048; 80053; 81001; 82550; 83605; 83735; 84100; 84439; 84443; 84481; 84484; 85025; 85610; 85730; 93005; 93880; 94640; 94760; 96360; 99285

== ENCOUNTER 2019-07-02 10:52 | Emergency (ER) | payer MEDICARE, OTHER ==
[2019-07-02] MEDS ORDERED: SODIUM CHLORIDE 0.9% 1,000 ML IV STA (11:44)
[2019-07-02] MEDS ORDERED: MECLIZINE 12.5 MG TAB PO STA (11:45)
--- NOTE | 2019-07-02 11:48 | ED ---
General Adult HPI - General Chief complaint: Weakness Stated complaint: Weakness, Fall Time Seen by Provider: 07/02/19 11:14 Source: patient, family, RN notes reviewed Mode of arrival: wheelchair Limitations: no limitations - History of Present Illness Initial comments: Patient is a pleasant 69-year-old female presenting to the emergency department following a fall. Patient does not believe she passed out however is not 100% certain. Patient states she felt dizzy. Patient states she was bending over to get the peanut butter and fell down. Patient denies head injury however family states she did strike her head. Family is unclear whether or not patient passed out. Patient states she was only on the ground for a couple of minutes. Patient only complains of discomfort of her right gluteal region. Patient still feels slightly dizzy. Patient states she wants to go home because she is in the process of moving to an apartment that has additional help for her. - Related Data Home Medications Medication Instructions Recorded Confirmed Anastrozole [Arimidex] 1 mg PO DAILY 10/23/18 06/20/19 Atorvastatin [Lipitor] 40 mg PO HS 10/23/18 06/20/19 Cholecalciferol [Vitamin D3 (25 5,000 unit PO DAILY 10/23/18 06/20/19 Mcg = 1000 Iu)] Levothyroxine Sodium [Synthroid] 25 mcg PO DAILY 10/23/18 06/20/19 Losartan [Cozaar] 50 mg PO BID 10/23/18 06/20/19 Metoprolol Succinate (ER) [Toprol 100 mg PO DAILY 10/23/18 06/20/19 XL] sitaGLIPtin [Januvia] 100 mg PO DAILY 10/23/18 06/20/19 ALPRAZolam [Xanax] 0.25 mg PO BID PRN 02/27/19 06/20/19 Citalopram Hydrobromide [CeleXA] 10 mg PO DAILY 02/27/19 06/20/19 Alendronate Sodium [Fosamax] 70 mg PO SA 05/05/19 06/20/19 Aspirin EC [Ecotrin Low Dose] 81 mg PO DAILY 05/05/19 06/20/19 Pantoprazole [Protonix] 40 mg PO DAILY 05/05/19 06/20/19 Potassium Chloride [Klor-Con 20] 20 meq PO DAILY 05/05/19 06/20/19 Pregabalin [Lyrica] 100 mg PO BID 05/05/19 06/20/19 Albuterol Sulfate [Ventolin HFA] 1 - 2 puff INHALATION RT-Q6H PRN 06/20/19 06/20/19 Budesonide/Formoterol Fumarate 2 puff INHALATION RT-BID 06/20/19 06/20/19 [Symbicort 160-4.5 Mcg Inhaler] Furosemide [Lasix] 40 mg PO DAILY 06/20/19 06/20/19 Ipratropium-Albuterol Nebulize 3 ml INHALATION RT-Q4H PRN 06/20/19 06/20/19 [Duoneb 0.5 mg-3 mg/3 ml Soln] Magnesium Oxide [Mag-Ox] 400 mg PO DAILY 06/20/19 06/20/19 Nitroglycerin Sl Tabs [Nitrostat] 0.4 mg SUBLINGUAL Q5M PRN 06/20/19 06/20/19 Spironolactone [Aldactone] 12.5 mg PO DAILY 06/20/19 06/20/19 Tiotropium 18 Mcg/Puff [Spiriva] 2 puff INHALATION RT-DAILY 06/20/19 06/20/19 busPIRone HCL 30 mg PO BID 06/20/19 06/20/19 Previous Rx's Medication Instructions Recorded Warfarin [Coumadin] 4 mg PO DAILY #60 tab 06/25/19 Allergies Allergy/AdvReac Type Severity Reaction Status Date / Time Iodinated Contrast Media Allergy Rash/Hives Verified 07/02/19 11:08 [Iodinated Contrast- Oral and IV Dye] morphine Allergy Rash/Hives Verified 07/02/19 11:08 Sulfa (Sulfonamide Allergy Rash/Hives Verified 07/02/19 11:08 Antibiotics) Review of Systems ROS Statement: Those systems with pertinent positive or pertinent negative responses have been documented in the HPI. ROS Other: All systems not noted in ROS Statement are negative. Constitutional: Denies: fever, chills Eyes: Denies: eye pain ENT: Denies: ear pain Respiratory: Denies: dyspnea Cardiovascular: Denies: chest pain Endocrine: Denies: fatigue Gastrointestinal: Denies: abdominal pain Genitourinary: Denies: dysuria Musculoskeletal: Denies: back pain Skin: Denies: rash Neurological: Denies: headache, weakness, confusion Past Medical History Past Medical History: Chest Pain / Angina, Heart Failure, COPD, CVA/TIA, Diabetes Mellitus, Hypertension, Myocardial Infarction ([place]) Additional Past Medical History / Comment(s): Breast Ca. Left side Last Myocardial Infarction Date:: 09/22/13 History of Any Multi-Drug Resistant Organisms: None Reported Past Surgical History: Appendectomy, Back Surgery, Breast Surgery, Cholecystectomy, Heart Catheterization, Tubal Ligation Additional Past Surgical History / Comment(s): loop recorder, left breast biopsy Past Anesthesia/Blood Transfusion Reactions: No Reported Reaction Past Psychological History: No Psychological Hx Reported Smoking Status: Current every day smoker Past Alcohol Use History: None Reported Past Drug Use History: None Reported - Past Family History Mother Family Medical History: COPD Father Family Medical History: Liver Disease General Exam Limitations: no limitations General appearance: alert, in no apparent distress Head exam: Present: atraumatic, normocephalic Eye exam: Present: normal appearance, PERRL ENT exam: Present: normal oropharynx Neck exam: Present: normal inspection Respiratory exam: Present: normal lung sounds bilaterally Cardiovascular Exam: Present: regular rate, normal rhythm Expanded Peripheral pulses: 2+: Radial (R), Radial (L), Dorsalis Pedis (R), Dorsalis Pedis (L) GI/Abdominal exam: Present: soft. Absent: distended, tenderness, guarding Extremities exam: Present: normal inspection, full ROM. Absent: tenderness Back exam: Present: other (Mild tenderness right sacroiliac/gluteal region). Absent: vertebral tenderness Neurological exam: Present: alert, oriented X3, CN II-XII intact. Absent: motor sensory deficit Expanded Neurological exam: Present: protecting the airway Patient oriented to: Present: person, place, time Speech: Present: fluid speech Cranial nerves: EOM's Intact: Normal Sensory exam: Upper Extremity Light Touch: Normal, Lower Extremity Light Touch: Normal Motor strength exam: RUE: 5, LUE: 5, RLE: 5, LLE: 5 Eye Response: (4) open spontaneously Motor Response: (6) obeys commands Verbal Response: (5) oriented Psychiatric exam: Present: normal affect, normal mood Skin exam: Present: normal color Course Vital Signs 12/05/19 12/05/19 11:05 12:57 Temperature 97.7 F Pulse Rate 83 71 Respiratory 22 18 Rate Blood Pressure 100/67 142/77 O2 Sat by Pulse 99 98 Oximetry EKG Findings - EKG Comments: EKG Findings:: Normal sinus rhythm 73. NH 182. QRS 94. QT 424. QTC 467. Left axis. No acute ST change. Medical Decision Making - Medical Decision Making Patient reevaluated and resting comfortably at bedside. Patient and family updated on results. Patient states she feels much better and is again requesting discharge home. There are 3 family members present. Patient is mildly orthostatic and will be provided more fluids prior to discharge. Patient and family updated on the stat orthostatic precautions. - Lab Data Result diagrams: 07/02/19 12:07/02/19 12: Lab Results 07/02/19 07/02/19 07/02/19 Range/Units 12:05 12:05 12:05 WBC 7.6 (3.8-10.6) k/uL RBC 3.76 L (3.80-5.40) m/uL Hgb 10.9 L (11.4-16.0) gm/dL Hct 34.5 (34.0-46.0) % MCV 91.7 (80.0-100.0) fL MCH 29.0 (25.0-35.0) pg MCHC 31.6 (31.0-37.0) g/dL RDW 15.6 H (11.5-15.5) % Plt Count 189 (150-450) k/uL Neutrophils % 68 % Lymphocytes % 17 % Monocytes % 10 % Eosinophils % 2 % Basophils % 0 % Neutrophils # 5.2 (1.3-7.7) k/uL Lymphocytes # 1.3 (1.0-4.8) k/uL Monocytes # 0.7 (0-1.0) k/uL Eosinophils # 0.2 (0-0.7) k/uL Basophils # 0.0 (0-0.2) k/uL PT 14.2 H (9.0-12.0) sec INR 1.4 H (<1.2) APTT 31.3 H (22.0-30.0) sec Sodium 140 (137-145) mmol/L Potassium 4.0 (3.5-5.1) mmol/L Chloride 107 (98-107) mmol/L Carbon Dioxide 28 (22-30) mmol/L Anion Gap 5 mmol/L BUN 47 H (7-17) mg/dL Creatinine 1.61 H (0.52-1.04) mg/dL Est GFR (CKD-EPI)AfAm 37 (>60 ml/min/1.73 sqM) Est GFR (CKD-EPI)NonAf 32 (>60 ml/min/1.73 sqM) Glucose 105 H (74-99) mg/dL Calcium 8.8 (8.4-10.2) mg/dL Magnesium (1.6-2.3) mg/dL Total Bilirubin 0.4 (0.2-1.3) mg/dL AST 29 (14-36) U/L ALT 46 (9-52) U/L Alkaline Phosphatase 112 (38-126) U/L Troponin I (0.000-0.034) ng/mL Total Protein 6.4 (6.3-8.2) g/dL Albumin 3.4 L (3.5-5.0) g/dL Urine Color Urine Appearance (Clear) Urine pH (5.0-8.0) Ur Specific [place] (1.001-1.035) Urine Protein (Negative) Urine Glucose (UA) (Negative) Urine Ketones (Negative) Urine Blood (Negative) Urine Nitrite (Negative) Urine Bilirubin (Negative) Urine Urobilinogen (<2.0) mg/dL Ur Leukocyte Esterase (Negative) Urine RBC (0-5) /hpf Urine WBC (0-5) /hpf Ur Squamous Epith Cells (0-4) /hpf Urine Bacteria (None) /hpf 07/02/19 07/02/19 07/02/19 Range/Units 12:05 12: 12:05 WBC (3.8-10.6) k/uL RBC (3.80-5.40) m/uL Hgb (11.4-16.0) gm/dL Hct (34.0-46.0) % MCV (80.0-100.0) fL MCH (25.0-35.0) pg MCHC (31.0-37.0) g/dL RDW (11.5-15.5) % Plt Count (150-450) k/uL Neutrophils % % Lymphocytes % % Monocytes % % Eosinophils % % Basophils % % Neutrophils # (1.3-7.7) k/uL Lymphocytes # (1.0-4.8) k/uL Monocytes # (0-1.0) k/uL Eosinophils # (0-0.7) k/uL Basophils # (0-0.2) k/uL PT (9.0-12.0) sec INR (<1.2) APTT (22.0-30.0) sec Sodium (137-145) mmol/L Potassium (3.5-5.1) mmol/L Chloride (98-107) mmol/L Carbon Dioxide (22-30) mmol/L Anion Gap mmol/L BUN (7-17) mg/dL Creatinine (0.52-1.04) mg/dL Est GFR (CKD-EPI)AfAm (>60 ml/min/1.73 sqM) Est GFR (CKD-EPI)NonAf (>60 ml/min/1.73 sqM) Glucose (74-99) mg/dL Calcium (8.4-10.2) mg/dL Magnesium 1.9 (1.6-2.3) mg/dL Total Bilirubin (0.2-1.3) mg/dL AST (14-36) U/L ALT (9-52) U/L Alkaline Phosphatase (38-126) U/L Troponin I 0.018 (0.000-0.034) ng/mL Total Protein (6.3-8.2) g/dL Albumin (3.5-5.0) g/dL Urine Color Light Yellow Urine Appearance Clear (Clear) Urine pH 5.5 (5.0-8.0) Ur Specific [place] 1.007 (1.001-1.035) Urine Protein Negative (Negative) Urine Glucose (UA) Negative (Negative) Urine Ketones Negative (Negative) Urine Blood Negative (Negative) Urine Nitrite Positive H (Negative) Urine Bilirubin Negative (Negative) Urine Urobilinogen <2.0 (<2.0) mg/dL Ur Leukocyte Esterase Small H (Negative) Urine RBC 1 (0-5) /hpf Urine WBC 9 H (0-5) /hpf Ur Squamous Epith Cells <1 (0-4) /hpf Urine Bacteria Rare H (None) /hpf - Radiology Data Radiology results: report reviewed (Computed tomography scan of the brain shows improvement. Ventricular white matter changes with atrophy. Old watershed infarct.), image reviewed (X-ray shows atelectasis. Pelvis and sacral x-ray shows osteopenia. No acute fracture.) Disposition Clinical Impression: Orthostatic hypotension, Fall Disposition: HOME SELF-CARE Condition: Stable Instructions (If sedation given, give patient instructions): Head Injury (ED) Additional Instructions: Please follow-up with primary care physician this week. Consider ENT and neurology follow-up. Return for increased falls, confusion, weakness, worsening symptoms or other concerns. Please use caution and get up from a lying or sitting position very slowly. Is patient prescribed a controlled substance at d/c from ED?: No Referrals: Júnior Arzola DO [Primary Care Provider] - 1-2 days Time of Disposition: 13:53
[2019-07-02 12:27] LABS: Basophils % (A) 0 %; Eosinophils # (A) 0.2 k/uL (0-0.7); Eosinophils % (A) 2 %; HCT 34.5 % (34.0-46.0); HGB 10.9 gm/dL (11.4-16.0); Lymphocytes # (A) 1.3 k/uL (1.0-4.8); Lymphocytes % (A) 17 %; MCHC 31.6 g/dL (31.0-37.0); MCV 91.7 fL (80.0-100.0); Mean Platelet Volume 8.2; Monocytes # (A) 0.7 k/uL (0-1.0); Monocytes % (A) 10 %; Neutrophils # (A) 5.2 k/uL (1.3-7.7); Neutrophils % (A) 68 %; Platelet Count 189 k/uL (150-450); RBC 3.76 m/uL (3.80-5.40); RDW 15.6 % (11.5-15.5); WBC 7.6 k/uL (3.8-10.6)
[2019-07-02 12:35] LABS: INR 1.4 (<1.2); Partial Thromboplastin Time 31.3 sec (22.0-30.0); Prothrombin Time 14.2 sec (9.0-12.0)
[2019-07-02 12:39] LABS: Appearance,Urine Clear (Clear); Bacteria,Urine Rare /hpf; Bilirubin,Urine Negative (Negative); Blood,Urine Negative (Negative); Color,Urine Light Yellow; Glucose,Urine (UA) Negative (Negative); Ketones,Urine Negative (Negative); Leukocyte Esterase,Urine Small (Negative); Nitrite,Urine Positive (Negative); PH, Urine 5.5 (5.0-8.0); Protein,Urine Negative (Negative); RBC,Urine 1 /hpf (0-5); Specific Gravity,Urine 1.007 (1.001-1.035); Squamous Epithelial Cell,Urine <1 /hpf (0-4); Urobilinogen,Urine <2.0 mg/dL (<2.0)
[2019-07-02 12:43] LABS: Albumin 3.4 g/dL (3.5-5.0); Calcium 8.8 mg/dL (8.4-10.2); Total Bilirubin 0.4 mg/dL (0.2-1.3); Total Protein 6.4 g/dL (6.3-8.2)
--- NOTE | 2019-07-02 12:54 | CT ---
EXAMINATION TYPE: CT brain wo con DATE OF EXAM: 07/02/2019 COMPARISON: 06/20/2019 INDICATION: syncopal episode with fall and head injury. Prior CVA DLP: 1084.4 mGycm, Automated exposure control for dose reduction was used. CONTRAST: None CT of the brain is performed utilizing 3 mm thick sections through the posterior fossa and 3 mm thick sections through the remaining calvarium. Study is performed within 24 hours of arrival to the hosp ital. No abnormal hyperdensity is present to suggest an acute intracranial hemorrhage. No mass lesion is evident. No acute infarcts are evident. Bilateral old watershed infarcts are evident. This is larger on the le ft. Confluent periventricular white matter hypodensity is present, likely on the basis of chronic whi te matter ischemic changes. Ventricles and sulci are appropriate for the patient age. Some mild mucosal thickenings within posterior ethmoid air cells. Remaining paranasal sinuses and mas toid air cells are clear. IMPRESSIONS: 1. Bilateral confluent periventricular white matter ischemic changes with atrophy. 2. Old bilateral watershed infarcts.
[2019-07-02 12:58] VITALS: RESP 18
--- NOTE | 2019-07-02 13:06 | XR ---
EXAMINATION TYPE: XR pelvis AP view DATE OF EXAM: 07/02/2019 COMPARISON: NONE HISTORY: Pain The osseous structures are intact and the joint spaces are preserved. No acute fracture is seen. Vi sualized bowel gas pattern is nonspecific. Diffuse osteopenia noted there is a concentric narrowing the joint space with hypertrophic change of the acetabulum. IMPRESSION: 1. No acute fracture. 2. Diffuse osteopenia with hip arthropathy bilaterally. Correlate for femoral acetabular impingement.
--- NOTE | 2019-07-02 13:06 | XR ---
EXAMINATION TYPE: XR chest 2V DATE OF EXAM: 07/02/2019 COMPARISON: 06/20/2019 HISTORY: Chest pain after injury TECHNIQUE: Frontal and lateral views of the chest are obtained. FINDINGS: There is no focal air space opacity, pleural effusion, or pneumothorax seen. Linear right basilar atelectasis is present. Pulmonary hyperinflation suggests underlying COPD. Pleural reaction at the left lung base. The cardiac silhouette size is within normal limits. Cardiac loop recorder i s seen The osseous structures are intact. IMPRESSION: Linear right basilar subsegmental atelectasis otherwise no acute cardiopulmonary process .
--- NOTE | 2019-07-02 13:07 | XR ---
EXAMINATION TYPE: XR sacrum coccyx DATE OF EXAM: 07/02/2019 COMPARISON: NONE HISTORY: Pain Three views are submitted. Sacrum is intact. SI joints are symmetric. Coccyx appears to be intact. Visualized pelvic structures intact. Diffuse osteopenia with mild concentric narrowing the joint sp norma. Calcifications the pelvis likely vascular. IMPRESSION: 1. Diffuse osteopenia with mild arthropathy of the hip joints
[2019-07-02] MEDS ORDERED: SODIUM CHLORIDE 0.9% 500 ML 500 ML IV STA (13:39)
[2019-07-02] MEDS ORDERED: ACETAMINOPHEN TAB 500 MG TAB PO STA (13:51)
[2019-07-02 15:07] VITALS: BP 155/85; PULSE 71; TEMP 97.8
== END 2019-07-02 15:07 | disposition home or self-care (01) ==
LOC: EC 10:52
DX: I95.1 Orthostatic hypotension (principal); I11.0 Hypertensive heart disease with heart failure; I50.9 Heart failure, unspecified; J44.9 Chronic obstructive pulmonary disease, unspecified; E11.9 Type 2 diabetes mellitus without complications; I25.2 Old myocardial infarction; F17.200 Nicotine dependence, unspecified, uncomplicated; Z79.890 Hormone replacement therapy; Z79.84 Long term (current) use of oral hypoglycemic drugs; Z79.82 Long term (current) use of aspirin; Z79.51 Long term (current) use of inhaled steroids; Z79.899 Other long term (current) drug therapy; Z91.041 Radiographic dye allergy status; Z88.5 Allergy status to narcotic agent; Z88.2 Allergy status to sulfonamides; Z86.73 Personal history of transient ischemic attack (TIA), and cerebral infarction without residual deficits; Z85.3 Personal history of malignant neoplasm of breast
CPT/HCPCS: 36415; 70450; 71046; 72170; 72220; 80053; 81001; 83735; 84484; 85025; 85610; 85730; 87086; 93005; 96360; 96361; 99285

== ENCOUNTER 2019-07-11 15:31 | Inpatient (IN) | payer MEDICARE, OTHER ==
[2019-07-11] MEDS ORDERED: SODIUM CHLORIDE 0.9% 1,000 ML IV STA (15:42)
[2019-07-11 16:14] LABS: Basophils % (A) 0 %; Eosinophils # (A) 0.3 k/uL (0-0.7); Eosinophils % (A) 4 %; HCT 37.6 % (34.0-46.0); HGB 12.2 gm/dL (11.4-16.0); Lymphocytes # (A) 2.1 k/uL (1.0-4.8); Lymphocytes % (A) 25 %; MCH 29.6 pg (25.0-35.0); MCHC 32.4 g/dL (31.0-37.0); MCV 91.4 fL (80.0-100.0); Mean Platelet Volume 8.9; Monocytes # (A) 0.8 k/uL (0-1.0); Monocytes % (A) 9 %; Neutrophils % (A) 60 %; Platelet Count 216 k/uL (150-450); RBC 4.12 m/uL (3.80-5.40); RDW 15.7 % (11.5-15.5); WBC 8.3 k/uL (3.8-10.6)
--- NOTE | 2019-07-11 16:16 | ED ---
General Adult HPI - General Chief complaint: Neuro Symptoms/Deficit Stated complaint: Weakness, cannot walk Time Seen by Provider: 07/11/19 15:40 Source: patient Mode of arrival: wheelchair Limitations: physical limitation - History of Present Illness Initial comments: Dictation was produced using [employer] dictation software. please excuse any grammatical, word or spelling errors. Chief Complaint: 69-year-old female with past medical history of heart failure, COPD, diabetes, OR presents with bilateral lower extremity weakness. History of Present Illness: His 69-year-old female she has been having progressive worsening weakness to the bilateral lower extremities. Patient is completely by . Patient has been very weak and having difficulty walking. She states that her symptoms have become increasingly bad especially upon waking this morning. was at bedside reports that patient is having difficulty staying awake. Patient has no pain complaints at this time. Denies any saddle anesthesia. No fever, chills or night sweats. She was seen for similar complaint. Emergency department recently. She was seen approximately 10 days ago. She had x-rays performed at that time discharged home. 4 days ago patient fell. She denies any back pain currently. The ROS documented in this emergency department record has been reviewed and confirmed by me. Those systems with pertinent positive or negative responses have been documented in the HPI. All other systems are other negative and/or noncontributory. PHYSICAL EXAM: General Impression: Alert and oriented x3, not in acute distress HEENT: Normocephalic atraumatic, extra-ocular movements intact, pupils equal and reactive to light bilaterally, mucous membranes moist. Cardiovascular: Heart regular rate and rhythm, S1&S2 audible, no murmurs, rubs or gallops Chest: Lungs clear to auscultation bilaterally, no rhonchi, no wheeze, no rales Abdomen: Bowel sounds present, abdomen soft, non-tender, non-distended, no organomegaly Musculoskeletal: Pulses present and equal in all extremities, no peripheral edema Motor: no focal deficits noted Neurological: CN II-XII grossly intact, no focal motor or sensory deficits noted Skin: Intact with no visualized rashes Psych: Normal affect and mood ED course: 69-year-old female with bilateral lower extremity weakness. Vital signs upon arrival shows heart rate of 48, blood pressure 97/60, Auditory evaluation obtained. CBC unremarkable. Coag panel shows INR greater than 10.0. Metabolic panel shows findings consistent with acute kidney injury. Troponin is negative. Computed tomography scan of the thoracic and lumbar spine and brain CT was obtained given that patient fell recently and there is concern for focal extremity weakness with concern of possible cord compression. CTs were unremarkable. Patient given vitamin K. Patient be admitted. Discussed patient case with HILARIO Lopez from [facility] group who is willing to accept patient care. Given the patient has supratherapeutic INR and is a fall risk and do not bleed patient is safe for discharge. EKG interpretation: Ventricular rate, normal sinus rhythm, NJ interval 184, care is 86, QTC 467. No NJ prolongation, no QTC prolongation, no ST or T-wave changes noted. EKG compared to some her fifth 2018 showing no changes. Overall, this EKG is unremarkable - Related Data Home Medications Medication Instructions Recorded Confirmed Anastrozole [Arimidex] 1 mg PO DAILY 10/23/18 06/20/19 Atorvastatin [Lipitor] 40 mg PO HS 10/23/18 06/20/19 Cholecalciferol [Vitamin D3 (25 5,000 unit PO DAILY 10/23/18 06/20/19 Mcg = 1000 Iu)] Levothyroxine Sodium [Synthroid] 25 mcg PO DAILY 10/23/18 06/20/19 Losartan [Cozaar] 50 mg PO BID 10/23/18 06/20/19 Metoprolol Succinate (ER) [Toprol 100 mg PO DAILY 10/23/18 06/20/19 XL] sitaGLIPtin [Januvia] 100 mg PO DAILY 10/23/18 06/20/19 ALPRAZolam [Xanax] 0.25 mg PO BID PRN 02/27/19 06/20/19 Citalopram Hydrobromide [CeleXA] 10 mg PO DAILY 02/27/19 06/20/19 Alendronate Sodium [Fosamax] 70 mg PO SA 05/05/19 06/20/19 Aspirin EC [Ecotrin Low Dose] 81 mg PO DAILY 05/05/19 06/20/19 Pantoprazole [Protonix] 40 mg PO DAILY 05/05/19 06/20/19 Potassium Chloride [Klor-Con 20] 20 meq PO DAILY 05/05/19 06/20/19 Pregabalin [Lyrica] 100 mg PO BID 05/05/19 06/20/19 Albuterol Sulfate [Ventolin HFA] 1 - 2 puff INHALATION RT-Q6H PRN 06/20/19 06/20/19 Budesonide/Formoterol Fumarate 2 puff INHALATION RT-BID 06/20/19 06/20/19 [Symbicort 160-4.5 Mcg Inhaler] Furosemide [Lasix] 40 mg PO DAILY 06/20/19 06/20/19 Ipratropium-Albuterol Nebulize 3 ml INHALATION RT-Q4H PRN 06/20/19 06/20/19 [Duoneb 0.5 mg-3 mg/3 ml Soln] Magnesium Oxide [Mag-Ox] 400 mg PO DAILY 06/20/19 06/20/19 Nitroglycerin Sl Tabs [Nitrostat] 0.4 mg SUBLINGUAL Q5M PRN 06/20/19 06/20/19 Spironolactone [Aldactone] 12.5 mg PO DAILY 06/20/19 06/20/19 Tiotropium 18 Mcg/Puff [Spiriva] 2 puff INHALATION RT-DAILY 06/20/19 06/20/19 busPIRone HCL 30 mg PO BID 06/20/19 06/20/19 Previous Rx's Medication Instructions Recorded Warfarin [Coumadin] 4 mg PO DAILY #60 tab 06/25/19 Allergies Allergy/AdvReac Type Severity Reaction Status Date / Time Iodinated Contrast Media Allergy Rash/Hives Verified 07/11/19 15:37 [Iodinated Contrast- Oral and IV Dye] morphine Allergy Rash/Hives Verified 07/11/19 15:37 Sulfa (Sulfonamide Allergy Rash/Hives Verified 07/11/19 15:37 Antibiotics) Review of Systems ROS Statement: Those systems with pertinent positive or pertinent negative responses have been documented in the HPI. ROS Other: All systems not noted in ROS Statement are negative. Past Medical History Past Medical History: Chest Pain / Angina, Heart Failure, COPD, CVA/TIA, Diabetes Mellitus, Hypertension, Myocardial Infarction ([place]) Additional Past Medical History / Comment(s): Breast Ca. Left side Last Myocardial Infarction Date:: 09/22/13 History of Any Multi-Drug Resistant Organisms: None Reported Past Surgical History: Appendectomy, Back Surgery, Breast Surgery, Cholecystectomy, Heart Catheterization, Tubal Ligation Additional Past Surgical History / Comment(s): loop recorder, left breast biopsy Past Anesthesia/Blood Transfusion Reactions: No Reported Reaction Past Psychological History: No Psychological Hx Reported Smoking Status: Current every day smoker Past Alcohol Use History: None Reported Past Drug Use History: None Reported - Past Family History Mother Family Medical History: COPD Father Family Medical History: Liver Disease General Exam Limitations: physical limitation Course Vital Signs 07/11/19 15:35 Temperature 98.1 F Pulse Rate 48 L Respiratory 18 Rate Blood Pressure 97/60 O2 Sat by Pulse 92 L Oximetry Medical Decision Making - Lab Data Result diagrams: 07/11/19 16:02 07/11/19 16:02 Lab Results 07/11/19 07/11/19 07/11/19 Range/Units 16:02 16:02 16:02 WBC 8.3 (3.8-10.6) k/uL RBC 4.12 (3.80-5.40) m/uL Hgb 12.2 (11.4-16.0) gm/dL Hct 37.6 (34.0-46.0) % MCV 91.4 (80.0-100.0) fL MCH 29.6 (25.0-35.0) pg MCHC 32.4 (31.0-37.0) g/dL RDW 15.7 H (11.5-15.5) % Plt Count 216 (150-450) k/uL Neutrophils % 60 % Lymphocytes % 25 % Monocytes % 9 % Eosinophils % 4 % Basophils % 0 % Neutrophils # 5.0 (1.3-7.7) k/uL Lymphocytes # 2.1 (1.0-4.8) k/uL Monocytes # 0.8 (0-1.0) k/uL Eosinophils # 0.3 (0-0.7) k/uL Basophils # 0.0 (0-0.2) k/uL PT 114.5 H (9.0-12.0) sec INR >10.0 H* (<1.2) APTT 70.2 H (22.0-30.0) sec Sodium 138 (137-145) mmol/L Potassium 5.4 H (3.5-5.1) mmol/L Chloride 106 (98-107) mmol/L Carbon Dioxide 25 (22-30) mmol/L Anion Gap 7 mmol/L BUN 41 H (7-17) mg/dL Creatinine 2.26 H (0.52-1.04) mg/dL Est GFR (CKD-EPI)AfAm 25 (>60 ml/min/1.73 sqM) Est GFR (CKD-EPI)NonAf 21 (>60 ml/min/1.73 sqM) Glucose 142 H (74-99) mg/dL Calcium 9.2 (8.4-10.2) mg/dL Magnesium 1.9 (1.6-2.3) mg/dL Creatine Kinase 134 (30-135) U/L Troponin I (0.000-0.034) ng/mL 07/11/19 Range/Units 16:02 WBC (3.8-10.6) k/uL RBC (3.80-5.40) m/uL Hgb (11.4-16.0) gm/dL Hct (34.0-46.0) % MCV (80.0-100.0) fL MCH (25.0-35.0) pg MCHC (31.0-37.0) g/dL RDW (11.5-15.5) % Plt Count (150-450) k/uL Neutrophils % % Lymphocytes % % Monocytes % % Eosinophils % % Basophils % % Neutrophils # (1.3-7.7) k/uL Lymphocytes # (1.0-4.8) k/uL Monocytes # (0-1.0) k/uL Eosinophils # (0-0.7) k/uL Basophils # (0-0.2) k/uL PT (9.0-12.0) sec INR (<1.2) APTT (22.0-30.0) sec Sodium (137-145) mmol/L Potassium (3.5-5.1) mmol/L Chloride (98-107) mmol/L Carbon Dioxide (22-30) mmol/L Anion Gap mmol/L BUN (7-17) mg/dL Creatinine (0.52-1.04) mg/dL Est GFR (CKD-EPI)AfAm (>60 ml/min/1.73 sqM) Est GFR (CKD-EPI)NonAf (>60 ml/min/1.73 sqM) Glucose (74-99) mg/dL Calcium (8.4-10.2) mg/dL Magnesium (1.6-2.3) mg/dL Creatine Kinase (30-135) U/L Troponin I <0.012 (0.000-0.034) ng/mL Disposition Clinical Impression: Supratherapeutic INR Disposition: ADMITTED IP TO THIS HOSP Condition: Fair Referrals: Júnior Arzola DO [Primary Care Provider] - 1-2 days Decision Time: 17:12
[2019-07-11 16:26] LABS: Calcium 9.2 mg/dL (8.4-10.2); Magnesium 1.9 mg/dL (1.6-2.3)
[2019-07-11 16:28] LABS: Potassium 5.4 mmol/L (3.5-5.1)
[2019-07-11 16:31] LABS: Prothrombin Time 114.5 sec (9.0-12.0)
[2019-07-11 16:33] LABS: INR >10.0 (<1.2); Partial Thromboplastin Time 70.2 sec (22.0-30.0)
[2019-07-11] MEDS ORDERED: PHYTONADIONE ORAL 5 MG/5 ML ORAL.SYRG PO STA (16:37)
--- NOTE | 2019-07-11 16:56 | CT ---
EXAMINATION TYPE: CT thor lumbar spine wo con DATE OF EXAM: 07/11/2019 COMPARISON: None HISTORY: fall today with weakness CT DLP: 965.1 mGycm Automated exposure control for dose reduction was used. Multiple axial sections were obtained from the level of T1 to assess to vertebra without contrast. There is a mild thoracolumbar levoscoliosis. There is no sign of a gastric or lumbar compression frac ture. There is no evidence of thoracic or lumbar paraspinal mass. Thoracic aorta is atheromatous. The posterior elements are intact. I see no focal bone destruction. There is tortuous atherosclerotic ab dominal aorta with mild aneurysm that measures up to 2.8 cm. Sacroiliac joints appear intact. There i s no evidence of thoracic or lumbar spinal stenosis. IMPRESSION: Mild spondylotic changes in the thoracic and lumbar spine. Mild levoscoliosis. No fracture seen.
--- NOTE | 2019-07-11 17:02 | CT ---
EXAMINATION TYPE: CT brain wo con DATE OF EXAM: 07/11/2019 COMPARISON: 07/02/2019 HISTORY: Focal weakness, can't stand CT DLP: 1054.4 mGycm Automated exposure control for dose reduction was used. There is cerebral atrophy. There is extensive patchy hypodensity in the periventricular white matter. There is evidence of old right frontal and bilateral parietal cortical infarcts. Calvarium is intact . There is no evidence of intracranial hemorrhage. IMPRESSION: Chronic small vessel ischemia. Old bilateral cortical infarcts. No acute intracranial abnormality. No change.
[2019-07-11] MEDS ORDERED: ONDANSETRON 4 MG/2 ML VIAL IVP PRN (17:12)
[2019-07-11] MEDS ORDERED: NALOXONE 0.4 MG/ML 1 ML VIAL IV PRN (17:12)
[2019-07-11] MEDS: SODIUM CHLORIDE 0.9% 1,000 ML IV SCH (17:59)
[2019-07-11 18:59] LABS: Appearance,Urine Clear (Clear); Bacteria,Urine Rare /hpf; Bilirubin,Urine Negative (Negative); Blood,Urine Negative (Negative); Color,Urine Yellow; Glucose,Urine (UA) Negative (Negative); Hyaline Casts,Urine 14 /lpf (0-2); Ketones,Urine Negative (Negative); Leukocyte Esterase,Urine Small (Negative); Mucus,Urine Rare /hpf; Nitrite,Urine Negative (Negative); PH, Urine 5.5 (5.0-8.0); Protein,Urine Negative (Negative); RBC,Urine 2 /hpf (0-5); Specific Gravity,Urine 1.005 (1.001-1.035); Squamous Epithelial Cell,Urine <1 /hpf (0-4); Urobilinogen,Urine <2.0 mg/dL (<2.0); WBC,Urine 11 /hpf (0-5)
[2019-07-11 20:51] LABS: Glucose,Whole Blood 84 mg/dL (75-99)
[2019-07-11] MEDS: INSULIN ASPART (NovoLOG) 100 UNIT/ML VIAL SQ SCH (21:00)
[2019-07-11] MEDS: ATORVASTATIN 40 MG TAB PO SCH (21:00)
[2019-07-12 05:59] LABS: Glucose,Whole Blood 93 mg/dL (75-99)
[2019-07-12] MEDS: INSULIN ASPART (NovoLOG) 100 UNIT/ML VIAL SQ SCH ×4 (06:12→22:12)
[2019-07-12 06:57] LABS: Basophils % (A) 1 %; Eosinophils # (A) 0.3 k/uL (0-0.7); Eosinophils % (A) 4 %; HCT 38.7 % (34.0-46.0); HGB 12.3 gm/dL (11.4-16.0); Hypochromasia Slight; Lymphocytes # (A) 1.7 k/uL (1.0-4.8); Lymphocytes % (A) 24 %; MCH 30.1 pg (25.0-35.0); MCHC 31.8 g/dL (31.0-37.0); MCV 94.7 fL (80.0-100.0); Mean Platelet Volume 9.1; Monocytes # (A) 0.8 k/uL (0-1.0); Monocytes % (A) 11 %; Neutrophils # (A) 4.2 k/uL (1.3-7.7); Neutrophils % (A) 58 %; Platelet Count 193 k/uL (150-450); RBC 4.09 m/uL (3.80-5.40); RDW 15.7 % (11.5-15.5); WBC 7.1 k/uL (3.8-10.6)
[2019-07-12 07:01] LABS: INR 2.1 (<1.2); Prothrombin Time 20.4 sec (9.0-12.0)
[2019-07-12 07:13] LABS: Albumin 3.4 g/dL (3.5-5.0); Calcium 9.3 mg/dL (8.4-10.2); Potassium 5.3 mmol/L (3.5-5.1); Total Bilirubin 0.6 mg/dL (0.2-1.3); Total Protein 6.6 g/dL (6.3-8.2)
[2019-07-12] MEDS ORDERED: PANTOPRAZOLE 40 MG/10 ML VIAL IV SCH (09:00)
--- NOTE | 2019-07-12 09:55 | P.HPIM ---
History of Present Illness this is a pleasant 69 years old female with past medical history of pulmonary fibrosis, heart failure, COPD, CVA/TIA, diabetes mellitus, hypertension, coronary artery disease status post cardiac cath, chronic back pain status post back surgery in 1990 for herniated disc. Patient was recently in the hospital for noncompliance with her blood thinner because she could not afford it and eventually it was switched from Xarelto to Coumadin. MRI of the brain showed bilateral temporal lobe infarct at that time. Patient at baseline and uses a walker for the last 4 months with some weakness in her both lower extremity at baseline. Yesterday her noticed that she has difficulty walking of one- day duration and he got concerned and brought her to the emergency room. On admission her creatinine was 2.2 and this morning 2.0, compared to baseline of 1.3-1.6. patient Vitas looks stable and she is saturating 97% on 2 L oxygen via NC. Labs showing unremarkable CBC. INR is more than 10. Potassium was 5.4. Creatinine 2.2, baseline creatinine is 1.6 to 1.8.urinalysis is not suspicious for infection, EKG showing normal sinus rhythm at [address]-T changes and QTC of 467.CT of the brain: Chronic ischemic changes bilateral old cortical infarct, no acute abnormality.CT of the thorax spine showing mild spo ndylitic changes in the thoracic and lumbar spine with no fracture seen. In the emergency room he received a small dose of vitamin K2.5 milligrams, and 1 L of normal saline. Review of Systems CONSTITUTIONAL: No fever, no malaise, no fatigue. HEENT: No recent visual problems or hearing problems. Denied any sore throat. CARDIOVASCULAR: No orthopnea, PND, no palpitations, no syncope. PULMONARY: No shortness of breath, no hemoptysis. GASTROINTESTINAL: No diarrhea, no nausea, no vomiting, no abdominal pain. Normoactive bowel sounds. NEUROLOGICAL: No headaches, no numbness. HEMATOLOGICAL: Denies any bleeding or petechiae. GENITOURINARY: Denies any burning micturition, frequency, or urgency. MUSCULOSKELETAL/RHEUMATOLOGICAL: Denies any joint pain, swelling, or any muscle pain. ENDOCRINE: Denies any polyuria or polydipsia. Past Medical History Past Medical History: Chest Pain / Angina, Heart Failure, COPD, CVA/TIA, Diabetes Mellitus, Hypertension, Myocardial Infarction ([place]) Additional Past Medical History / Comment(s): Breast Ca. Left side Last Myocardial Infarction Date:: 09/22/13 History of Any Multi-Drug Resistant Organisms: None Reported Past Surgical History: Appendectomy, Back Surgery, Breast Surgery, Cholecystectomy, Heart Catheterization, Tubal Ligation Additional Past Surgical History / Comment(s): loop recorder, left breast biopsy Past Anesthesia/Blood Transfusion Reactions: No Reported Reaction Past Psychological History: No Psychological Hx Reported Smoking Status: Current every day smoker Past Alcohol Use History: None Reported Past Drug Use History: None Reported Additional Drug Use History / Comment(s): 0.5 pack per day, started when she was 14 - Past Family History Mother Family Medical History: COPD Father Family Medical History: Liver Disease Medications and Allergies Home Medications Medication Instructions Recorded Confirmed Type Anastrozole [Arimidex] 1 mg PO DAILY 10/23/18 07/11/19 History Atorvastatin [Lipitor] 40 mg PO HS 10/23/18 07/11/19 History Cholecalciferol [Vitamin D3 (25 5,000 unit PO DAILY 10/23/18 07/11/19 History Mcg = 1000 Iu)] Levothyroxine Sodium [Synthroid] 25 mcg PO DAILY 10/23/18 07/11/19 History Losartan [Cozaar] 50 mg PO BID 10/23/18 07/11/19 History Metoprolol Succinate (ER) [Toprol 100 mg PO DAILY 10/23/18 07/11/19 History XL] sitaGLIPtin [Januvia] 100 mg PO DAILY 10/23/18 07/11/19 History ALPRAZolam [Xanax] 0.25 mg PO BID PRN 02/27/19 07/11/19 History Citalopram Hydrobromide [CeleXA] 10 mg PO DAILY 02/27/19 07/11/19 History Alendronate Sodium [Fosamax] 70 mg PO SA 05/05/19 07/11/19 History Aspirin EC [Ecotrin Low Dose] 81 mg PO DAILY 05/05/19 07/11/19 History Pantoprazole [Protonix] 40 mg PO DAILY 05/05/19 07/11/19 History Potassium Chloride [Klor-Con 20] 20 meq PO DAILY 05/05/19 07/11/19 History Pregabalin [Lyrica] 100 mg PO BID 05/05/19 07/11/19 History Albuterol Sulfate [Ventolin HFA] 1 - 2 puff INHALATION RT-Q6H PRN 06/20/19 07/11/19 History Budesonide/Formoterol Fumarate 2 puff INHALATION RT-BID 06/20/19 07/11/19 History [Symbicort 160-4.5 Mcg Inhaler] Furosemide [Lasix] 40 mg PO DAILY 06/20/19 07/11/19 History Ipratropium-Albuterol Nebulize 3 ml INHALATION RT-Q4H PRN 06/20/19 07/11/19 History [Duoneb 0.5 mg-3 mg/3 ml Soln] Magnesium Oxide [Mag-Ox] 400 mg PO DAILY 06/20/19 07/11/19 History Nitroglycerin Sl Tabs [Nitrostat] 0.4 mg SUBLINGUAL Q5M PRN 06/20/19 07/11/19 History Spironolactone [Aldactone] 12.5 mg PO DAILY 06/20/19 07/11/19 History Tiotropium 18 Mcg/Puff [Spiriva] 2 puff INHALATION RT-DAILY 06/20/19 07/11/19 History Warfarin [Coumadin] 4 mg PO DAILY #60 tab 06/25/19 07/11/19 Rx Nitrofurantoin Monohyd/M-Cryst 100 mg PO Q12HR 07/11/19 07/11/19 History [Macrobid] busPIRone HCL 15 mg PO BID 07/11/19 07/11/19 History Allergies Allergy/AdvReac Type Severity Reaction Status Date / Time Iodinated Contrast Media Allergy Rash/Hives Verified 07/11/19 15:37 [Iodinated Contrast- Oral and IV Dye] morphine Allergy Rash/Hives Verified 07/11/19 15:37 Sulfa (Sulfonamide Allergy Rash/Hives Verified 07/11/19 15:37 Antibiotics) Physical Exam Vitals: Vital Signs Temp Pulse Pulse Resp BP BP Pulse Ox 07/12/19 03:00 97.7 F 76 16 122/72 97 07/11/19 23:00 98 F 87 18 126/62 92 L 07/11/19 19:40 98.3 F 81 16 128/61 92 L 07/11/19 18:04 84 16 125/74 99 07/11/19 15:35 98.1 F 48 L 18 97/60 92 L Intake and Output 07/11/19 07/11/19 07/12/19 14:59 22:59 06:59 Other: Voiding Method Bedpan Weight 58.967 kg 60.5 kg GENERAL: The patient is alert and oriented x3, not in any acute distress. Well developed, well nourished. HEENT: Pupils are round and equally reacting to light. EOMI. No scleral icterus. No conjunctival pallor. Normocephalic, atraumatic. No pharyngeal erythema. No thyromegaly. CARDIOVASCULAR: S1 and S2 present. No murmurs, rubs, or gallops. PULMONARY: Chest is clear to auscultation, no wheezing or crackles. ABDOMEN: Soft, nontender, nondistended, normoactive bowel sounds. No palpable organomegaly. MUSCULOSKELETAL: No joint swelling or deformity. EXTREMITIES: No cyanosis, clubbing, or pedal edema. -NEUROLOGICAL: Cranial nerves are grossly intact. Strength in upper extremity is 5/5, strength in lower extremity is 4/5 in both sides which is similar to last time she was in the hospital one month ago. Meningeal signs are absent SKIN: No rashes. No petechiae Results CBC & Chem 7: 07/12/19 06:01 07/12/19 06:01 Labs: Abnormal Lab Results - Last 24 Hours (Table) 07/11/19 07/11/19 07/11/19 Range/Units 16:02 16:02 16:02 RDW 15.7 H (11.5-15.5) % PT 114.5 H (9.0-12.0) sec INR >10.0 H* (<1.2) APTT 70.2 H (22.0-30.0) sec Potassium 5.4 H (3.5-5.1) mmol/L BUN 41 H (7-17) mg/dL Creatinine 2.26 H (0.52-1.04) mg/dL Glucose 142 H (74-99) mg/dL Ur Leukocyte Esterase (Negative) Urine WBC (0-5) /hpf Urine Bacteria (None) /hpf Hyaline Casts (0-2) /lpf Urine Mucus (None) /hpf 07/11/19 Range/Units 18:40 RDW (11.5-15.5) % PT (9.0-12.0) sec INR (<1.2) APTT (22.0-30.0) sec Potassium (3.5-5.1) mmol/L BUN (7-17) mg/dL Creatinine (0.52-1.04) mg/dL Glucose (74-99) mg/dL Ur Leukocyte Esterase Small H (Negative) Urine WBC 11 H (0-5) /hpf Urine Bacteria Rare H (None) /hpf Hyaline Casts 14 H (0-2) /lpf Urine Mucus Rare H (None) /hpf Microbiology - Last 24 Hours (Table) 07/11/19 18:40 Urine Culture - Preliminary Urine,Voided Thrombosis Risk Factor Assmnt - Choose All That Apply Any of the Below Risk Factors Present?: Yes Each Factor Represents 1 point: Abnormal pulmonary function (COPD), Medical pt on bed rest, Swollen legs (current) Each Risk Factor Represents 2 Points: Age 61-74 years Other congenital or acquired thrombophilia - If yes, enter type in comment: No Thrombosis Risk Factor Assessment Total Risk Factor Score: 5 Thrombosis Risk Factor Assessment Level: High Risk Assessment and Plan Assessment: Acute kidney injury on chronic kidney disease Recent history of Bilateral temporal lobe infarct, noticed on the MRI done during last admission on 06/24/2019.At that time she was not adherent to her blood thinner/anticoagulation Transient worsening of her lower extremity and generalized weakness, mostly related to worsening renal function acute kidney injury on chronic kidney disease Chronic kidney disease stage III hx of atrial fibrillation. Likely paroxysmal Patient is on metoprolol and Coumadin at home. Currently in sinus rhythm. Coagulopathy secondary to Coumadin toxicity Heart failure COPD, not in acute exacerbation history of CVA/TIA Diabetes mellitus Hypertension History of coronary artery disease is status post cardiac cath History of back surgery in 1990 for herniated disc Plan: this is a pleasant 69 years old female who presents because of fall, acute kidney injury on chronic kidney disease, transient lower extremity weakness. Continue with IV fluid and lower the rate from 100 to 75 mL per hour. Check re nal ultrasound and bladder scan. Consult neurology and physical therapist. Consult social studies department chair for alternative to Coumadin as patient failed Coumadin therapy. In the meantime continue with Coumadin pharmacy to dose Labs and medication were reviewed.. Continue same treatment. Continue with sy mptomatic treatment. Resume home medication. Monitor lytes and vitals. DVT and GI prophylaxis. Further recommendations of the clinical course of the patient DVT prophylaxis: coumadin GI Prophylaxis: Pepcid PT/OT: Pending Prognosis is guarded
[2019-07-12] MEDS ORDERED: NITROGLYCERIN SL TABS 0.4 MG TAB SUBLINGUAL PRN (12:00)
[2019-07-12] MEDS ORDERED: IPRATROPIUM-ALBUTEROL 3 ML NEB INHALATION PRN (12:00)
[2019-07-12] MEDS ORDERED: ALPRAZolam 0.25 MG TAB PO PRN (12:00)
[2019-07-12 12:31] LABS: Glucose,Whole Blood 101 mg/dL (75-99)
--- NOTE | 2019-07-12 12:33 | P.CNNES ---
History of Present Illness Consult date: 07/12/19 Requesting physician: Herrera Suero Reason for Consult: leg weakness Chief complaint: weakness History of Present Illness: Ms Christen Martin is a pleasant 69 y/o female who is seen in neurologic consultation on July 12, 2019, via teleneurology. She presented to the hospital with increased weakness in her lower extremities. Apparently her brought her in. He is not present in the room at the time of the evaluation. The patient reports that her legs are almost always weak, however yesterday, they were weaker. She denies paresthesias in her lower extremities. She also reports weakness in her upper extremities as well. She feels that her left side is weaker than her right side. She feels as if today she is "a lot better". Ms. Martin denies headaches and changes in vision. She reports having difficulty with her speech for the past 4 months or so. She feels this is sec ondary to her strokes. She denies difficulty with memory. She denies difficulty swallowing and hearing. Ms. Martin denies chest pain and shortness of breath. She reports a history of neck pain, however denies current neck pain. The patient reports difficulty controlling her bladder. She has no difficulty with bowels. Her bladder problems have been present for a long time she says. Review of Systems Constitutional: Denies chills, Denies fever Eyes: denies blurred vision, denies pain Ears, nose, mouth and throat: Denies headache, Denies sore throat Cardiovascular: Denies chest pain, Denies shortness of breath Respiratory: Denies cough Gastrointestinal: Denies abdominal pain, Denies diarrhea, Denies nausea, Denies vomiting Genitourinary: Denies dysuria, Denies hematuria Past Medical History Past Medical History: Chest Pain / Angina, Heart Failure, COPD, CVA/TIA, Diabetes Mellitus, Hypertension, Myocardial Infarction ([place]) Additional Past Medical History / Comment(s): Breast Ca. Left side Last Myocardial Infarction Date:: 09/22/13 History of Any Multi-Drug Resistant Organisms: None Reported Past Surgical History: Appendectomy, Back Surgery, Breast Surgery, Cholecystectomy, Heart Catheterization, Tubal Ligation Additional Past Surgical History / Comment(s): loop recorder, left breast biopsy Past Anesthesia/Blood Transfusion Reactions: No Reported Reaction Past Psychological History: No Psychological Hx Reported Smoking Status: Current every day smoker Past Alcohol Use History: None Reported Past Drug Use History: None Reported Additional Drug Use History / Comment(s): 0.5 pack per day, started when she was 14 - Past Family History Mother Family Medical History: COPD Father Family Medical History: Liver Disease Medications and Allergies Home Medications Medication Instructions Recorded Confirmed Type Anastrozole [Arimidex] 1 mg PO DAILY 10/23/18 07/11/19 History Atorvastatin [Lipitor] 40 mg PO HS 10/23/18 07/11/19 History Cholecalciferol [Vitamin D3 (25 5,000 unit PO DAILY 10/23/18 07/11/19 History Mcg = 1000 Iu)] Levothyroxine Sodium [Synthroid] 25 mcg PO DAILY 10/23/18 07/11/19 History Losartan [Cozaar] 50 mg PO BID 10/23/18 07/11/19 History Metoprolol Succinate (ER) [Toprol 100 mg PO DAILY 10/23/18 07/11/19 History XL] sitaGLIPtin [Januvia] 100 mg PO DAILY 10/23/18 07/11/19 History ALPRAZolam [Xanax] 0.25 mg PO BID PRN 02/27/19 07/11/19 History Citalopram Hydrobromide [CeleXA] 10 mg PO DAILY 02/27/19 07/11/19 History Alendronate Sodium [Fosamax] 70 mg PO SA 05/05/19 07/11/19 History Aspirin EC [Ecotrin Low Dose] 81 mg PO DAILY 05/05/19 07/11/19 History Pantoprazole [Protonix] 40 mg PO DAILY 05/05/19 07/11/19 History Potassium Chloride [Klor-Con 20] 20 meq PO DAILY 05/05/19 07/11/19 History Pregabalin [Lyrica] 100 mg PO BID 05/05/19 07/11/19 History Albuterol Sulfate [Ventolin HFA] 1 - 2 puff INHALATION RT-Q6H PRN 06/20/19 07/11/19 History Budesonide/Formoterol Fumarate 2 puff INHALATION RT-BID 06/20/19 07/11/19 History [Symbicort 160-4.5 Mcg Inhaler] Furosemide [Lasix] 40 mg PO DAILY 06/20/19 07/11/19 History Ipratropium-Albuterol Nebulize 3 ml INHALATION RT-Q4H PRN 06/20/19 07/11/19 History [Duoneb 0.5 mg-3 mg/3 ml Soln] Magnesium Oxide [Mag-Ox] 400 mg PO DAILY 06/20/19 07/11/19 History Nitroglycerin Sl Tabs [Nitrostat] 0.4 mg SUBLINGUAL Q5M PRN 06/20/19 07/11/19 History Spironolactone [Aldactone] 12.5 mg PO DAILY 06/20/19 07/11/19 History Tiotropium 18 Mcg/Puff [Spiriva] 2 puff INHALATION RT-DAILY 06/20/19 07/11/19 History Warfarin [Coumadin] 4 mg PO DAILY #60 tab 06/25/19 07/11/19 Rx Nitrofurantoin Monohyd/M-Cryst 100 mg PO Q12HR 07/11/19 07/11/19 History [Macrobid] busPIRone HCL 15 mg PO BID 07/11/19 07/11/19 History Allergies Allergy/AdvReac Type Severity Reaction Status Date / Time Iodinated Contrast Media Allergy Rash/Hives Verified 07/11/19 15:37 [Iodinated Contrast- Oral and IV Dye] morphine Allergy Rash/Hives Verified 07/11/19 15:37 Sulfa (Sulfonamide Allergy Rash/Hives Verified 07/11/19 15:37 Antibiotics) Physical Examination - Vital Signs Vital Signs: Vital Signs Temp Pulse Pulse Resp BP BP Pulse Ox 07/12/19 08:00 98.2 F 72 20 134/78 92 L 07/12/19 03:00 97.7 F 76 16 122/72 97 07/11/19 23:00 98 F 87 18 126/62 92 L 07/11/19 19:40 98.3 F 81 16 128/61 92 L 07/11/19 18:04 84 16 125/74 99 07/11/19 15:35 98.1 F 48 L 18 97/60 92 L Intake and Output 07/11/19 07/12/19 07/12/19 22:59 06:59 14:59 Intake Total 100 Balance 100 Intake: Oral 100 Other: Voiding Method Bedpan Bedpan # Voids 1 Weight 58.967 kg 60.5 kg Gen.: The patient is reclining in the bed. She is well-nourished, well- developed and in no acute distress. HEENT: Head is atraumatic, normocephalic. Fundus not visualized. There is no scleral icterus. Mucous membranes are moist. Neck: No carotid bruits. Heart: Regular rate and rhythm. Heart sounds are distant Extremities: Without edema Neurological examination Mental status: Patient is awake, alert and oriented. Her speech is clear. Cranial nerves: Pupils are equal, round and reactive to light. Visual [place] are full to confrontation. Extraocular muscles are intact. There is no nystagmus. Facial sensation is intact. Visual facial asymmetry. Hearing is diminished. Uvula and palate are midline. Shoulder shrug is symmetric. Tongue protrudes midline. Motor: Neck flexor strength 3/5. Neck extensor 4/5. Bilateral bridge engineer strength 3/5. Biceps and triceps 4/5. Bilateral psoas and hamstrings 3/5. Sensation: Intact to light touch. There is no sensory level. Coordination: [id number] testing is intact. Deep tendon reflexes: 3+/4+ in the bilateral upper extremities and knees. Ankle reflexes are absent. Gait: Not assessed Results - Laboratory Findings CBC and BMP: 07/12/19 06:01 07/12/19 06:01 Abnormal Lab Findings: Abnormal Labs 07/11/19 07/11/19 07/11/19 16:02 16:02 16:02 RDW 15.7 H PT 114.5 H INR >10.0 H* APTT 70.2 H Potassium 5.4 H Chloride BUN 41 H Creatinine 2.26 H Glucose 142 H Albumin Ur Leukocyte Esterase Urine WBC Urine Bacteria Hyaline Casts Urine Mucus 07/11/19 07/12/19 07/12/19 18:40 06:01 06:01 RDW 15.7 H PT 20.4 H INR 2.1 H APTT Potassium Chloride BUN Creatinine Glucose Albumin Ur Leukocyte Esterase Small H Urine WBC 11 H Urine Bacteria Rare H Hyaline Casts 14 H Urine Mucus Rare H 07/12/19 06:01 RDW PT INR APTT Potassium 5.3 H Chloride 108 H BUN 41 H Creatinine 2.06 H Glucose Albumin 3.4 L Ur Leukocyte Esterase Urine WBC Urine Bacteria Hyaline Casts Urine Mucus - Diagnostic Findings Comments: CT scan of the brain reveals bilateral parietal infarcts. CT scan of the lumbar spine reveals no evidence of fracture or malalignment Assessment and Plan Assessment: Impressions: 1) reported weakness 2) Diffuse hyperreflexia, possibly secondary to cervical spinal stenosis. This may contribute to the patient's weakness Plan: Recommendations: 1) MRI of the cervical spine without gadolinium Time with Patient: Greater than 30 (patient was seen via teleneurology)
--- NOTE | 2019-07-12 13:02 | CONS ---
CONSULTATION REASON FOR CONSULT: Renal failure. Patient is a 69-year-old female who was admitted to the hospital with complaints of weakness in the lower extremities. She denies any previous history of kidney diseases. The patient is maintained on angiotensin receptor blockers prior to admission. She was noticed to have a creatinine of 2.26 on admission. It is down to 2.0 now. Review of previous labs shows creatinine of 1.6 on 06/29/2019 and a creatinine of 1.3 on 06/25/2019. Blood pressure has not been significantly low. Patient was not on any nonsteroidal anti-inflammatory agents at home prior to admission. The patient is maintained on Cozaar. Potassium has been slightly on the higher side. PAST MEDICAL HISTORY: COPD, history of CVA, TIA, type 2 diabetes, history of coronary artery disease, history of GA, history of breast cancer, history of pulmonary fibrosis, CHF, ejection fraction not known. SOCIAL HISTORY: Positive for smoking. No history of drug abuse or alcohol abuse. PAST SURGICAL HISTORY: Appendectomy, back surgery, breast surgery, cholecystectomy, cardiac catheterization, tubal ligation, left breast biopsy. MEDICATIONS: Medications prior to admission: Arimidex, Lipitor, vitamin D, Synthroid, Cozaar, Januvia, Xanax, Fosamax, aspirin, Protonix, Lyrica, potassium, Lasix, Aldactone, Nitrostat, Coumadin, Macrobid, BuSpar. ALLERGIES: INCLUDE IV DYE AND SULFA. REVIEW OF SYSTEMS: As per HPI. Other systems negative. EXAMINATION: Patient is comfortable, awake, not in any acute distress. Alert, oriented x3. Poor historian. Blood pressure was 134/78, heart rate is 72 per minute. She is afebrile. Examination of the heart S1, S2. Examination of the lungs, bilateral breath sounds are heard. ABDOMEN: Soft, nontender. Examination of lower extremities shows no significant edema. TEMPLE MEAT CUTTER exam grossly intact. LAB: Show sodium 140, potassium 5.3, chloride 108, BUN 41, creatinine 2.06, hemoglobin 12.3 g/dL. UA Is pretty benign. INR was more than 10 on initial admission. It is down to 2.1. ASSESSMENT: 1. Acute kidney injury, most likely prerenal. I will continue to hold off on the angiotensin receptor blockers for now as patient is also hyperkalemic and blood pressure is borderline. Check post-void residual to rule out any urine retention. 2. Chronic kidney disease stage 3 secondary to nephrosclerosis, baseline about 1.3 in April of 2019. Urinalysis is completely benign. 3. Supratherapeutic INR. Medications have been adjusted. 4. Lower extremity weakness, somewhat improved. 5. Recent history of cerebrovascular accident. 6. History of atrial fibrillation. 7. History of congestive heart failure mainly diastolic dysfunction, ejection fraction 50-55 percent. Left atrium is moderately dilated on echocardiogram in April of 2019. PLAN: Continue off angiotensin receptor blockers. Repeat labs in a.m. and hold off on IV fluids. Thank you for this consultation. MMODL / IJN: [id number] /
[2019-07-12 16:45] LABS: Glucose,Whole Blood 113 mg/dL (75-99)
[2019-07-12] MEDS ORDERED: WARFARIN 2 MG TAB PO ONE (18:00)
[2019-07-12] MEDS: SYMBICORT 160-4.5 MCG INHALER INHALATION SCH (19:41)
[2019-07-12 20:34] LABS: Glucose,Whole Blood 208 mg/dL (75-99)
[2019-07-12] MEDS: SODIUM CHLORIDE 0.9% 1,000 ML IV SCH (22:11)
[2019-07-12] MEDS: ATORVASTATIN 40 MG TAB PO SCH (22:11)
[2019-07-12] MEDS: busPIRone HCl 5 MG TAB PO SCH (22:11)
[2019-07-12] MEDS: LOSARTAN 50 MG TAB PO SCH (22:11)
[2019-07-13 05:52] LABS: INR 1.2 (<1.2)
[2019-07-13 06:09] LABS: Glucose,Whole Blood 96 mg/dL (75-99)
[2019-07-13] MEDS: PANTOPRAZOLE 40 MG TABLET PO SCH (07:04)
[2019-07-13] MEDS: LEVOTHYROXINE 25 MCG TAB PO SCH (07:04)
[2019-07-13 07:55] LABS: Calcium 9.1 mg/dL (8.4-10.2); Potassium 4.5 mmol/L (3.5-5.1)
[2019-07-13] MEDS: INSULIN ASPART (NovoLOG) 100 UNIT/ML VIAL SQ SCH ×4 (08:21→20:53)
[2019-07-13] MEDS: CHOLECALCIFEROL 1,000 UNIT TAB PO SCH (08:29)
[2019-07-13] MEDS: ANASTROZOLE 1 MG TAB PO SCH (08:30)
[2019-07-13] MEDS: METOPROLOL SUCCINATE (ER) 100 MG TAB.ER.24H PO SCH (08:30)
[2019-07-13] MEDS: busPIRone HCl 5 MG TAB PO SCH ×2 (08:30→20:15)
[2019-07-13] MEDS: SPIRONOLACTONE 25 MG TAB PO SCH (08:30)
[2019-07-13] MEDS: MAGNESIUM OXIDE 400 MG TAB PO SCH (08:30)
[2019-07-13] MEDS: FUROSEMIDE 40 MG TAB PO SCH (08:30)
[2019-07-13] MEDS: ASPIRIN 81 MG PO SCH (08:30)
[2019-07-13] MEDS: LOSARTAN 50 MG TAB PO SCH ×2 (08:30→20:15)
[2019-07-13] MEDS: CITALOPRAM HYDROBROMIDE 10 MG TAB PO SCH (08:30)
[2019-07-13] MEDS ORDERED: POTASSIUM CHLORIDE ER 20 MEQ TAB.ER PO SCH (09:00)
[2019-07-13] MEDS: SYMBICORT 160-4.5 MCG INHALER INHALATION SCH ×2 (09:17→19:34)
[2019-07-13] MEDS: IPRATROPIUM 0.5 MG/2.5 ML NEBU INHALATION SCH ×4 (09:17→20:13)
--- NOTE | 2019-07-13 09:44 | P.PN ---
Subjective Patient is seen in follow-up for acute kidney injury on chronic kidney disease. Renal function is better. Creatinine 1.73 today. Oral intake is good. No vomiting or diarrhea. Hemodynamically stable. She has been voiding. She is maintained on Lasix 40 mg orally once daily. Vital signs are stable. General: The patient appeared well nourished and normally developed. HEENT: Head exam is unremarkable. Neck is without jugular venous distension. LUNGS: Lungs are clear to auscultation and percussion. Breath sounds decreased. HEART: Rate and Rhythm are regular. First and second heart sounds normal. No murmurs, rubs or gallops. ABDOMEN: Abdominal exam reveals normal bowel sounds. Non-tender and non- distended. No evidence of peritonitis. EXTREMITITES: Trace edema. Objective - Vital Signs Vital signs: Vital Signs Temp 97.7 F 07/13/19 08:00 Pulse 88 07/13/19 09:27 Resp 16 07/13/19 08:00 BP 140/82 07/13/19 08:00 Pulse Ox 97 07/13/19 08:00 Intake & Output 07/12/19 07/13/19 07/13/19 18:59 06:59 18:59 Intake Total 460 200 Balance 460 200 Weight 59.7 kg Intake: Oral 460 200 Other: Voiding Method Bedpan Bedpan # Voids 1 0 - Labs CBC & Chem 7: 07/12/19 06:01 07/13/19 05:50 Labs: Abnormal Lab Results - Last 24 Hours (Table) 07/12/19 07/12/19 07/12/19 Range/Units 12:01 16:43 20:32 INR (<1.2) BUN (7-17) mg/dL Creatinine (0.52-1.04) mg/dL POC Glucose (mg/dL) 101 H 113 H 208 H (75-99) mg/dL 07/13/19 07/13/19 Range/Units 05:33 05:50 INR 1.2 H (<1.2) BUN 42 H (7-17) mg/dL Creatinine 1.73 H (0.52-1.04) mg/dL POC Glucose (mg/dL) (75-99) mg/dL Microbiology - Last 24 Hours (Table) 07/11/19 18:40 Urine Culture - Final Urine,Voided Assessment and Plan Plan: Assessment: 1. Acute kidney injury mostly prerenal. Renal function improving. Creatinine 1.73 today. UA benign. 2. Chronic kidney disease stage III secondary to nephrosclerosis. Creatinine 1.3 in April 2019. 3. Chronic diastolic CHF with moderate mitral regurgitation. 4. Hypertension with chronic kidney disease. Controlled. 5. Mild hyperkalemia secondary to acute kidney injury .and potassium supplementation. Patient also on Cozaar and spironolactone. Better. 6. Diabetes mellitus. 7. Supratherapeutic INR. Better. Plan: Maintain Lasix 40 mg orally once daily. Discontinue potassium supplementation. Hold Cozaar if systolic blood pressure less than 120. Avoid nephrotoxins. Repeat electrolytes in the morning.
[2019-07-13 12:07] LABS: Glucose,Whole Blood 197 mg/dL (75-99)
--- NOTE | 2019-07-13 15:50 | MR ---
MRI CERVICAL SPINE: CLINICAL HISTORY: Fall injury with weakness and stenosis. TECHNIQUE: Multiplanar, multisequence imaging of the cervical spine is performed without IV contrast. COMPARISON: None. FINDINGS: Sagittal images of the cervical spine show the craniocervical junction to appear within nor mal limits. The cervical and upper thoracic spinal cord is normal in course, caliber, and signal. Th ere is slight grade 1 retrolisthesis of C4 on C5. The vertebral body heights are normal. Mild disc s pace narrowing C4-C5 level. Moderate disc space narrowing C5-C6 level. The bone marrow signal intensi ty is within normal limits. Mild multilevel anterior spurring. Axial images at C2-C3 level shows small central disc protrusion minimally effacing anterior thecal sa c, bilateral neural foramina are patent. Axial images at C3-C4 level showed broad based posterior disc protrusion most prominent left foramina l level causing asymmetric [id number] left-sided neural foraminal narrowing. Axial images at C4-C5 level shows spondylosis with right paracentral spur disc complex effacing the a nterolateral thecal sac up to ventral surface of spinal cord which is slightly flattened and causing fairly severe left and mild to moderate right-sided neural foraminal narrowing. Axial images at C5-C6 level shows broad-based central spur disc complex effacing anterior thecal sac with flattening of the ventral surface spinal cortex image 22 with advanced bilateral neural foramina l narrowing. Axial images at C6-C7 levels with broad-based right paracentral/foraminal disc protrusion effacing an teroapical sac and causing moderate to severe right-sided neural foraminal narrowing. There is modera te left-sided neural foraminal narrowing due to additional foraminal disc protrusion. Axial images at C7-T1 level are within normal limits. IMPRESSION: Multilevel spondylolisthesis and degenerative changes most prominent at C4-C5 through the C6-C7 levels as detailed above with most severe finding C5-C6 level noted.
[2019-07-13 17:22] LABS: Glucose,Whole Blood 91 mg/dL (75-99)
[2019-07-13] MEDS ORDERED: WARFARIN 2 MG TAB PO ONE (18:00)
[2019-07-13] MEDS: ATORVASTATIN 40 MG TAB PO SCH (20:15)
[2019-07-13 20:54] LABS: Glucose,Whole Blood 146 mg/dL (75-99)
[2019-07-13] MEDS: SODIUM CHLORIDE 0.9% 1,000 ML IV SCH (20:54)
[2019-07-14 06:02] LABS: Glucose,Whole Blood 128 mg/dL (75-99)
[2019-07-14] MEDS: INSULIN ASPART (NovoLOG) 100 UNIT/ML VIAL SQ SCH ×2 (06:08→12:39)
[2019-07-14] MEDS: PANTOPRAZOLE 40 MG TABLET PO SCH (06:22)
[2019-07-14] MEDS: LEVOTHYROXINE 25 MCG TAB PO SCH (06:22)
[2019-07-14 06:28] LABS: INR 1.1 (<1.2); Prothrombin Time 11.4 sec (9.0-12.0)
[2019-07-14 06:35] LABS: Calcium 9.7 mg/dL (8.4-10.2); Magnesium 1.9 mg/dL (1.6-2.3); Potassium 4.5 mmol/L (3.5-5.1)
[2019-07-14] MEDS: LOSARTAN 50 MG TAB PO SCH (08:27)
[2019-07-14] MEDS: busPIRone HCl 5 MG TAB PO SCH (08:27)
[2019-07-14] MEDS: ANASTROZOLE 1 MG TAB PO SCH (08:27)
[2019-07-14] MEDS: METOPROLOL SUCCINATE (ER) 100 MG TAB.ER.24H PO SCH (08:27)
[2019-07-14] MEDS: SPIRONOLACTONE 25 MG TAB PO SCH (08:27)
[2019-07-14] MEDS: MAGNESIUM OXIDE 400 MG TAB PO SCH (08:27)
[2019-07-14] MEDS: FUROSEMIDE 40 MG TAB PO SCH (08:27)
[2019-07-14] MEDS: CITALOPRAM HYDROBROMIDE 10 MG TAB PO SCH (08:27)
[2019-07-14] MEDS: CHOLECALCIFEROL 1,000 UNIT TAB PO SCH (08:27)
[2019-07-14] MEDS: ASPIRIN 81 MG PO SCH (08:27)
[2019-07-14 08:31] VITALS: RESP 16; TEMP 97.5
[2019-07-14] MEDS: IPRATROPIUM 0.5 MG/2.5 ML NEBU INHALATION SCH ×2 (08:37→11:51)
[2019-07-14] MEDS: SYMBICORT 160-4.5 MCG INHALER INHALATION SCH (08:37)
--- NOTE | 2019-07-14 10:58 | P.PN ---
Subjective Patient is seen in follow-up for acute kidney injury on chronic kidney disease. Renal function is better. Creatinine 1.51 today. Oral intake is good. No vomiting or diarrhea. Hemodynamically stable. She has been voiding. She is maintained on Lasix 40 mg orally once daily. No changes overnight. Vital signs are stable. General: The patient appeared well nourished and normally developed. HEENT: Head exam is unremarkable. Neck is without jugular venous distension. LUNGS: Lungs are clear to auscultation and percussion. Breath sounds decreased. HEART: Rate and Rhythm are regular. First and second heart sounds normal. No murmurs, rubs or gallops. ABDOMEN: Abdominal exam reveals normal bowel sounds. Non-tender and non- distended. No evidence of peritonitis. EXTREMITITES: Trace edema. Objective - Vital Signs Vital signs: Vital Signs Temp 97.5 F L 07/14/19 08:00 Pulse 84 07/14/19 08:50 Resp 16 07/14/19 08:00 BP 132/63 07/14/19 08:00 Pulse Ox 97 07/14/19 08:00 Intake & Output 07/13/19 07/14/19 07/14/19 18:59 06:59 18:59 Intake Total 894 240 Balance 894 240 Weight 58 kg Intake: Oral 894 240 Other: Voiding Method Bedpan Toilet Toilet # Voids 2 1 # Bowel Movements 1 1 - Labs CBC & Chem 7: 07/12/19 06:01 07/14/19 05:44 Labs: Abnormal Lab Results - Last 24 Hours (Table) 07/13/19 07/13/19 07/14/19 Range/Units 12:05 20:51 05:44 BUN 43 H (7-17) mg/dL Creatinine 1.51 H (0.52-1.04) mg/dL Glucose 110 H (74-99) mg/dL POC Glucose (mg/dL) 197 H 146 H (75-99) mg/dL 07/14/19 Range/Units 06:00 BUN (7-17) mg/dL Creatinine (0.52-1.04) mg/dL Glucose (74-99) mg/dL POC Glucose (mg/dL) 128 H (75-99) mg/dL Assessment and Plan Plan: Assessment: 1. Acute kidney injury mostly prerenal. Renal function improving. Creatinine 1.51 today. UA benign. 2. Chronic kidney disease stage III secondary to nephrosclerosis. Creatinine 1.3 in April 2019. 3. Chronic diastolic CHF with moderate mitral regurgitation. 4. Hypertension with chronic kidney disease. Controlled. 5. Mild hyperkalemia secondary to acute kidney injury and potassium supplementation. Patient also on Cozaar and spironolactone. Better. 6. Diabetes mellitus. 7. Supratherapeutic INR. Better. Plan: Maintain Lasix 40 mg orally once daily. Discontinued potassium supplementation. Hold Cozaar if systolic blood pressure less than 120. Avoid nephrotoxins. Repeat electrolytes in the morning.
[2019-07-14 12:08] LABS: Glucose,Whole Blood 173 mg/dL (75-99)
[2019-07-14 12:26] VITALS: BP 135/66; PULSE 81
[2019-07-14] MEDS ORDERED: WARFARIN 2 MG TAB PO ONE (18:00)
[2019-07-18] MEDS ORDERED: NON FORMULARY DRUG (Alendronate Sodium [Fosamax] 70 MG) PO SCH (06:30)
== END 2019-07-14 14:59 | disposition home or self-care (01) | DRG 683 ==
LOC: EC 15:31 → 3SCARD 17:12
PROVIDERS: ADMIT Hospitalist; ATTEND Hospitalist
DX: N17.9 Acute kidney failure, unspecified (principal); I13.0 Hypertensive heart and chronic kidney disease with heart failure and stage 1 through stage 4 chronic kidney disease, or unspecified chronic kidney disease; I50.32 Chronic diastolic (congestive) heart failure; E11.22 Type 2 diabetes mellitus with diabetic chronic kidney disease; E87.5 Hyperkalemia; F17.200 Nicotine dependence, unspecified, uncomplicated; I25.10 Atherosclerotic heart disease of native coronary artery without angina pectoris; I25.2 Old myocardial infarction; I34.0 Nonrheumatic mitral (valve) insufficiency; I48.91 Unspecified atrial fibrillation; J44.9 Chronic obstructive pulmonary disease, unspecified; J84.10 Pulmonary fibrosis, unspecified; N18.3 Chronic kidney disease, stage 3 (moderate); R79.1 Abnormal coagulation profile; T45.515A Adverse effect of anticoagulants, initial encounter; Z79.01 Long term (current) use of anticoagulants; Z79.51 Long term (current) use of inhaled steroids; Z79.82 Long term (current) use of aspirin; Z79.83 Long term (current) use of bisphosphonates; Z79.84 Long term (current) use of oral hypoglycemic drugs; Z79.890 Hormone replacement therapy; Z79.899 Other long term (current) drug therapy; Z82.5 Family history of asthma and other chronic lower respiratory diseases; Z85.3 Personal history of malignant neoplasm of breast; Z91.81 History of falling; Z88.5 Allergy status to narcotic agent; Z88.2 Allergy status to sulfonamides; Z91.041 Radiographic dye allergy status; Z90.49 Acquired absence of other specified parts of digestive tract; M48.02 Spinal stenosis, cervical region; I69.328 Other speech and language deficits following cerebral infarction
CPT/HCPCS: 36415; 70450; 72128; 72131; 72141; 80048; 80053; 81001; 82550; 83735; 84484; 85025; 85610; 85730; 87086; 93005; 94640; 96360; 96361; 99285

== ENCOUNTER 2019-07-15 20:19 | Observation (INO) | payer MEDICARE, OTHER ==
[2019-07-15] MEDS ORDERED: SODIUM CHLORIDE 0.9% 500 ML 500 ML IV STA (21:04)
--- NOTE | 2019-07-15 21:07 | ED ---
General Adult HPI - General Chief complaint: Fall Stated complaint: Fall,Head Injury Time Seen by Provider: 07/15/19 20:57 Source: patient, family, RN notes reviewed, old records reviewed Mode of arrival: ambulatory Limitations: no limitations - History of Present Illness Initial comments: 69-year-old female presents status post fall with head injury. Patient is on Coumadin had minor head injury. No loss consciousness. She is also complaining of some pain in her buttocks after this fall. She's had generalized weakness and fatigue. She was recently admitted with similar symptoms, multiple falls, generalized weakness. At that time she preferred discharge home with outpatient rehab. Family is concerned this may not be appropriate at this time. She is unable to ambulate without assistance. Denies fever. Denies chest pain. Denies abdominal pain. Denies nausea vomiting. Denies dysuria. Patient states she has had a mild nonproductive cough. - Related Data Home Medications Medication Instructions Recorded Confirmed Anastrozole [Arimidex] 1 mg PO DAILY 10/23/18 07/11/19 Atorvastatin [Lipitor] 40 mg PO HS 10/23/18 07/11/19 Cholecalciferol [Vitamin D3 (25 5,000 unit PO DAILY 10/23/18 07/11/19 Mcg = 1000 Iu)] Levothyroxine Sodium [Synthroid] 25 mcg PO DAILY 10/23/18 07/11/19 Losartan [Cozaar] 50 mg PO BID 10/23/18 07/11/19 Metoprolol Succinate (ER) [Toprol 100 mg PO DAILY 10/23/18 07/11/19 XL] sitaGLIPtin [Januvia] 100 mg PO DAILY 10/23/18 07/11/19 ALPRAZolam [Xanax] 0.25 mg PO BID PRN 02/27/19 07/11/19 Citalopram Hydrobromide [CeleXA] 10 mg PO DAILY 02/27/19 07/11/19 Alendronate Sodium [Fosamax] 70 mg PO SA 05/05/19 07/11/19 Aspirin EC [Ecotrin Low Dose] 81 mg PO DAILY 05/05/19 07/11/19 Pantoprazole [Protonix] 40 mg PO DAILY 05/05/19 07/11/19 Pregabalin [Lyrica] 100 mg PO BID 05/05/19 07/11/19 Albuterol Sulfate [Ventolin HFA] 1 - 2 puff INHALATION RT-Q6H PRN 06/20/19 07/11/19 Budesonide/Formoterol Fumarate 2 puff INHALATION RT-BID 06/20/19 07/11/19 [Symbicort 160-4.5 Mcg Inhaler] Furosemide [Lasix] 40 mg PO DAILY 06/20/19 07/11/19 Ipratropium-Albuterol Nebulize 3 ml INHALATION RT-Q4H PRN 06/20/19 07/11/19 [Duoneb 0.5 mg-3 mg/3 ml Soln] Magnesium Oxide [Mag-Ox] 400 mg PO DAILY 06/20/19 07/11/19 Nitroglycerin Sl Tabs [Nitrostat] 0.4 mg SUBLINGUAL Q5M PRN 06/20/19 07/11/19 Spironolactone [Aldactone] 12.5 mg PO DAILY 06/20/19 07/11/19 busPIRone HCL 15 mg PO BID 07/11/19 07/11/19 Previous Rx's Medication Instructions Recorded Warfarin [Coumadin] 4 mg PO DAILY #60 tab 06/25/19 Tiotropium 18 Mcg/Puff [Spiriva] 1 puff INHALATION RT-DAILY #0 07/14/19 Allergies Allergy/AdvReac Type Severity Reaction Status Date / Time Iodinated Contrast Media Allergy Rash/Hives Verified 07/15/19 20:32 [Iodinated Contrast- Oral and IV Dye] morphine Allergy Rash/Hives Verified 07/15/19 20:32 Sulfa (Sulfonamide Allergy Rash/Hives Verified 07/15/19 20:32 Antibiotics) Review of Systems ROS Statement: Those systems with pertinent positive or pertinent negative responses have been documented in the HPI. ROS Other: All systems not noted in ROS Statement are negative. Past Medical History Past Medical History: Chest Pain / Angina, Heart Failure, COPD, CVA/TIA, Diabetes Mellitus, Hypertension, Myocardial Infarction ([place]) Additional Past Medical History / Comment(s): Breast Ca. Left side Last Myocardial Infarction Date:: 09/22/13 History of Any Multi-Drug Resistant Organisms: None Reported Past Surgical History: Appendectomy, Back Surgery, Breast Surgery, Cholecystectomy, Heart Catheterization, Tubal Ligation Additional Past Surgical History / Comment(s): loop recorder, left breast biopsy Past Anesthesia/Blood Transfusion Reactions: No Reported Reaction Past Psychological History: No Psychological Hx Reported Smoking Status: Current every day smoker Past Alcohol Use History: None Reported Past Drug Use History: None Reported - Past Family History Mother Family Medical History: COPD Father Family Medical History: Liver Disease General Exam Limitations: no limitations General appearance: alert, in no apparent distress Head exam: Present: atraumatic, normocephalic Eye exam: Present: normal appearance, PERRL ENT exam: Present: mucous membranes dry Neck exam: Present: normal inspection. Absent: tenderness, meningismus Respiratory exam: Present: normal lung sounds bilaterally, respiratory distress Cardiovascular Exam: Present: regular rate, normal rhythm GI/Abdominal exam: Present: soft. Absent: distended, tenderness, guarding Extremities exam: Present: normal inspection, full ROM, normal capillary refill. Absent: tenderness Neurological exam: Present: alert, oriented X3, CN II-XII intact, abnormal gait. Absent: motor sensory deficit Psychiatric exam: Present: normal affect, normal mood Skin exam: Present: warm, dry, intact. Absent: cyanosis, diaphoretic Course Vital Signs 07/15/19 07/15/19 07/15/19 20:28 21:32 23:24 Temperature 98.0 F 98.6 F 98.9 F Pulse Rate 79 75 Respiratory 16 22 15 Rate Blood Pressure 95/57 93/56 O2 Sat by Pulse 94 L 92 L Oximetry 07/15/19 23:34 Temperature Pulse Rate 69 Respiratory 19 Rate Blood Pressure 133/59 O2 Sat by Pulse 94 L Oximetry EKG Findings - EKG Comments: EKG Findings:: EKG: Normal sinus rhythm, left anterior fascicular block, rate 75, NM interval 172, QRS duration 84, QTC 489, no ST segment elevation. Medical Decision Making - Medical Decision Making 69-year-old female with generalized weakness, multiple falls, failure to thrive. Head CT performed, negative for intracranial hemorrhage or mass effect, chest x-ray negative for acute cardiac primary disease, pelvis x-rays obtained with multiple falls, no acute bony abnormality. Laboratory studies obtained, normal CBC, she does have acute kidney failure with a creatinine at 2.99 and mild hypokalemia 5.2. Patient will be admitted for IV hydration, treatment of acute kidney injury. urinalysis: Pending - Lab Data Result diagrams: 07/15/19 23:00 07/15/19 23:00 Lab Results 07/15/19 07/15/19 07/15/19 Range/Units 23:00 23:00 23:00 WBC 9.5 (3.8-10.6) k/uL RBC 3.87 (3.80-5.40) m/uL Hgb 11.4 (11.4-16.0) gm/dL Hct 35.0 (34.0-46.0) % MCV 90.5 (80.0-100.0) fL MCH 29.6 (25.0-35.0) pg MCHC 32.7 (31.0-37.0) g/dL RDW 15.3 (11.5-15.5) % Plt Count 255 (150-450) k/uL Neutrophils % 73 % Lymphocytes % 14 % Monocytes % 8 % Eosinophils % 2 % Basophils % 2 % Neutrophils # 6.9 (1.3-7.7) k/uL Lymphocytes # 1.3 (1.0-4.8) k/uL Monocytes # 0.8 (0-1.0) k/uL Eosinophils # 0.2 (0-0.7) k/uL Basophils # 0.1 (0-0.2) k/uL PT 12.1 H (9.0-12.0) sec INR 1.2 H (<1.2) APTT 34.1 H (22.0-30.0) sec Sodium 136 L (137-145) mmol/L Potassium 5.2 H (3.5-5.1) mmol/L Chloride 102 (98-107) mmol/L Carbon Dioxide 23 (22-30) mmol/L Anion Gap 11 mmol/L BUN 53 H (7-17) mg/dL Creatinine 2.99 H (0.52-1.04) mg/dL Est GFR (CKD-EPI)AfAm 17 (>60 ml/min/1.73 sqM) Est GFR (CKD-EPI)NonAf 15 (>60 ml/min/1.73 sqM) Glucose 160 H (74-99) mg/dL Plasma Lactic Acid Silvestre (0.7-2.0) mmol/L Calcium 9.2 (8.4-10.2) mg/dL Magnesium 1.9 (1.6-2.3) mg/dL Total Bilirubin 0.5 (0.2-1.3) mg/dL AST 41 H (14-36) U/L ALT 32 (4-34) U/L Alkaline Phosphatase 121 (38-126) U/L Total Protein 7.5 (6.3-8.2) g/dL Albumin 4.1 (3.5-5.0) g/dL 07/15/19 Range/Units 23:00 WBC (3.8-10.6) k/uL RBC (3.80-5.40) m/uL Hgb (11.4-16.0) gm/dL Hct (34.0-46.0) % MCV (80.0-100.0) fL MCH (25.0-35.0) pg MCHC (31.0-37.0) g/dL RDW (11.5-15.5) % Plt Count (150-450) k/uL Neutrophils % % Lymphocytes % % Monocytes % % Eosinophils % % Basophils % % Neutrophils # (1.3-7.7) k/uL Lymphocytes # (1.0-4.8) k/uL Monocytes # (0-1.0) k/uL Eosinophils # (0-0.7) k/uL Basophils # (0-0.2) k/uL PT (9.0-12.0) sec INR (<1.2) APTT (22.0-30.0) sec Sodium (137-145) mmol/L Potassium (3.5-5.1) mmol/L Chloride (98-107) mmol/L Carbon Dioxide (22-30) mmol/L Anion Gap mmol/L BUN (7-17) mg/dL Creatinine (0.52-1.04) mg/dL Est GFR (CKD-EPI)AfAm (>60 ml/min/1.73 sqM) Est GFR (CKD-EPI)NonAf (>60 ml/min/1.73 sqM) Glucose (74-99) mg/dL Plasma Lactic Acid Silvestre 1.4 (0.7-2.0) mmol/L Calcium (8.4-10.2) mg/dL Magnesium (1.6-2.3) mg/dL Total Bilirubin (0.2-1.3) mg/dL AST (14-36) U/L ALT (4-34) U/L Alkaline Phosphatase (38-126) U/L Total Protein (6.3-8.2) g/dL Albumin (3.5-5.0) g/dL Disposition Clinical Impression: Dehydration, Acute kidney injury, Fall Disposition: ADMITTED IP TO THIS HOSP Condition: Stable Is patient prescribed a controlled substance at d/c from ED?: No Referrals: Júnior Arzola DO [Primary Care Provider] - 1-2 days Decision to Admit Reason: Admit from EC Decision Date: 07/15/19 Decision Time: 23:49
--- NOTE | 2019-07-15 22:09 | XR ---
EXAMINATION TYPE: XR pelvis AP view DATE OF EXAM: 07/15/2019 COMPARISON: NONE HISTORY: Pain after falling TECHNIQUE: Single view FINDINGS: Pelvic ring is intact. Proximal femurs and hip joints are intact. Sacroiliac joints appear normal. IMPRESSION: Normal pelvis.
--- NOTE | 2019-07-15 22:16 | XR ---
EXAMINATION TYPE: XR chest 2V DATE OF EXAM: 07/15/2019 COMPARISON: 07/02/2019 HISTORY: Pain Weakness TECHNIQUE: 2 views FINDINGS: There is no heart failure nor confluent pneumonic infiltrate. Costophrenic angles are clear . There are chest leads. Thoracic aorta shows mild atheromatous change. Bony thorax is intact IMPRESSION: No active cardiopulmonary disease. No change. There is probably COPD.
--- NOTE | 2019-07-15 22:32 | CT ---
EXAMINATION TYPE: CT brain bruce castaneda DATE OF EXAM: 07/15/2019 COMPARISON: CT brain 07/11/2019 HISTORY: fall Neck pain. Headache. CT DLP: 1202.7 mGycm Automated exposure control for dose reduction was used. There is moderate patchy hypodensity in the periventricular white matter. There are multiple bilatera l cortical infarcts involving bilateral parietal lobes, bilateral frontal lobes. There is no midline shift. There is no sign of intracranial hemorrhage. There is mucosal thickening in the posterior ethm oid sinuses. Cervical vertebra have normal alignment. There is mild degenerative disc space narrowing in the lower cervical spine. There is spurring of the endplates. There is no compression fracture. Facet joints a re intact. Skull base is intact. IMPRESSION: Spondylotic changes in the lower cervical spine. No fracture. Multiple old bilateral cortical infarcts. Extensive chronic small vessel ischemia. No acute intracran ial abnormality. No change.
[2019-07-15 23:26] LABS: INR 1.2 (<1.2); Partial Thromboplastin Time 34.1 sec (22.0-30.0); Prothrombin Time 12.1 sec (9.0-12.0)
[2019-07-15 23:27] LABS: Albumin 4.1 g/dL (3.5-5.0); Calcium 9.2 mg/dL (8.4-10.2); Magnesium 1.9 mg/dL (1.6-2.3); Potassium 5.2 mmol/L (3.5-5.1); Total Bilirubin 0.5 mg/dL (0.2-1.3); Total Protein 7.5 g/dL (6.3-8.2)
[2019-07-15 23:38] LABS: Basophils # (A) 0.1 k/uL (0-0.2); Basophils % (A) 2 %; Eosinophils # (A) 0.2 k/uL (0-0.7); Eosinophils % (A) 2 %; HGB 11.4 gm/dL (11.4-16.0); Lymphocytes # (A) 1.3 k/uL (1.0-4.8); Lymphocytes % (A) 14 %; MCH 29.6 pg (25.0-35.0); MCHC 32.7 g/dL (31.0-37.0); MCV 90.5 fL (80.0-100.0); Mean Platelet Volume 9.3; Monocytes # (A) 0.8 k/uL (0-1.0); Monocytes % (A) 8 %; Neutrophils # (A) 6.9 k/uL (1.3-7.7); Neutrophils % (A) 73 %; Platelet Count 255 k/uL (150-450); RBC 3.87 m/uL (3.80-5.40); RDW 15.3 % (11.5-15.5); WBC 9.5 k/uL (3.8-10.6)
[2019-07-15] MEDS ORDERED: ONDANSETRON 4 MG/2 ML VIAL IVP PRN (23:44)
[2019-07-15] MEDS ORDERED: ACETAMINOPHEN TAB 325 MG TAB PO PRN (23:44)
[2019-07-15] MEDS ORDERED: NALOXONE 0.4 MG/ML 1 ML VIAL IV PRN (23:44)
[2019-07-16] MEDS: SODIUM CHLORIDE 0.9% 1,000 ML IV SCH ×2 (02:07→15:43)
[2019-07-16] MEDS ORDERED: SODIUM CHLORIDE 0.9% 500 ML 500 ML IV ONE (05:43)
[2019-07-16 10:15] LABS: Albumin 3.6 g/dL (3.5-5.0); Calcium 8.8 mg/dL (8.4-10.2); Magnesium 1.9 mg/dL (1.6-2.3); Potassium 4.8 mmol/L (3.5-5.1); Total Bilirubin 0.5 mg/dL (0.2-1.3); Total Protein 6.8 g/dL (6.3-8.2)
[2019-07-16 10:32] LABS: Appearance,Urine Cloudy (Clear); Bacteria,Urine Many /hpf; Bilirubin,Urine Negative (Negative); Blood,Urine Trace (Negative); Color,Urine Yellow; Glucose,Urine (UA) Negative (Negative); Ketones,Urine Negative (Negative); Leukocyte Esterase,Urine Large (Negative); Mucus,Urine Rare /hpf; Nitrite,Urine Positive (Negative); Protein,Urine Trace (Negative); RBC,Urine 6 /hpf (0-5); Specific Gravity,Urine 1.012 (1.001-1.035); Squamous Epithelial Cell,Urine 1 /hpf (0-4); Urobilinogen,Urine <2.0 mg/dL (<2.0); WBC,Urine >182 /hpf (0-5)
[2019-07-16 10:33] LABS: Basophils # (A) 0.2 k/uL (0-0.2); Basophils % (A) 2 %; Eosinophils # (A) 0.3 k/uL (0-0.7); Eosinophils % (A) 5 %; HCT 38.6 % (34.0-46.0); HGB 12.2 gm/dL (11.4-16.0); Hypochromasia Slight; Lymphocytes % (A) 30 %; MCH 29.7 pg (25.0-35.0); MCHC 31.6 g/dL (31.0-37.0); Mean Platelet Volume 9.5; Monocytes # (A) 0.7 k/uL (0-1.0); Monocytes % (A) 10 %; Neutrophils # (A) 3.5 k/uL (1.3-7.7); Neutrophils % (A) 51 %; Platelet Count 234 k/uL (150-450); RDW 15.4 % (11.5-15.5); WBC 6.9 k/uL (3.8-10.6)
--- NOTE | 2019-07-16 11:19 | P.NPCON ---
History of Present Illness - Reason for Consult acute renal failure, chronic renal failure - History of Present Illness Reason for consultation: Acute kidney injury on chronic kidney disease. History of present illness: Patient is a 69-year-old female sitting in renal consultation for acute kidney injury on chronic kidney disease. Patient has chronic kidney disease stage III with baseline creatinine near 1.3 secondary to nephrosclerosis. Patient was recently admitted to the hospital and was discharged 2 days ago. Patient felt weak and sustained a fall in the kitchen. She did hit her head. No syncope. Oral intake has been good. She has been voiding. No hematuria or dysuria. No chest pain or shortness of breath. No edema. Patient has chronic diastolic CHF with moderate mitral regurgitation. Patient's creatinine was 2.19 on admission and is 2.87 today. Diuretics are held. She is maintained on IV fluids. Patient's blood pressure was in the lower side in the systolic 90s on admission and is better now. She does a history of diabetes mellitus. CT of the head revealed old bilateral cortical infarcts. No acute changes were noted. No evidence of fluid overload noted on chest x-ray. Denies edema. Vital signs are stable. General: The patient appeared well nourished and normally developed. HEENT: Head exam is unremarkable. Neck is without jugular venous distension. LUNGS: Lungs are clear to auscultation and percussion. Breath sounds decreased. HEART: Rate and Rhythm are regular. First and second heart sounds normal. No murmurs, rubs or gallops. ABDOMEN: Abdominal exam reveals normal bowel sounds. Non-tender and non- distended. No evidence of peritonitis. EXTREMITITES: No clubbing, cyanosis, or edema. Past Medical History Past Medical History: Atrial Fibrillation, Chest Pain / Angina, Heart Failure, COPD, CVA/TIA, Diabetes Mellitus, Hyperlipidemia, Hypertension, Myocardial Infarction ([place]), Renal Disease, Thyroid Disorder Additional Past Medical History / Comment(s): NIDDM type II, neuropathy bilateral feet, 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 Last Myocardial Infarction Date:: 09/22/13 History of Any Multi-Drug Resistant Organisms: None Reported Past Surgical History: Appendectomy, Back Surgery, Breast Surgery, Cholecystectomy, Heart Catheterization, Tubal Ligation Additional Past Surgical History / Comment(s): Loop recorder, L breast bx/lumpectomy. Past Anesthesia/Blood Transfusion Reactions: No Reported Reaction Additional Past Anesthesia/Blood Transfusion Reaction / Comment(s): Pt has received blood in past without reaction. Smoking Status: Current every day smoker - Past Family History Mother Family Medical History: COPD Father Family Medical History: Liver Disease Medications and Allergies Home Medications Medication Instructions Recorded Confirmed Type Anastrozole [Arimidex] 1 mg PO DAILY 10/23/18 07/16/19 History Atorvastatin [Lipitor] 40 mg PO HS 10/23/18 07/16/19 History Cholecalciferol [Vitamin D3 (25 5,000 unit PO DAILY 10/23/18 07/16/19 History Mcg = 1000 Iu)] Levothyroxine Sodium [Synthroid] 25 mcg PO DAILY 10/23/18 07/16/19 History Losartan [Cozaar] 50 mg PO BID 10/23/18 07/16/19 History Metoprolol Succinate (ER) [Toprol 100 mg PO DAILY 10/23/18 07/16/19 History XL] sitaGLIPtin [Januvia] 100 mg PO DAILY 10/23/18 07/16/19 History ALPRAZolam [Xanax] 0.25 mg PO BID PRN 02/27/19 07/16/19 History Citalopram Hydrobromide [CeleXA] 10 mg PO DAILY 02/27/19 07/16/19 History Alendronate Sodium [Fosamax] 70 mg PO SA 05/05/19 07/16/19 History Aspirin EC [Ecotrin Low Dose] 81 mg PO DAILY 05/05/19 07/16/19 History Pantoprazole [Protonix] 40 mg PO DAILY 05/05/19 07/16/19 History Pregabalin [Lyrica] 100 mg PO BID 05/05/19 07/16/19 History Albuterol Sulfate [Ventolin HFA] 1 - 2 puff INHALATION RT-Q6H PRN 06/20/19 07/16/19 History Budesonide/Formoterol Fumarate 2 puff INHALATION RT-BID 06/20/19 07/16/19 History [Symbicort 160-4.5 Mcg Inhaler] Furosemide [Lasix] 40 mg PO DAILY 06/20/19 07/16/19 History Ipratropium-Albuterol Nebulize 3 ml INHALATION RT-Q4H PRN 06/20/19 07/16/19 History [Duoneb 0.5 mg-3 mg/3 ml Soln] Magnesium Oxide [Mag-Ox] 400 mg PO DAILY 06/20/19 07/16/19 History Nitroglycerin Sl Tabs [Nitrostat] 0.4 mg SUBLINGUAL Q5M PRN 06/20/19 07/16/19 History Spironolactone [Aldactone] 12.5 mg PO DAILY 06/20/19 07/16/19 History busPIRone HCL 15 mg PO BID 07/11/19 07/16/19 History Tiotropium 18 Mcg/Puff [Spiriva] 1 puff INHALATION RT-DAILY #0 07/14/19 07/16/19 Rx Warfarin Sodium 4 mg PO HS 07/16/19 07/16/19 History Allergies Allergy/AdvReac Type Severity Reaction Status Date / Time alprazolam [From Xanax] AdvReac Rash/Hives Verified 07/16/19 10:10 Iodinated Contrast Media AdvReac Rash/Hives Verified 07/16/19 10:10 [Iodinated Contrast- Oral and IV Dye] morphine AdvReac Rash/Hives Verified 07/16/19 10:10 Sulfa (Sulfonamide AdvReac Rash/Hives Verified 07/16/19 10:10 Antibiotics) Physical Exam Vitals: Vital Signs Temp Pulse Resp BP Pulse Ox 07/16/19 10:09 98.2 F 78 18 166/77 96 07/16/19 05:16 98 F 64 16 131/64 98 07/16/19 01:21 68 16 120/63 98 07/15/19 23:34 69 19 133/59 94 L 07/15/19 23:24 98.9 F 15 07/15/19 21:32 98.6 F 75 22 93/56 92 L 07/15/19 20:28 98.0 F 79 16 95/57 94 L Intake and Output 07/15/19 07/16/19 07/16/19 22:59 06:59 14:59 Intake Total 10 10 Output Total 750 Balance 10 -740 Intake: IV 10 10 Invasive Line 1 10 10 Output: Post Void Residual 750 Other: Voiding Method Toilet Weight 58.967 kg 58.967 kg Results - Lab Results Most recent lab results Calcium 8.8 mg/dL (8.4-10.2) 07/16/19 08:53 Magnesium 1.9 mg/dL (1.6-2.3) 07/16/19 08:53 07/16/19 08:53 07/16/19 08:53 Assessment and Plan Plan: assessment: 1. Acute kidney injury mostly prerenal secondary to hypotension and diaphor esis. Creatinine was 2.98 on admission is 2.87 today. 2. Chronic kidney disease stage III with baseline creatinine near 1.3. Etiologies to for sclerosis. 3. Generalized weakness status post fall. 4. Chronic diastolic CHF with moderate mitral regurgitation. Currently compensated. 5. Hypertension with chronic kidney disease. Controlled. 6. Diabetes mellitus. Plan: Maintain normal saline at 75 mL an hour. Hold diuretics. Encourage oral intake. Avoid nephrotoxins. Repeat electrolytes in the morning. Patient will require rehab outpatient. Thank you for the consultation. I will continue to follow the patient daily during her hospital stay.
[2019-07-16 11:54] LABS: Glucose,Whole Blood 113 mg/dL (75-99)
[2019-07-16] MEDS ORDERED: ALBUTEROL INHALER 60 PUFF/8 GM INHALER INHALATION PRN (11:54)
[2019-07-16] MEDS ORDERED: NITROGLYCERIN SL TABS 0.4 MG TAB SUBLINGUAL PRN (11:54)
[2019-07-16] MEDS ORDERED: IPRATROPIUM-ALBUTEROL 3 ML NEB INHALATION PRN (11:54)
--- NOTE | 2019-07-16 14:53 | P.HPIM ---
History of Present Illness 69-year-old female is admitted after a fall denied any syncopal episode or loss of consciousness as per the admission note I'm unable to get much of the history from the patient as patient is tired from not sleeping last night and didn't provide me much history. There was a concern about head injury because of which CAT scan of the head was obtained which did not show any intracranial bleed. Patient had a recent hospitalization at the time patient was advised to go to subacute rehabilitation because of her generalized weakness at that time patient was treated for what appears to be a stroke or a TIA. Patient presently is found to have acute renal failure with elevated creatinine of around 2.9 baseline appears to be 1.3. Patient is receiving diuretics at home which are being discontinued at this time patient is also on ANASTASIA inhibitor. Patient had normal ejection the past patient in the past was treated for chronic diastolic dysfunction at this time patient is severely intravascularly volume depleted leading to acute renal failure patient was started on IV fluids. Physical therapy occupational therapy case management will evaluate the patient. I'm unable to get much of the history as mentioned above. Patient does have mild expiratory wheezing apparently was complaining of nonproductive cough there is no evidence of infection at this time. Patient is supposed to be on Coumadin for atrial fibrillation patient doesn't appear to be taking this medication at home as her INR is only 1.2 and patient will be resumed on Coumadin until then we'll use subcutaneous heparin for DVT prophylaxis until INR is 1.4 Review of Systems REVIEW OF SYSTEMS: Unable to obtain due to her clinical condition Past Medical History Past Medical History: Atrial Fibrillation, Chest Pain / Angina, Heart Failure, COPD, CVA/TIA, Diabetes Mellitus, Hyperlipidemia, Hypertension, Myocardial Infarction ([place]), Renal Disease, Thyroid Disorder Additional Past Medical History / Comment(s): NIDDM type II, neuropathy bilateral feet, 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 Last Myocardial Infarction Date:: 09/22/13 History of Any Multi-Drug Resistant Organisms: None Reported Past Surgical History: Appendectomy, Back Surgery, Breast Surgery, Cholecystectomy, Heart Catheterization, Tubal Ligation Additional Past Surgical History / Comment(s): Loop recorder, L breast bx/lumpectomy. Past Anesthesia/Blood Transfusion Reactions: No Reported Reaction Additional Past Anesthesia/Blood Transfusion Reaction / Comment(s): Pt has received blood in past without reaction. Smoking Status: Current every day smoker - Past Family History Mother Family Medical History: COPD Father Family Medical History: Liver Disease Medications and Allergies Home Medications Medication Instructions Recorded Confirmed Type Anastrozole [Arimidex] 1 mg PO DAILY 10/23/18 07/16/19 History Atorvastatin [Lipitor] 40 mg PO HS 10/23/18 07/16/19 History Cholecalciferol [Vitamin D3 (25 5,000 unit PO DAILY 10/23/18 07/16/19 History Mcg = 1000 Iu)] Levothyroxine Sodium [Synthroid] 25 mcg PO DAILY 10/23/18 07/16/19 History Losartan [Cozaar] 50 mg PO BID 10/23/18 07/16/19 History Metoprolol Succinate (ER) [Toprol 100 mg PO DAILY 10/23/18 07/16/19 History XL] sitaGLIPtin [Januvia] 100 mg PO DAILY 10/23/18 07/16/19 History ALPRAZolam [Xanax] 0.25 mg PO BID PRN 02/27/19 07/16/19 History Citalopram Hydrobromide [CeleXA] 10 mg PO DAILY 02/27/19 07/16/19 History Alendronate Sodium [Fosamax] 70 mg PO SA 05/05/19 07/16/19 History Aspirin EC [Ecotrin Low Dose] 81 mg PO DAILY 05/05/19 07/16/19 History Pantoprazole [Protonix] 40 mg PO DAILY 05/05/19 07/16/19 History Pregabalin [Lyrica] 100 mg PO BID 05/05/19 07/16/19 History Albuterol Sulfate [Ventolin HFA] 1 - 2 puff INHALATION RT-Q6H PRN 06/20/19 07/16/19 History Budesonide/Formoterol Fumarate 2 puff INHALATION RT-BID 06/20/19 07/16/19 History [Symbicort 160-4.5 Mcg Inhaler] Furosemide [Lasix] 40 mg PO DAILY 06/20/19 07/16/19 History Ipratropium-Albuterol Nebulize 3 ml INHALATION RT-Q4H PRN 06/20/19 07/16/19 History [Duoneb 0.5 mg-3 mg/3 ml Soln] Magnesium Oxide [Mag-Ox] 400 mg PO DAILY 06/20/19 07/16/19 History Nitroglycerin Sl Tabs [Nitrostat] 0.4 mg SUBLINGUAL Q5M PRN 06/20/19 07/16/19 History Spironolactone [Aldactone] 12.5 mg PO DAILY 06/20/19 07/16/19 History busPIRone HCL 15 mg PO BID 07/11/19 07/16/19 History Tiotropium 18 Mcg/Puff [Spiriva] 1 puff INHALATION RT-DAILY #0 07/14/19 07/16/19 Rx Warfarin Sodium 4 mg PO HS 07/16/19 07/16/19 History Allergies Allergy/AdvReac Type Severity Reaction Status Date / Time alprazolam [From Xanax] AdvReac Rash/Hives Verified 07/16/19 10:10 Iodinated Contrast Media AdvReac Rash/Hives Verified 07/16/19 10:10 [Iodinated Contrast- Oral and IV Dye] morphine AdvReac Rash/Hives Verified 07/16/19 10:10 Sulfa (Sulfonamide AdvReac Rash/Hives Verified 07/16/19 10:10 Antibiotics) Physical Exam Vitals: Vital Signs Temp Pulse Resp BP Pulse Ox 07/16/19 10:09 98.2 F 78 18 166/77 96 07/16/19 05:16 98 F 64 16 131/64 98 07/16/19 01:21 68 16 120/63 98 07/15/19 23:34 69 19 133/59 94 L 07/15/19 23:24 98.9 F 15 07/15/19 21:32 98.6 F 75 22 93/56 92 L 07/15/19 20:28 98.0 F 79 16 95/57 94 L Intake and Output 07/15/19 07/16/19 07/16/19 22:59 06:59 14:59 Intake Total 10 20 Output Total 750 Balance 10 -730 Intake: IV 10 20 Invasive Line 1 10 20 Output: Post Void Residual 750 Other: Voiding Method Toilet Weight 58.967 kg 58.967 kg PHYSICAL EXAMINATION: GENERAL: Drowsy and sleepy apparently as per the nursing staff was oriented 3, not in any acute distress. Well developed, well nourished. HEENT: Pupils are round and equally reacting to light. EOMI. No scleral icterus. No conjunctival pallor. Normocephalic, atraumatic. No pharyngeal erythema. No thyromegaly. CARDIOVASCULAR: S1 and S2 present. No murmurs, rubs, or gallops. PULMONARY: Chest is clear to auscultation, no wheezing or crackles. ABDOMEN: Soft, nontender, nondistended, normoactive bowel sounds. No palpable organomegaly. MUSCULOSKELETAL: No joint swelling or deformity. EXTREMITIES: No cyanosis, clubbing, or pedal edema. NEUROLOGICAL: Unable to assess SKIN: No rashes. Results CBC & Chem 7: 07/16/19 08:53 07/16/19 08:53 Labs: Abnormal Lab Results - Last 24 Hours (Table) 07/15/19 07/15/19 07/16/19 Range/Units 23:00 23:00 08:53 PT 12.1 H (9.0-12.0) sec INR 1.2 H (<1.2) APTT 34.1 H (22.0-30.0) sec Sodium 136 L (137-145) mmol/L Potassium 5.2 H (3.5-5.1) mmol/L BUN 53 H 50 H (7-17) mg/dL Creatinine 2.99 H 2.87 H (0.52-1.04) mg/dL Glucose 160 H 68 L (74-99) mg/dL POC Glucose (mg/dL) (75-99) mg/dL AST 41 H 38 H (14-36) U/L Urine Appearance (Clear) Urine Protein (Negative) Urine Blood (Negative) Urine Nitrite (Negative) Ur Leukocyte Esterase (Negative) Urine RBC (0-5) /hpf Urine WBC (0-5) /hpf Urine WBC Clumps (None) /hpf Urine Bacteria (None) /hpf Urine Mucus (None) /hpf 07/16/19 07/16/19 Range/Units 09:50 11:52 PT (9.0-12.0) sec INR (<1.2) APTT (22.0-30.0) sec Sodium (137-145) mmol/L Potassium (3.5-5.1) mmol/L BUN (7-17) mg/dL Creatinine (0.52-1.04) mg/dL Glucose (74-99) mg/dL POC Glucose (mg/dL) 113 H (75-99) mg/dL AST (14-36) U/L Urine Appearance Cloudy H (Clear) Urine Protein Trace H (Negative) Urine Blood Trace H (Negative) Urine Nitrite Positive H (Negative) Ur Leukocyte Esterase Large H (Negative) Urine RBC 6 H (0-5) /hpf Urine WBC >182 H (0-5) /hpf Urine WBC Clumps Many H (None) /hpf Urine Bacteria Many H (None) /hpf Urine Mucus Rare H (None) /hpf Thrombosis Risk Factor Assmnt - Choose All That Apply Any of the Below Risk Factors Present?: Yes Each Factor Represents 1 point: Abnormal pulmonary function (COPD), Serious lung disease incl. pneumonia (< 1month) Other Risk Factors: Yes Each Risk Factor Represents 2 Points: Age 61-74 years, Malignancy Other congenital or acquired thrombophilia - If yes, enter type in comment: No Thrombosis Risk Factor Assessment Total Risk Factor Score: 6 Thrombosis Risk Factor Assessment Level: High Risk Assessment and Plan Plan: -Generalized weakness: Secondary to her recent hospitalization H, will need disposition to subacute rehabilitation. Patient also has acute renal failure contributing to her generalized weakness. -acute renal failure we'll azotemia from excessive diuretic therapy ANASTASIA inhibitor will be held and diuretic therapy will be held. I do not see any evidence of heart failure at this time. -Chronic atrial fibrillation: Patient is presently rate controlled patient will be started back on Coumadin patient is presently normal sinus rhythm. Recheck the INR tomorrow. COPD with minimal acute exacerbation patient will be started on inhaled steroids and inhalational treatments. She doesn't improve will start her on systemic steroids -Breast cancer adenocarcinoma patient is on hormone therapy which will be continued -depression -Type 2 diabetes mellitus: Patient will resume on home regimen along with sliding scale titration of diabetic medications depending on her sliding scale insulin requirements -Hyperthyroidism -Coronary artery disease. -DVT prophylaxis as mentioned in the HPI
[2019-07-16] MEDS: FAMOTIDINE 20 MG TAB PO SCH (15:44)
[2019-07-16 17:08] LABS: Glucose,Whole Blood 108 mg/dL (75-99)
[2019-07-16] MEDS ORDERED: WARFARIN 5 MG TAB PO ONE (18:00)
[2019-07-16] MEDS: SYMBICORT 160-4.5 MCG INHALER INHALATION SCH (19:25)
[2019-07-16] MEDS ORDERED: ATORVASTATIN 40 MG TAB PO SCH (21:00)
[2019-07-16 21:15] LABS: Glucose,Whole Blood 121 mg/dL (75-99)
[2019-07-16] MEDS: PREGABALIN 100 MG CAP PO SCH (22:21)
[2019-07-16] MEDS: busPIRone HCl 5 MG TAB PO SCH (22:22)
[2019-07-16] MEDS: HEPARIN SODIUM,PORCINE 5,000 UNIT/ML 1 ML VIAL SQ SCH (22:22)
[2019-07-17] MEDS: SODIUM CHLORIDE 0.9% 1,000 ML IV SCH (04:35)
[2019-07-17] MEDS ORDERED: LEVOTHYROXINE 25 MCG TAB PO SCH (06:30)
[2019-07-17 06:40] VITALS: TEMP 98.1
[2019-07-17 07:07] LABS: Glucose,Whole Blood 70 mg/dL (75-99)
[2019-07-17] MEDS: SYMBICORT 160-4.5 MCG INHALER INHALATION SCH (07:11)
[2019-07-17] MEDS: IPRATROPIUM 0.5 MG/2.5 ML NEBU INHALATION SCH ×2 (07:11→11:14)
[2019-07-17] MEDS: busPIRone HCl 5 MG TAB PO SCH (08:02)
[2019-07-17] MEDS: HEPARIN SODIUM,PORCINE 5,000 UNIT/ML 1 ML VIAL SQ SCH (08:02)
[2019-07-17] MEDS: PREGABALIN 100 MG CAP PO SCH (08:02)
[2019-07-17] MEDS: FAMOTIDINE 20 MG TAB PO SCH (08:02)
[2019-07-17] MEDS ORDERED: LINAGLIPTIN 5 MG TABLET PO SCH (09:00)
[2019-07-17] MEDS ORDERED: ANASTROZOLE 1 MG TAB PO SCH (09:00)
[2019-07-17] MEDS ORDERED: METOPROLOL SUCCINATE (ER) 100 MG TAB.ER.24H PO SCH (09:00)
[2019-07-17] MEDS ORDERED: CHOLECALCIFEROL 1,000 UNIT TAB PO SCH (09:00)
[2019-07-17] MEDS ORDERED: ASPIRIN 81 MG PO SCH (09:00)
[2019-07-17] MEDS ORDERED: CITALOPRAM HYDROBROMIDE 10 MG TAB PO SCH (09:00)
[2019-07-17] MEDS ORDERED: MAGNESIUM OXIDE 400 MG TAB PO SCH (09:00)
[2019-07-17 10:23] LABS: Calcium 9.4 mg/dL (8.4-10.2)
[2019-07-17 10:40] LABS: Potassium 4.5 mmol/L (3.5-5.1)
--- NOTE | 2019-07-17 11:18 | XR ---
EXAMINATION TYPE: XR chest 1V portable DATE OF EXAM: 07/17/2019 COMPARISON: Prior chest x-ray 07/15/2019 HISTORY: Shortness of breath TECHNIQUE: Single frontal view of the chest is obtained. FINDINGS: There is no focal air space opacity, pleural effusion, or pneumothorax seen. The cardiac silhouette size is stable. The osseous structures are intact. There is a loop recorder present over the left heart. Calcified granuloma present in the left lower and upper lobe. Lucent upper lobes con sistent with emphysema, COPD. Aorta is dense. IMPRESSION: No acute process. Emphysema.
[2019-07-17 11:23] LABS: Glucose,Whole Blood 97 mg/dL (75-99)
[2019-07-17 11:56] VITALS: BP 170/77; PULSE 71; RESP 17
[2019-07-17 11:58] LABS: Prothrombin Time 10.9 sec (9.0-12.0)
--- NOTE | 2019-07-17 13:29 | P.PN ---
Subjective Patient is seen in follow-up for acute kidney injury on chronic kidney disease. Patient has chronic kidney disease stage III with baseline creatinine near 1.3 secondary to nephrosclerosis. Overall feels better today. Oral intake is good. No vomiting or diarrhea. Renal function improving with IV fluids. Vital signs are stable. General: The patient appeared well nourished and normally developed. HEENT: Head exam is unremarkable. Neck is without jugular venous distension. LUNGS: Lungs are clear to auscultation and percussion. Breath sounds decreased. HEART: Rate and Rhythm are regular. First and second heart sounds normal. No murmurs, rubs or gallops. ABDOMEN: Abdominal exam reveals normal bowel sounds. Non-tender and non- distended. No evidence of peritonitis. EXTREMITITES: No clubbing, cyanosis, or edema. Objective - Vital Signs Vital signs: Vital Signs Temp 98.1 F 07/17/19 11:55 Pulse 71 07/17/19 11:55 Resp 17 07/17/19 11:55 BP 170/77 07/17/19 11:55 Pulse Ox 98 07/17/19 11:55 Intake & Output 07/16/19 07/17/19 07/17/19 18:59 06:59 18:59 Intake Total 30 1125 Output Total 750 Balance -720 1125 Weight 58.967 kg Intake: IV 30 Invasive Line 1 30 Intake, IV Titration 1125 Amount Sodium Chloride 0.9% 1, 1125 000 ml @ 75 mls/hr IV . [id number] [facility] Rx#:[id number] Output: Post Void Residual 750 Other: Voiding Method Toilet Toilet # Voids 1 - Labs CBC & Chem 7: 07/16/19 08:53 07/17/19 09:24 Labs: Abnormal Lab Results - Last 24 Hours (Table) 07/16/19 07/16/19 07/17/19 Range/Units 17:07 21:13 07:05 Chloride (98-107) mmol/L BUN (7-17) mg/dL Creatinine (0.52-1.04) mg/dL Glucose (74-99) mg/dL POC Glucose (mg/dL) 108 H 121 H 70 L (75-99) mg/dL 07/17/19 Range/Units 09:24 Chloride 111 H (98-107) mmol/L BUN 43 H (7-17) mg/dL Creatinine 1.73 H (0.52-1.04) mg/dL Glucose 139 H (74-99) mg/dL POC Glucose (mg/dL) (75-99) mg/dL Assessment and Plan Plan: assessment: 1. Acute kidney injury mostly prerenal secondary to hypotension and diuresis. Creatinine was 2.98 on admission is down to 1.73 today. 2. Chronic kidney disease stage III with baseline creatinine near 1.3. Etiology it nephrosclerosis. 3. Generalized weakness status post fall. 4. Chronic diastolic CHF with moderate mitral regurgitation. Currently compensated. 5. Hypertension with chronic kidney disease. Controlled. 6. Diabetes mellitus. 7. UTI. Plan: Decrease rate of normal saline to 50 mL an hour. Hold diuretics. Encourage oral intake. Avoid nephrotoxins. Repeat electrolytes in the morning. Patient will require rehab outpatient. Start Rocephin 1 g every 24 hours. Check urine culture.
--- NOTE | 2019-07-17 14:08 | P.DS ---
Providers Date of admission: 07/16/19 00:00 Expected date of discharge: 07/17/19 Attending physician: Faisal Delacruz Consults: 07/16/19 00:22 Consult Physician Routine Consulting Provider: Jerry Rogers Consult Reason/Comments: GABBY Do you want consulting provider notified?: Yes Primary care physician: [facility] Course: Final diagnosis -Generalized weakness -acute renal failure prerenal azotemia -Asymptomatic bacteriuria -Chronic atrial fibrillation -COPD with minimal acute exacerbation -Breast cancer adenocarcinoma -depression -Type 2 diabetes mellitus -Hyperthyroidism -Coronary artery disease -DVT prophylaxis Discharge disposition Patient is being discharged in a stable condition with guarded prognosis to [facility] for continued PT/OT therapy for strength and mobility. Patient will continue on a short course of oral antibiotics in the form of Ceftin for 3 days and then may discontinue. Total time taken is 35 minutes. History of present illness This is a 69-year-old female who was recently admitted after a fall and was being closely monitored. Patient is on Coumadin for chronic atrial fibrillation and had a recent hospitalization where her INR was found to be over 10. Patient currently subtherapeutic on her INR and will need repeat lab values to monitor the INR for therapeutic level in between 2 and 3. Patient will continue on Coumadin 4 mg daily at this time. During hospitalization patient had a urinalysis done and patient is asymptomatic at this time. Patient will be given a short course of oral antibiotics in the form of Ceftin for the next 3 days and then may discontinue. Patient was found to have acute renal failure possibly due to ANASTASIA inhibitor's and diuretic use which are discontinued at this time. Patient will need repeat labs to monitor the creatinine. Creatinine is greatly improving and is currently 1.73. Encourage the patient to increase her oral intake. Due to an unsteady gait and frequent falls patient will be going to [facility] for continued PT/OT therapy. Patient states she is feeling well and currently denies any chest pain, shortness of breath, or palpitations. Patient is afebrile. Patient denies any nausea or vomiting and has been tolerating diet. Patient is a diabetic and will need to monitor blood sugars before meals at bedtime for tight glycemic control. On exam vital signs are stable. Temp is 98.1F, pulse is 71, respirations are 17, blood pressure is 170/77, oxygen saturation is 98% on room air. Cardio S1, S2 are present. Respiratory system shows diminished breath sounds at the bases with no wheezing noted. Abdomen is soft and nontender. Nervous system shows no focal deficits with mild diffuse weakness. Please refer to medication reconciliation sheet for a list of medications. Patient Condition at Discharge: Stable Plan - Discharge Summary Discharge Rx Participant: No New Discharge Prescriptions: New Cefuroxime Axetil [Ceftin] 500 mg PO BID 3 Days #6 tab Acetaminophen Tab [Tylenol] 650 mg PO Q6HR PRN tab PRN Reason: Mild Pain Or Fever > 100.5 Continue Anastrozole [Arimidex] 1 mg PO DAILY Atorvastatin [Lipitor] 40 mg PO HS Cholecalciferol [Vitamin D3 (25 Mcg = 1000 Iu)] 5,000 unit PO DAILY Levothyroxine Sodium [Synthroid] 25 mcg PO DAILY Metoprolol Succinate (ER) [Toprol XL] 100 mg PO DAILY sitaGLIPtin [Januvia] 100 mg PO DAILY Citalopram Hydrobromide [CeleXA] 10 mg PO DAILY Pantoprazole [Protonix] 40 mg PO DAILY Pregabalin [Lyrica] 100 mg PO BID Aspirin EC [Ecotrin Low Dose] 81 mg PO DAILY Alendronate Sodium [Fosamax] 70 mg PO SA Albuterol Sulfate [Ventolin HFA] 1 - 2 puff INHALATION RT-Q6H PRN PRN Reason: Shortness Of Breath Budesonide/Formoterol Fumarate [Symbicort 160-4.5 Mcg Inhaler] 2 puff INHALATION RT-BID Magnesium Oxide [Mag-Ox] 400 mg PO DAILY Nitroglycerin Sl Tabs [Nitrostat] 0.4 mg SUBLINGUAL Q5M PRN PRN Reason: Chest Pain Ipratropium-Albuterol Nebulize [Duoneb 0.5 mg-3 mg/3 ml Soln] 3 ml INHALATION RT-Q4H PRN PRN Reason: Shortness Of Breath busPIRone HCL 15 mg PO BID Tiotropium 18 Mcg/Puff [Spiriva] 1 puff INHALATION RT-DAILY #0 Warfarin Sodium 4 mg PO HS Discontinued Losartan [Cozaar] 50 mg PO BID ALPRAZolam [Xanax] 0.25 mg PO BID PRN PRN Reason: Anxiety Spironolactone [Aldactone] 12.5 mg PO DAILY Furosemide [Lasix] 40 mg PO DAILY Discharge Medication List Anastrozole [Arimidex] 1 mg PO DAILY 10/23/18 [History] Atorvastatin [Lipitor] 40 mg PO HS 10/23/18 [History] Cholecalciferol [Vitamin D3 (25 Mcg = 1000 Iu)] 5,000 unit PO DAILY 10/23/18 [History] Levothyroxine Sodium [Synthroid] 25 mcg PO DAILY 10/23/18 [History] Metoprolol Succinate (ER) [Toprol XL] 100 mg PO DAILY 10/23/18 [History] sitaGLIPtin [Januvia] 100 mg PO DAILY 10/23/18 [History] Citalopram Hydrobromide [CeleXA] 10 mg PO DAILY 02/27/19 [History] Alendronate Sodium [Fosamax] 70 mg PO SA 05/05/19 [History] Aspirin EC [Ecotrin Low Dose] 81 mg PO DAILY 05/05/19 [History] Pantoprazole [Protonix] 40 mg PO DAILY 05/05/19 [History] Pregabalin [Lyrica] 100 mg PO BID 05/05/19 [History] Albuterol Sulfate [Ventolin HFA] 1 - 2 puff INHALATION RT-Q6H PRN 06/20/19 [History] Budesonide/Formoterol Fumarate [Symbicort 160-4.5 Mcg Inhaler] 2 puff INHALATION RT-BID 06/20/19 [History] Ipratropium-Albuterol Nebulize [Duoneb 0.5 mg-3 mg/3 ml Soln] 3 ml INHALATION RT-Q4H PRN 06/20/19 [History] Magnesium Oxide [Mag-Ox] 400 mg PO DAILY 06/20/19 [History] Nitroglycerin Sl Tabs [Nitrostat] 0.4 mg SUBLINGUAL Q5M PRN 06/20/19 [History] busPIRone HCL 15 mg PO BID 07/11/19 [History] Tiotropium 18 Mcg/Puff [Spiriva] 1 puff INHALATION RT-DAILY #0 07/14/19 [Rx] Warfarin Sodium 4 mg PO HS 07/16/19 [History] Acetaminophen Tab [Tylenol] 650 mg PO Q6HR PRN tab 07/17/19 [Rx] Cefuroxime Axetil [Ceftin] 500 mg PO BID 3 Days #6 tab 07/17/19 [Rx] Follow up Appointment(s)/Referral(s): Júnior rAzola DO [Primary Care Provider] - 1-2 days Ambulatory/Diagnostic Orders: Basic Metabolic Panel [LAB.AMB] Time Frame: 2 Days, Location: None Selected Prothrombin Time INR [LAB.AMB] Time Frame: 1 Day, Location: None Selected Activity/Diet/Wound Care/Special Instructions: Patient is going to [facility] Follow-up with primary care provider upon discharge Continue current diet Continue taking Coumadin 4 mg and recheck PT/INR in 1-2 days to monitor for therapeutic level in between 2 and 3 Continue working with PT/OT for strength and mobility Repeat labs in 1-2 days to monitor INR Repeat labs in 1-2 days to monitor creatinine Continue to encourage oral intake Continue taking antibiotics for 3 days and then may discontinue Discharge Disposition: TRANSFER TO SNF/ECF
[2019-07-17] MEDS ORDERED: WARFARIN 5 MG TAB PO ONE (18:00)
[2019-07-17] MEDS ORDERED: WARFARIN 2 MG TAB PO SCH (21:00)
[2019-07-18] MEDS ORDERED: NON FORMULARY DRUG (Alendronate Sodium [Fosamax] 70 MG) PO SCH (09:00)
== END 2019-07-17 15:00 ==
LOC: EC 20:19 → 5NMEDONC 07-16
PROVIDERS: ADMIT Hospitalist; ATTEND Hospitalist
DX: N17.9 Acute kidney failure, unspecified (principal); J44.1 Chronic obstructive pulmonary disease with (acute) exacerbation; R82.71 Bacteriuria; C50.919 Malignant neoplasm of unspecified site of unspecified female breast; R53.1 Weakness; I48.20 Chronic atrial fibrillation, unspecified; E03.9 Hypothyroidism, unspecified; E05.90 Thyrotoxicosis, unspecified without thyrotoxic crisis or storm; E11.22 Type 2 diabetes mellitus with diabetic chronic kidney disease; E78.5 Hyperlipidemia, unspecified; E86.0 Dehydration; E87.6 Hypokalemia; F17.200 Nicotine dependence, unspecified, uncomplicated; F32.9 Major depressive disorder, single episode, unspecified; I13.0 Hypertensive heart and chronic kidney disease with heart failure and stage 1 through stage 4 chronic kidney disease, or unspecified chronic kidney disease; I25.10 Atherosclerotic heart disease of native coronary artery without angina pectoris; I25.2 Old myocardial infarction; I34.0 Nonrheumatic mitral (valve) insufficiency; I50.32 Chronic diastolic (congestive) heart failure; E11.40 Type 2 diabetes mellitus with diabetic neuropathy, unspecified; I69.354 Hemiplegia and hemiparesis following cerebral infarction affecting left non-dominant side; I69.328 Other speech and language deficits following cerebral infarction; J96.11 Chronic respiratory failure with hypoxia; Z99.81 Dependence on supplemental oxygen; M81.0 Age-related osteoporosis without current pathological fracture; N18.3 Chronic kidney disease, stage 3 (moderate); R29.6 Repeated falls; R62.7 Adult failure to thrive; S09.90XA Unspecified injury of head, initial encounter; W19.XXXA Unspecified fall, initial encounter; Y92.000 Kitchen of unspecified non-institutional (private) residence as the place of occurrence of the external cause; Z79.01 Long term (current) use of anticoagulants; Z79.4 Long term (current) use of insulin; Z79.51 Long term (current) use of inhaled steroids; Z79.82 Long term (current) use of aspirin; Z79.83 Long term (current) use of bisphosphonates; Z79.890 Hormone replacement therapy; Z79.899 Other long term (current) drug therapy; Z82.5 Family history of asthma and other chronic lower respiratory diseases; Z88.5 Allergy status to narcotic agent; Z88.2 Allergy status to sulfonamides; Z91.041 Radiographic dye allergy status; Z90.49 Acquired absence of other specified parts of digestive tract; Z98.51 Tubal ligation status; Z84.89 Family history of other specified conditions
CPT/HCPCS: 96361 ×3; 96372 ×2; 96360; 99285; 51798; 36415; 94640 ×3; 94760; 93005; 97161; 97166; 80053 ×2; 80048; 83605; 83735 ×2; 85025 ×2; 85610 ×3; 85730; 81001; 72170; 71045; 71046; 72125; 70450; G0378 ×2; J1644 ×2; S0170

== ENCOUNTER 2019-08-03 10:29 | Inpatient (IN) | payer MEDICARE, OTHER ==
[2019-08-03] MEDS ORDERED: methylPREDNISolone SOD SUCCI 125 MG/2 ML VIAL IV STA (11:04)
[2019-08-03] MEDS ORDERED: IPRATROPIUM 0.5 MG/2.5 ML NEBU INHALATION STA (11:04)
[2019-08-03] MEDS ORDERED: ALBUTEROL NEBULIZED 2.5 MG/3 ML INHALATION STA (11:04)
[2019-08-03] MEDS ORDERED: ACETAMINOPHEN TAB 500 MG TAB PO STA (11:09)
[2019-08-03] MEDS ORDERED: IBUPROFEN 600 MG TAB PO STA (11:09)
--- NOTE | 2019-08-03 11:52 | ED ---
General Adult HPI - General Chief complaint: Shortness of Breath Stated complaint: chest congestion/trouble walking Time Seen by Provider: 08/03/19 10:30 Source: patient, RN notes reviewed, old records reviewed Mode of arrival: ambulatory Limitations: no limitations - History of Present Illness Initial comments: This is a 69-year-old female with past medical history significant for COPD. According to family she just got out of patient see for rehabilitation and was doing fine but as of yesterday has started coughing quite a bit has had a low- grade fever and is coughing up quite a bit of sputum. Patient also has been short of breath. Patient denies any chest pain or palpitations. Patient denies any abdominal pain patient denies any headache patient denies numbness weakness per patient denies lightheadedness or dizziness per patient denies any swelling to legs or calf tenderness. Patient states she didn't take any of her treatments today because she wasn't feeling well. Patient also fell yesterday without injury however that is the reason she went to rehab so she could regain strength so she would not continue to have multiple falls. - Related Data Home Medications Medication Instructions Recorded Confirmed Anastrozole [Arimidex] 1 mg PO DAILY 10/23/18 08/03/19 Atorvastatin [Lipitor] 40 mg PO HS 10/23/18 08/03/19 Levothyroxine Sodium [Synthroid] 25 mcg PO DAILY 10/23/18 08/03/19 Metoprolol Succinate (ER) [Toprol 100 mg PO DAILY 10/23/18 08/03/19 XL] sitaGLIPtin [Januvia] 100 mg PO DAILY 10/23/18 08/03/19 Citalopram Hydrobromide [CeleXA] 10 mg PO DAILY 02/27/19 08/03/19 Alendronate Sodium [Fosamax] 70 mg PO SA 05/05/19 08/03/19 Aspirin EC [Ecotrin Low Dose] 81 mg PO DAILY 05/05/19 08/03/19 Pantoprazole [Protonix] 40 mg PO DAILY 05/05/19 08/03/19 Pregabalin [Lyrica] 100 mg PO BID 05/05/19 08/03/19 Albuterol Sulfate [Ventolin HFA] 1 - 2 puff INHALATION RT-Q6H PRN 06/20/19 08/03/19 Budesonide/Formoterol Fumarate 2 puff INHALATION RT-BID 06/20/19 08/03/19 [Symbicort 160-4.5 Mcg Inhaler] Ipratropium-Albuterol Nebulize 3 ml INHALATION RT-Q4H PRN 06/20/19 08/03/19 [Duoneb 0.5 mg-3 mg/3 ml Soln] Magnesium Oxide [Mag-Ox] 400 mg PO DAILY 06/20/19 08/03/19 Nitroglycerin Sl Tabs [Nitrostat] 0.4 mg SUBLINGUAL Q5M PRN 06/20/19 08/03/19 busPIRone HCL 15 mg PO BID 07/11/19 08/03/19 Warfarin Sodium 4 mg PO HS 07/16/19 08/03/19 ALPRAZolam [Xanax] 0.25 mg PO BID PRN 08/03/19 08/03/19 Furosemide [Lasix] 40 mg PO DAILY 08/03/19 08/03/19 Potassium Chloride ER [K-Dur 20] 20 meq PO DAILY 08/03/19 08/03/19 Previous Rx's Medication Instructions Recorded Tiotropium 18 Mcg/Puff [Spiriva] 1 puff INHALATION RT-DAILY #0 07/14/19 Acetaminophen Tab [Tylenol] 650 mg PO Q6HR PRN tab 07/17/19 Allergies Allergy/AdvReac Type Severity Reaction Status Date / Time alprazolam [From Xanax] Allergy Rash/Hives Verified 08/03/19 11:44 Iodinated Contrast Media Allergy Rash/Hives Verified 08/03/19 11:44 [Iodinated Contrast- Oral and IV Dye] morphine Allergy Rash/Hives Verified 08/03/19 11:44 Sulfa (Sulfonamide Allergy Rash/Hives Verified 08/03/19 11:44 Antibiotics) Review of Systems ROS Statement: Those systems with pertinent positive or pertinent negative responses have been documented in the HPI. ROS Other: All systems not noted in ROS Statement are negative. Past Medical History Past Medical History: Atrial Fibrillation, Chest Pain / Angina, Heart Failure, COPD, CVA/TIA, Diabetes Mellitus, Hyperlipidemia, Hypertension, Myocardial Infarction ([place]), Renal Disease, Thyroid Disorder Additional Past Medical History / Comment(s): NIDDM type II, neuropathy bilateral feet, 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 Last Myocardial Infarction Date:: 09/22/13 History of Any Multi-Drug Resistant Organisms: None Reported Past Surgical History: Appendectomy, Back Surgery, Breast Surgery, Cholecystectomy, Heart Catheterization, Tubal Ligation Additional Past Surgical History / Comment(s): Loop recorder, L breast bx/lumpectomy. Past Anesthesia/Blood Transfusion Reactions: No Reported Reaction Additional Past Anesthesia/Blood Transfusion Reaction / Comment(s): Pt has received blood in past without reaction. Past Psychological History: Anxiety, Depression Smoking Status: Current every day smoker Past Alcohol Use History: None Reported Past Drug Use History: None Reported - Past Family History Mother Family Medical History: COPD Father Family Medical History: Liver Disease General Exam - General Exam Comments Initial Comments: GENERAL: Patient is well-developed and well-nourished. Patient is nontoxic and well- hydrated and is in mild distress. ENT: Neck is soft and supple. No significant lymphadenopathy is noted. Oropharynx is clear. Moist mucous membranes. Neck has full range of motion without eliciting any pain. EYES: The sclera were anicteric and conjunctiva were pink and moist. Extraocular movements were intact and pupils were equal round and reactive to light. Eyelids were unremarkable. PULMONARY: Unlabored respirations. Good breath sounds bilaterally. No audible rales rhonchi or wheezing was noted. CARDIOVASCULAR: There is a regular rate and rhythm without any murmurs gallops or rubs. ABDOMEN: Soft and nontender with normal bowel sounds. No palpable organomegaly was noted. There is no palpable pulsatile mass. SKIN: Skin is clear with no lesions or rashes and otherwise unremarkable. NEUROLOGIC: Patient is alert and oriented x3. Cranial nerves II through XII are grossly intact. Motor and sensory are also intact. Normal speech, volume and content. Symmetrical smile. MUSCULOSKELETAL: Normal extremities with adequate strength and full range of motion. No lower extremity swelling or edema. No calf tenderness. LYMPHATICS: No significant lymphadenopathy is noted PSYCHIATRIC: Normal psychiatric evaluation. Limitations: no limitations Course Vital Signs 08/03/19 08/03/19 08/03/19 10:33 11:52 12:15 Temperature 100.0 F H Pulse Rate 101 H 84 97 Respiratory 22 Rate Blood Pressure 152/76 O2 Sat by Pulse 91 L Oximetry 08/03/19 12:50 Temperature Pulse Rate 103 H Respiratory 20 Rate Blood Pressure 138/70 O2 Sat by Pulse 96 Oximetry Medical Decision Making - Medical Decision Making EKG shows a sinus rhythm with occasional PVC at 99 bpm MI interval is on a 46 dresses 86 QT interval is 376 QTC is 42. Patient's EKG shows no ST segment elevation or depression. Chest x-ray shows no acute abnormality. I spoke with Dr. Landa the patient will be admitted for dyspnea and acute bronchitis. Patient will also be here to determine if she needs further rehab because of her recent fall. - Lab Data Result diagrams: 08/03/19 12:28 08/03/19 12:28 Lab Results 08/03/19 08/03/19 08/03/19 Range/Units 12:28 12:28 12:28 WBC 10.5 (3.8-10.6) k/uL RBC 3.61 L (3.80-5.40) m/uL Hgb 10.8 L (11.4-16.0) gm/dL Hct 33.9 L (34.0-46.0) % MCV 93.9 (80.0-100.0) fL MCH 30.0 (25.0-35.0) pg MCHC 31.9 (31.0-37.0) g/dL RDW 15.3 (11.5-15.5) % Plt Count 218 (150-450) k/uL Neutrophils % 75 % Lymphocytes % 12 % Monocytes % 10 % Eosinophils % 0 % Basophils % 0 % Neutrophils # 7.8 H (1.3-7.7) k/uL Lymphocytes # 1.3 (1.0-4.8) k/uL Monocytes # 1.0 (0-1.0) k/uL Eosinophils # 0.0 (0-0.7) k/uL Basophils # 0.0 (0-0.2) k/uL Hypochromasia Slight PT 13.3 H (9.0-12.0) sec INR 1.3 H (<1.2) APTT 44.0 H (22.0-30.0) sec Sodium 139 (137-145) mmol/L Potassium 4.3 (3.5-5.1) mmol/L Chloride 104 (98-107) mmol/L Carbon Dioxide 24 (22-30) mmol/L Anion Gap 11 mmol/L BUN 24 H (7-17) mg/dL Creatinine 1.40 H (0.52-1.04) mg/dL Est GFR (CKD-EPI)AfAm 44 (>60 ml/min/1.73 sqM) Est GFR (CKD-EPI)NonAf 38 (>60 ml/min/1.73 sqM) Glucose 132 H (74-99) mg/dL Plasma Lactic Acid Silvestre (0.7-2.0) mmol/L Calcium 8.6 (8.4-10.2) mg/dL Magnesium 1.7 (1.6-2.3) mg/dL Total Bilirubin 1.0 (0.2-1.3) mg/dL AST 30 (14-36) U/L ALT 21 (4-34) U/L Alkaline Phosphatase 103 (38-126) U/L Troponin I (0.000-0.034) ng/mL Total Protein 7.0 (6.3-8.2) g/dL Albumin 3.4 L (3.5-5.0) g/dL 08/03/19 08/03/19 Range/Units 12:28 12:28 WBC (3.8-10.6) k/uL RBC (3.80-5.40) m/uL Hgb (11.4-16.0) gm/dL Hct (34.0-46.0) % MCV (80.0-100.0) fL MCH (25.0-35.0) pg MCHC (31.0-37.0) g/dL RDW (11.5-15.5) % Plt Count (150-450) k/uL Neutrophils % % Lymphocytes % % Monocytes % % Eosinophils % % Basophils % % Neutrophils # (1.3-7.7) k/uL Lymphocytes # (1.0-4.8) k/uL Monocytes # (0-1.0) k/uL Eosinophils # (0-0.7) k/uL Basophils # (0-0.2) k/uL Hypochromasia PT (9.0-12.0) sec INR (<1.2) APTT (22.0-30.0) sec Sodium (137-145) mmol/L Potassium (3.5-5.1) mmol/L Chloride (98-107) mmol/L Carbon Dioxide (22-30) mmol/L Anion Gap mmol/L BUN (7-17) mg/dL Creatinine (0.52-1.04) mg/dL Est GFR (CKD-EPI)AfAm (>60 ml/min/1.73 sqM) Est GFR (CKD-EPI)NonAf (>60 ml/min/1.73 sqM) Glucose (74-99) mg/dL Plasma Lactic Acid Silvestre 1.1 (0.7-2.0) mmol/L Calcium (8.4-10.2) mg/dL Magnesium (1.6-2.3) mg/dL Total Bilirubin (0.2-1.3) mg/dL AST (14-36) U/L ALT (4-34) U/L Alkaline Phosphatase (38-126) U/L Troponin I <0.012 (0.000-0.034) ng/mL Total Protein (6.3-8.2) g/dL Albumin (3.5-5.0) g/dL Disposition Clinical Impression: Dyspnea, Acute bronchitis, Fall Disposition: ADMITTED IP TO THIS HOSP Referrals: Júnior Arzola DO [Primary Care Provider] - 1-2 days Time of Disposition: 13:55
[2019-08-03 12:58] LABS: Basophils % (A) 0 %; Eosinophils % (A) 0 %; HCT 33.9 % (34.0-46.0); HGB 10.8 gm/dL (11.4-16.0); Hypochromasia Slight; Lymphocytes # (A) 1.3 k/uL (1.0-4.8); Lymphocytes % (A) 12 %; MCHC 31.9 g/dL (31.0-37.0); MCV 93.9 fL (80.0-100.0); Mean Platelet Volume 8.7; Monocytes % (A) 10 %; Neutrophils # (A) 7.8 k/uL (1.3-7.7); Neutrophils % (A) 75 %; Platelet Count 218 k/uL (150-450); RBC 3.61 m/uL (3.80-5.40); RDW 15.3 % (11.5-15.5); WBC 10.5 k/uL (3.8-10.6)
[2019-08-03 13:03] LABS: INR 1.3 (<1.2); Prothrombin Time 13.3 sec (9.0-12.0)
[2019-08-03 13:10] LABS: Albumin 3.4 g/dL (3.5-5.0); Calcium 8.6 mg/dL (8.4-10.2); Magnesium 1.7 mg/dL (1.6-2.3); Potassium 4.3 mmol/L (3.5-5.1)
--- NOTE | 2019-08-03 13:15 | XR ---
EXAMINATION TYPE: XR chest 2V DATE OF EXAM: 08/03/2019 COMPARISON: 07/17/2019 TECHNIQUE: PA and lateral views submitted. HISTORY: Difficulty breathing FINDINGS: The lungs are clear and there is no pneumothorax, pleural effusion, or focal pneumonia. Coarsened i nterstitium noted with hyperinflation. No pneumothorax. Heart size enlarged. Atherosclerotic change a jodie. Degenerative change of the spine. Tiny calcified granuloma left upper lobe lingular segment. IMPRESSION: 1. COPD with increased interstitial pattern relative the prior exam. Findings suggest acute interstit ial process such as venous congestion or superimposed interstitial pneumonitis correlate clinically..
[2019-08-03] MEDS ORDERED: SODIUM CHLORIDE 0.9% 1,000 ML IV ONE (14:00)
[2019-08-03] MEDS ORDERED: ACETAMINOPHEN TAB 325 MG TAB PO PRN (16:16)
[2019-08-03] MEDS ORDERED: NITROGLYCERIN SL TABS 0.4 MG TAB SUBLINGUAL PRN (16:16)
--- NOTE | 2019-08-03 16:29 | P.HPIM ---
History of Present Illness Patient is only on-year-old female being admitted for COPD exacerbation. Patient was recently in rehabilitation was subsequently discharged home was doing well at the time of discharge from rehab, today daughter went to her place to check on her patient was bit confused because of which she Brought her in to ER patient was quite weak unable to ambulate well. Patient was diagnosed with COPD he was given breathing treatments and systemic steroids and subsequently was admitted to the hospital. Patient did have a low-grade fever of 100 admission patient denied any dysuria patient was having bit of cough with sputum production which is clear patient is a poor historian didn't provide me much history although patient is alert oriented 3 appears to be bit weak. On exam patient was not wheezing much but chest x-ray did show some pulmonary edema that is no significant elevation of JVD patient had chronic diastolic dysfunction was on oral Lasix which will be switched to IV IV fluids were discontinued patient received a dose of Rocephin although there is no UA available patient denied any dysuria, though there is no urine analysis which will be obtained Rocephin will be continued for now. Patient will be monitored here. Overnight. Review of Systems REVIEW OF SYSTEMS: CONSTITUTIONAL: As mentioned in HPI HEENT: No recent visual problems or hearing problems. Denied any sore throat. CARDIOVASCULAR: No chest pain, orthopnea, PND, no palpitations, no syncope. PULMONARY: no hemoptysis. GASTROINTESTINAL: No diarrhea, no nausea, no vomiting, no abdominal pain. NEUROLOGICAL: No headaches, no weakness, no numbness. HEMATOLOGICAL: Denies any bleeding or petechiae. GENITOURINARY: Denies any burning micturition, frequency, or urgency. MUSCULOSKELETAL/RHEUMATOLOGICAL: Denies any joint pain, swelling, or any muscle pain. ENDOCRINE: Denies any polyuria or polydipsia. The rest of the 14-point review of systems is negative. Past Medical History Past Medical History: Atrial Fibrillation, Chest Pain / Angina, Heart Failure, COPD, CVA/TIA, Diabetes Mellitus, Hyperlipidemia, Hypertension, Myocardial Infarction ([place]), Renal Disease, Respiratory Disorder, Thyroid Disorder Additional Past Medical History / Comment(s): Pt recently admitted to [facility] on 07/16/19 with generalized weakness/acute renal failure/bacteriuira. Other Hx: NIDDM type II, neuropathy bilateral feet, multiple CVAs with L sided weakness and speech changes, TIAs, generalized weakness, falls, chronic hypoxic respiratory failure-uses oxygen at 2L/NC HS, L breast cancer with lumpectomy only, CKD stage III, hypothyroid, osteoporosis. Last Myocardial Infarction Date:: 09/22/13 History of Any Multi-Drug Resistant Organisms: None Reported Past Surgical History: Appendectomy, Back Surgery, Breast Surgery, Cholecystectomy, Heart Catheterization, Tubal Ligation Additional Past Surgical History / Comment(s): Loop recorder, L breast bx/lumpectomy. Past Anesthesia/Blood Transfusion Reactions: No Reported Reaction Additional Past Anesthesia/Blood Transfusion Reaction / Comment(s): Pt has received blood in past without reaction. Smoking Status: Current every day smoker - Past Family History Mother Family Medical History: COPD Father Family Medical History: Liver Disease Medications and Allergies Home Medications Medication Instructions Recorded Confirmed Type Anastrozole [Arimidex] 1 mg PO DAILY 10/23/18 08/03/19 History Atorvastatin [Lipitor] 40 mg PO HS 10/23/18 08/03/19 History Levothyroxine Sodium [Synthroid] 25 mcg PO DAILY 10/23/18 08/03/19 History Metoprolol Succinate (ER) [Toprol 100 mg PO DAILY 10/23/18 08/03/19 History XL] sitaGLIPtin [Januvia] 100 mg PO DAILY 10/23/18 08/03/19 History Citalopram Hydrobromide [CeleXA] 10 mg PO DAILY 02/27/19 08/03/19 History Alendronate Sodium [Fosamax] 70 mg PO SA 05/05/19 08/03/19 History Aspirin EC [Ecotrin Low Dose] 81 mg PO DAILY 05/05/19 08/03/19 History Pantoprazole [Protonix] 40 mg PO DAILY 05/05/19 08/03/19 History Pregabalin [Lyrica] 100 mg PO BID 05/05/19 08/03/19 History Albuterol Sulfate [Ventolin HFA] 1 - 2 puff INHALATION RT-Q6H PRN 06/20/19 08/03/19 History Budesonide/Formoterol Fumarate 2 puff INHALATION RT-BID 06/20/19 08/03/19 History [Symbicort 160-4.5 Mcg Inhaler] Ipratropium-Albuterol Nebulize 3 ml INHALATION RT-Q4H PRN 06/20/19 08/03/19 History [Duoneb 0.5 mg-3 mg/3 ml Soln] Magnesium Oxide [Mag-Ox] 400 mg PO DAILY 06/20/19 08/03/19 History Nitroglycerin Sl Tabs [Nitrostat] 0.4 mg SUBLINGUAL Q5M PRN 06/20/19 08/03/19 History busPIRone HCL 15 mg PO BID 07/11/19 08/03/19 History Tiotropium 18 Mcg/Puff [Spiriva] 1 puff INHALATION RT-DAILY #0 07/14/19 08/03/19 Rx Warfarin Sodium 4 mg PO HS 07/16/19 08/03/19 History Acetaminophen Tab [Tylenol] 650 mg PO Q6HR PRN tab 07/17/19 08/03/19 Rx ALPRAZolam [Xanax] 0.25 mg PO BID PRN 08/03/19 08/03/19 History Furosemide [Lasix] 40 mg PO DAILY 08/03/19 08/03/19 History Potassium Chloride ER [K-Dur 20] 20 meq PO DAILY 08/03/19 08/03/19 History Allergies Allergy/AdvReac Type Severity Reaction Status Date / Time alprazolam [From Xanax] Allergy Rash/Hives Verified 08/03/19 11:44 Iodinated Contrast Media Allergy Rash/Hives Verified 08/03/19 11:44 [Iodinated Contrast- Oral and IV Dye] morphine Allergy Rash/Hives Verified 08/03/19 11:44 Sulfa (Sulfonamide Allergy Rash/Hives Verified 08/03/19 11:44 Antibiotics) Physical Exam Vitals: Vital Signs Temp Pulse Resp BP Pulse Ox 08/03/19 14:36 98.6 F 89 18 111/64 98 08/03/19 12:50 103 H 20 138/70 96 08/03/19 12:15 97 08/03/19 11:52 84 08/03/19 10:33 100.0 F H 101 H 22 152/76 91 L Intake and Output 08/03/19 08/03/19 08/03/19 06:59 14:59 22:59 Other: Weight 68.039 kg 68.039 kg PHYSICAL EXAMINATION: GENERAL: The patient is alert and oriented x3, not in any acute distress. Well developed, well nourished. Appears to be tired and fatigued HEENT: Pupils are round and equally reacting to light. EOMI. No scleral icterus. No conjunctival pallor. Normocephalic, atraumatic. No pharyngeal erythema. No thyromegaly. CARDIOVASCULAR: S1 and S2 present. No murmurs, rubs, or gallops. PULMONARY: Chest is clear to auscultation, no wheezing or crackles. ABDOMEN: Soft, nontender, nondistended, normoactive bowel sounds. No palpable organomegaly. MUSCULOSKELETAL: No joint swelling or deformity. EXTREMITIES: No cyanosis, clubbing, or pedal edema. NEUROLOGICAL: Gross neurological examination did not reveal any focal deficits. SKIN: No rashes. Results CBC & Chem 7: 08/03/19 12:28 08/03/19 12:28 Labs: Abnormal Lab Results - Last 24 Hours (Table) 08/03/19 08/03/19 08/03/19 Range/Units 12:28 12:28 12:28 RBC 3.61 L (3.80-5.40) m/uL Hgb 10.8 L (11.4-16.0) gm/dL Hct 33.9 L (34.0-46.0) % Neutrophils # 7.8 H (1.3-7.7) k/uL PT 13.3 H (9.0-12.0) sec INR 1.3 H (<1.2) APTT 44.0 H (22.0-30.0) sec BUN 24 H (7-17) mg/dL Creatinine 1.40 H (0.52-1.04) mg/dL Glucose 132 H (74-99) mg/dL Albumin 3.4 L (3.5-5.0) g/dL Thrombosis Risk Factor Assmnt - Choose All That Apply Any of the Below Risk Factors Present?: Yes Each Factor Represents 1 point: Abnormal pulmonary function (COPD), Obesity (BMI >25), Serious lung disease incl. pneumonia (< 1month) Other Risk Factors: Yes Each Risk Factor Represents 2 Points: Age 61-74 years, Malignancy Other congenital or acquired thrombophilia - If yes, enter type in comment: No Thrombosis Risk Factor Assessment Total Risk Factor Score: 7 Thrombosis Risk Factor Assessment Level: High Risk Assessment and Plan Plan: Shortness of breath: May have had a mild COPD exacerbation improved wheezing because of which I'll not start her on any systemic steroids patient will be continued on inhaled steroids and inhalational treatments. -Fever no evidence of pneumonia UA will be obtained urine cultures will be obtained patient will be can you done Rocephin. There is no evidence of pneumonia that may be bronchitis and fever as a testing will be ordered as well. -Congestive heart failure chronic diastolic dysfunction with possible mild acute exacerbation patient will be switched to IV Lasix and will be monitored -Atrial fibrillation: Presently sinus rhythm and rate controlled. Occasional PVCs patient will be resumed on Coumadin patient is up-to-date on Coumadin patient's dose of Coumadin will be increased to 5 mg and will recheck the INR tomorrow. Patient will not need any additional DVT prophylaxis as her INR is already 1.4 -Continued nicotine use: Counseling was provided regarding this -Chronic kidney disease stage III from probable diabetic nephropathy -Severity in the past next and 11 hyperlipidemia 11 hypertension -Hyperthyroidism
[2019-08-03 16:40] LABS: Glucose,Whole Blood 161 mg/dL (75-99)
[2019-08-03] MEDS: MAGNESIUM SULFATE-D5W PMX 1 GM in DEXTROSE/WATER 1 100ML.BAG IVPB SCH ×2 (17:37→19:59)
[2019-08-03] MEDS: FUROSEMIDE 10 MG/ML 4 ML VIAL IV SCH (20:03)
[2019-08-03] MEDS: PREGABALIN 100 MG CAP PO SCH ×2 (20:03→20:13)
[2019-08-03] MEDS: ATORVASTATIN 40 MG TAB PO SCH ×2 (20:03→20:12)
[2019-08-03] MEDS: busPIRone HCl 5 MG TAB PO SCH ×2 (20:03→20:13)
[2019-08-03] MEDS: WARFARIN 5 MG TAB PO SCH (20:05)
[2019-08-03] MEDS: SYMBICORT 160-4.5 MCG INHALER INHALATION SCH (20:45)
[2019-08-03] MEDS: IPRATROPIUM-ALBUTEROL 3 ML NEB INHALATION PRN (20:45)
[2019-08-03] MEDS ORDERED: HEPARIN SODIUM,PORCINE 5,000 UNIT/ML 1 ML VIAL SQ SCH (21:00)
[2019-08-04 04:28] LABS: Appearance,Urine Clear (Clear); Bacteria,Urine Occasional /hpf; Bilirubin,Urine Negative (Negative); Blood,Urine Negative (Negative); Color,Urine Yellow; Glucose,Urine (UA) Negative (Negative); Hyaline Casts,Urine 7 /lpf (0-2); Ketones,Urine Negative (Negative); Leukocyte Esterase,Urine Large (Negative); Nitrite,Urine Positive (Negative); PH, Urine 5.5 (5.0-8.0); Protein,Urine Trace (Negative); RBC,Urine 2 /hpf (0-5); Specific Gravity,Urine 1.012 (1.001-1.035); Squamous Epithelial Cell,Urine 1 /hpf (0-4); Urobilinogen,Urine <2.0 mg/dL (<2.0); WBC,Urine 27 /hpf (0-5)
[2019-08-04] MEDS: LEVOTHYROXINE 25 MCG TAB PO SCH (05:50)
[2019-08-04 07:00] LABS: INR 1.3 (<1.2)
[2019-08-04] MEDS: IPRATROPIUM-ALBUTEROL 3 ML NEB INHALATION PRN ×2 (07:02→10:45)
[2019-08-04] MEDS: SYMBICORT 160-4.5 MCG INHALER INHALATION SCH ×3 (07:03→18:57)
[2019-08-04 07:25] LABS: Calcium 8.3 mg/dL (8.4-10.2); Magnesium 2.7 mg/dL (1.6-2.3); Potassium 4.3 mmol/L (3.5-5.1)
[2019-08-04 07:51] LABS: Glucose,Whole Blood 255 mg/dL (75-99)
[2019-08-04] MEDS: busPIRone HCl 5 MG TAB PO SCH ×2 (07:56→21:06)
[2019-08-04] MEDS: POTASSIUM CHLORIDE ER 20 MEQ TAB.ER PO SCH (07:57)
[2019-08-04] MEDS: ASPIRIN 81 MG PO SCH (07:57)
[2019-08-04] MEDS: PREGABALIN 100 MG CAP PO SCH ×2 (07:57→21:06)
[2019-08-04] MEDS: FUROSEMIDE 10 MG/ML 4 ML VIAL IV SCH (07:57)
[2019-08-04] MEDS: CITALOPRAM HYDROBROMIDE 10 MG TAB PO SCH (07:57)
[2019-08-04] MEDS: PANTOPRAZOLE 40 MG TABLET PO SCH (07:58)
[2019-08-04] MEDS: LINAGLIPTIN 5 MG TABLET PO SCH (07:58)
[2019-08-04] MEDS: METOPROLOL SUCCINATE (ER) 100 MG TAB.ER.24H PO SCH (07:58)
[2019-08-04] MEDS: MAGNESIUM OXIDE 400 MG TAB PO SCH (07:58)
[2019-08-04 08:26] VITALS: RESP 18
[2019-08-04] MEDS: ANASTROZOLE 1 MG TAB PO SCH (09:32)
[2019-08-04 09:35] VITALS: BMI 27.4
[2019-08-04 11:43] LABS: Glucose,Whole Blood 287 mg/dL (75-99)
--- NOTE | 2019-08-04 13:03 | XR ---
EXAMINATION TYPE: XR chest 1V DATE OF EXAM: 08/04/2019 COMPARISON: 08/03/2019 HISTORY: Shortness of breath TECHNIQUE: Single frontal view of the chest is obtained. FINDINGS: There is no focal air space opacity, pleural effusion, or pneumothorax seen. The cardiac silhouette size is within normal limits. The osseous structures are intact. Hyperinflation suggests COPD. Atherosclerotic change aorta. Coarsened interstitium suggests chronic interstitial lung diseas e. Small granuloma lingular segment left upper lobe. Tiny granuloma right upper lobe. IMPRESSION: 1. Cardiomegaly with findings suggestive of COPD and chronic interstitial lung disease.
[2019-08-04] MEDS: predniSONE 20 MG TAB PO SCH (13:06)
--- NOTE | 2019-08-04 13:26 | P.PN ---
Subjective 69-year-old female was admitted for COPD exacerbation and CHF exacerbation patient was on IV Lasix patient's creatinine started worsening patient will be switched back to her home dose of oral Lasix. Patient is more wheezing today. Patient will be started on systemic steroids which is over steroids. Patient had an episode of fever although sources not clear may be bronchitis patient continues to be on Rocephin. UA is not impressive for urinary tract infection. Repeat chest x-ray was reviewed. Constitutional: Denied any fatigue denied any fever. Cardio vascular: denied any chest pain, palpitations Gastrointestinal denied any nausea vomiting Pulmonary: Denied any shortness of breath cough Neurologic denied any new focal deficits All inpatient medications were reviewed and appropriate changes in these medications as dictated in the interval history and assessment and plan. Objective - Vital Signs Vital signs: Vital Signs Temp 97.5 F L 08/04/19 07:00 Pulse 83 08/04/19 11:50 Resp 18 08/04/19 11:50 BP 138/71 08/04/19 07:00 Pulse Ox 96 08/04/19 07:00 Intake & Output 08/03/19 08/04/19 08/04/19 18:59 06:59 18:59 Intake Total 300 240 Output Total 200 Balance 100 240 Weight 68.039 kg 68.039 kg Intake: Intake, IV Titration 300 Amount Magnesium Sulfate-D5w Pmx 300 1 gm In Dextrose/Water 1 100ml.bag @ 100 mls/hr IVPB Q1H [facility] Rx#: [id number] Oral 240 Output: Urine 200 Other: Voiding Method Toilet - Exam PHYSICAL EXAMINATION: GENERAL: The patient is alert and oriented x3, not in any acute distress. Well developed, well nourished. Appears to be tired and fatigued HEENT: Pupils are round and equally reacting to light. EOMI. No scleral icterus. No conjunctival pallor. Normocephalic, atraumatic. No pharyngeal erythema. No thyromegaly. CARDIOVASCULAR: S1 and S2 present. No murmurs, rubs, or gallops. PULMONARY: Expiratory wheezing on exam no crackles are appreciated rhonchus breath sounds ABDOMEN: Soft, nontender, nondistended, normoactive bowel sounds. No palpable organomegaly. MUSCULOSKELETAL: No joint swelling or deformity. EXTREMITIES: No cyanosis, clubbing, or pedal edema. NEUROLOGICAL: Gross neurological examination did not reveal any focal deficits. SKIN: No rashes. - Labs CBC & Chem 7: 08/03/19 12:28 08/04/19 08:06 Labs: Abnormal Lab Results - Last 24 Hours (Table) 08/03/19 08/04/19 08/04/19 Range/Units 16:39 03:31 05:28 PT 13.0 H (9.0-12.0) sec INR 1.3 H (<1.2) Carbon Dioxide (22-30) mmol/L BUN (7-17) mg/dL Creatinine (0.52-1.04) mg/dL Glucose (74-99) mg/dL POC Glucose (mg/dL) 161 H (75-99) mg/dL Calcium (8.4-10.2) mg/dL Magnesium (1.6-2.3) mg/dL Urine Protein Trace H (Negative) Urine Nitrite Positive H (Negative) Ur Leukocyte Esterase Large H (Negative) Urine WBC 27 H (0-5) /hpf Urine Bacteria Occasional H (None) /hpf Hyaline Casts 7 H (0-2) /lpf 08/04/19 08/04/19 08/04/19 Range/Units 05:28 07:49 11:41 PT (9.0-12.0) sec INR (<1.2) Carbon Dioxide 20 L (22-30) mmol/L BUN 37 H (7-17) mg/dL Creatinine 1.78 H (0.52-1.04) mg/dL Glucose 251 H (74-99) mg/dL POC Glucose (mg/dL) 255 H 287 H (75-99) mg/dL Calcium 8.3 L (8.4-10.2) mg/dL Magnesium 2.7 H (1.6-2.3) mg/dL Urine Protein (Negative) Urine Nitrite (Negative) Ur Leukocyte Esterase (Negative) Urine WBC (0-5) /hpf Urine Bacteria (None) /hpf Hyaline Casts (0-2) /lpf Microbiology - Last 24 Hours (Table) 08/04/19 03:31 Urine Culture - Preliminary Urine,Catheterized Assessment and Plan Plan: Shortness of breath: COPD exacerbation initially CHF exacerbation is low presently considering worsening of her wheezing patient will be started on oral steroids. -Fever no evidence of pneumonia UA is not conclusive for UTI. Although Rocephin will be continued probably severe bronchitis -Congestive heart failure chronic diastolic dysfunction with possible mild acute exacerbation patient will be switched to IV Lasix and will be monitored -Atrial fibrillation: Presently sinus rhythm and rate controlled. Occasional PVCs patient will be resumed on Coumadin patient is up-to-date on Coumadin patient's dose of Coumadin will be increased to 5 mg and will recheck the INR tomorrow. Patient will not need any additional DVT prophylaxis as her INR is already 1.4 -Continued nicotine use: Counseling was provided regarding this -Chronic kidney disease stage III from probable diabetic nephropathy , CVA in the past - hyperlipidemia 11 hypertension -Hyperthyroidism -Generalized deconditioning and falls. Physical therapy And OT evaluation age- related muscle atrophy
[2019-08-04 15:45] VITALS: TEMP 97.8
[2019-08-04 16:41] LABS: Glucose,Whole Blood 386 mg/dL (75-99)
[2019-08-04] MEDS: INSULIN ASPART (NovoLOG) 100 UNIT/ML VIAL SQ SCH ×2 (17:36→21:00)
[2019-08-04 20:41] LABS: Glucose,Whole Blood 92 mg/dL (75-99)
[2019-08-04] MEDS ORDERED: INSULIN DETEMIR (LEVEMIR) 100 UNIT/ML SYR SQ SCH (21:00)
[2019-08-04] MEDS: WARFARIN 5 MG TAB PO SCH (21:06)
[2019-08-04] MEDS: ATORVASTATIN 40 MG TAB PO SCH (21:06)
[2019-08-05] MEDS: LEVOTHYROXINE 25 MCG TAB PO SCH (06:22)
[2019-08-05 06:30] LABS: HCT 31.8 % (34.0-46.0); Hypochromasia Slight; MCHC 31.3 g/dL (31.0-37.0); MCV 92.5 fL (80.0-100.0); Mean Platelet Volume 9.4; Platelet Count 214 k/uL (150-450); RBC 3.44 m/uL (3.80-5.40); RDW 15.4 % (11.5-15.5); WBC 11.6 k/uL (3.8-10.6)
[2019-08-05 06:41] LABS: Glucose,Whole Blood 218 mg/dL (75-99)
[2019-08-05 06:49] LABS: INR 1.1 (<1.2); Prothrombin Time 11.6 sec (9.0-12.0)
[2019-08-05 06:51] LABS: Calcium 8.4 mg/dL (8.4-10.2); Potassium 4.6 mmol/L (3.5-5.1)
[2019-08-05 07:35] VITALS: BP 167/84; PULSE 69
[2019-08-05] MEDS: predniSONE 20 MG TAB PO SCH (07:36)
[2019-08-05] MEDS: PANTOPRAZOLE 40 MG TABLET PO SCH (07:36)
[2019-08-05] MEDS: INSULIN ASPART (NovoLOG) 100 UNIT/ML VIAL SQ SCH ×2 (07:36→12:14)
[2019-08-05] MEDS: busPIRone HCl 5 MG TAB PO SCH (07:37)
[2019-08-05] MEDS: MAGNESIUM OXIDE 400 MG TAB PO SCH (07:37)
[2019-08-05] MEDS: POTASSIUM CHLORIDE ER 20 MEQ TAB.ER PO SCH (07:37)
[2019-08-05] MEDS: LINAGLIPTIN 5 MG TABLET PO SCH (07:37)
[2019-08-05] MEDS: METOPROLOL SUCCINATE (ER) 100 MG TAB.ER.24H PO SCH (07:37)
[2019-08-05] MEDS: CITALOPRAM HYDROBROMIDE 10 MG TAB PO SCH (07:37)
[2019-08-05] MEDS: ASPIRIN 81 MG PO SCH (07:37)
[2019-08-05] MEDS: ANASTROZOLE 1 MG TAB PO SCH (07:38)
[2019-08-05] MEDS: SYMBICORT 160-4.5 MCG INHALER INHALATION SCH (07:38)
[2019-08-05] MEDS: PREGABALIN 100 MG CAP PO SCH (07:42)
[2019-08-05] MEDS ORDERED: FUROSEMIDE 40 MG TAB PO SCH (09:00)
[2019-08-05 11:42] LABS: Glucose,Whole Blood 350 mg/dL (75-99)
--- NOTE | 2019-08-05 14:01 | P.DS ---
Providers Date of admission: 08/04/19 11:56 Attending physician: Jamil Landa Primary care physician: [facility] Course: 69-year-old female was admitted for COPD exacerbation and CHF exacerbation patient was on IV Lasix patient's creatinine started worsening patient will be switched back to her home dose of oral Lasix. Patient is more wheezing today. Patient will be started on systemic steroids which is over steroids. Patient had an episode of fever although sources not clear may be bronchitis patient continues to be on Rocephin. UA is not impressive for urinary tract infection. Repeat chest x-ray was reviewed. 08/05/2019 Patient is clinically doing well and wheezing significantly improved patient is not in heart failure exacerbation patient will be discharged today patient blood sugars were elevated when she came and they're better now, patient was started on long-acting insulin yesterday and patient will be discharged on the glipizide. Patient is also on systemic steroids. Patient's INR is up to date patient was taking 4 mg of Coumadin Coumadin will be increased to 5 mg testing the that she is on steroids are not increasing Coumadin very much patient will need a repeat INR in 3 days repeat basic metabolic profile. Creatinine is improving. Patient is saturating 88% upon ablation does have as needed oxygen at home PHYSICAL EXAMINATION: GENERAL: The patient is alert and oriented x3, not in any acute distress. Well developed, well nourished. Appears to be tired and fatigued HEENT: Pupils are round and equally reacting to light. EOMI. No scleral icterus. No conjunctival pallor. Normocephalic, atraumatic. No pharyngeal erythema. No thyromegaly. CARDIOVASCULAR: S1 and S2 present. No murmurs, rubs, or gallops. PULMONARY: Wheezing resolved in good air entry into bilateral. Crackles were appreciated ABDOMEN: Soft, nontender, nondistended, normoactive bowel sounds. No palpable organomegaly. MUSCULOSKELETAL: No joint swelling or deformity. EXTREMITIES: No cyanosis, clubbing, or pedal edema. NEUROLOGICAL: Gross neurological examination did not reveal any focal deficits. SKIN: No rashes. Assessment and Plan Plan: Shortness of breath: COPD exacerbation , patient had had a competent of CHF exacerbation as well -Fever no evidence of pneumonia UA is not conclusive for UTI. May have had bronchitis patient will be discharged in couple more days of Ceftin -Congestive heart failure chronic diastolic dysfunction with possible mild acute exacerbation, presently euvolemic -Atrial fibrillation: Presently sinus rhythm and rate controlled. -Continued nicotine use: Counseling was provided regarding this -Chronic kidney disease stage III from probable diabetic nephropathy , CVA in the past - hyperlipidemia 11 hypertension -Hyperthyroidism -Generalized deconditioning and falls. Physical therapy And OT recommending home care. Plan - Discharge Summary Discharge Rx Participant: No New Discharge Prescriptions: New Warfarin [Coumadin] 5 mg PO ONCE@1800 tab Cefuroxime Axetil [Ceftin] 500 mg PO BID 3 Days #6 tab glipiZIDE [Glucotrol] 5 mg PO AC-BID #60 tab predniSONE 10 mg PO DAILY #30 tab Continue Anastrozole [Arimidex] 1 mg PO DAILY Atorvastatin [Lipitor] 40 mg PO HS Levothyroxine Sodium [Synthroid] 25 mcg PO DAILY Metoprolol Succinate (ER) [Toprol XL] 100 mg PO DAILY sitaGLIPtin [Januvia] 100 mg PO DAILY Citalopram Hydrobromide [CeleXA] 10 mg PO DAILY Pantoprazole [Protonix] 40 mg PO DAILY Pregabalin [Lyrica] 100 mg PO BID Aspirin EC [Ecotrin Low Dose] 81 mg PO DAILY Alendronate Sodium [Fosamax] 70 mg PO SA Albuterol Sulfate [Ventolin HFA] 1 - 2 puff INHALATION RT-Q6H PRN PRN Reason: Shortness Of Breath Budesonide/Formoterol Fumarate [Symbicort 160-4.5 Mcg Inhaler] 2 puff INHALATION RT-BID Magnesium Oxide [Mag-Ox] 400 mg PO DAILY Nitroglycerin Sl Tabs [Nitrostat] 0.4 mg SUBLINGUAL Q5M PRN PRN Reason: Chest Pain Ipratropium-Albuterol Nebulize [Duoneb 0.5 mg-3 mg/3 ml Soln] 3 ml INHALATION RT-Q4H PRN PRN Reason: Shortness Of Breath busPIRone HCL 15 mg PO BID Tiotropium 18 Mcg/Puff [Spiriva] 1 puff INHALATION RT-DAILY #0 Acetaminophen Tab [Tylenol] 650 mg PO Q6HR PRN tab PRN Reason: Mild Pain Or Fever > 100.5 Potassium Chloride ER [K-Dur 20] 20 meq PO DAILY Furosemide [Lasix] 40 mg PO DAILY Discontinued Warfarin Sodium 4 mg PO HS ALPRAZolam [Xanax] 0.25 mg PO BID PRN PRN Reason: Anxiety Discharge Medication List Anastrozole [Arimidex] 1 mg PO DAILY 10/23/18 [History] Atorvastatin [Lipitor] 40 mg PO HS 10/23/18 [History] Levothyroxine Sodium [Synthroid] 25 mcg PO DAILY 10/23/18 [History] Metoprolol Succinate (ER) [Toprol XL] 100 mg PO DAILY 10/23/18 [History] sitaGLIPtin [Januvia] 100 mg PO DAILY 10/23/18 [History] Citalopram Hydrobromide [CeleXA] 10 mg PO DAILY 02/27/19 [History] Alendronate Sodium [Fosamax] 70 mg PO SA 05/05/19 [History] Aspirin EC [Ecotrin Low Dose] 81 mg PO DAILY 05/05/19 [History] Pantoprazole [Protonix] 40 mg PO DAILY 05/05/19 [History] Pregabalin [Lyrica] 100 mg PO BID 05/05/19 [History] Albuterol Sulfate [Ventolin HFA] 1 - 2 puff INHALATION RT-Q6H PRN 06/20/19 [History] Budesonide/Formoterol Fumarate [Symbicort 160-4.5 Mcg Inhaler] 2 puff INHALATION RT-BID 06/20/19 [History] Ipratropium-Albuterol Nebulize [Duoneb 0.5 mg-3 mg/3 ml Soln] 3 ml INHALATION RT-Q4H PRN 06/20/19 [History] Magnesium Oxide [Mag-Ox] 400 mg PO DAILY 06/20/19 [History] Nitroglycerin Sl Tabs [Nitrostat] 0.4 mg SUBLINGUAL Q5M PRN 06/20/19 [History] busPIRone HCL 15 mg PO BID 07/11/19 [History] Tiotropium 18 Mcg/Puff [Spiriva] 1 puff INHALATION RT-DAILY #0 07/14/19 [Rx] Acetaminophen Tab [Tylenol] 650 mg PO Q6HR PRN tab 07/17/19 [Rx] Furosemide [Lasix] 40 mg PO DAILY 08/03/19 [History] Potassium Chloride ER [K-Dur 20] 20 meq PO DAILY 01/06/20 [History] Cefuroxime Axetil [Ceftin] 500 mg PO BID 3 Days #6 tab 08/05/19 [Rx] Warfarin [Coumadin] 5 mg PO ONCE@1800 tab 08/05/19 [Rx] glipiZIDE [Glucotrol] 5 mg PO AC-BID #60 tab 08/05/19 [Rx] predniSONE 10 mg PO DAILY #30 tab 08/05/19 [Rx] Follow up Appointment(s)/Referral(s): Júnior Arzola DO [Primary Care Provider] - 08/07/19 2:20 pm ([facility]) Ambulatory/Diagnostic Orders: Basic Metabolic Panel [LAB.AMB] Time Frame: 3 Days, Location: None Selected Prothrombin Time INR [LAB.AMB] Time Frame: 3 Days, Location: None Selected Discharge Disposition: HOME WITH HOME HEALTH SERVICES
[2019-08-05] MEDS ORDERED: WARFARIN 7.5 MG TAB PO ONE (18:00)
== END 2019-08-05 14:10 | disposition home or self-care (01) | DRG 190 ==
LOC: EC 10:29 → 4SSUR 14:09 → 1SOBS 15:32 → OBSVTOIN 08-04 11:56
PROVIDERS: ADMIT Internal Medicine; ATTEND Internal Medicine
DX: J44.1 Chronic obstructive pulmonary disease with (acute) exacerbation (principal); I50.33 Acute on chronic diastolic (congestive) heart failure; I13.0 Hypertensive heart and chronic kidney disease with heart failure and stage 1 through stage 4 chronic kidney disease, or unspecified chronic kidney disease; J96.11 Chronic respiratory failure with hypoxia; I69.954 Hemiplegia and hemiparesis following unspecified cerebrovascular disease affecting left non-dominant side; J44.0 Chronic obstructive pulmonary disease with (acute) lower respiratory infection; N18.3 Chronic kidney disease, stage 3 (moderate); E11.42 Type 2 diabetes mellitus with diabetic polyneuropathy; E11.22 Type 2 diabetes mellitus with diabetic chronic kidney disease; E03.9 Hypothyroidism, unspecified; E78.5 Hyperlipidemia, unspecified; F17.200 Nicotine dependence, unspecified, uncomplicated; I25.2 Old myocardial infarction; I48.91 Unspecified atrial fibrillation; I49.3 Ventricular premature depolarization; J20.9 Acute bronchitis, unspecified; M81.0 Age-related osteoporosis without current pathological fracture; F32.9 Major depressive disorder, single episode, unspecified; F41.9 Anxiety disorder, unspecified; I69.928 Other speech and language deficits following unspecified cerebrovascular disease; Z79.01 Long term (current) use of anticoagulants; Z79.51 Long term (current) use of inhaled steroids; Z79.811 Long term (current) use of aromatase inhibitors; Z79.82 Long term (current) use of aspirin; Z79.84 Long term (current) use of oral hypoglycemic drugs; Z79.890 Hormone replacement therapy; Z79.899 Other long term (current) drug therapy; Z79.83 Long term (current) use of bisphosphonates; Z85.3 Personal history of malignant neoplasm of breast; Z88.5 Allergy status to narcotic agent; Z88.2 Allergy status to sulfonamides; Z88.8 Allergy status to other drugs, medicaments and biological substances; Z91.041 Radiographic dye allergy status; Z90.49 Acquired absence of other specified parts of digestive tract; Z82.5 Family history of asthma and other chronic lower respiratory diseases; Z83.79 Family history of other diseases of the digestive system; W19.XXXA Unspecified fall, initial encounter
CPT/HCPCS: 36415; 71045; 71046; 80048; 80053; 81001; 82435; 83605; 83735; 83880; 84484; 85025; 85027; 85610; 85730; 87040; 87086; 87502; 93005; 94640; 96365; 96375; 99285

== ENCOUNTER 2019-09-27 05:36 | Emergency (ER) | payer MEDICARE, OTHER ==
[2019-09-27 05:43] VITALS: BP 120/71; PULSE 89; TEMP 99
--- NOTE | 2019-09-27 05:47 | ED ---
General Adult HPI - General Chief complaint: Fall Stated complaint: Fall Time Seen by Provider: 09/27/19 05:47 Source: patient, family Mode of arrival: wheelchair Limitations: no limitations - History of Present Illness Initial comments: Christen is a pleasant 69-year-old female who presents the ER today for evaluation after a fall at home. Patient recently spent nearly a month and a rehab facility she was discharged earlier in the week, home health and home physical therapy are due to be set up on Saturday. This morning patient got up and was walking with her walker when she believes her walker got caught on the carpet and she fell forward. Her was attempting to help her up with her son down them. He was concerned that the patient's would hurt his back is attempting to assist her. He was able to help his mother stand she has been ambulatory since that time she has no complaints of pain or injury. Son called 911 patient was evaluated by EMS but declined transferred to hospital, son the and brought the mom to the hospital for evaluation and states that he is concerned about her safety at home feels that she needs admission. - Related Data Home Medications Medication Instructions Recorded Confirmed Anastrozole [Arimidex] 1 mg PO DAILY 10/23/18 08/03/19 Atorvastatin [Lipitor] 40 mg PO HS 10/23/18 08/03/19 Levothyroxine Sodium [Synthroid] 25 mcg PO DAILY 10/23/18 08/03/19 Metoprolol Succinate (ER) [Toprol 100 mg PO DAILY 10/23/18 08/03/19 XL] sitaGLIPtin [Januvia] 100 mg PO DAILY 10/23/18 08/03/19 Citalopram Hydrobromide [CeleXA] 10 mg PO DAILY 02/27/19 08/03/19 Alendronate Sodium [Fosamax] 70 mg PO SA 05/05/19 08/03/19 Aspirin EC [Ecotrin Low Dose] 81 mg PO DAILY 05/05/19 08/03/19 Pantoprazole [Protonix] 40 mg PO DAILY 05/05/19 08/03/19 Pregabalin [Lyrica] 100 mg PO BID 05/05/19 08/03/19 Albuterol Sulfate [Ventolin HFA] 1 - 2 puff INHALATION RT-Q6H PRN 06/20/19 08/03/19 Budesonide/Formoterol Fumarate 2 puff INHALATION RT-BID 06/20/19 08/03/19 [Symbicort 160-4.5 Mcg Inhaler] Ipratropium-Albuterol Nebulize 3 ml INHALATION RT-Q4H PRN 06/20/19 08/03/19 [Duoneb 0.5 mg-3 mg/3 ml Soln] Magnesium Oxide [Mag-Ox] 400 mg PO DAILY 06/20/19 08/03/19 Nitroglycerin Sl Tabs [Nitrostat] 0.4 mg SUBLINGUAL Q5M PRN 06/20/19 08/03/19 busPIRone HCL 15 mg PO BID 07/11/19 08/03/19 Furosemide [Lasix] 40 mg PO DAILY 08/03/19 08/03/19 Potassium Chloride ER [K-Dur 20] 20 meq PO DAILY 08/03/19 08/03/19 Previous Rx's Medication Instructions Recorded Tiotropium 18 Mcg/Puff [Spiriva] 1 puff INHALATION RT-DAILY #0 07/14/19 Acetaminophen Tab [Tylenol] 650 mg PO Q6HR PRN tab 07/17/19 Cefuroxime Axetil [Ceftin] 500 mg PO BID 3 Days #6 tab 08/05/19 Warfarin [Coumadin] 5 mg PO ONCE@1800 tab 08/05/19 glipiZIDE [Glucotrol] 5 mg PO AC-BID #60 tab 08/05/19 predniSONE 10 mg PO DAILY #30 tab 08/05/19 Allergies Allergy/AdvReac Type Severity Reaction Status Date / Time alprazolam [From Xanax] Allergy Rash/Hives Verified 09/27/19 05:43 Iodinated Contrast Media Allergy Rash/Hives Verified 09/27/19 05:43 [Iodinated Contrast- Oral and IV Dye] morphine Allergy Rash/Hives Verified 09/27/19 05:43 Sulfa (Sulfonamide Allergy Rash/Hives Verified 09/27/19 05:43 Antibiotics) Review of Systems ROS Statement: Those systems with pertinent positive or pertinent negative responses have been documented in the HPI. ROS Other: All systems not noted in ROS Statement are negative. Past Medical History Past Medical History: Atrial Fibrillation, Chest Pain / Angina, Heart Failure, COPD, CVA/TIA, Diabetes Mellitus, Hyperlipidemia, Hypertension, Myocardial Infarction ([place]), Renal Disease, Respiratory Disorder, Thyroid Disorder Additional Past Medical History / Comment(s): Pt recently admitted to [facility] on 07/16/19 with generalized weakness/acute renal failure/bacteriuira. Other Hx: NIDDM type II, neuropathy bilateral feet, multiple CVAs with L sided weakness and speech changes, TIAs, generalized weakness, falls, chronic hypoxic respiratory failure-uses oxygen at 2L/NC HS, L breast cancer with lumpectomy only, CKD stage III, hypothyroid, osteoporosis. Last Myocardial Infarction Date:: 09/22/13 History of Any Multi-Drug Resistant Organisms: None Reported Past Surgical History: Appendectomy, Back Surgery, Breast Surgery, Cholecystect clarice, Heart Catheterization, Tubal Ligation Additional Past Surgical History / Comment(s): Loop recorder, L breast bx/lumpectomy. Past Anesthesia/Blood Transfusion Reactions: No Reported Reaction Additional Past Anesthesia/Blood Transfusion Reaction / Comment(s): Pt has received blood in past without reaction. Past Psychological History: Anxiety, Depression Smoking Status: Current every day smoker Past Alcohol Use History: None Reported Past Drug Use History: None Reported - Past Family History Mother Family Medical History: COPD Father Family Medical History: Liver Disease General Exam - General Exam Comments Initial Comments: Physical Exam GENERAL: Elderly female in no acute distress HENT: Normocephalic, Atraumatic. TMs normal bilaterally no hemotympanum No romero signs no raccoon eyes EYES: PERRL, EOMI PULMONARY: Unlabored respirations. No audible rales rhonchi or wheezing was noted. CARDIOVASCULAR: There is a regular rate and rhythm without any murmurs gallops or rubs. ABDOMEN: Soft and nontender with normal bowel sounds. SKIN: Skin is clear with no lesions or rashes and otherwise unremarkable. : Deferred NEUROLOGIC: Patient is alert and oriented x3. Moving all extremities spontaneously MUSCULOSKELETAL: Normal extremities with adequate strength and full range of motion. No lower extremity swelling or edema. No calf tenderness. PSYCHIATRIC: Normal psychiatric evaluation. Limitations: no limitations Course Vital Signs 09/27/19 05:39 Temperature 99 F Pulse Rate 89 Respiratory 20 Rate Blood Pressure 120/71 O2 Sat by Pulse 98 Oximetry Medical Decision Making - Medical Decision Making The patient was seen and evaluated history was obtained from patient and family at bedside History and physical exam are relatively unremarkable as is a pleasant 69-year-old female who seems to have a mechanical fall over her walker. Patient does have generalized weakness but this seems to be at her baseline per the patient has been Son's concern the patient's safer living at home labs were ordered and were unremarkable at this time I discussed with the family options for discharge home and continued home health care and physical therapy follow-up with primary care which is with the patient and her would prefer. Return parameters were discussed or questions pertaining care were answered patient was discharged home in stable condition. - Lab Data Result diagrams: 09/27/19 06:09 09/27/19 06:09 Lab Results 09/27/19 09/27/19 09/27/19 Range/Units 06:04 06:09 06:09 WBC 8.4 (3.8-10.6) k/uL RBC 3.70 L (3.80-5.40) m/uL Hgb 11.2 L (11.4-16.0) gm/dL Hct 34.5 (34.0-46.0) % MCV 93.2 (80.0-100.0) fL MCH 30.3 (25.0-35.0) pg MCHC 32.5 (31.0-37.0) g/dL RDW 16.7 H (11.5-15.5) % Plt Count 155 D (150-450) k/uL Neutrophils % 79 % Lymphocytes % 9 % Monocytes % 7 % Eosinophils % 3 % Basophils % 0 % Neutrophils # 6.6 (1.3-7.7) k/uL Lymphocytes # 0.8 L (1.0-4.8) k/uL Monocytes # 0.6 (0-1.0) k/uL Eosinophils # 0.2 (0-0.7) k/uL Basophils # 0.0 (0-0.2) k/uL Anisocytosis Slight Sodium 134 L (137-145) mmol/L Potassium 4.8 (3.5-5.1) mmol/L Chloride 102 (98-107) mmol/L Carbon Dioxide 28 (22-30) mmol/L Anion Gap 4 mmol/L BUN 41 H (7-17) mg/dL Creatinine 1.50 H (0.52-1.04) mg/dL Est GFR (CKD-EPI)AfAm 40 (>60 ml/min/1.73 sqM) Est GFR (CKD-EPI)NonAf 35 (>60 ml/min/1.73 sqM) Glucose 131 H (74-99) mg/dL Calcium 8.5 (8.4-10.2) mg/dL Total Bilirubin 0.5 (0.2-1.3) mg/dL AST 36 (14-36) U/L ALT 73 H (4-34) U/L Alkaline Phosphatase 104 (38-126) U/L Total Protein 5.9 L (6.3-8.2) g/dL Albumin 3.2 L (3.5-5.0) g/dL Urine Color Light Yellow Urine Appearance Clear (Clear) Urine pH 6.0 (5.0-8.0) Ur Specific [place] 1.015 (1.001-1.035) Urine Protein Negative (Negative) Urine Glucose (UA) Negative (Negative) Urine Ketones Negative (Negative) Urine Blood Negative (Negative) Urine Nitrite Negative (Negative) Urine Bilirubin Negative (Negative) Urine Urobilinogen <2.0 (<2.0) mg/dL Ur Leukocyte Esterase Negative (Negative) Disposition Clinical Impression: Fall Disposition: HOME SELF-CARE Condition: Stable Instructions (If sedation given, give patient instructions): Fall Prevention for Older Adults (ED) Is patient prescribed a controlled substance at d/c from ED?: No Referrals: Júnior Arzola DO [Primary Care Provider] - 1-2 days
[2019-09-27 06:18] LABS: Appearance,Urine Clear (Clear); Bilirubin,Urine Negative (Negative); Blood,Urine Negative (Negative); Color,Urine Light Yellow; Glucose,Urine (UA) Negative (Negative); Ketones,Urine Negative (Negative); Leukocyte Esterase,Urine Negative (Negative); Nitrite,Urine Negative (Negative); Protein,Urine Negative (Negative); Specific Gravity,Urine 1.015 (1.001-1.035); Urobilinogen,Urine <2.0 mg/dL (<2.0)
[2019-09-27 06:23] LABS: Anisocytosis Slight; Basophils % (A) 0 %; Eosinophils # (A) 0.2 k/uL (0-0.7); Eosinophils % (A) 3 %; HCT 34.5 % (34.0-46.0); HGB 11.2 gm/dL (11.4-16.0); Lymphocytes # (A) 0.8 k/uL (1.0-4.8); Lymphocytes % (A) 9 %; MCH 30.3 pg (25.0-35.0); MCHC 32.5 g/dL (31.0-37.0); MCV 93.2 fL (80.0-100.0); Mean Platelet Volume 8.7; Monocytes # (A) 0.6 k/uL (0-1.0); Monocytes % (A) 7 %; Neutrophils # (A) 6.6 k/uL (1.3-7.7); Neutrophils % (A) 79 %; RDW 16.7 % (11.5-15.5); WBC 8.4 k/uL (3.8-10.6)
[2019-09-27 06:34] LABS: Albumin 3.2 g/dL (3.5-5.0); Calcium 8.5 mg/dL (8.4-10.2); Potassium 4.8 mmol/L (3.5-5.1); Total Bilirubin 0.5 mg/dL (0.2-1.3); Total Protein 5.9 g/dL (6.3-8.2)
[2019-09-27 06:39] LABS: Platelet Count 155 k/uL (150-450)
[2019-09-27 07:48] VITALS: RESP 18
== END 2019-09-27 07:45 | disposition home or self-care (01) ==
LOC: EC 05:36
DX: Z04.3 Encounter for examination and observation following other accident (principal); R53.1 Weakness; I48.91 Unspecified atrial fibrillation; E11.22 Type 2 diabetes mellitus with diabetic chronic kidney disease; I13.0 Hypertensive heart and chronic kidney disease with heart failure and stage 1 through stage 4 chronic kidney disease, or unspecified chronic kidney disease; I50.9 Heart failure, unspecified; N18.3 Chronic kidney disease, stage 3 (moderate); J44.9 Chronic obstructive pulmonary disease, unspecified; E78.5 Hyperlipidemia, unspecified; I25.2 Old myocardial infarction; E03.9 Hypothyroidism, unspecified; M81.0 Age-related osteoporosis without current pathological fracture; F41.9 Anxiety disorder, unspecified; F32.9 Major depressive disorder, single episode, unspecified; J96.11 Chronic respiratory failure with hypoxia; F17.200 Nicotine dependence, unspecified, uncomplicated; Z79.890 Hormone replacement therapy; Z79.82 Long term (current) use of aspirin; Z79.51 Long term (current) use of inhaled steroids; Z79.84 Long term (current) use of oral hypoglycemic drugs; Z79.899 Other long term (current) drug therapy; Z88.8 Allergy status to other drugs, medicaments and biological substances; Z88.5 Allergy status to narcotic agent; Z88.2 Allergy status to sulfonamides; Z91.041 Radiographic dye allergy status; Z86.73 Personal history of transient ischemic attack (TIA), and cerebral infarction without residual deficits; Z85.3 Personal history of malignant neoplasm of breast; W19.XXXA Unspecified fall, initial encounter; Y92.009 Unspecified place in unspecified non-institutional (private) residence as the place of occurrence of the external cause
CPT/HCPCS: 36415; 80053; 81003; 85025; 99283

== ENCOUNTER 2019-09-29 08:49 | Emergency (ER) | payer MEDICARE, OTHER ==
[2019-09-29 08:58] VITALS: RESP 18; TEMP 98
--- NOTE | 2019-09-29 09:39 | ED ---
Altered Mental Status HPI - General Chief Complaint: Altered Mental Status Stated Complaint: fall, weakness Time Seen by Provider: 09/29/19 09:10 Source: patient, family, RN/MD, RN notes reviewed, old records reviewed Mode of arrival: ambulatory Limitations: no limitations - History of Present Illness Initial Comments: This is a 69-year-old female with a long medical history of multiple issues acutely medically for the chart who presents today by private vehicle with her family for onset of confusion. She was seen here and discharged after being ev aluated yesterday morning and family states that she had an episode later in the day yesterday of staring off into space and may somewhat confused. This morning with her driver/merchandiser in a car she leaned over to the right when asked why she was doing and she states she did not know was acting confused again. No reports of any new fall she was seen the other day for a fall but none since then. She is complaining of occipital headache she denies any fevers chills nausea vomiting sweats or other new symptoms. No focal deficits reported MD Complaint: altered mental status, confusion - Related Data Home Medications Medication Instructions Recorded Confirmed Anastrozole [Arimidex] 1 mg PO DAILY 10/23/18 09/29/19 Atorvastatin [Lipitor] 40 mg PO HS 10/23/18 09/29/19 Levothyroxine Sodium [Synthroid] 25 mcg PO DAILY 10/23/18 09/29/19 Metoprolol Succinate (ER) [Toprol 100 mg PO DAILY 10/23/18 09/29/19 XL] sitaGLIPtin [Januvia] 100 mg PO DAILY 10/23/18 09/29/19 Citalopram Hydrobromide [CeleXA] 10 mg PO DAILY 02/27/19 09/29/19 Pantoprazole [Protonix] 40 mg PO DAILY 05/05/19 09/29/19 Pregabalin [Lyrica] 100 mg PO BID 05/05/19 09/29/19 Albuterol Sulfate [Ventolin HFA] 1 - 2 puff INHALATION RT-Q6H PRN 06/20/19 09/29/19 Ipratropium-Albuterol Nebulize 3 ml INHALATION RT-Q4H PRN 06/20/19 09/29/19 [Duoneb 0.5 mg-3 mg/3 ml Soln] Magnesium Oxide [Mag-Ox] 400 mg PO DAILY 06/20/19 09/29/19 Nitroglycerin Sl Tabs [Nitrostat] 0.4 mg SUBLINGUAL Q5M PRN 06/20/19 09/29/19 busPIRone HCL 15 mg PO DAILY 07/11/19 09/29/19 Furosemide [Lasix] 40 mg PO DAILY 08/03/19 09/29/19 Potassium Chloride ER [K-Dur 20] 20 meq PO DAILY 08/03/19 09/29/19 Losartan Potassium 50 mg PO BID 09/29/19 09/29/19 Rivaroxaban [Xarelto] 15 mg PO DAILY 09/29/19 09/29/19 Spironolactone [Aldactone] 12.5 mg PO DAILY 09/29/19 09/29/19 predniSONE See Taper PO DAILY 09/29/19 09/29/19 Allergies Allergy/AdvReac Type Severity Reaction Status Date / Time alprazolam [From Xanax] Allergy Rash/Hives Verified 09/29/19 11:38 Iodinated Contrast Media Allergy Rash/Hives Verified 09/29/19 11:38 [Iodinated Contrast- Oral and IV Dye] morphine Allergy Rash/Hives Verified 09/29/19 11:38 Sulfa (Sulfonamide Allergy Rash/Hives Verified 09/29/19 11:38 Antibiotics) Review of Systems ROS Statement: Those systems with pertinent positive or pertinent negative responses have been documented in the HPI. ROS Other: All systems not noted in ROS Statement are negative. Past Medical History Past Medical History: Atrial Fibrillation, Chest Pain / Angina, Heart Failure, COPD, CVA/TIA, Diabetes Mellitus, Hyperlipidemia, Hypertension, Myocardial Infarction (DC), Renal Disease, Respiratory Disorder, Thyroid Disorder Additional Past Medical History / Comment(s): Pt recently admitted to [facility] on 07/16/19 with generalized weakness/acute renal failure/bacteriuira. Other Hx: NIDDM type II, neuropathy bilateral feet, multiple CVAs with L sided weakness and speech changes, TIAs, generalized weakness, falls, chronic hypoxic respiratory failure-uses oxygen at 2L/NC HS, L breast cancer with lumpectomy only, CKD stage III, hypothyroid, osteoporosis. Last Myocardial Infarction Date:: 09/22/13 History of Any Multi-Drug Resistant Organisms: None Reported Past Surgical History: Appendectomy, Back Surgery, Breast Surgery, Cholecystectomy, Heart Catheterization, Tubal Ligation Additional Past Surgical History / Comment(s): Loop recorder, L breast bx/lumpectomy. Past Anesthesia/Blood Transfusion Reactions: No Reported Reaction Additional Past Anesthesia/Blood Transfusion Reaction / Comment(s): Pt has recei angela blood in past without reaction. Past Psychological History: Anxiety, Depression Smoking Status: Current every day smoker Past Alcohol Use History: None Reported Past Drug Use History: None Reported - Past Family History Mother Family Medical History: COPD Father Family Medical History: Liver Disease General Exam - General Exam Comments Initial Comments: This is a well-developed sec appearing female who is awake alert though somewhat slow to answer. She does not appear to be confused at this time Limitations: no limitations General appearance: alert, lethargic Head exam: Present: atraumatic, normocephalic, normal inspection Eye exam: Present: normal appearance, PERRL, EOMI. Absent: scleral icterus, conjunctival injection, periorbital swelling ENT exam: Present: mucous membranes dry Neck exam: Present: normal inspection. Absent: tenderness, meningismus, lymphadenopathy Respiratory exam: Present: normal lung sounds bilaterally. Absent: respiratory distress, wheezes, rales, rhonchi, stridor Cardiovascular Exam: Present: normal rhythm, tachycardia, normal heart sounds. Absent: systolic murmur, diastolic murmur, rubs, gallop, clicks GI/Abdominal exam: Present: soft, normal bowel sounds. Absent: distended, tenderness, guarding, rebound, rigid Extremities exam: Present: normal inspection, full ROM, normal capillary refill. Absent: tenderness, pedal edema, joint swelling, calf tenderness Back exam: Present: normal inspection Neurological exam: Present: alert, oriented X3, CN II-XII intact Psychiatric exam: Present: normal affect, normal mood Skin exam: Present: warm, dry, intact, normal color. Absent: rash Course Vital Signs 09/29/19 08:54 Temperature 98.0 F Pulse Rate 107 H Respiratory 18 Rate Blood Pressure 124/70 O2 Sat by Pulse 98 Oximetry Medical Decision Making - Medical Decision Making I did discuss findings with patient family reevaluation patient reveals no definite focal deficits she is more alert than when she responded initially. After discussion with the family patient will require admission and we have no neurology available this week at this facility she will be transferred to [facility] I did discuss case with Dr. Kaufman who is agreed to set the patient transfer. - Lab Data Result diagrams: 09/29/19 09:20 09/29/19 09:20 Lab Results 09/29/19 09/29/19 09/29/19 Range/Units 09:20 09:20 09:20 WBC 8.7 (3.8-10.6) k/uL RBC 3.85 (3.80-5.40) m/uL Hgb 11.4 (11.4-16.0) gm/dL Hct 36.2 (34.0-46.0) % MCV 94.0 (80.0-100.0) fL MCH 29.6 (25.0-35.0) pg MCHC 31.5 (31.0-37.0) g/dL RDW 16.4 H (11.5-15.5) % Plt Count 152 (150-450) k/uL Neutrophils % 85 % Lymphocytes % 7 % Monocytes % 5 % Eosinophils % 1 % Basophils % 0 % Neutrophils # 7.4 (1.3-7.7) k/uL Lymphocytes # 0.6 L (1.0-4.8) k/uL Monocytes # 0.4 (0-1.0) k/uL Eosinophils # 0.1 (0-0.7) k/uL Basophils # 0.0 (0-0.2) k/uL Anisocytosis Slight Sodium 134 L (137-145) mmol/L Potassium 4.3 (3.5-5.1) mmol/L Chloride 100 (98-107) mmol/L Carbon Dioxide 24 (22-30) mmol/L Anion Gap 10 mmol/L BUN 31 H (7-17) mg/dL Creatinine 1.26 H (0.52-1.04) mg/dL Est GFR (CKD-EPI)AfAm 50 (>60 ml/min/1.73 sqM) Est GFR (CKD-EPI)NonAf 43 (>60 ml/min/1.73 sqM) Glucose 198 H (74-99) mg/dL Calcium 8.8 (8.4-10.2) mg/dL Magnesium 1.8 (1.6-2.3) mg/dL Total Bilirubin 0.7 (0.2-1.3) mg/dL AST 31 (14-36) U/L ALT 52 H (4-34) U/L Alkaline Phosphatase 91 (38-126) U/L Ammonia <9 (<30) umol/L Creatine Kinase 46 (30-135) U/L Total Protein 6.5 (6.3-8.2) g/dL Albumin 3.6 (3.5-5.0) g/dL Urine Color Urine Appearance (Clear) Urine pH (5.0-8.0) Ur Specific [place] (1.001-1.035) Urine Protein (Negative) Urine Glucose (UA) (Negative) Urine Ketones (Negative) Urine Blood (Negative) Urine Nitrite (Negative) Urine Bilirubin (Negative) Urine Urobilinogen (<2.0) mg/dL Ur Leukocyte Esterase (Negative) 09/29/19 Range/Units 10:10 WBC (3.8-10.6) k/uL RBC (3.80-5.40) m/uL Hgb (11.4-16.0) gm/dL Hct (34.0-46.0) % MCV (80.0-100.0) fL MCH (25.0-35.0) pg MCHC (31.0-37.0) g/dL RDW (11.5-15.5) % Plt Count (150-450) k/uL Neutrophils % % Lymphocytes % % Monocytes % % Eosinophils % % Basophils % % Neutrophils # (1.3-7.7) k/uL Lymphocytes # (1.0-4.8) k/uL Monocytes # (0-1.0) k/uL Eosinophils # (0-0.7) k/uL Basophils # (0-0.2) k/uL Anisocytosis Sodium (137-145) mmol/L Potassium (3.5-5.1) mmol/L Chloride (98-107) mmol/L Carbon Dioxide (22-30) mmol/L Anion Gap mmol/L BUN (7-17) mg/dL Creatinine (0.52-1.04) mg/dL Est GFR (CKD-EPI)AfAm (>60 ml/min/1.73 sqM) Est GFR (CKD-EPI)NonAf (>60 ml/min/1.73 sqM) Glucose (74-99) mg/dL Calcium (8.4-10.2) mg/dL Magnesium (1.6-2.3) mg/dL Total Bilirubin (0.2-1.3) mg/dL AST (14-36) U/L ALT (4-34) U/L Alkaline Phosphatase (38-126) U/L Ammonia (<30) umol/L Creatine Kinase (30-135) U/L Total Protein (6.3-8.2) g/dL Albumin (3.5-5.0) g/dL Urine Color Colorless Urine Appearance Clear (Clear) Urine pH 5.5 (5.0-8.0) Ur Specific [place] 1.005 (1.001-1.035) Urine Protein Negative (Negative) Urine Glucose (UA) Negative (Negative) Urine Ketones Negative (Negative) Urine Blood Negative (Negative) Urine Nitrite Negative (Negative) Urine Bilirubin Negative (Negative) Urine Urobilinogen <2.0 (<2.0) mg/dL Ur Leukocyte Esterase Negative (Negative) - EKG Data -: EKG Interpreted by Ca EKG shows normal: sinus rhythm (Sinus rhythm of 92 ND interval 158 QRS duration is 82) EKG Comments: Sinus rhythm of 92. Interval 158 QRS duration 82 QT since QTC 372/460 with ex[address] no acute ST-T wave changes - Radiology Data Radiology results: report reviewed (I did review the imaging and report no evidence of acute findings.), image reviewed Disposition Clinical Impression: Altered mental status, Syncope, Chronic renal failure, Dehydration Disposition: OTHER INSTITUTION NOT DEFINED Condition: Stable Referrals: Júnior Arzola DO [Primary Care Provider] - 1-2 days - Out of Hospital Transfer - Req. Specs Out of Hospital Transfer - Requested Specifics: Other Emergency Center
[2019-09-29] MEDS ORDERED: SODIUM CHLORIDE 0.9% 1,000 ML IV STA (09:41)
[2019-09-29] MEDS ORDERED: SODIUM CHLORIDE 0.9% 500 ML 500 ML IV STA (09:41)
[2019-09-29 09:58] LABS: Anisocytosis Slight; Basophils % (A) 0 %; Eosinophils # (A) 0.1 k/uL (0-0.7); Eosinophils % (A) 1 %; HCT 36.2 % (34.0-46.0); HGB 11.4 gm/dL (11.4-16.0); Lymphocytes # (A) 0.6 k/uL (1.0-4.8); Lymphocytes % (A) 7 %; MCH 29.6 pg (25.0-35.0); MCHC 31.5 g/dL (31.0-37.0); Mean Platelet Volume 8.7; Monocytes # (A) 0.4 k/uL (0-1.0); Monocytes % (A) 5 %; Neutrophils # (A) 7.4 k/uL (1.3-7.7); Neutrophils % (A) 85 %; Platelet Count 152 k/uL (150-450); RBC 3.85 m/uL (3.80-5.40); RDW 16.4 % (11.5-15.5); WBC 8.7 k/uL (3.8-10.6)
[2019-09-29 10:10] LABS: Albumin 3.6 g/dL (3.5-5.0); Calcium 8.8 mg/dL (8.4-10.2); Magnesium 1.8 mg/dL (1.6-2.3); Potassium 4.3 mmol/L (3.5-5.1); Total Bilirubin 0.7 mg/dL (0.2-1.3); Total Protein 6.5 g/dL (6.3-8.2)
--- NOTE | 2019-09-29 10:21 | XR ---
EXAMINATION TYPE: XR chest 2V DATE OF EXAM: 09/29/2019 COMPARISON: 08/04/2019 TECHNIQUE: PA and lateral views submitted. HISTORY: Confusion FINDINGS: The lungs are clear and there is no pneumothorax, pleural effusion, or focal pneumonia. Hyperinflat ion noted. Subcutaneous metallic device noted. A tiny granuloma left upper lobe. Arthropathy of the s houlders. Coarsened interstitium could be associated with a degree of chronic interstitial lung disea se. IMPRESSION: 1. No acute process. 2. COPD. Stable left upper lobe lingular segment granuloma.
--- NOTE | 2019-09-29 10:24 | CT ---
EXAMINATION TYPE: CT brain cspine wo con DATE OF EXAM: 09/29/2019 COMPARISON: 07/15/2019 HISTORY: fall, weakness. Head and neck pain. CT DLP: 1264.7 mGycm. Automated Exposure Control for Dose Reduction was Utilized. TECHNIQUE: CT scan of the head and cervical spine are performed without contrast. FINDINGS: Encephalomalacia is seen of the right frontal lobe, left frontal deep white matter, left p arietal lobe, right parietal lobe, and posterior right temporal lobe from prior infarcts. Findings ar e similar to the prior of 07/15/2019. There is no acute intracranial hemorrhage, mass effect, or midl ine shift identified. The ventricles and sulci are symmetrically prominent compatible with age-relat ed volume loss in addition to the encephalomalacia as described above. Bilateral old lacunar injuries of the thalamus. Confluent areas of hypoattenuation are seen throughout the white matter. Mild mucos al thickening in the ethmoid sinuses. The globes are intact and the remaining visualized sinuses are clear. Cervical spine is visualized in its entirety from C1 through upper thoracic levels and demonstrates s atisfactory alignment without evidence of acute fracture or dislocation. Moderate multilevel degener ative disc disease of the cervical spine with posterior disc osteophyte complexes at C4-C5, C5-C6 and C6-C7. Degenerative narrowing of the atlantodental interval. Prevertebral soft tissue appears within normal limits. The C1-C2 articulation is unremarkable. Severe by a lateral apical emphysematous ch anges with bilateral pleural parenchymal scarring. More spiculated component is seen medially measuri ng up to 8 x 3 mm on series 301 image 97. Incidentally noted calcified thyroid nodule. Atherosclerosi s of the carotid arteries. IMPRESSION: 1. There is no acute fracture or dislocation evident in the cervical spine. 2. No acute intracranial hemorrhage, mass effect, or midline shift is seen. 3. Multiple areas of encephalomalacia from old infarcts. Bilateral old thalamic lacunar injuries. Sev ere burden nonspecific white matter change. 4. Moderate multilevel degenerative disc disease of the cervical spine. 5. Right upper lobe spiculated 8 x 3 mm pulmonary nodule may be sequela of pleural parenchymal scarri ng in this patient with emphysematous change although dedicated CT thorax is recommended on a nonemer gent basis for full evaluation of the chest.
[2019-09-29 10:26] LABS: Appearance,Urine Clear (Clear); Bilirubin,Urine Negative (Negative); Blood,Urine Negative (Negative); Color,Urine Colorless; Glucose,Urine (UA) Negative (Negative); Ketones,Urine Negative (Negative); Leukocyte Esterase,Urine Negative (Negative); Nitrite,Urine Negative (Negative); PH, Urine 5.5 (5.0-8.0); Protein,Urine Negative (Negative); Specific Gravity,Urine 1.005 (1.001-1.035); Urobilinogen,Urine <2.0 mg/dL (<2.0)
[2019-09-29 13:05] VITALS: BP 142/82; PULSE 81
== END 2019-09-29 13:10 | disposition other institution (70) ==
LOC: EC 08:49
DX: E86.0 Dehydration (principal); E11.22 Type 2 diabetes mellitus with diabetic chronic kidney disease; R55 Syncope and collapse; R41.82 Altered mental status, unspecified; I13.0 Hypertensive heart and chronic kidney disease with heart failure and stage 1 through stage 4 chronic kidney disease, or unspecified chronic kidney disease; E11.42 Type 2 diabetes mellitus with diabetic polyneuropathy; N18.3 Chronic kidney disease, stage 3 (moderate); I50.9 Heart failure, unspecified; F41.9 Anxiety disorder, unspecified; F32.9 Major depressive disorder, single episode, unspecified; E03.9 Hypothyroidism, unspecified; E78.5 Hyperlipidemia, unspecified; I25.2 Old myocardial infarction; I48.91 Unspecified atrial fibrillation; J44.9 Chronic obstructive pulmonary disease, unspecified; I69.354 Hemiplegia and hemiparesis following cerebral infarction affecting left non-dominant side; M81.0 Age-related osteoporosis without current pathological fracture; J96.11 Chronic respiratory failure with hypoxia; F17.200 Nicotine dependence, unspecified, uncomplicated; Z79.890 Hormone replacement therapy; Z79.84 Long term (current) use of oral hypoglycemic drugs; Z79.51 Long term (current) use of inhaled steroids; Z79.01 Long term (current) use of anticoagulants; Z79.52 Long term (current) use of systemic steroids; Z79.899 Other long term (current) drug therapy; Z88.8 Allergy status to other drugs, medicaments and biological substances; Z91.041 Radiographic dye allergy status; Z88.5 Allergy status to narcotic agent; Z88.2 Allergy status to sulfonamides; Z95.5 Presence of coronary angioplasty implant and graft; Z85.3 Personal history of malignant neoplasm of breast; Z90.12 Acquired absence of left breast and nipple; Z99.81 Dependence on supplemental oxygen; Z90.49 Acquired absence of other specified parts of digestive tract
CPT/HCPCS: 36415; 70450; 71046; 72125; 80053; 81003; 82140; 82550; 83735; 85025; 93005; 96360; 99285

== ENCOUNTER 2019-10-06 18:51 | Inpatient (IN) | payer MEDICARE, OTHER ==
[2019-10-06] MEDS ORDERED: IBUPROFEN 600 MG TAB PO STA (19:34)
[2019-10-06] MEDS ORDERED: ACETAMINOPHEN TAB 500 MG TAB PO STA (19:34)
--- NOTE | 2019-10-06 19:42 | ED ---
General Adult HPI - General Chief complaint: Dizziness Stated complaint: weakness & dizziness Time Seen by Provider: 10/06/19 19:00 Source: patient, EMS, RN notes reviewed, old records reviewed Mode of arrival: EMS - History of Present Illness Initial comments: This is a 69-year-old female whose family brings her into the emergency department she is a poor historian and difficult to understand so family does most of the talking. Family states she was just discharged from [facility] 2 days ago and since then she has been weak and on most falling down on multiple occasions. They state that this is not normal for her and they were surprised that they let her go home. He also states that she's been home she's been altered mentally. They state that the patient does not have any complaints but that is typical of her not complaining. Family states they have not noticed any difficulty breathing or shortness of breath she is not complaining of any chest pain there's been no fever or chills that they have noted. Patient has not had any vomiting or diarrhea. Her main complaint is just her overall weakness and her almost falling on multiple occasions - Related Data Home Medications Medication Instructions Recorded Confirmed Anastrozole [Arimidex] 1 mg PO DAILY 10/23/18 09/29/19 Atorvastatin [Lipitor] 40 mg PO HS 10/23/18 09/29/19 Levothyroxine Sodium [Synthroid] 25 mcg PO DAILY 10/23/18 09/29/19 Metoprolol Succinate (ER) [Toprol 100 mg PO DAILY 10/23/18 09/29/19 XL] sitaGLIPtin [Januvia] 100 mg PO DAILY 10/23/18 09/29/19 Citalopram Hydrobromide [CeleXA] 10 mg PO DAILY 02/27/19 09/29/19 Pantoprazole [Protonix] 40 mg PO DAILY 05/05/19 09/29/19 Pregabalin [Lyrica] 100 mg PO BID 05/05/19 09/29/19 Albuterol Sulfate [Ventolin HFA] 1 - 2 puff INHALATION RT-Q6H PRN 06/20/19 09/29/19 Ipratropium-Albuterol Nebulize 3 ml INHALATION RT-Q4H PRN 06/20/19 09/29/19 [Duoneb 0.5 mg-3 mg/3 ml Soln] Magnesium Oxide [Mag-Ox] 400 mg PO DAILY 06/20/19 09/29/19 Nitroglycerin Sl Tabs [Nitrostat] 0.4 mg SUBLINGUAL Q5M PRN 06/20/19 09/29/19 busPIRone HCL 15 mg PO DAILY 07/11/19 09/29/19 Furosemide [Lasix] 40 mg PO DAILY 08/03/19 09/29/19 Potassium Chloride ER [K-Dur 20] 20 meq PO DAILY 08/03/19 09/29/19 Losartan Potassium 50 mg PO BID 09/29/19 09/29/19 Rivaroxaban [Xarelto] 15 mg PO DAILY 09/29/19 09/29/19 Spironolactone [Aldactone] 12.5 mg PO DAILY 09/29/19 09/29/19 predniSONE See Taper PO DAILY 09/29/19 09/29/19 Allergies Allergy/AdvReac Type Severity Reaction Status Date / Time alprazolam [From Xanax] Allergy Rash/Hives Verified 10/06/19 19:07 Iodinated Contrast Media Allergy Rash/Hives Verified 10/06/19 19:07 [Iodinated Contrast- Oral and IV Dye] morphine Allergy Rash/Hives Verified 10/06/19 19:07 Sulfa (Sulfonamide Allergy Rash/Hives Verified 10/06/19 19:07 Antibiotics) Review of Systems ROS Statement: Those systems with pertinent positive or pertinent negative responses have been documented in the HPI. ROS Other: All systems not noted in ROS Statement are negative. Past Medical History Past Medical History: Atrial Fibrillation, Chest Pain / Angina, Heart Failure, COPD, CVA/TIA, Diabetes Mellitus, Hyperlipidemia, Hypertension, Myocardial Infarction ([place]), Renal Disease, Respiratory Disorder, Thyroid Disorder Additional Past Medical History / Comment(s): Pt recently admitted to [facility] on 07/16/19 with generalized weakness/acute renal failure/bacteriuira. Other Hx: NIDDM type II, neuropathy bilateral feet, multiple CVAs with L sided weakness and speech changes, TIAs, generalized weakness, falls, chronic hypoxic respiratory failure-uses oxygen at 2L/NC HS, L breast cancer with lumpectomy only, CKD stage III, hypothyroid, osteoporosis. Last Myocardial Infarction Date:: 09/22/13 History of Any Multi-Drug Resistant Organisms: None Reported Past Surgical History: Appendectomy, Back Surgery, Breast Surgery, Cholecystectomy, Heart Catheterization, Tubal Ligation Additional Past Surgical History / Comment(s): Loop recorder, L breast bx/lumpectomy. Past Anesthesia/Blood Transfusion Reactions: No Reported Reaction Additional Past Anesthesia/Blood Transfusion Reaction / Comment(s): Pt has received blood in past without reaction. Past Psychological History: Anxiety, Depression Smoking Status: Current every day smoker Past Alcohol Use History: None Reported Past Drug Use History: None Reported - Past Family History Mother Family Medical History: COPD Father Family Medical History: Liver Disease General Exam - General Exam Comments Initial Comments: GENERAL: Patient is well-developed and well-nourished. Patient is nontoxic and well- hydrated and is in mild distress. Patient has a oral temperature of 99.9 though she does feel warm ENT: Neck is soft and supple. No significant lymphadenopathy is noted. Oropharynx is clear. Moist mucous membranes. Neck has full range of motion without eliciting any pain. EYES: The sclera were anicteric and conjunctiva were pink and moist. Extraocular movements were intact and pupils were equal round and reactive to light. Eyelids were unremarkable. PULMONARY: Unlabored respirations. Good breath sounds bilaterally. No audible rales rhonchi or wheezing was noted. CARDIOVASCULAR: There is a regular rate and rhythm without any murmurs gallops or rubs. ABDOMEN: Soft and nontender with normal bowel sounds. SKIN: Skin is clear with no lesions or rashes and otherwise unremarkable. NEUROLOGIC: Patient is alert and oriented 2. Cranial nerves II through XII are grossly intact. Patient has poor right-sided gripping is unable to move the right leg. Family states this is normal for her LYMPHATICS: No significant lymphadenopathy is noted PSYCHIATRIC: Normal psychiatric evaluation. Course Vital Signs 10/06/19 10/06/19 10/06/19 18:59 20:00 20:20 Temperature Pulse Rate 98 94 87 Respiratory 18 Rate Blood Pressure 125/70 O2 Sat by Pulse 90 L Oximetry 10/06/19 20:45 Temperature 99.3 F Pulse Rate 88 Respiratory 20 Rate Blood Pressure 134/77 O2 Sat by Pulse 100 Oximetry Medical Decision Making - Medical Decision Making Patient got Rocephin for urinary tract infection emergency department. Patient continued to be generally weak and she stated that the weakness on her right side was no different than her baseline. EKG showed a normal sinus rhythm at 98 bpm CA interval is 164 QRS is 86 QT interval 344 QTC is 439 per patient's EKG shows no ST segment elevation or depression. Spoke with Dr. Delacruz's nurse practitioner and she accepted the patient admitted the patient wrote admitting orders. - Lab Data Result diagrams: 10/06/19 19:46 10/06/19 19:46 Lab Results 10/06/19 10/06/19 10/06/19 Range/Units 19:46 19:46 19:46 WBC 8.0 (3.8-10.6) k/uL RBC 3.80 (3.80-5.40) m/uL Hgb 11.2 L (11.4-16.0) gm/dL Hct 35.6 (34.0-46.0) % MCV 93.5 (80.0-100.0) fL MCH 29.4 (25.0-35.0) pg MCHC 31.4 (31.0-37.0) g/dL RDW 15.9 H (11.5-15.5) % Plt Count 283 (150-450) k/uL Neutrophils % 73 % Lymphocytes % 14 % Monocytes % 8 % Eosinophils % 1 % Basophils % 0 % Neutrophils # 5.9 (1.3-7.7) k/uL Lymphocytes # 1.1 (1.0-4.8) k/uL Monocytes # 0.7 (0-1.0) k/uL Eosinophils # 0.1 (0-0.7) k/uL Basophils # 0.0 (0-0.2) k/uL Hypochromasia Slight PT 11.6 (9.0-12.0) sec INR 1.1 (<1.2) APTT 30.6 H (22.0-30.0) sec Sodium 141 (137-145) mmol/L Potassium 4.8 (3.5-5.1) mmol/L Chloride 108 H (98-107) mmol/L Carbon Dioxide 26 (22-30) mmol/L Anion Gap 7 mmol/L BUN 30 H (7-17) mg/dL Creatinine 1.53 H (0.52-1.04) mg/dL Est GFR (CKD-EPI)AfAm 39 (>60 ml/min/1.73 sqM) Est GFR (CKD-EPI)NonAf 34 (>60 ml/min/1.73 sqM) Glucose 154 H (74-99) mg/dL Plasma Lactic Acid Silvestre (0.7-2.0) mmol/L Calcium 9.9 (8.4-10.2) mg/dL Total Bilirubin 0.3 (0.2-1.3) mg/dL AST 26 (14-36) U/L ALT 28 (4-34) U/L Alkaline Phosphatase 105 (38-126) U/L Troponin I (0.000-0.034) ng/mL Total Protein 6.8 (6.3-8.2) g/dL Albumin 3.8 (3.5-5.0) g/dL Urine Color Urine Appearance (Clear) Urine pH (5.0-8.0) Ur Specific [place] (1.001-1.035) Urine Protein (Negative) Urine Glucose (UA) (Negative) Urine Ketones (Negative) Urine Blood (Negative) Urine Nitrite (Negative) Urine Bilirubin (Negative) Urine Urobilinogen (<2.0) mg/dL Ur Leukocyte Esterase (Negative) Urine RBC (0-5) /hpf Urine WBC (0-5) /hpf Urine Bacteria (None) /hpf Hyaline Casts (0-2) /lpf Urine Mucus (None) /hpf Influenza Type A RNA (Not Detectd) Influenza Type B (PCR) (Not Detectd) 10/06/19 10/06/19 10/06/19 Range/Units 19:46 19:46 19:46 WBC (3.8-10.6) k/uL RBC (3.80-5.40) m/uL Hgb (11.4-16.0) gm/dL Hct (34.0-46.0) % MCV (80.0-100.0) fL MCH (25.0-35.0) pg MCHC (31.0-37.0) g/dL RDW (11.5-15.5) % Plt Count (150-450) k/uL Neutrophils % % Lymphocytes % % Monocytes % % Eosinophils % % Basophils % % Neutrophils # (1.3-7.7) k/uL Lymphocytes # (1.0-4.8) k/uL Monocytes # (0-1.0) k/uL Eosinophils # (0-0.7) k/uL Basophils # (0-0.2) k/uL Hypochromasia PT (9.0-12.0) sec INR (<1.2) APTT (22.0-30.0) sec Sodium (137-145) mmol/L Potassium (3.5-5.1) mmol/L Chloride (98-107) mmol/L Carbon Dioxide (22-30) mmol/L Anion Gap mmol/L BUN (7-17) mg/dL Creatinine (0.52-1.04) mg/dL Est GFR (CKD-EPI)AfAm (>60 ml/min/1.73 sqM) Est GFR (CKD-EPI)NonAf (>60 ml/min/1.73 sqM) Glucose (74-99) mg/dL Plasma Lactic Acid Silvestre 1.0 (0.7-2.0) mmol/L Calcium (8.4-10.2) mg/dL Total Bilirubin (0.2-1.3) mg/dL AST (14-36) U/L ALT (4-34) U/L Alkaline Phosphatase (38-126) U/L Troponin I 0.015 (0.000-0.034) ng/mL Total Protein (6.3-8.2) g/dL Albumin (3.5-5.0) g/dL Urine Color Urine Appearance (Clear) Urine pH (5.0-8.0) Ur Specific [place] (1.001-1.035) Urine Protein (Negative) Urine Glucose (UA) (Negative) Urine Ketones (Negative) Urine Blood (Negative) Urine Nitrite (Negative) Urine Bilirubin (Negative) Urine Urobilinogen (<2.0) mg/dL Ur Leukocyte Esterase (Negative) Urine RBC (0-5) /hpf Urine WBC (0-5) /hpf Urine Bacteria (None) /hpf Hyaline Casts (0-2) /lpf Urine Mucus (None) /hpf Influenza Type A RNA Not Detected (Not Detectd) Influenza Type B (PCR) Not Detected (Not Detectd) 10/06/19 Range/Units 20:25 WBC (3.8-10.6) k/uL RBC (3.80-5.40) m/uL Hgb (11.4-16.0) gm/dL Hct (34.0-46.0) % MCV (80.0-100.0) fL MCH (25.0-35.0) pg MCHC (31.0-37.0) g/dL RDW (11.5-15.5) % Plt Count (150-450) k/uL Neutrophils % % Lymphocytes % % Monocytes % % Eosinophils % % Basophils % % Neutrophils # (1.3-7.7) k/uL Lymphocytes # (1.0-4.8) k/uL Monocytes # (0-1.0) k/uL Eosinophils # (0-0.7) k/uL Basophils # (0-0.2) k/uL Hypochromasia PT (9.0-12.0) sec INR (<1.2) APTT (22.0-30.0) sec Sodium (137-145) mmol/L Potassium (3.5-5.1) mmol/L Chloride (98-107) mmol/L Carbon Dioxide (22-30) mmol/L Anion Gap mmol/L BUN (7-17) mg/dL Creatinine (0.52-1.04) mg/dL Est GFR (CKD-EPI)AfAm (>60 ml/min/1.73 sqM) Est GFR (CKD-EPI)NonAf (>60 ml/min/1.73 sqM) Glucose (74-99) mg/dL Plasma Lactic Acid Silvestre (0.7-2.0) mmol/L Calcium (8.4-10.2) mg/dL Total Bilirubin (0.2-1.3) mg/dL AST (14-36) U/L ALT (4-34) U/L Alkaline Phosphatase (38-126) U/L Troponin I (0.000-0.034) ng/mL Total Protein (6.3-8.2) g/dL Albumin (3.5-5.0) g/dL Urine Color Yellow Urine Appearance Clear (Clear) Urine pH 5.0 (5.0-8.0) Ur Specific [place] 1.011 (1.001-1.035) Urine Protein Negative (Negative) Urine Glucose (UA) Negative (Negative) Urine Ketones Negative (Negative) Urine Blood Negative (Negative) Urine Nitrite Positive H (Negative) Urine Bilirubin Negative (Negative) Urine Urobilinogen <2.0 (<2.0) mg/dL Ur Leukocyte Esterase Moderate H (Negative) Urine RBC 1 (0-5) /hpf Urine WBC 10 H (0-5) /hpf Urine Bacteria Occasional H (None) /hpf Hyaline Casts 51 H (0-2) /lpf Urine Mucus Rare H (None) /hpf Influenza Type A RNA (Not Detectd) Influenza Type B (PCR) (Not Detectd) Disposition Clinical Impression: Urinary tract infection, Altered mental status, Generalized weakness Disposition: ADMITTED IP TO THIS HOSP Referrals: Júnior Arzola DO [Primary Care Provider] - 1-2 days Time of Disposition: 21:35
[2019-10-06] MEDS ORDERED: IPRATROPIUM-ALBUTEROL 3 ML NEB INHALATION STA ×2 (19:58→20:00)
[2019-10-06] MEDS: SODIUM CHLORIDE 0.9% 500 ML 500 ML IV SCH (20:01)
[2019-10-06 20:09] LABS: INR 1.1 (<1.2); Partial Thromboplastin Time 30.6 sec (22.0-30.0); Prothrombin Time 11.6 sec (9.0-12.0)
[2019-10-06 20:21] LABS: Basophils % (A) 0 %; Eosinophils # (A) 0.1 k/uL (0-0.7); Eosinophils % (A) 1 %; HCT 35.6 % (34.0-46.0); HGB 11.2 gm/dL (11.4-16.0); Hypochromasia Slight; Lymphocytes # (A) 1.1 k/uL (1.0-4.8); Lymphocytes % (A) 14 %; MCH 29.4 pg (25.0-35.0); MCHC 31.4 g/dL (31.0-37.0); MCV 93.5 fL (80.0-100.0); Mean Platelet Volume 8.4; Monocytes # (A) 0.7 k/uL (0-1.0); Monocytes % (A) 8 %; Neutrophils # (A) 5.9 k/uL (1.3-7.7); Neutrophils % (A) 73 %; Platelet Count 283 k/uL (150-450); RDW 15.9 % (11.5-15.5)
--- NOTE | 2019-10-06 20:21 | XR ---
EXAMINATION TYPE: XR chest 2V DATE OF EXAM: 10/06/2019 COMPARISON: 09/29/2019 HISTORY: Confusion TECHNIQUE: 2 views FINDINGS: There is some mild infiltrate at the left lung base. The other lung [place] are clear. Heart size is normal. There are no hilar masses. Thoracic aorta is atheromatous. Bony thorax is intact. IMPRESSION: There is new mild infiltrate left lung base compared to old exam. Normal heart. No heart failure.
[2019-10-06 20:23] LABS: Albumin 3.8 g/dL (3.5-5.0); Calcium 9.9 mg/dL (8.4-10.2); Potassium 4.8 mmol/L (3.5-5.1); Total Bilirubin 0.3 mg/dL (0.2-1.3); Total Protein 6.8 g/dL (6.3-8.2)
[2019-10-06 20:53] LABS: Appearance,Urine Clear (Clear); Bacteria,Urine Occasional /hpf; Bilirubin,Urine Negative (Negative); Blood,Urine Negative (Negative); Color,Urine Yellow; Glucose,Urine (UA) Negative (Negative); Hyaline Casts,Urine 51 /lpf (0-2); Ketones,Urine Negative (Negative); Leukocyte Esterase,Urine Moderate (Negative); Mucus,Urine Rare /hpf; Nitrite,Urine Positive (Negative); Protein,Urine Negative (Negative); RBC,Urine 1 /hpf (0-5); Specific Gravity,Urine 1.011 (1.001-1.035); Urobilinogen,Urine <2.0 mg/dL (<2.0); WBC,Urine 10 /hpf (0-5)
[2019-10-06] MEDS ORDERED: SODIUM CHLORIDE 0.9% 1,000 ML IV ONE (21:35)
[2019-10-07] MEDS: SODIUM CHLORIDE 0.9% 500 ML 500 ML IV SCH (00:10)
[2019-10-07] MEDS: INSULIN ASPART (NovoLOG) 100 UNIT/ML VIAL SQ SCH ×4 (08:05→20:48)
[2019-10-07 08:06] LABS: Glucose,Whole Blood 89 mg/dL (75-99)
[2019-10-07 13:42] LABS: Glucose,Whole Blood 69 mg/dL (75-99)
[2019-10-07] MEDS ORDERED: NITROGLYCERIN SL TABS 0.4 MG TAB SUBLINGUAL PRN (16:33)
[2019-10-07] MEDS ORDERED: ALBUTEROL NEBULIZED 2.5 MG/3 ML INHALATION PRN (16:33)
[2019-10-07] MEDS: HYDROCORTISONE SUCCINATE 100 MG/2 ML VIAL IV SCH (17:15)
[2019-10-07] MEDS: SODIUM CHLORIDE 0.9% 1,000 ML IV SCH (17:16)
[2019-10-07 17:32] LABS: Glucose,Whole Blood 102 mg/dL (75-99)
--- NOTE | 2019-10-07 17:44 | HP ---
HISTORY AND PHYSICAL DATE OF SERVICE: 10/07/2019 CHIEF COMPLAINTS: Dizziness and weakness. HISTORY OF PRESENT ILLNESS: This 69-year-old woman with a past medical history of multiple medical problems including atrial fibrillation, history of COPD, CVA, TIA, diabetes, hypertension, hyperlipidemia, history of possible seizures, being followed by Dr. Arzola in the outpatient setting, was recently admitted to [facility]. The patient was complaining of increasing weakness and patient came to [facility]. Possibility of left-sided pneumonia versus UTI was suspected. Patient admitted to the hospital for further evaluation and treatment. The patient also has some slight hypotension, some mild hypoglycemia also. There is no history of any fever, rigors or chills. No history of headache, loss of consciousness or seizures. Patient also has COPD and CHF also. PAST MEDICAL HISTORY: History of COPD, history of CHF, CVA, TIA, diabetes, hypertension, hyperlipidemia, history of myocardial infarction, other multiple medical issues. MEDICATIONS: Home medications are: 1. Januvia 100 mg p.o. daily. 2. Prednisone taper. 3. Keppra 1000 mg b.i.d. 4. Buspirone 15 mg p.o. daily. 5. Aldactone 12.5 mg. 6. Xarelto 15 mg p.o. 7. Lyrica 100 mg p.o. b.i.d. 8. K-Dur 20 mEq p.o. daily. 9. Protonix 40 mg p.o. daily. 10.Nitrostat 0.4 sublingual p.r.n. 11.Toprol-XL 100 mg b.i.d. 12.Magnesium oxide 400 mg p.o. daily. 13.Losartan 50 mg p.o. b.i.d. 14.Synthroid 25 mcg. 15.DuoNeb 3 mL q.4 p.r.n. 16.Lasix 40 mg p.o. daily. 17.Celexa 10 mg p.o. daily. 18.Lipitor 40 mg q.h.s. 19.Arimidex 1 mg p.o. 20.Ventolin 202 puffs q.6h p.r.n. ALLERGIES: XANAX, IODINATED CONTRAST DYE, SULFA. FAMILY HISTORY: History of COPD in the family. SOCIAL HISTORY: History of smoking, continued ongoing currently. No history of alcohol intake. REVIEW OF SYSTEMS: ENT diminished vision. Diminished hearing. Cardiovascular: No angina or palpitations. Respiration as mentioned earlier. GASTROINTESTINAL: As mentioned earlier. as mentioned earlier. CENTRAL NERVOUS SYSTEM: No numbness or weakness. MUSCULOSKELETAL as mentioned earlier. ALLERGY/IMMUNOLOGY: No asthma or hayfever. HEMATOLOGY/ONCOLOGY: No history of anemia. ENDOCRINE: No history of diabetes or hypothyroidism. CONSTITUTIONAL: As mentioned earlier. DERMATOLOGY: Negative. RHEUMATOLOGY: Negative. PSYCHIATRIC: As mentioned earlier. PHYSICAL EXAM: Alert and oriented times three. Pulse 85, blood pressure 107/66, respirations 16, temperature 98.1, pulse ox 98% on 2 L. HEENT: Conjunctivae normal. NECK: No JVD. CARDIOVASCULAR: S1, S2 muffled. No S3, no S4. Respirations: Breath sounds diminished in the bases. Scattered rhonchi and crackles. ABDOMEN: Soft, nontender. No mass palpable. LEGS: No edema. No swelling. CENTRAL NERVOUS SYSTEM: Higher functions as mentioned. Moves all four limbs. No focal motor or sensory deficits. LYMPHATICS: No lymph nodes palpable in the neck, axillae or groin. SKIN: No ulcer, no rashes and no bleeding. JOINTS no active deforming arthropathy. LABS: At this time shows WBC 8, hemoglobin 11.2, sodium 140, potassium 4.2, creatinine is 1.53. UA noted. ASSESSMENT: 1. Acute urinary tract infection with sepsis, possible sepsis, change in mental status, metabolic encephalopathy, secondary to acute urinary tract infection, present on admission. 2. Rule out acute right lower lobe pneumonia. 3. Increased creatinine with chronic kidney disease stage III. 4. Anemia, normocytic anemia of chronic disease. 5. History of atrial fibrillation. 6. History of congestive heart failure, ejection fraction unknown. 7. History of chronic obstructive pulmonary disease. 8. History of cerebrovascular accident, transient ischemic attack. 9. History of diabetes type 2. 10.History of hypertension. 11.Hyperlipidemia. 12.History of myocardial infarction. 13.History of seizure disorder. 14.History of peripheral neuropathy. 15.History of chronic hypoxic respiratory failure, 2 L nasal cannula. 16.History of osteoporosis. 17.History of appendectomy. 18.History of back surgery. 19.NO CODE, NO CPR and NO VENT. 20.Continued ongoing nicotine dependence. RECOMMENDATIONS AND DISCUSSION: In this 69-year-old woman who presented with multiple complex medical issues, we will monitor the patient closely, continue the current medications, management and symptomatic treatment. I recommend resume the home medications. Stress-dose steroids. Empiric antibiotics. Continue the rest of the medications. Guarded prognosis. Further recommendations to follow. PT/OT evaluation, possible ECF rehab. Further recommendations to follow. KERON / ANDREW: [id number] /
[2019-10-07] MEDS: IPRATROPIUM-ALBUTEROL 3 ML NEB INHALATION SCH (20:28)
[2019-10-07 20:31] LABS: Glucose,Whole Blood 254 mg/dL (75-99)
[2019-10-07] MEDS: ATORVASTATIN 40 MG TAB PO SCH (20:47)
[2019-10-07] MEDS: LOSARTAN 50 MG TAB PO SCH (20:48)
[2019-10-07] MEDS: levETIRAcetam 500 MG TAB PO SCH (20:48)
[2019-10-07] MEDS: PREGABALIN 100 MG CAP PO SCH (20:48)
[2019-10-08] MEDS: HYDROCORTISONE SUCCINATE 100 MG/2 ML VIAL IV SCH ×4 (00:20→23:10)
[2019-10-08] MEDS: LEVOTHYROXINE 25 MCG TAB PO SCH (05:25)
[2019-10-08 07:21] LABS: Glucose,Whole Blood 198 mg/dL (75-99)
[2019-10-08] MEDS: IPRATROPIUM-ALBUTEROL 3 ML NEB INHALATION SCH ×4 (07:38→19:17)
[2019-10-08] MEDS: INSULIN ASPART (NovoLOG) 100 UNIT/ML VIAL SQ SCH ×4 (07:57→20:41)
[2019-10-08] MEDS: ANASTROZOLE 1 MG TAB PO SCH (07:58)
[2019-10-08] MEDS: busPIRone HCl 5 MG TAB PO SCH (07:58)
[2019-10-08] MEDS: CITALOPRAM HYDROBROMIDE 10 MG TAB PO SCH (07:58)
[2019-10-08] MEDS: PANTOPRAZOLE 40 MG TABLET PO SCH (07:58)
[2019-10-08] MEDS: METOPROLOL SUCCINATE (ER) 100 MG TAB.ER.24H PO SCH (07:58)
[2019-10-08] MEDS: FUROSEMIDE 40 MG TAB PO SCH (07:58)
[2019-10-08] MEDS: MAGNESIUM OXIDE 400 MG TAB PO SCH (07:58)
[2019-10-08] MEDS: levETIRAcetam 500 MG TAB PO SCH ×2 (07:59→20:41)
[2019-10-08] MEDS: RIVAROXABAN 15 MG TAB PO SCH (07:59)
[2019-10-08] MEDS: POTASSIUM CHLORIDE ER 20 MEQ TAB.ER PO SCH (07:59)
[2019-10-08] MEDS: SPIRONOLACTONE 25 MG TAB PO SCH (07:59)
[2019-10-08] MEDS: LOSARTAN 50 MG TAB PO SCH ×2 (07:59→20:41)
[2019-10-08] MEDS: PREGABALIN 100 MG CAP PO SCH ×2 (07:59→20:41)
[2019-10-08 09:08] LABS: Basophils % (A) 0 %; Eosinophils % (A) 0 %; HCT 31.5 % (34.0-46.0); Hypochromasia Slight; Lymphocytes % (A) 24 %; MCH 29.4 pg (25.0-35.0); MCHC 31.7 g/dL (31.0-37.0); MCV 92.9 fL (80.0-100.0); Mean Platelet Volume 8.4; Monocytes # (A) 0.1 k/uL (0-1.0); Monocytes % (A) 2 %; Neutrophils # (A) 2.8 k/uL (1.3-7.7); Neutrophils % (A) 71 %; Platelet Count 265 k/uL (150-450); RBC 3.39 m/uL (3.80-5.40); RDW 15.4 % (11.5-15.5); WBC 3.9 k/uL (3.8-10.6)
[2019-10-08 09:19] LABS: Calcium 8.7 mg/dL (8.4-10.2); Potassium 4.5 mmol/L (3.5-5.1)
--- NOTE | 2019-10-08 10:56 | CDI ---
Documentation Clarification Form Date: 10/08/2019 10:37:36 AM From: Randi Brooke RN CCDS Admit Date: 10/08/2019 08:32:00 AM Patient Name: Christen Martin Visit Number: [id number] Discharge Date: ATTENTION: The Clinical Documentation Specialists (CDI) and [facility] Coding Staff appreciate your assistance in clarifying documentation. Please respond to the clarification below the line at the bottom and electronically sign. The CDI & [facility] Coding staff will review the response and follow-up if needed. Please note: Queries are made part of the Legal Health Record. If you have any questions, please contact the author of this message via ITS. Dr. Faisal Delacruz History of congestive heart failure, ejection fraction unknown in H&P 09/27/19 History/Risk Factors: 69-year-old female presents to the ED with weakness and mental status changes. Medial history HTN and CHF Clinical Indicators: VS/Pulse OX: 125/70 98 18 90% ra Echocardiogram Results: 05/16/19 mild concentric left ventricular hypertrophy. Overall left ventricular systolic function with an EF 50 55% Mitral doppler inflow pattern suggest diastolic filling abnormality 21.24 Chest X Ray: 10/06/19 There is new mild infiltrate left lung base compared to old exam Treatment: 10/07 Lasix 40mg po, Toprol XL 100mg po Daily, Aldactone 12.5mg po daily In your professional opinion, can you please clarify the acuity and type of CHF if known? * Chronic Diastolic Heart Failure: * Chronic Systolic & Diastolic Heart Failure: * Unable to Determine * Other, please specify (Last Revision: October 2017) Chronic Diastolic Heart Failure: MTDD
[2019-10-08 11:22] LABS: Glucose,Whole Blood 257 mg/dL (75-99)
[2019-10-08] MEDS: ACETAMINOPHEN TAB 500 MG TAB PO PRN (12:44)
[2019-10-08] MEDS: SODIUM CHLORIDE 0.9% 1,000 ML IV SCH (14:42)
[2019-10-08 16:50] LABS: Glucose,Whole Blood 281 mg/dL (75-99)
--- NOTE | 2019-10-08 19:25 | PN ---
PROGRESS NOTE DATE OF SERVICE: 10/08/2019 This 69-year-old woman who was admitted with acute UTI with sepsis, is being closely monitored. Patient continues to be confused. Patient also was suspected to have right lower lobe pneumonia also. No chest pain. No palpitations. No fever. PHYSICAL EXAMINATION: Alert and oriented x1. Pulse 90. Blood pressure is 152/60, respirations 16, temp 97.4, pulse ox 100 percent on 2 L. HEENT: Conjunctivae normal. NECK: No JVD. CARDIOVASCULAR: S1, S2 muffled. RESPIRATORY: Breath sounds diminished in the bases. A few scattered rhonchi and crackles. ABDOMEN is soft, nontender. NERVOUS SYSTEM: No focal deficits. LABS: WBC 3.2, hemoglobin is 10, sodium 130, potassium 4.3, creatinine 1.1, glucose 257. ASSESSMENT: 1. Acute urinary tract infection with sepsis, change in mental status acute metabolic encephalopathy secondary to sepsis, present on admission. 2. Rule out acute right lower lobe pneumonia. 3. Increased creatinine with chronic kidney stage III. 4. Anemia, normocytic anemia of chronic disease. 5. History of atrial fibrillation. 6. History of congestive heart failure, ejection fraction unknown. 7. History of chronic obstructive pulmonary disease. 8. History of cerebrovascular accident, transient ischemic attack. 9. History of diabetes type 2. 10.History of hypertension. 11.History of hyperlipidemia. 12.History of myocardial infarction. 13.History of seizure disorder. 14.History of peripheral neuropathy. 15.History of chronic hypoxic respiratory failure with 2 L nasal cannula. 16.History of osteoporosis. 17.History of appendectomy. 18.History of back surgery. 19.NO CODE, NO CPR, NO VENT. 20.Continued ongoing nicotine dependence. RECOMMENDATIONS AND DISCUSSION: I recommend to continue current medications, management and symptomatic treatment. The patient is on stress dose steroids. Monitor blood sugars closely. The cultures are negative so far. Continue the rest of medication. DVT prophylaxis. Guarded prognosis because of multiple complex medical issues. Further recommendations to follow. MMODL / IJN: [id number] /
[2019-10-08 20:15] LABS: Glucose,Whole Blood 222 mg/dL (75-99)
[2019-10-08] MEDS: ATORVASTATIN 40 MG TAB PO SCH (20:41)
[2019-10-09] MEDS: LEVOTHYROXINE 25 MCG TAB PO SCH (06:18)
[2019-10-09 07:00] LABS: Glucose,Whole Blood 315 mg/dL (75-99)
[2019-10-09] MEDS: HYDROCORTISONE SUCCINATE 100 MG/2 ML VIAL IV SCH ×2 (07:21→15:38)
[2019-10-09] MEDS: INSULIN ASPART (NovoLOG) 100 UNIT/ML VIAL SQ SCH ×4 (07:22→20:49)
[2019-10-09] MEDS: POTASSIUM CHLORIDE ER 20 MEQ TAB.ER PO SCH (07:25)
[2019-10-09] MEDS: RIVAROXABAN 15 MG TAB PO SCH (07:25)
[2019-10-09] MEDS: busPIRone HCl 5 MG TAB PO SCH (07:25)
[2019-10-09] MEDS: FUROSEMIDE 40 MG TAB PO SCH (07:26)
[2019-10-09] MEDS: CITALOPRAM HYDROBROMIDE 10 MG TAB PO SCH (07:26)
[2019-10-09] MEDS: PREGABALIN 100 MG CAP PO SCH ×2 (07:26→20:49)
[2019-10-09] MEDS: METOPROLOL SUCCINATE (ER) 100 MG TAB.ER.24H PO SCH (07:26)
[2019-10-09] MEDS: levETIRAcetam 500 MG TAB PO SCH ×2 (07:26→20:49)
[2019-10-09] MEDS: MAGNESIUM OXIDE 400 MG TAB PO SCH (07:26)
[2019-10-09] MEDS: ANASTROZOLE 1 MG TAB PO SCH (07:26)
[2019-10-09] MEDS: PANTOPRAZOLE 40 MG TABLET PO SCH (07:27)
[2019-10-09] MEDS: LOSARTAN 50 MG TAB PO SCH ×2 (07:27→20:49)
[2019-10-09] MEDS: SPIRONOLACTONE 25 MG TAB PO SCH (07:27)
[2019-10-09] MEDS: IPRATROPIUM-ALBUTEROL 3 ML NEB INHALATION SCH ×4 (09:32→21:41)
[2019-10-09 09:42] LABS: Basophils % (A) 0 %; Eosinophils % (A) 0 %; HCT 28.5 % (34.0-46.0); Hypochromasia Slight; Lymphocytes # (A) 0.8 k/uL (1.0-4.8); Lymphocytes % (A) 14 %; MCH 29.1 pg (25.0-35.0); MCHC 31.5 g/dL (31.0-37.0); MCV 92.5 fL (80.0-100.0); Mean Platelet Volume 8.9; Monocytes # (A) 0.3 k/uL (0-1.0); Monocytes % (A) 5 %; Neutrophils # (A) 4.8 k/uL (1.3-7.7); Neutrophils % (A) 80 %; Platelet Count 298 k/uL (150-450); RBC 3.09 m/uL (3.80-5.40); RDW 15.3 % (11.5-15.5)
[2019-10-09 09:50] LABS: Calcium 8.6 mg/dL (8.4-10.2)
[2019-10-09 11:03] LABS: Glucose,Whole Blood 195 mg/dL (75-99)
[2019-10-09] MEDS: SODIUM CHLORIDE 0.9% 1,000 ML IV SCH (11:30)
[2019-10-09 17:18] LABS: Glucose,Whole Blood 240 mg/dL (75-99)
[2019-10-09 19:35] LABS: Glucose,Whole Blood 312 mg/dL (75-99)
--- NOTE | 2019-10-09 19:45 | PN ---
PROGRESS NOTE DATE OF SERVICE: 10/09/2019 This 69-year-old woman who was admitted with acute UTI with sepsis also had change in mental status. The patient is being closely monitored at this time. The patient is confused at times. The cultures are negative at this time. PHYSICAL EXAMINATION: Alert and oriented x2. Pulse is 68, blood pressure 165/74, respiration 18, temperature 98 degrees, pulse ox 99% on room air. HEENT: Conjunctivae normal. NECK: No jugular venous distention. CARDIOVASCULAR SYSTEM: S1, S2 muffled. RESPIRATORY SYSTEM: Breath sounds diminished at the bases. A few scattered rhonchi. No crackles. ABDOMEN: Soft, non-tender. LEGS: No edema. No swelling. NERVOUS SYSTEM: Mild diffuse weakness. LABS: WBC 6, hemoglobin 9. Sodium 138, potassium 4. Creatinine is 1.15, glucose 287. ASSESSMENT: 1. Acute urinary tract infection with sepsis with change in mental status with acute metabolic encephalopathy secondary to sepsis, present on admission. 2. Acute right lower lobe pneumonia unlikely. 3. Increased creatinine with acute on chronic kidney disease with baseline kidney disease, stage III. 4. Anemia, normocytic; anemia of chronic disease. 5. History of atrial fibrillation. 6. History of congestive heart failure; ejection fraction unknown. 7. History of chronic obstructive pulmonary disease. 8. History of cerebrovascular accident, transient ischemic attack. 9. Diabetes mellitus, type 2. 10.Hypertension. 11.Hyperlipidemia. 12.History of myocardial infarction. 13.History of seizure disorder. 14.History of peripheral neuropathy. 15.History of chronic hypoxic respiratory failure, on 2 L nasal cannula. 16.History of osteoporosis. 17.History of appendectomy. 18.History of back surgery. 19.NO CODE NO CPR NO VENT. 20.Continued ongoing nicotine dependence. RECOMMENDATIONS AND DISCUSSION: I recommend to continue current medications, continue with the monitoring, symptomatic treatment. Otherwise at this time I recommend continuing with IV fluids. PT/OT evaluation. Follow the cultures. Antibiotics. Possible ECF rehab. Further recommendations to follow. MMODL / IJN: [id number] /
[2019-10-09] MEDS: ATORVASTATIN 40 MG TAB PO SCH (20:49)
[2019-10-09 20:53] VITALS: RESP 16
[2019-10-10] MEDS: HYDROCORTISONE SUCCINATE 100 MG/2 ML VIAL IV SCH ×4 (00:08→23:45)
[2019-10-10] MEDS: LEVOTHYROXINE 25 MCG TAB PO SCH (05:55)
[2019-10-10] MEDS: SODIUM CHLORIDE 0.9% 1,000 ML IV SCH ×2 (05:55→23:57)
[2019-10-10 06:04] LABS: Basophils % (A) 0 %; Eosinophils % (A) 0 %; HCT 30.1 % (34.0-46.0); HGB 9.8 gm/dL (11.4-16.0); Lymphocytes # (A) 0.8 k/uL (1.0-4.8); Lymphocytes % (A) 11 %; MCH 29.8 pg (25.0-35.0); MCHC 32.7 g/dL (31.0-37.0); MCV 91.3 fL (80.0-100.0); Mean Platelet Volume 8.5; Monocytes # (A) 0.3 k/uL (0-1.0); Monocytes % (A) 4 %; Neutrophils # (A) 6.1 k/uL (1.3-7.7); Neutrophils % (A) 84 %; Platelet Count 280 k/uL (150-450); RDW 15.7 % (11.5-15.5); WBC 7.3 k/uL (3.8-10.6)
[2019-10-10 06:40] LABS: Calcium 8.6 mg/dL (8.4-10.2); Potassium 3.6 mmol/L (3.5-5.1)
[2019-10-10 06:58] LABS: Glucose,Whole Blood 221 mg/dL (75-99)
[2019-10-10] MEDS: IPRATROPIUM-ALBUTEROL 3 ML NEB INHALATION SCH ×4 (07:29→20:03)
[2019-10-10] MEDS: INSULIN ASPART (NovoLOG) 100 UNIT/ML VIAL SQ SCH ×4 (08:37→20:36)
[2019-10-10] MEDS: RIVAROXABAN 15 MG TAB PO SCH (08:39)
[2019-10-10] MEDS: PREGABALIN 100 MG CAP PO SCH ×2 (08:39→20:36)
[2019-10-10] MEDS: LOSARTAN 50 MG TAB PO SCH ×2 (08:39→20:36)
[2019-10-10] MEDS: MAGNESIUM OXIDE 400 MG TAB PO SCH (08:39)
[2019-10-10] MEDS: levETIRAcetam 500 MG TAB PO SCH ×2 (08:39→20:36)
[2019-10-10] MEDS: METOPROLOL SUCCINATE (ER) 100 MG TAB.ER.24H PO SCH (08:40)
[2019-10-10] MEDS: PANTOPRAZOLE 40 MG TABLET PO SCH (08:40)
[2019-10-10] MEDS: POTASSIUM CHLORIDE ER 20 MEQ TAB.ER PO SCH (08:40)
[2019-10-10] MEDS: CITALOPRAM HYDROBROMIDE 10 MG TAB PO SCH (08:40)
[2019-10-10] MEDS: ANASTROZOLE 1 MG TAB PO SCH (08:40)
[2019-10-10] MEDS: busPIRone HCl 5 MG TAB PO SCH (08:40)
[2019-10-10] MEDS: FUROSEMIDE 40 MG TAB PO SCH (08:40)
[2019-10-10] MEDS: SPIRONOLACTONE 25 MG TAB PO SCH (08:41)
[2019-10-10 11:32] LABS: Glucose,Whole Blood 360 mg/dL (75-99)
--- NOTE | 2019-10-10 15:36 | PN ---
PROGRESS NOTE DATE OF SERVICE: 10/10/2019 This 69-year-old woman was admitted with acute UTI with sepsis and change in mental status and acute metabolic encephalopathy also. The patient is being closely monitored. No chest pain. No palpitations. No fever. PHYSICAL EXAMINATION: Alert and oriented x2. Pulse 83, blood pressure 153/69, respirations 16, temperature 98 degrees, pulse ox 92% on room air. HEENT: Conjunctivae normal. NECK: No jugular venous distention. CARDIOVASCULAR SYSTEM: S1, S2 muffled. RESPIRATORY SYSTEM: Breath sounds diminished at the bases. A few scattered rhonchi. ABDOMEN: Soft, non-tender. NERVOUS SYSTEM: No focal deficit. Diffusely weak. LABS: WBC 7.3, hemoglobin 9.8. INR 1.07. ASSESSMENT: 1. Acute urinary tract infection with sepsis with change in mental status, acute metabolic encephalopathy secondary to sepsis, present on admission. 2. Acute right lobe pneumonia unlikely. 3. Increased creatinine with acute on chronic kidney disease with baseline kidney disease stage III. 4. Acute renal failure, acute tubular necrosis with prerenal renal factors, improving. 5. Anemia, normocytic; anemia of chronic disease. 6. History of atrial fibrillation, chronic. 7. History of congestive heart failure; ejection fraction unknown. 8. History of chronic obstructive pulmonary disease. 9. Cerebrovascular accident, transient ischemic attack. 10.Diabetes mellitus, type 2. 11.Hypertension. 12.Hyperlipidemia. 13.History of myocardial infarction. 14.History of seizure disorder. 15.History of peripheral neuropathy. 16.History of chronic hypoxic respiratory failure, on 2 L nasal cannula. 17.History of osteoporosis. 18.History of appendectomy. 19.History of back surgery. 20.Continued ongoing nicotine dependence. 21.NO CODE, NO CPR, NO VENT. 22.Gait dysfunction. RECOMMENDATIONS AND DISCUSSION: I recommend to continue current medications, continue with the monitoring, symptomatic treatment. Otherwise, continue with the IV fluids. PT/OT evaluation. Possible ECF rehab. Guarded prognosis. Continue the rest of the medications. Further recommendations to follow. MMODL / IJN: [id number] /
[2019-10-10 16:56] LABS: Glucose,Whole Blood 345 mg/dL (75-99)
[2019-10-10 20:28] LABS: Glucose,Whole Blood 266 mg/dL (75-99)
[2019-10-10] MEDS: ATORVASTATIN 40 MG TAB PO SCH (20:35)
[2019-10-11] MEDS: ACETAMINOPHEN TAB 500 MG TAB PO PRN (00:44)
[2019-10-11] MEDS: LEVOTHYROXINE 25 MCG TAB PO SCH (05:44)
[2019-10-11 06:47] LABS: Glucose,Whole Blood 229 mg/dL (75-99)
[2019-10-11] MEDS: INSULIN ASPART (NovoLOG) 100 UNIT/ML VIAL SQ SCH ×4 (08:54→21:16)
[2019-10-11] MEDS: HYDROCORTISONE SUCCINATE 100 MG/2 ML VIAL IV SCH (08:55)
[2019-10-11] MEDS: POTASSIUM CHLORIDE ER 20 MEQ TAB.ER PO SCH (08:56)
[2019-10-11] MEDS: ANASTROZOLE 1 MG TAB PO SCH (08:56)
[2019-10-11] MEDS: SPIRONOLACTONE 25 MG TAB PO SCH (08:56)
[2019-10-11] MEDS: busPIRone HCl 5 MG TAB PO SCH (08:57)
[2019-10-11] MEDS: FUROSEMIDE 40 MG TAB PO SCH (08:57)
[2019-10-11] MEDS: levETIRAcetam 500 MG TAB PO SCH ×2 (08:57→21:16)
[2019-10-11] MEDS: PANTOPRAZOLE 40 MG TABLET PO SCH (08:58)
[2019-10-11] MEDS: CITALOPRAM HYDROBROMIDE 10 MG TAB PO SCH (08:58)
[2019-10-11] MEDS: LOSARTAN 50 MG TAB PO SCH ×2 (08:58→21:16)
[2019-10-11] MEDS: MAGNESIUM OXIDE 400 MG TAB PO SCH (08:58)
[2019-10-11] MEDS: PREGABALIN 100 MG CAP PO SCH ×2 (08:59→21:16)
[2019-10-11] MEDS: RIVAROXABAN 15 MG TAB PO SCH (08:59)
[2019-10-11] MEDS: METOPROLOL SUCCINATE (ER) 100 MG TAB.ER.24H PO SCH (08:59)
[2019-10-11] MEDS: IPRATROPIUM-ALBUTEROL 3 ML NEB INHALATION SCH ×4 (09:15→19:23)
[2019-10-11 10:57] LABS: Glucose,Whole Blood 314 mg/dL (75-99)
[2019-10-11] MEDS: AMPICILLIN-SULBACTAM 3 GM in SODIUM CHLORIDE 0.9% 100 ML IVPB SCH ×2 (16:59→21:16)
[2019-10-11 17:04] LABS: Glucose,Whole Blood 209 mg/dL (75-99)
--- NOTE | 2019-10-11 19:45 | PN ---
PROGRESS NOTE DATE OF SERVICE: 10/11/2019 This 69-year-old woman was admitted with acute UTI with sepsis also change in mental status. Patient being closely monitored. No fever. No cough. EXAM: Alert and oriented x3. Pulse is 70. Blood pressure 160/70, respirations 16, temperature 98.2, pulse ox 98% on room air. HEENT: Conjunctivae normal. NECK: No JVD. CARDIOVASCULAR: S1, S2 muffled. RESPIRATIONS: Breath sounds diminished in the bases. Scattered rhonchi and crackles. ABDOMEN soft, nontender. LEGS: No edema. No swelling. CENTRAL NERVOUS SYSTEM: No focal deficits. LABS: Hemoglobin 9.8, creatinine 1.7, glucose noted. ASSESSMENT: 1. Acute urinary tract infection with possible sepsis with change in mental status, acute metabolic encephalopathy secondary to sepsis present on admission. 2. Pneumonia unlikely. 3. Increased creatinine with acute on chronic kidney disease with baseline kidney disease, stage III. 4. Acute renal failure, acute tubular necrosis, prerenal factors on admission, improved. 5. Anemia, normocytic anemia of chronic disease. 6. Diabetes mellitus type 2, uncontrolled with hyperglycemia. 7. History of atrial fibrillation, chronic. 8. History of congestive heart failure, ejection fraction unknown. 9. History of chronic obstructive pulmonary disease. 10.Cerebrovascular accident, transient ischemic attack. 11.Hypertension. 12.Hyperlipidemia. 13.History of myocardial infarction. 14.History of seizure disorder. 15.History of peripheral neuropathy. 16.History of chronic hypoxic respiratory failure on 2 L nasal cannula. 17.History of osteoporosis. 18.History of appendectomy. 19.History of back surgery. 20.Continued ongoing nicotine dependence. 21.Gait dysfunction. 22.NO CODE, NO CPR, NO VENT. RECOMMENDATIONS AND DISCUSSION: Recommend to continue current medications, continue with monitoring and symptomatic treatment. Otherwise, at this time, I would recommend to taper the steroids further and continue to monitor blood sugars closely. Otherwise, we will repeat labs in the morning. Possible ECF rehab. Guarded prognosis. Further recommendations to follow. MMODL / IJN: [id number] /
[2019-10-11 20:03] LABS: Glucose,Whole Blood 332 mg/dL (75-99)
[2019-10-11] MEDS: ATORVASTATIN 40 MG TAB PO SCH (21:16)
[2019-10-12] MEDS: LEVOTHYROXINE 25 MCG TAB PO SCH (05:11)
[2019-10-12] MEDS: AMPICILLIN-SULBACTAM 3 GM in SODIUM CHLORIDE 0.9% 100 ML IVPB SCH ×2 (05:11→10:59)
[2019-10-12 06:55] LABS: Glucose,Whole Blood 136 mg/dL (75-99)
[2019-10-12] MEDS: INSULIN ASPART (NovoLOG) 100 UNIT/ML VIAL SQ SCH ×2 (07:40→12:27)
[2019-10-12] MEDS: IPRATROPIUM-ALBUTEROL 3 ML NEB INHALATION SCH ×2 (08:26→11:48)
[2019-10-12 08:58] LABS: Basophils % (A) 1 %; Eosinophils # (A) 0.1 k/uL (0-0.7); Eosinophils % (A) 1 %; HCT 32.5 % (34.0-46.0); HGB 10.3 gm/dL (11.4-16.0); Hypochromasia Slight; Lymphocytes # (A) 1.5 k/uL (1.0-4.8); Lymphocytes % (A) 18 %; MCH 29.1 pg (25.0-35.0); MCHC 31.8 g/dL (31.0-37.0); MCV 91.5 fL (80.0-100.0); Monocytes # (A) 0.7 k/uL (0-1.0); Monocytes % (A) 9 %; Neutrophils # (A) 5.7 k/uL (1.3-7.7); Neutrophils % (A) 70 %; Platelet Count 303 k/uL (150-450); RBC 3.55 m/uL (3.80-5.40); RDW 15.8 % (11.5-15.5); WBC 8.1 k/uL (3.8-10.6)
[2019-10-12] MEDS ORDERED: predniSONE 20 MG TAB PO SCH (09:00)
[2019-10-12] MEDS ORDERED: predniSONE 10 MG TAB PO SCH (09:00)
[2019-10-12] MEDS: LOSARTAN 50 MG TAB PO SCH (09:12)
[2019-10-12] MEDS: busPIRone HCl 5 MG TAB PO SCH (09:12)
[2019-10-12 09:13] LABS: Calcium 7.8 mg/dL (8.4-10.2); Potassium 3.1 mmol/L (3.5-5.1)
[2019-10-12] MEDS: levETIRAcetam 500 MG TAB PO SCH (09:13)
[2019-10-12] MEDS: POTASSIUM CHLORIDE ER 20 MEQ TAB.ER PO SCH (09:13)
[2019-10-12] MEDS: MAGNESIUM OXIDE 400 MG TAB PO SCH (09:13)
[2019-10-12] MEDS: PREGABALIN 100 MG CAP PO SCH (09:13)
[2019-10-12] MEDS: METOPROLOL SUCCINATE (ER) 100 MG TAB.ER.24H PO SCH (09:13)
[2019-10-12] MEDS: RIVAROXABAN 15 MG TAB PO SCH (09:14)
[2019-10-12] MEDS: FUROSEMIDE 40 MG TAB PO SCH (09:14)
[2019-10-12] MEDS: SPIRONOLACTONE 25 MG TAB PO SCH (09:14)
[2019-10-12] MEDS: PANTOPRAZOLE 40 MG TABLET PO SCH (09:14)
[2019-10-12] MEDS: ANASTROZOLE 1 MG TAB PO SCH (09:15)
[2019-10-12] MEDS: CITALOPRAM HYDROBROMIDE 10 MG TAB PO SCH (09:17)
[2019-10-12 10:58] LABS: Glucose,Whole Blood 167 mg/dL (75-99)
[2019-10-12] MEDS ORDERED: POTASSIUM CHLORIDE ER 20 MEQ TAB.ER PO STA (11:18)
[2019-10-12 11:27] VITALS: BP 156/71; TEMP 97.5
[2019-10-12 12:01] VITALS: PULSE 76
--- NOTE | 2019-10-12 12:17 | P.DS ---
Providers Date of admission: 10/08/19 08:32 Expected date of discharge: 10/12/19 Attending physician: Faisal Delacruz Primary care physician: Júnior Arzola [facility] Course: Final diagnosis Acute urinary tract infection with possible sepsis with change in mental status, acute metabolic encephalopathy secondary to sepsis, present on admission Pneumonia unlikely Increased creatinine with acute on chronic kidney disease with baseline kidney disease stage III Acute renal failure, acute tubular necrosis, prerenal factors on admission, improved Anemia, normocytic anemia of chronic disease Diabetes mellitus type 2, uncontrolled with hyperglycemia History of atrial fibrillation, chronic History of congestive heart failure, ejection fraction unknown History of chronic obstructive pulmonary disease Cerebrovascular accident, TIA Hypertension hyperlipidemia History of myocardial infarction History of seizure disorder History of peripheral neuropathy history of chronic hypoxic respiratory failure on 2 L nasal cannula History of osteoporosis history of appendectomy History of back surgery Continued ongoing nicotine dependence Gait dysfunction No code, no CPR, no vent Discharge disposition Patient is being discharged in a stable condition with guarded prognosis to [facility] for continued PT/OT therapy. Patient will follow-up with Dr. Arzola upon discharge. Patient will continue with oral antibiotics in the form of Macrobid twice daily for the next 5 days and then may discontinue. Patient will also continue on a prednisone taper in the outpatient setting. Total time taken is 35 minutes. History of present illness This is an 69-year-old female who was recently admitted with acute urinary tract infection with sepsis also a change in mental status and was being closely monitored. Patient was being followed by PT/OT recommending subacute rehab. Patient and family to discuss possible long-term placement. Patient will be going to [facility] for continued PT/OT therapy. Patient also will continue with bronchodilators in the outpatient setting. Patient remains quite weak requiring assistance with ambulation. Patient's potassium was slightly low today at 3.1 and will be replaced. Patient is on a potassium supplement although takes Lasix and will continue at this time. Recommend repeat labs in 2-3 days to monitor electrolytes. Patient's urine culture finalized showing enterococcus faecalis which is sensitive to Macrobid and will continue with Macrobid twice daily for the next 5 days and then may discontinue. Currently no reports of chest pain, shortness of breath, or palpitations. Patient is afebri le. No reports of nausea or vomiting and patient is tolerating diet. Guarded prognosis. Currently patient's condition is stable and will be going to [facility] today. On exam vital signs are stable. Temp is 97.5 F, pulse is 77, respirations are 16, blood pressure is 156/71, oxygen saturation is 92 % on room air. Cardio S1, S2 are muffled. Respiratory shows diminished breath sounds at the bases with a few scattered rhonchi noted. Abdomen is soft and nontender. Nervous system shows diffuse weakness. Please refer to medication reconciliation sheet for a list of medications. Patient Condition at Discharge: Stable Plan - Discharge Summary Discharge Rx Participant: No New Discharge Prescriptions: New Ipratropium-Albuterol Nebulize [Duoneb 0.5 mg-3 mg/3 ml Soln] 3 ml INHALATION RT-QID ml Nitrofurantoin Monohyd/M-Cryst [Macrobid] 100 mg PO Q12HR #10 cap INSULIN ASPART (NovoLOG) [NovoLOG (formulary)] 0 unit SQ ACHS vial predniSONE 10 mg PO DIRECTED #30 tab Acetaminophen Tab [Tylenol] 500 mg PO Q6HR PRN tab PRN Reason: Fever And/ Or Pain Continue Anastrozole [Arimidex] 1 mg PO DAILY Atorvastatin [Lipitor] 40 mg PO HS Levothyroxine Sodium [Synthroid] 25 mcg PO DAILY Metoprolol Succinate (ER) [Toprol XL] 100 mg PO DAILY sitaGLIPtin [Januvia] 100 mg PO DAILY Citalopram Hydrobromide [CeleXA] 10 mg PO DAILY Pantoprazole [Protonix] 40 mg PO DAILY Pregabalin [Lyrica] 100 mg PO BID Albuterol Sulfate [Ventolin HFA] 1 - 2 puff INHALATION RT-Q6H PRN PRN Reason: Shortness Of Breath Magnesium Oxide [Mag-Ox] 400 mg PO DAILY Nitroglycerin Sl Tabs [Nitrostat] 0.4 mg SUBLINGUAL Q5M PRN PRN Reason: Chest Pain Ipratropium-Albuterol Nebulize [Duoneb 0.5 mg-3 mg/3 ml Soln] 3 ml INHALATION RT-Q4H PRN PRN Reason: Shortness Of Breath busPIRone HCL 15 mg PO DAILY Potassium Chloride ER [K-Dur 20] 20 meq PO DAILY Furosemide [Lasix] 40 mg PO DAILY Rivaroxaban [Xarelto] 15 mg PO DAILY Losartan Potassium 50 mg PO BID Spironolactone [Aldactone] 12.5 mg PO DAILY levETIRAcetam [Keppra] 1,000 mg PO BID Discontinued predniSONE See Taper PO DAILY Discharge Medication List Anastrozole [Arimidex] 1 mg PO DAILY 10/23/18 [History] Atorvastatin [Lipitor] 40 mg PO HS 10/23/18 [History] Levothyroxine Sodium [Synthroid] 25 mcg PO DAILY 10/23/18 [History] Metoprolol Succinate (ER) [Toprol XL] 100 mg PO DAILY 10/23/18 [History] sitaGLIPtin [Januvia] 100 mg PO DAILY 10/23/18 [History] Citalopram Hydrobromide [CeleXA] 10 mg PO DAILY 02/27/19 [History] Pantoprazole [Protonix] 40 mg PO DAILY 05/05/19 [History] Pregabalin [Lyrica] 100 mg PO BID 05/05/19 [History] Albuterol Sulfate [Ventolin HFA] 1 - 2 puff INHALATION RT-Q6H PRN 06/20/19 [History] Ipratropium-Albuterol Nebulize [Duoneb 0.5 mg-3 mg/3 ml Soln] 3 ml INHALATION RT-Q4H PRN 06/20/19 [History] Magnesium Oxide [Mag-Ox] 400 mg PO DAILY 06/20/19 [History] Nitroglycerin Sl Tabs [Nitrostat] 0.4 mg SUBLINGUAL Q5M PRN 06/20/19 [History] busPIRone HCL 15 mg PO DAILY 07/11/19 [History] Furosemide [Lasix] 40 mg PO DAILY 08/03/19 [History] Potassium Chloride ER [K-Dur 20] 20 meq PO DAILY 08/03/19 [History] Losartan Potassium 50 mg PO BID 09/29/19 [History] Rivaroxaban [Xarelto] 15 mg PO DAILY 09/29/19 [History] Spironolactone [Aldactone] 12.5 mg PO DAILY 09/29/19 [History] levETIRAcetam [Keppra] 1,000 mg PO BID 10/06/19 [History] Acetaminophen Tab [Tylenol] 500 mg PO Q6HR PRN tab 10/12/19 [Rx] INSULIN ASPART (NovoLOG) [NovoLOG (formulary)] 0 unit SQ ACHS vial 10/12/19 [Rx] Ipratropium-Albuterol Nebulize [Duoneb 0.5 mg-3 mg/3 ml Soln] 3 ml INHALATION RT-QID ml 10/12/19 [Rx] Nitrofurantoin Monohyd/M-Cryst [Macrobid] 100 mg PO Q12HR #10 cap 10/12/19 [Rx] predniSONE 10 mg PO DIRECTED #30 tab 10/12/19 [Rx] Follow up Appointment(s)/Referral(s): Júnior Arzola DO [Primary Care Provider] - 1-2 days Ambulatory/Diagnostic Orders: Basic Metabolic Panel [LAB.AMB] Time Frame: 2 Days, Location: None Selected Activity/Diet/Wound Care/Special Instructions: Patient is going to [facility] Activity as tolerated Continue antibiotics for the next 5 days then may discontinue Continue current diet Continue to monitor blood sugars before meals at bedtime and treat accordingly with sliding scale Breathing treatments 4 times a day and when necessary Continue with prednisone taper Discharge Disposition: TRANSFER TO SNF/ECF
== END 2019-10-12 14:43 | DRG 871 ==
LOC: EC 18:51 → 5NMEDONC 21:35 → OBSVTOIN 10-08 08:32
PROVIDERS: ADMIT Hospitalist; ATTEND Hospitalist
DX: A41.81 Sepsis due to Enterococcus (principal); G93.41 Metabolic encephalopathy; N17.0 Acute kidney failure with tubular necrosis; I13.0 Hypertensive heart and chronic kidney disease with heart failure and stage 1 through stage 4 chronic kidney disease, or unspecified chronic kidney disease; N39.0 Urinary tract infection, site not specified; J96.11 Chronic respiratory failure with hypoxia; I48.20 Chronic atrial fibrillation, unspecified; I50.32 Chronic diastolic (congestive) heart failure; F17.200 Nicotine dependence, unspecified, uncomplicated; E78.5 Hyperlipidemia, unspecified; E11.22 Type 2 diabetes mellitus with diabetic chronic kidney disease; E03.9 Hypothyroidism, unspecified; D63.8 Anemia in other chronic diseases classified elsewhere; Z66 Do not resuscitate; E11.65 Type 2 diabetes mellitus with hyperglycemia; G40.909 Epilepsy, unspecified, not intractable, without status epilepticus; N18.3 Chronic kidney disease, stage 3 (moderate); F32.9 Major depressive disorder, single episode, unspecified; F41.9 Anxiety disorder, unspecified; E11.42 Type 2 diabetes mellitus with diabetic polyneuropathy; R26.9 Unspecified abnormalities of gait and mobility; J44.9 Chronic obstructive pulmonary disease, unspecified; I25.2 Old myocardial infarction; Z79.890 Hormone replacement therapy; Z79.01 Long term (current) use of anticoagulants; Z79.84 Long term (current) use of oral hypoglycemic drugs; Z79.899 Other long term (current) drug therapy; Z88.5 Allergy status to narcotic agent; Z88.2 Allergy status to sulfonamides; Z88.8 Allergy status to other drugs, medicaments and biological substances; Z91.041 Radiographic dye allergy status; Z90.49 Acquired absence of other specified parts of digestive tract; Z98.890 Other specified postprocedural states; Z98.51 Tubal ligation status; Z85.3 Personal history of malignant neoplasm of breast; Z86.73 Personal history of transient ischemic attack (TIA), and cerebral infarction without residual deficits; Z82.5 Family history of asthma and other chronic lower respiratory diseases; Z99.81 Dependence on supplemental oxygen; Z83.79 Family history of other diseases of the digestive system
CPT/HCPCS: 36415; 71046; 80048; 80053; 81001; 82533; 83605; 84484; 85025; 85610; 85730; 87040; 87077; 87086; 87186; 87502; 93005; 94640; 96361; 96374; 99285